=== PATIENT | male | born 1955 | race Caucasian/White ===

== ENCOUNTER 2020-07-08 14:32 | Outpatient (REF) | payer MEDICARE, SELFPAY ==
[2020-07-08 16:24] LABS: MANUAL DIFF FLAG NO
[2020-07-08 16:29] LABS: Basophils Absolute Auto 0.1 X10*3/uL (0.0-0.2); Basophils Percent Auto 0.6 % (0-2); Eosinophils Absolute Auto 0.3 X10*3/uL (0.0-0.4); Hematocrit 40.4 % (42-52); Hemoglobin 14.1 g/dl (14.0-18.0); Imm Gran Abs Auto 0.02 X10*3/uL (0.00-0.03); Imm Gran Pct Auto 0.3 % (0.0-0.4); Lymphocytes Absolute Auto 2.7 X10*3/uL (1.2-4.9); Lymphocytes Percent Auto 34.5 % (20-40); Mean Corpuscular HGB Conc 34.9 g/dl (31.0-36.0); Mean Corpuscular Hemoglobin 33.4 pg (27.0-33.0); Mean Corpuscular Volume 95.7 fL (80-98); Mean Platelet Volume 10.1 fL (9.4-12.4); Monocytes Absolute Auto 0.7 X10*3/uL (0.1-1.2); Monocytes Percent Auto 9.3 % (2-11); Neutrophils Percent Auto 51.3 % (45-73); Platelet Count 209 X10*3/uL (160-400); Red Blood Count 4.22 X10*6/uL (4.60-5.80); Red Cell Distribution Width 13.3 % (11.0-16.0); White Blood Count 7.7 X10*3/uL (4.8-10.8)
[2020-07-08 16:34] LABS: Estimated Average Glucose 120 mg/dL; Hemoglobin A1c % 5.8 %
[2020-07-08 16:54] LABS: Alanine Aminotransferase 38 U/L (0-40); Albumin Level 4.4 g/dL (3.5-5.0); Alkaline Phosphatase 88 U/L (39-117); Anion Gap 13 (12-20); Aspartate Amino Transferase 31 U/L (5-37); Bilirubin Total 1.1 mg/dL (0.0-1.0); Blood Urea Nitrogen 14 mg/dL (9-16); Calcium 9.6 mg/dL (8.4-10.2); Carbon Dioxide 25 mmol/L (22-29); Chloride 105 mmol/L (96-108); Estimated Glomerular Filt Rate > 60; Glucose Random 72 mg/dL (60-115); Potassium 4.1 mmol/L (3.3-5.1); Sodium 139 mmol/L (135-145); Total Protein 7.7 g/dL (6.5-8.0)
[2020-07-08 17:15] LABS: TSH reflex Free T4 1.08 uIU/mL (0.32-4.0)
[2020-07-08 17:17] LABS: Vitamin B12 681 pg/mL (200-900)
== END 2020-07-08 14:33 | disposition home or self-care (01) ==
LOC: HO.HMGCLDS 14:32
PROVIDERS: PCP Internal Medicine; Visit Provider Internal Medicine
DX: R26.89 Other abnormalities of gait and mobility (principal); I10 Essential (primary) hypertension; E78.9 Disorder of lipoprotein metabolism, unspecified; E13.9 Other specified diabetes mellitus without complications; Z79.4 Long term (current) 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
CPT/HCPCS: 36415; 80053; 82607; 83036; 84443; 85025

== ENCOUNTER → 2020-08-06 08:48 | Outpatient (BNVA) | payer MEDICARE, SELFPAY | PROVIDERS: PCP Internal Medicine; Referring Provider Internal Medicine; Visit Provider Internal Medicine Cardiovascular Disease | DX: I25.10 Atherosclerotic heart disease of native coronary artery without angina pectoris (principal); I73.9 Peripheral vascular disease, unspecified; E78.5 Hyperlipidemia, unspecified | CPT/HCPCS: 93005; 99212 ==

== ENCOUNTER 2020-08-19 07:08 | Outpatient (REF) | payer MEDICARE, SELFPAY ==
--- NOTE | ~2020-08-19 | MR_ITS ---
EXAMINATION: MR BRAIN WITHOUT CONTRAST CLINICAL INFORMATION: Multifactorial gait disorder. COMPARISON: None available. TECHNIQUE: Multiplanar, multisequence imaging of the brain was performed without intravenous contrast. FINDINGS: There is no acute infarction, hemorrhage, mass, or extra-axial fluid collection. There is disproportionate prominence of the lateral and third ventricles, effacement of the gyri at the frontal parietal vertex and narrowing of the callosal angle. A few scattered foci of T2/FLAIR hyperintensity are seen within the periventricular and deep cerebral white matter which are nonspecific. The major arterial flow voids are preserved at the skull base. The orbital contents appear normal. There is mild paranasal sinus mucosal thickening without fluid levels. 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 No acute infarct, mass, or extra-axial fluid collection.
== END 2020-08-19 07:09 | disposition home or self-care (01) ==
LOC: HO.MRI 07:08
PROVIDERS: PCP Internal Medicine; Visit Provider Psychiatry & Neurology Neurology
DX: R26.89 Other abnormalities of gait and mobility (principal)
CPT/HCPCS: 70551

== ENCOUNTER 2020-09-22 07:44 | Outpatient (REF) | payer MEDICARE, SELFPAY ==
[2020-09-22 12:01] LABS: Estimated Average Glucose 143 mg/dL; Hemoglobin A1c % 6.6 %
[2020-09-22 12:02] LABS: Anion Gap 11 (12-20); Blood Urea Nitrogen 15 mg/dL (9-16); Calcium 9.9 mg/dL (8.4-10.2); Carbon Dioxide 27 mmol/L (22-29); Chloride 106 mmol/L (96-108); Cholesterol 157 mg/dL; Estimated Glomerular Filt Rate 58; Glucose Fasting 131 mg/dL (60-99); HDL Cholesterol 50 mg/dL; LDL Cholesterol Calculated 56 mg/dl; Potassium 4.2 mmol/L (3.3-5.1); Sodium 140 mmol/L (135-145); Triglycerides 257 mg/dL
[2020-09-22 12:13] LABS: Creatinine Urine 97.93 mg/dL; Microalbum/Creatinine Ratio Ur 64.3 ug/mg cr
== END 2020-09-22 07:45 | disposition home or self-care (01) ==
LOC: HO.HMGCLDS 07:44
PROVIDERS: PCP Internal Medicine; Visit Provider Internal Medicine Cardiovascular Disease
DX: E13.9 Other specified diabetes mellitus without complications (principal); E78.9 Disorder of lipoprotein metabolism, unspecified; Z79.4 Long term (current) 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
CPT/HCPCS: 36415; 80048; 80061; 82043; 83036

== ENCOUNTER → 2020-11-18 09:22 | Outpatient (BNVA) | payer MEDICARE, SELFPAY | PROVIDERS: PCP Internal Medicine; Referring Provider Internal Medicine; Visit Provider Internal Medicine Cardiovascular Disease | DX: I25.10 Atherosclerotic heart disease of native coronary artery without angina pectoris (principal); I10 Essential (primary) hypertension | CPT/HCPCS: 99212 ==

== ENCOUNTER 2021-06-30 08:55 | Outpatient (REF) | payer MEDICARE, SELFPAY ==
[2021-06-30 12:01] LABS: Estimated Average Glucose 120 mg/dL; Hemoglobin A1c % 5.8 %
[2021-06-30 12:13] LABS: Alanine Aminotransferase 11 U/L (0-40); Albumin Level 4.7 g/dL (3.5-5.0); Alkaline Phosphatase 95 U/L (39-117); Anion Gap 14 (12-20); Aspartate Amino Transferase 24 U/L (5-37); Bilirubin Total 1.2 mg/dL (0.0-1.0); Blood Urea Nitrogen 13 mg/dL (9-16); Calcium 10.5 mg/dL (8.4-10.2); Carbon Dioxide 25 mmol/L (22-29); Chloride 103 mmol/L (96-108); Cholesterol 154 mg/dL; Estimated Glomerular Filt Rate 56; Glucose Fasting 99 mg/dL (60-99); HDL Cholesterol 51 mg/dL; LDL Cholesterol Calculated 76 mg/dl; Potassium 4.6 mmol/L (3.3-5.1); Sodium 137 mmol/L (135-145); Total Protein 8.3 g/dL (6.5-8.0); Triglycerides 137 mg/dL
[2021-06-30 12:17] LABS: Creatinine Urine 117.18 mg/dL; Microalbum/Creatinine Ratio Ur 22.1 ug/mg cr
== END 2021-06-30 08:56 | disposition home or self-care (01) ==
LOC: HO.HMGCLDS 08:55
PROVIDERS: Absent Provider Internal Medicine Cardiovascular Disease; PCP Internal Medicine; Visit Provider Internal Medicine
DX: I25.10 Atherosclerotic heart disease of native coronary artery without angina pectoris (principal); E13.9 Other specified diabetes mellitus without complications; E78.9 Disorder of lipoprotein metabolism, unspecified; L40.9 Psoriasis, unspecified; I10 Essential (primary) hypertension; G20 Parkinson's disease; Z79.4 Long term (current) 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
CPT/HCPCS: 36415; 80053; 80061; 82043; 83036

== ENCOUNTER → 2021-06-30 13:36 | Outpatient (REF) | payer MEDICARE, SELFPAY ==
--- NOTE | 2021-06-30 13:43 | CA_ITS ---
Transthoracic Echocardiogram Patient (Last, First, Middle): Jersey Quigley A Gender: Male Date of : 1955 Age: 65 Procedure Date: 06/30/2021 Procedure Type: Transthoracic Echocardiogram Location: OP Height: 182.88 cm Weight: 93.9 kg BSA: 2.16 m2 Heart Rate: bpm BP: 130 / 80 mmHg Corporate Coordinator: MARÍA Referring MD: Levy Bazan MD Cherry Dipper: Levy Bazan MD Symptoms: I25.10 - Atherosclerotic heart disease of [place] coronary... Study Quality: Technically Difficult/Contrast ECG Rhythm: Sinus Conclusions: - 1. Technically limited study despite use of contrast agent 2. Normal LV systolic function with impaired relaxation filling pattern 3. Normal cardiac valvular Dopplers 4. Normal RV systolic pressure Findings Procedure Information Contrast agent, definity, is being given per protocol without apparent complications. Left Ventricle Normal left ventricular size, thickness, and systolic function. The visually estimated ejection fraction is between 55-60%. Spectral Doppler is indicative of an impaired relaxation filling pattern. E/E prime ratio is <8, consistent with normal filling pressures. Wall Motion Rest Echo Findings The basal inferior segment is hypokinetic. All other scored wall segments showed normal motion. Right Ventricle Normal right ventricular cavity size and systolic function. Atria Both atria are normal in size. Interatrial shunt cannot be excluded. Aortic Valve The aortic valve was not well visualized. There is no aortic valve stenosis. There is no aortic valve regurgitation. Mitral Valve There is mild anterior and posterior mitral leaflet thickening. There is mild mitral valve regurgitation. There is no mitral valve stenosis. Tricuspid Valve The tricuspid valve was not well visualized. There is trace tricuspid valve regurgitation. The right ventricular systolic pressure is normal. The right ventricular systolic pressure is 13 mmHg. Normal right atrial pressure. There is no evidence of pulmonary hypertension. Great Vessels The aorta was not well visualized. Venous The inferior vena cava is normal in size and collapses greater than 50% with inspiration. Pericardium/Pleural The pericardium was not well visualized. Prior Study Comparison No significant change compared to prior study dated: 08/11/2017. Measurements 2D Linear Measurements IVSd: 1.10 0.6-0.9/0.6-1.0 cm LVIDd: 4.27 3.9-5.3/4.2-5.9 cm LVIDd Index: 1.98 2.4-3.2/2.2-3.1 cm/m2 LVIDs: 2.71 2.0-3.6 cm LVPWd: 1.12 0.7-1.1 cm LA Diam: 3.00 2.7-3.8/3.0-4.0 cm LAIDs Index: 1.39 1.5-2.3 cm/m2 LV Mass: 203.33 67-162/88-224 g LV Mass Index: 94.13 43-95/49-115 g/m2 LVOT Diam: 2.10 3.0+(-)1.3 cm 2D Systolic Function EF 4C: 57.10 >55% EF 2C: 53.50 >55% EF BiP: 56.10 >55% Mitral Valve MV Pk E: 0.74 MV PK A: 0.84 MV Decel Time: 176.00 E/A: 0.90 E'Lateral: 6.53 E'Medial: 5.55 E/E' Med: 13.40 E/E' Lat: 11.30 PHT: 52.00 MVA PHT: 4.23 Decel Curry: 4.20 Aortic Valve AoV Pk Adrian: 1.33 AoV Mn Adrian: 0.97 AoV VTI: 0.24 AoV Pk Grad: 7.00 Aov Mn Grad: 4.00 RAISA Cont.VTI: 1.90 LVOT LVOT Pk Adrian: 0.88 LVOT Mn Adrian: 0.54 LVOT VTI: 0.13 LVOT Pk Grad: 3.00 LVOT Mn Grad: 1.00 LVOT Diam: 2.10 LVOT Area: 3.46 Diastolic Function MV Pk E: 0.74 MV Pk A: 0.84 E/A: 0.90 E'Medial: 5.55 E/E' Med: 13.40 E' Laterial: 6.53 E/E' Lat: 11.30 Right Ventricle TAPSE (mm): 17.50 TVS' Adrian: 10.40 Tricuspid Valve TR Pk Adrian: 1.57 TR Pk Grad: 10.00 RA Press: 3.00 RVSP: 13.00 Great Vessels Aorta Sinus of Valsalva: 3.37 2.0-3.5 cm Ao Asc: 3.40 2.1-3.4 cm Ao Arch: 2.40 Updated in Other Vendor System with Status of Final Levy Bazan MD electronically signed on 07/02/2021 2:53:50 PM with status of Final
== END ==
LOC: HO.CARD 13:36
PROVIDERS: PCP Internal Medicine; Visit Provider Internal Medicine Cardiovascular Disease
DX: I25.10 Atherosclerotic heart disease of native coronary artery without angina pectoris (principal)
CPT/HCPCS: 93306; Q9957

== ENCOUNTER → 2021-07-06 08:59 | Outpatient (BNVA) | payer MEDICARE, SELFPAY | PROVIDERS: PCP Internal Medicine; Referring Provider Internal Medicine; Visit Provider Internal Medicine Cardiovascular Disease | DX: I25.10 Atherosclerotic heart disease of native coronary artery without angina pectoris (principal); I10 Essential (primary) hypertension | CPT/HCPCS: 93005; 99212 ==

== ENCOUNTER 2021-07-21 07:17 | Outpatient (REF) | payer MEDICARE, SELFPAY ==
--- NOTE | ~2021-07-21 | MR_ITS ---
MRI OF THE BRAIN WITHOUT IV CONTRAST INDICATION: Normal pressure hydrocephalus. COMPARISON: Brain MRI 08/19/2020. TECHNIQUE: Multiplanar multisequence MR imaging of the brain was obtained without IV contrast. FINDINGS: There is stable moderate to severe lateral and third ventriculomegaly associated with a narrowed callosal angle of 42 degrees, findings most suggestive of normal pressure hydrocephalus. Periventricular T2 signal changes may reflect transependymal CSF flow and/or chronic microangiopathy. The major flow voids at the skull base are preserved. There is no acute infarct on diffusion-weighted imaging. There is no intracranial hemorrhage on the gradient recalled echo acquisition. The midline structures are normal. The cerebellar tonsils are normally positioned. The cerebellum and brainstem are normal. The craniocervical junction is normal. Osseous marrow signal intensity is homogenous. The visualized soft tissues are unremarkable. MR/MR head/brain wo con IMPRESSION: Imaging findings remain most suggestive of normal pressure hydrocephalus. Periventricular T2 signal changes may reflect transependymal CSF flow and/or chronic microangiopathy.
== END 2021-07-21 07:18 | disposition home or self-care (01) ==
LOC: HO.MRI 07:17
PROVIDERS: Visit Provider Psychiatry & Neurology Neurology
DX: G91.2 (Idiopathic) normal pressure hydrocephalus (principal)
CPT/HCPCS: 70551

== ENCOUNTER 2021-07-21 08:09 | Day surgery (SDC) | payer MEDICARE, SELFPAY ==
[2021-07-21] VITALS (7 sets, daily range): BP systolic 135–156; BP diastolic 68–81; PULSE 62–71; RESP 16–18; TEMP 36.4–37; O2SAT 97–99; BMI 27.9
[2021-07-21 10:21] LABS: Glucose CSF 85 mg/dL; Total Protein CSF 66.6 mg/dL (15-45)
--- NOTE | 2021-07-21 10:37 | OP_ITS ---
SURGEON: Yaneth Tanner MD PREOPERATIVE DIAGNOSIS: POSTOPERATIVE DIAGNOSIS: PROCEDURE PERFORMED: Lumbar puncture. Risks and benefits of lumbar puncture were discussed with him in detail including possibility of low back pain, nerve injury, infection intractable headache that sometime required similar procedure for treatment, leg pain, numbness, weakness. His questions were answered before the procedure. He was placed in left lateral position. Lower lumbar area was cleaned with Betadine and draped. 1% lidocaine was injected in L5-S1 space. A 21-gauge spinal needle was introduced in CSF cavity. Clear CSF was obtained. Opening pressure was 19 cm water. About 15 cc of clear CSF was removed. Trocar was replaced and needle removed. Area was cleaned and a Band-Aid applied. Right after the procedure, he was asked to get up and walk around and his walking, according to him, was much better. He was not using any assistive device at that time. CSF was sent to the lab. ESTIMATED BLOOD LOSS: COMPLICATIONS: ANESTHESIA: ASSISTANTS: SPECIMENS: MD FEI Fajardo/YOLY / [id number]
[2021-07-21 11:01] LABS: Appearance CSF CLEAR; CSF Tube # 4; Color CSF COLORLESS; Lymphocytes CSF 100 %; Red Blood Cell CSF 0 MM*3; White Blood Cell CSF 1 MM*3
[2021-07-21 14:01] LABS: CSF Appearance Clear, Colorless; CSF Tube # 1
== END 2021-07-21 10:00 | disposition home or self-care (01) ==
PROVIDERS: PCP Internal Medicine; Visit Provider Psychiatry & Neurology Neurology
PROC: 009U3ZZ Drainage of Spinal Canal, Percutaneous Approach (ICD-10-PCS; CPT 62270; principal; 2021-07-21 08:00)
DX: G91.2 (Idiopathic) normal pressure hydrocephalus (principal); G20 Parkinson's disease; R26.89 Other abnormalities of gait and mobility; Z91.81 History of falling; I25.10 Atherosclerotic heart disease of native coronary artery without angina pectoris; I25.42 Coronary artery dissection; Z98.61 Coronary angioplasty status; E11.9 Type 2 diabetes mellitus without complications; Z79.4 Long term (current) 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; G62.9 Polyneuropathy, unspecified; G47.00 Insomnia, unspecified; Z87.891 Personal history of nicotine dependence; M19.90 Unspecified osteoarthritis, unspecified site; Z96.643 Presence of artificial hip joint, bilateral; L40.9 Psoriasis, unspecified; Z79.899 Other long term (current) drug therapy
CPT/HCPCS: 62270; 82945; 84157; 87015; 87070; 87205; 89051

== ENCOUNTER 2022-06-30 09:05 | Outpatient (REF) | payer MEDICARE, SELFPAY ==
--- NOTE | ~2022-06-30 | US_ITS ---
EXAMINATION: US ABDOMEN COMPLETE CLINICAL INFORMATION: Pain increasing abdominal circumference with shunt.. COMPARISON: None available. TECHNIQUE: Real-time imaging of the abdominal viscera. FINDINGS: PANCREAS: Partially visualized pancreas within normal limits. ABDOMINAL AORTA: Some atherosclerotic changes seen. No aneurysmal change INFERIOR VENA CAVA: Visualized portions are normal. The liver measures 17.9 cm characterized by increased echogenicity. Coarse and echogenicity. Liver is incompletely visualized due to decreased penetrability of the beam. No lesion on the imaging submitted. Gallbladder shows no convincing evidence of stone or edema. Common duct is 3 mm. The right kidney is 13 cm and left kidney is 12 cm. No hydronephrosis. There is no stone. Spleen is 11 cm. Scanning of the upper quadrants and lower quadrants does not demonstrate free fluid. US/US abdomen complete IMPRESSION: No free fluid is demonstrated here. No evidence of cholelithiasis or cholecystitis. Enlarged incompletely visualized echogenic liver most consistent with fatty change. Cirrhosis would be a consideration. Hepatitis be consideration.
[2022-06-30 11:23] LABS: MANUAL DIFF FLAG NO
[2022-06-30 11:37] LABS: Basophils Absolute Auto 0.1 X10*3/uL (0.0-0.2); Basophils Percent Auto 1.1 % (0-2); Eosinophils Absolute Auto 0.2 X10*3/uL (0.0-0.4); Eosinophils Percent Auto 2.5 % (0-4); Hematocrit 44.5 % (42.0-52.0); Hemoglobin 15.1 g/dl (14.0-18.0); Imm Gran Abs Auto 0.02 X10*3/uL (0.00-0.03); Imm Gran Pct Auto 0.3 % (0.0-0.4); Lymphocytes Absolute Auto 1.5 X10*3/uL (1.2-4.9); Lymphocytes Percent Auto 21.4 % (20-40); Mean Corpuscular HGB Conc 33.9 g/dl (31.0-36.0); Mean Corpuscular Hemoglobin 32.2 pg (27.0-33.0); Mean Corpuscular Volume 94.9 fL (80.0-98.0); Mean Platelet Volume 10.4 fL (9.4-12.4); Monocytes Absolute Auto 0.6 X10*3/uL (0.1-1.2); Monocytes Percent Auto 8.8 % (2-11); Neutrophils Absolute Auto 4.7 x10*3/uL (2.0-8.3); Neutrophils Percent Auto 65.9 % (45-73); Platelet Count 227 X10*3/uL (160-400); Red Blood Count 4.69 X10*6/uL (4.60-5.80); Red Cell Distribution Width 13.2 % (11.0-16.0); White Blood Count 7.1 X10*3/uL (4.8-10.8)
[2022-06-30 11:51] LABS: Alanine Aminotransferase 31 U/L (0-40); Albumin Level 4.6 g/dL (3.5-5.0); Alkaline Phosphatase 105 U/L (39-117); Anion Gap 15 (12-20); Aspartate Amino Transferase 22 U/L (5-37); Bilirubin Total 1.6 mg/dL (0.0-1.0); Blood Urea Nitrogen 13 mg/dL (9-16); Carbon Dioxide 25 mmol/L (22-29); Chloride 106 mmol/L (96-108); Cholesterol 137 mg/dL; Estimated Glomerular Filt Rate > 60; Glucose Fasting 120 mg/dL (60-99); HDL Cholesterol 37 mg/dL; LDL Cholesterol Calculated 78 mg/dl; Potassium 4.8 mmol/L (3.3-5.1); Sodium 141 mmol/L (135-145); Total Protein 7.8 g/dL (6.5-8.0); Triglycerides 111 mg/dL
[2022-06-30 12:21] LABS: Estimated Average Glucose 120 mg/dL; Hemoglobin A1C 152.5356 umol/L; Hemoglobin A1c % 5.8 %
== END 2022-06-30 09:06 | disposition home or self-care (01) ==
LOC: HO.HMGCLDS 09:05
PROVIDERS: PCP Internal Medicine; Visit Provider Internal Medicine
DX: R10.11 Right upper quadrant pain (principal); E13.9 Other specified diabetes mellitus without complications; I10 Essential (primary) hypertension; E78.9 Disorder of lipoprotein metabolism, unspecified; Z98.2 Presence of cerebrospinal fluid drainage device
CPT/HCPCS: 36415; 76700; 80053; 80061; 83036; 85025

== ENCOUNTER → 2022-07-28 09:05 | Outpatient (BNVA) | payer MEDICARE, SELFPAY | PROVIDERS: PCP Internal Medicine; Referring Provider Internal Medicine; Visit Provider Internal Medicine Cardiovascular Disease | DX: I25.10 Atherosclerotic heart disease of native coronary artery without angina pectoris (principal); I10 Essential (primary) hypertension; Z79.899 Other long term (current) drug therapy | CPT/HCPCS: 93005; 99212 ==

== ENCOUNTER 2022-10-11 08:44 | Outpatient (AMB) | payer MEDICARE, SELFPAY ==
--- NOTE | 2022-10-11 08:45 | A.OFFPC_ITS ---
Vital Signs 10/11/22 08:49 Height 6 ft Weight 204 lb 8 oz BMI 27.7 BP 120/62 Blood Pressure Location Rt brachial Position Sitting Pulse 96 Pulse Source Pulse Oximeter Pulse Oximetry (%) 99 Oxygen Delivery Method Room Air Intake Visit Reasons: PE Allergies No Known Allergies [No Known Allergies*] Allergy (Verified 08/02/22 08:42) Medication List - Last Reconciled 10/11/22 by Padma Tanner MD aspirin (Adult Low Dose Aspirin) 81 mg PO DAILY blood sugar diagnostic ([employer] Ultra Blue Test Strip) check sugar three times a day cholecalciferol (vitamin D3) 25 mcg PO DAILY clopidogrel 75 mg PO DAILY cyanocobalamin (vitamin B-12) (Vitamin B-12) 1,000 mcg PO DAILY ezetimibe 10 mg PO DAILY insulin glargine U-300 conc (Toujeo Max U-300 SoloStar) 100 units (0.3333 mL) s ubcut DAILY 90 days lisinopril 2.5 mg PO DAILY 90 days omega-3 acid ethyl esters 2 caps PO BID omeprazole 20 mg PO DAILY 90 days pen needle, diabetic (Pen Needle) use one daily rosuvastatin 40 mg PO DAILY 90 days Tobacco use date assessed: 08/02/22 HPI PE HPI Details Patient is 67-year-old male came in today for physical exam Patient is insulin-dependent diabetic with well controlled hemoglobin A1c Patient have a 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 He also have a history of left hip replacement. Joints are doing well. He is complaining of feeling tired, since he is on blood thinner he he will need hemoglobin monitoring. History of vitamin B12 deficiency and vitamin-D deficiency we will monitor the level Patient is on rosuvastatin 40 mg for lipid control And omeprazole for chronic GERD along with insulin for diabetes. He has intracranial shunt placed as well due to hydrocephalus, since the shunt is placed patient is doing well Before that patient was given a diagnosis of Parkinson's due to his symptoms but that has resolved. Lab order placed patient is fasting Follow-up Q 3 months, physical exam 1 year [facility] Medical History CAD (coronary artery disease) Diabetes 1.5, managed as type 1 HLD (hyperlipidemia) HTN (hypertension) Lipid disorder MCFP (current) 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 Old inferior wall myocardial infarction (~07/2004) Psoriasis Pulmonary embolism Vitamin D deficiency Surgical History Herniated disc History of cardiac cath (~12/2014) History of cardiac cath (~12/2014) History of cardiac cath (~10/2016) History of hip replacement History of knee surgery History of shoulder surgery History of surgery Hx of cardiac cath (~10/2009) Family History Father Diabetes mellitus Mother No problems noted. Brother No problems noted. Son No problems noted. Daughter No problems noted. Social History Household Members: Spouse Household Members Other:: retired, lives in [place] for the winter Housing: House Patient Tobacco Use Status: Former Tobacco user Years Smoked: 20 years e-Cigarette/Vaping Use: Never Used Current occupational status: retired Cognitive needs: No Hearing needs: No Vision needs: Yes Questionnaire PHQ-9 Over the last 2 weeks, how often have you been bothered by any of the following problems? 1. Little interest or pleasure in doing things: not at all 2. Feeling down, depressed, or hopeless: not at all 3. Trouble falling or staying asleep, or sleeping too much: nearly every day 4. Feeling tired or having little energy: more than half the days 5. Poor appetite or overeating: not at all 6. Feeling bad about yourself - or that you are a failure or have let yourself or your family down: not at all 7. Trouble concentrating on things, such as reading the newspaper or watching television: not at all 8. Moving or speaking so slowly that other people could have noticed. Or the opposite - being so fidgety or restless that you have been moving around a lot more than usual: nearly every day 9. Thoughts that you would be better off or of hurting yourself in some way: not at all Total score: 8 Depression Screening Interpretation: Negative 84165 - PHQ-9 Billing: Yes Source: Developed by Drs. Anthony Yang, Mirna Griggs, Damian Nava and colleagues, with an educational angelo from [employer]. Thrive Questionnaire Date Thrive assessed: 06/30/21 BRITTANY-7 AMB Questionnaire BRITTANY-7 Date BRITTANY - 7 assessed: 06/30/21 Source: Developed by Drs. Anthony Yang, Mirna Griggs, Damian Nava and colleagues, with an educational angelo from [employer]. Review of Systems Const Denies chills, Denies fever(s) and Denies headache(s) Eyes Denies blurry vision ENT Denies headache(s), Denies nasal discharge, Denies nasal obstruction, Denies odynophagia and Denies sinus pain Card Denies chest pain at rest and Denies chest pain with activity Resp Denies cough and Denies hemoptysis GI Denies diarrhea, Denies odynophagia, Denies vomiting and Denies hematemesis Reports as per HPI Musc Denies abnormal gait Skin/Breast Reports as per HPI Neuro Denies Neuro-related abnormal movements, Denies Abnormal speech present, Denies abnormal gait, Denies headache(s) and Denies Sensory deficit (Neuro) Psych Denies mood swings and Denies paranoia Endo Reports as per HPI Renan/Lymph Reports as per HPI Aller/Immun Reports as per HPI Physical exam (Primary Care) Vital Signs: Last Vital Signs Pulse 96 10/11/22 08:49 BP 120/62 10/11/22 08:49 Pulse Ox 99 10/11/22 08:49 Oxygen Delivery Method Room Air 10/11/22 08:49 BMI result Body Mass Index 27.7 Tobacco/Smoking Status: Tobacco use Status Tobacco use date assessed 08/02/22 10/11/22 08:45 Patient Tobacco Use Status Former Tobacco user 10/11/22 08:45 e-Cigarette/Vaping Use Never Used 10/11/22 08:45 Depression Screening Interpretation: Negative Thrive Assessment: Date of Thrive Assessment Date Thrive assessed 06/30/21 10/11/22 08:45 Const General: cooperative, comfortable and no acute distress Orientation/consciousness: patient oriented x3 HENMT Head: Yes normocephalic and Yes atraumatic Eyes General: appearance normal, both eyes and all related structures Pupils: Equal, round and reactive pupils present EOM: EOMs intact bilaterally Neck Neck: Yes supple and No lymphadenopathy Thyroid: Thyroid normal Lymphatic: no lymphadenopathy noted Chest Breast/axilla palpation: normal palpation of the breasts Resp Effort & Inspection: normal respiratory effort and able to speak in complete sentences Auscultation: clear to auscultation bilaterally Cardio Heart sounds: S1 normal heart sound present and S2 normal heart sound present GI Palpation (GI): Soft to palpation and nontender Auscultation: normal bowel sounds General: Yes no CVA tenderness Back/Spine/Pelvis Back: no CVA tenderness Skin General skin exam: elasticity normal and turgor normal Neuro Other: Patient had difficulty doing tandem walk General: patient oriented x3 and gait normal Cranial nerves: Yes Equal, round and reactive pupils present Speech: No Abnormal speech present Sensory Exam: No Sensory deficit (Neuro) Coordination: Romberg test negative Extrem General: Yes normal exam except as noted and No edema Assessment and Plan Assessment & Plan (1) Encounter for general adult medical examination with abnormal findings: Code(s): Z00.01 - Encounter for general adult medical examination with abnormal findings (2) buttermaker 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 churn (current) 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: Code(s): Z79.4 - MCFP (current) 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 (3) Diabetes 1.5, managed as type 1: Code(s): E13.9 - Other specified diabetes mellitus without complications (4) Lipid disorder: Code(s): E78.9 - Disorder of lipoprotein metabolism, unspecified (5) Vitamin D deficiency: Code(s): E55.9 - Vitamin D deficiency, unspecified (6) HTN (hypertension): Code(s): I10 - Essential (primary) hypertension (7) Balance disorder: Code(s): R26.89 - Other abnormalities of gait and mobility (8) Fatigue: Code(s): R53.83 - Other fatigue (9) Hx of mcfp use of blood thinners: Code(s): Z92.29 - Personal history of other drug therapy (10) History of pulmonary embolism: Code(s): Z86.711 - Personal history of pulmonary embolism (11) Hydrocephalus: Code(s): G91.9 - Hydrocephalus, unspecified (12) Intracranial shunt: Code(s): Z98.2 - Presence of cerebrospinal fluid drainage device (13) History of bilateral hip replacements: Code(s): Z96.643 - Presence of artificial hip joint, bilateral (14) Peripheral neuropathy: Code(s): G62.9 - Polyneuropathy, unspecified Plan Patient is 67-year-old male came in today for physical exam Patient is insulin-dependent diabetic with well controlled hemoglobin A1c Patient have a 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 He also have a history of left hip replacement. Joints are doing well. He is complaining of feeling tired, since he is on blood thinner he he will need hemoglobin monitoring. History of vitamin B12 deficiency and vitamin-D deficiency we will monitor the level Patient is on rosuvastatin 40 mg for lipid control And omeprazole for chronic GERD along with insulin for diabetes. He has intracranial shunt placed as well due to hydrocephalus, since the shunt is placed patient is doing well Before that patient was given a diagnosis of Parkinson's due to his symptoms but that has resolved. Lab order placed patient is fasting Follow-up Q 3 months, physical exam 1 year Orders: Orders Vitamin B12 Today E13.9 - Other specified diabetes mellitus without complications, E55.9 - Vitamin D deficiency, unspecified, E78.9 - Disorder of lipoprotein metabolism, unspecified, I10 - Essential (primary) hypertension, R26.89 - Other abnormalities of gait and mobility, R53.83 - Other fatigue, Z00.01 - Encounter for general adult medical examination with abnormal findings, Z79.4 - MCFP (current) 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, Z86.711 - Personal history of pulmonary embolism, Z92.29 - Personal history of other drug therapy Comprehensive [place]. Panel Fast Today E13.9 - Other specified diabetes mellitus without complications, E55.9 - Vitamin D deficiency, unspecified, E78.9 - Disorder of lipoprotein metabolism, unspecified, I10 - Essential (primary) hypertension, R26.89 - Other abnormalities of gait and mobility, R53.83 - Other fatigue, Z00.01 - Encounter for general adult medical examination with abnormal findings, Z79.4 - MCFP (current) 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, Z86.711 - Personal history of pulmonary embolism, Z92.29 - Personal history of other drug therapy Hemoglobin A1c Today E13.9 - Other specified diabetes mellitus without co mplications, E55.9 - Vitamin D deficiency, unspecified, E78.9 - Disorder of lipoprotein metabolism, unspecified, I10 - Essential (primary) hypertension, R26.89 - Other abnormalities of gait and mobility, R53.83 - Other fatigue, Z00.01 - Encounter for general adult medical examination with abnormal findings, Z79.4 - buttermaker continuous churn (current) 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, Z86.711 - Personal history of pulmonary embolism, Z92.29 - Personal history of other drug therapy Lipid Panel Today E13.9 - Other specified diabetes mellitus without complications, E55.9 - Vitamin D deficiency, unspecified, E78.9 - Disorder of lipoprotein metabolism, unspecified, I10 - Essential (primary) hypertension, R26.89 - Other abnormalities of gait and mobility, R53.83 - Other fatigue, Z00.01 - Encounter for general adult medical examination with abnormal findings, Z79.4 - buttermaker continuous churn (current) 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, Z86.711 - Personal history of pulmonary embolism, Z92.29 - Personal history of other drug therapy TSH reflex Free T4 Today E13.9 - Other specified diabetes mellitus without complications, E55.9 - Vitamin D deficiency, unspecified, E78.9 - Disorder of lipoprotein metabolism, unspecified, I10 - Essential (primary) hypertension, R26.89 - Other abnormalities of gait and mobility, R53.83 - Other fatigue, Z00.01 - Encounter for general adult medical examination with abnormal findings, Z79.4 - buttermaker continuous churn (current) 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, Z86.711 - Personal history of pulmonary embolism, Z92.29 - Personal history of other drug therapy Vitamin D 25-OH (D2 and D3) Today E13.9 - Other specified diabetes mellitus without complications, E55.9 - Vitamin D deficiency, unspecified, E78.9 - Disorder of lipoprotein metabolism, unspecified, I10 - Essential (primary) hypertension, R26.89 - Other abnormalities of gait and mobility, R53.83 - Other fatigue, Z00.01 - Encounter for general adult medical examination with abnormal findings, Z79.4 - MCFP (current) 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, Z86.711 - Personal history of pulmonary embolism, Z92.29 - Personal history of other drug therapy Microalbumin, Random (w Creat) Today E13.9 - Other specified diabetes mellitus without complications, E55.9 - Vitamin D deficiency, unspecified, E78.9 - Disorder of lipoprotein metabolism, unspecified, I10 - Essential (primary) hypertension, R26.89 - Other abnormalities of gait and mobility, R53.83 - Other fatigue, Z00.01 - Encounter for general adult medical examination with abnormal findings, Z79.4 - buttermaker continuous churn (current) 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, Z86.711 - Personal history of pulmonary embolism, Z92.29 - Personal history of other drug therapy Complete Blood Count Auto Diff Today E13.9 - Other specified diabetes mellitus without complications, E55.9 - Vitamin D deficiency, unspecified, E78.9 - Disorder of lipoprotein metabolism, unspecified, I10 - Essential (primary) hypertension, R26.89 - Other abnormalities of gait and mobility, R53.83 - Other fatigue, Z00.01 - Encounter for general adult medical examination with abnormal findings, Z79.4 - buttermaker continuous churn (current) 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, Z86.711 - Personal history of pulmonary embolism, Z92.29 - Personal history of other drug therapy Coding Level of Care Code Est Pt Prev Care >65y(07928) Diagnoses Encounter for general adult medical examination with abnormal findings Z00.01 MCFP (current) 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 Z79.4 Diabetes 1.5, managed as type 1 E13.9 Lipid disorder E78.9 Vitamin D deficiency E55.9 HTN (hypertension) I10 Balance disorder R26.89 Fatigue R53.83 Hx of mcfp use of blood thinners Z92.29 History of pulmonary embolism Z86.711 Hydrocephalus G91.9 Intracranial shunt Z98.2 History of bilateral hip replacements Z96.643 Peripheral neuropathy G62.9
[2022-10-11 08:49] VITALS: BP 120/62; PULSE 96; O2SAT 99; BMI 27.7
== END 2022-10-11 09:06 | disposition home or self-care (01) ==
PROVIDERS: PCP Internal Medicine; Visit Provider Internal Medicine
DX: Z00.01 Encounter for general adult medical examination with abnormal findings (principal); Z79.4 Long term (current) 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; E13.9 Other specified diabetes mellitus without complications; E55.9 Vitamin D deficiency, unspecified; I10 Essential (primary) hypertension; E78.9 Disorder of lipoprotein metabolism, unspecified; R26.89 Other abnormalities of gait and mobility; R53.83 Other fatigue; Z92.29 Personal history of other drug therapy; Z86.711 Personal history of pulmonary embolism; G91.9 Hydrocephalus, unspecified; Z98.2 Presence of cerebrospinal fluid drainage device
CPT/HCPCS: 99397

== ENCOUNTER 2022-10-11 09:10 | Outpatient (REF) | payer MEDICARE, SELFPAY ==
[2022-10-11 11:16] LABS: MANUAL DIFF FLAG NO
[2022-10-11 11:23] LABS: Basophils Absolute Auto 0.1 X10*3/uL (0.0-0.2); Basophils Percent Auto 1.1 % (0-2); Eosinophils Absolute Auto 0.3 X10*3/uL (0.0-0.4); Eosinophils Percent Auto 3.6 % (0-4); Hematocrit 44.7 % (42.0-52.0); Hemoglobin 15.2 g/dl (14.0-18.0); Imm Gran Abs Auto 0.03 X10*3/uL (0.00-0.03); Imm Gran Pct Auto 0.4 % (0.0-0.4); Lymphocytes Absolute Auto 1.9 X10*3/uL (1.2-4.9); Lymphocytes Percent Auto 23.2 % (20-40); Mean Corpuscular Hemoglobin 31.9 pg (27.0-33.0); Mean Corpuscular Volume 93.7 fL (80.0-98.0); Monocytes Absolute Auto 0.7 X10*3/uL (0.1-1.2); Neutrophils Absolute Auto 5.2 x10*3/uL (2.0-8.3); Neutrophils Percent Auto 63.7 % (45-73); Platelet Count 197 X10*3/uL (160-400); Red Blood Count 4.77 X10*6/uL (4.60-5.80); Red Cell Distribution Width 13.1 % (11.0-16.0); White Blood Count 8.1 X10*3/uL (4.8-10.8)
[2022-10-11 11:27] LABS: Estimated Average Glucose 117 mg/dL; Hemoglobin A1c % 5.7 % (<6.0)
[2022-10-11 12:15] LABS: Alanine Aminotransferase 25 U/L (0-40); Albumin Level 4.6 g/dL (3.5-5.0); Alkaline Phosphatase 93 U/L (39-117); Anion Gap 14 (12-20); Aspartate Amino Transferase 19 U/L (5-37); Bilirubin Total 1.6 mg/dL (0.0-1.0); Blood Urea Nitrogen 22 mg/dL (9-16); Calcium 10.5 mg/dL (8.4-10.2); Carbon Dioxide 24 mmol/L (22-29); Chloride 107 mmol/L (96-108); Cholesterol 134 mg/dL (<200); Estimated Glomerular Filt Rate 56; Glucose Fasting 156 mg/dL (60-99); HDL Cholesterol 36 mg/dL (>40); LDL Cholesterol Calculated 63 mg/dL (<100); Potassium 4.2 mmol/L (3.3-5.1); Sodium 141 mmol/L (135-145); TSH reflex Free T4 1.52 uIU/mL (0.32-4.0); Total Protein 8.4 g/dL (6.5-8.0); Triglycerides 175 mg/dL (<150)
[2022-10-11 12:21] LABS: Creatinine Urine 259.66 mg/dL; Microalbum/Creatinine Ratio Ur 12.3 ug/mg cr (<30)
[2022-10-11 12:21] LABS: Vitamin B12 424 pg/mL (200-900)
[2022-10-15 12:53] LABS: Vitamin D 25-OH, D2 <4 ng/mL; Vitamin D 25-OH, D3 36 ng/mL; Vitamin D 25-OH, Total 36 ng/mL (30-100)
== END 2022-10-11 09:11 | disposition home or self-care (01) ==
LOC: HO.HMGCLDS 09:10
PROVIDERS: PCP Internal Medicine; Visit Provider Internal Medicine
DX: Z00.01 Encounter for general adult medical examination with abnormal findings (principal); E13.9 Other specified diabetes mellitus without complications; E55.9 Vitamin D deficiency, unspecified; E78.9 Disorder of lipoprotein metabolism, unspecified; I10 Essential (primary) hypertension; R26.89 Other abnormalities of gait and mobility; R53.83 Other fatigue; Z79.4 Long term (current) 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; Z86.711 Personal history of pulmonary embolism; Z92.29 Personal history of other drug therapy
CPT/HCPCS: 36415; 80053; 80061; 82043; 82306; 82607; 83036; 84443; 85025

== ENCOUNTER 2022-12-16 11:47 | Outpatient (AMB) | payer MEDICARE, SELFPAY ==
--- NOTE | 2022-12-16 11:59 | MHC.PC.OV ---
Vital Signs 12/16/22 12:01 Height 6 ft Weight 206 lb 2 oz BMI 28.0 BP 118/60 Blood Pressure Location Rt brachial Position Sitting Pulse 83 Pulse Source Pulse Oximeter Pulse Oximetry (%) 99 Oxygen Delivery Method Room Air Intake Visit Reasons: 3 month follow up Allergies No Known Allergies [No Known Allergies*] Allergy (Verified 12/16/22 12:07) Medication List - Last Reconciled 12/16/22 by Padma Tanner MD aspirin (Adult Low Dose Aspirin) 81 mg PO DAILY blood sugar diagnostic ([employer] Ultra Blue Test Strip) check sugar three times a day cholecalciferol (vitamin D3) 25 mcg PO DAILY clopidogrel 75 mg PO DAILY cyanocobalamin (vitamin B-12) (Vitamin B-12) 1,000 mcg PO DAILY ezetimibe 10 mg PO DAILY insulin glargine U-300 conc (Toujeo Max U-300 SoloStar) 100 units (0.3333 mL) subcut DAILY 90 days lisinopril 2.5 mg PO DAILY 90 days omega-3 acid ethyl esters 2 caps PO BID omeprazole 20 mg PO DAILY 90 days pen needle, diabetic (Pen Needle) use one daily rosuvastatin 40 mg PO DAILY 90 days Tobacco use date assessed: 12/16/22 Fall risk assessment: No Falls in past year Last assessed Fall Risk: 12/16/22 Dental Screening Dental Screen Date: 12/16/22 Did you have a dental visit in the last 12 months?: Yes Did you have a dental problem in the last 6 months where you did not have access to dental care?: No Was dental information given to patient?: Patient has dentist HPI 3 month follow up HPI Details Patient is 67-year-old male came in today for regular follow-up Patient is insulin-dependent diabetic with well controlled hemoglobin A1c 5.7 I am reducing his insulin to 90 units rather than 100, long-acting at night Patient have a 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 He also have a history of left hip replacement. Joints are doing well. History of vitamin B12 deficiency and vitamin-D deficiency , continue supplements Patient is on rosuvastatin 40 mg for lipid control Taking omeprazole for chronic GERD He has intracranial shunt placed as well due to hydrocephalus, since the shunt is placed patient is doing well Before that patient was given a diagnosis of Parkinson's due to his symptoms but that has resolved. 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 Brother No problems noted. Son No problems noted. Daughter No problems noted. Social History Household Members: Spouse Household Members Other:: retired, lives in [place] for the winter Housing: House Patient Tobacco Use Status: Former Tobacco user Years Smoked: 20 years e-Cigarette/Vaping Use: Never Used Current occupational status: retired Cognitive needs: No Hearing needs: No Vision needs: Yes Questionnaire PHQ-9 Over the last 2 weeks, how often have you been bothered by any of the following problems? 1. Little interest or pleasure in doing things: not at all 2. Feeling down, depressed, or hopeless: not at all 3. Trouble falling or staying asleep, or sleeping too much: nearly every day 4. Feeling tired or having little energy: more than half the days 5. Poor appetite or overeating: not at all 6. Feeling bad about yourself - or that you are a failure or have let yourself or your family down: not at all 7. Trouble concentrating on things, such as reading the newspaper or watching television: not at all 8. Moving or speaking so slowly that other people could have noticed. Or the opposite - being so fidgety or restless that you have been moving around a lot more than usual: not at all 9. Thoughts that you would be better off or of hurting yourself in some way: not at all Total score: 5 Depression Screening Interpretation: Negative Depression Screening Done: Yes 02209 - PHQ-9 Billing: Yes Source: Developed by Drs. Anthony Yang, Mirna Griggs, Damian Nava and colleagues, with an educational angelo from [employer]. Thrive Questionnaire Date Thrive assessed: 06/30/21 AUDIT C Alcohol Use Questionnaire (AUDIT-C) 1. How often do you have a drink containing alcohol?: Monthly or less 2. How many drinks containing alcohol do you have on a typical day when you are drinking?: 1 or 2 3. How often do you have six or more drinks on one occasion?: Never Total Score: 1 Score Reviewed/Action Taken: No BRITTANY-7 AMB Questionnaire BRITTANY-7 Date BRITTANY - 7 assessed: 12/16/22 Feeling nervous, anxious, or on edge: 0 = Not at all Not being able to stop or control worryin = Not at all Worrying too much about different things: 0 = Not at all Trouble relaxin = Not at all Being so restless that it is hard to sit still: 0 = Not at all Becoming easily annoyed or irritable: 0 = Not at all Feeling afraid as if something awful might happen: 0 = Not at all Total BRITTANY-7 score (0-4 normal; 5-9 mild; 10-14 moderate; 15-21 severe): 0 Source: Developed by Drs. Anthony Yang, Mirna Griggs, Damian Nava and colleagues, with an educational angelo from [employer]. BRITTANY-7 Assessment Billing BRITTANY-7 Assessment Tool: BRITTANY-7 Assessment [id number] Review of Systems Const Denies chills and Denies fever(s) ENT Denies epistaxis and Denies nasal discharge Card Denies chest pain Resp Denies chest congestion, Denies cough and Denies hemoptysis GI Denies diarrhea and Denies nausea Skin/Breast Denies rash Neuro Reports no additional complaints Psych Reports no additional complaints Endo Reports no additional complaints Physical exam (Primary Care) Vital Signs: Last Vital Signs Pulse 83 12/16/22 12:01 BP 118/60 12/16/22 12:01 Pulse Ox 99 12/16/22 12:01 Oxygen Delivery Method Room Air 12/16/22 12:01 BMI result Body Mass Index 28.0 Tobacco/Smoking Status: Tobacco use Status Tobacco use date assessed 12/16/22 12/16/22 12:07 Patient Tobacco Use Status Former Tobacco user 12/16/22 12:03 e-Cigarette/Vaping Use Never Used 12/16/22 12:03 PHQ-9: PHQ-9 Score PHQ-9: Total score 5 12/16/22 12:18 Depression Screening Interpretation: Negative Thrive Assessment: Date of Thrive Assessment Date Thrive assessed 06/30/21 12/16/22 12:03 Const General: cooperative, comfortable and no acute distress Orientation/consciousness: patient oriented x3 HENMT Head: Yes normocephalic Eyes General: appearance normal, both eyes and all related structures Neck Neck: Yes supple Resp Effort & Inspection: normal respiratory effort, no cough and no stridor Cardio Rhythm: regular rhythm Heart sounds: S1 normal heart sound present and S2 normal heart sound present Skin General skin exam: turgor normal Neuro General: patient oriented x3, tone normal and moves all extremities Extrem Right lower extremity: no edema Left lower extremity: no edema Assessment and Plan Assessment & Plan (1) 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: Code(s): Z79.4 - 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 (2) Diabetes 1.5, managed as type 1: Code(s): E13.9 - Other specified diabetes mellitus without complications (3) Lipid disorder: Code(s): E78.9 - Disorder of lipoprotein metabolism, unspecified (4) Vitamin D deficiency: Code(s): E55.9 - Vitamin D deficiency, unspecified (5) HTN (hypertension): Code(s): I10 - Essential (primary) hypertension Qualifiers: Hypertension type: primary hypertension Qualified Code(s): I10 - Essential (primary) hypertension (6) Balance disorder: Code(s): R26.89 - Other abnormalities of gait and mobility (7) 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: Code(s): Z92.29 - Personal history of other drug therapy (8) History of pulmonary embolism: Code(s): Z86.711 - Personal history of pulmonary embolism (9) Hydrocephalus: Code(s): G91.9 - Hydrocephalus, unspecified Qualifiers: Hydrocephalus type: unspecified Qualified Code(s): G91.9 - Hydrocephalus, unspecified (10) Intracranial shunt: Code(s): Z98.2 - Presence of cerebrospinal fluid drainage device (11) History of bilateral hip replacements: Code(s): Z96.643 - Presence of artificial hip joint, bilateral (12) Peripheral neuropathy: Code(s): G62.9 - Polyneuropathy, unspecified Qualifiers: Peripheral neuropathy type: polyneuropathy associated with underlying disease Qualified Code(s): G63 - Polyneuropathy in diseases classified elsewhere Plan Patient is 67-year-old male came in today for regular follow-up Patient is insulin-dependent diabetic with well controlled hemoglobin A1c 5.7 I am reducing his insulin to 90 units rather than 100, long-acting at night Patient have a 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 He also have a history of left hip replacement. Joints are doing well. History of vitamin B12 deficiency and vitamin-D deficiency , continue supplements Patient is on rosuvastatin 40 mg for lipid control Taking omeprazole for chronic GERD He has intracranial shunt placed as well due to hydrocephalus, since the shunt is placed patient is doing well Before that patient was given a diagnosis of Parkinson's due to his symptoms but that has resolved. Patient is going to [place] for winter we will do a telemedicine visit in March Medications: Refilled pen needle, diabetic (Pen Needle) use one daily 100 ea 11RF E13.9 - Other specified diabetes mellitus without complications Coding Level of Care Code Est Pt Level 4 (91906) Diagnoses nursing home (current) 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 Z79.4 Diabetes 1.5, managed as type 1 E13.9 Lipid disorder E78.9 Vitamin D deficiency E55.9 Primary hypertension I10 Hypertension type: primary hypertension Balance disorder R26.89 Hx of halfway use of blood thinners Z92.29 History of pulmonary embolism Z86.711 Hydrocephalus, unspecified type G91.9 Hydrocephalus type: unspecified Intracranial shunt Z98.2 History of bilateral hip replacements Z96.643 Polyneuropathy associated with underlying disease G63 Peripheral neuropathy type: polyneuropathy associated with underlying disease Additional Codes BRITTANY-7 Assessment Billing - BRITTANY-7 Assessment Tool: BRITTANY-7 Assessment [id number] ([id number])
[2022-12-16 12:01] VITALS: BP 118/60; PULSE 83; O2SAT 99; BMI 28.0
== END 2022-12-16 12:43 | disposition home or self-care (01) ==
PROVIDERS: PCP Internal Medicine; Visit Provider Internal Medicine
DX: E13.9 Other specified diabetes mellitus without complications (principal); Z79.4 Long term (current) 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; G91.9 Hydrocephalus, unspecified; G63 Polyneuropathy in diseases classified elsewhere; E78.9 Disorder of lipoprotein metabolism, unspecified; E55.9 Vitamin D deficiency, unspecified; I10 Essential (primary) hypertension; R26.89 Other abnormalities of gait and mobility; Z92.29 Personal history of other drug therapy; Z86.711 Personal history of pulmonary embolism; Z98.2 Presence of cerebrospinal fluid drainage device; Z96.643 Presence of artificial hip joint, bilateral
CPT/HCPCS: 99214

== ENCOUNTER 2023-04-04 09:34 | Outpatient (AMB) | payer MEDICARE, SELFPAY ==
--- NOTE | 2023-04-04 10:40 | MHC.PC.OV ---
Vital Signs 04/04/23 10:41 Height 6 ft Intake Visit Reasons: 6 months ~[phone] Allergies No Known Allergies [No Known Allergies*] Allergy (Verified 04/04/23 10:40) Medication List - Last Reconciled 04/04/23 by Padma Tanner MD aspirin (Adult Low Dose Aspirin) 81 mg PO DAILY blood sugar diagnostic ([employer] Ultra Blue Test Strip) check sugar three times a day cholecalciferol (vitamin D3) 25 mcg PO DAILY clopidogrel 75 mg PO DAILY cyanocobalamin (vitamin B-12) (Vitamin B-12) 1,000 mcg PO DAILY ezetimibe 10 mg PO DAILY insulin glargine U-300 conc (Toujeo Max U-300 SoloStar) 90 units (0.3 mL) subcut DAILY 90 days lisinopril 2.5 mg PO DAILY 90 days omega-3 acid ethyl esters 2 caps PO BID omeprazole 20 mg PO DAILY 90 days pen needle, diabetic (Pen Needle) use one daily rosuvastatin 40 mg PO DAILY 90 days Tobacco use date assessed: 04/04/23 Fall risk assessment: No Falls in past year Last assessed Fall Risk: 04/04/23 Dental Screening Dental Screen Date: 04/04/23 Did you have a dental visit in the last 12 months?: Yes Did you have a dental problem in the last 6 months where you did not have access to dental care?: No Was dental information given to patient?: Patient has dentist HPI 6 months ~[phone] HPI Details Patient is 67-year-old male this is a telemedicine conference follow-up Patient is insulin-dependent diabetic with well controlled hemoglobin A1c Currently on Toujeo 90 units once a day Patient have a 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 He also have a history of left hip replacement. History of vitamin B12 deficiency and vitamin-D deficiency , continue supplements Patient is on rosuvastatin 40 mg for lipid control Taking omeprazole for chronic GERD He has intracranial shunt placed as well due to hydrocephalus, since the shunt is placed patient is doing well Before that patient was given a diagnosis of Parkinson's due to his symptoms but that has resolved. 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 Brother No problems noted. Son No problems noted. Daughter No problems noted. Social History Household Members: Spouse Household Members Other:: retired, lives in [place] for the winter Housing: House Patient Tobacco Use Status: Former Tobacco user Years Smoked: 20 years e-Cigarette/Vaping Use: Never Used Current occupational status: retired Cognitive needs: No Hearing needs: No Vision needs: Yes Questionnaire Thrive Questionnaire Date Thrive assessed: 06/30/21 AUDIT C Alcohol Use Questionnaire (AUDIT-C) 1. How often do you have a drink containing alcohol?: Monthly or less 2. How many drinks containing alcohol do you have on a typical day when you are drinking?: 1 or 2 3. How often do you have six or more drinks on one occasion?: Never Total Score: 1 Score Reviewed/Action Taken: Yes BRITTANY-7 AMB Questionnaire BRITTANY-7 Date BRITTANY - 7 assessed: 12/16/22 Source: Developed by Drs. Anthony Yang, Mirna Griggs, Damian Nava and colleagues, with an educational angelo from [employer]. Review of Systems Const Denies chills and Denies fever(s) ENT Denies epistaxis and Denies nasal discharge Card Denies chest pain Resp Denies chest congestion, Denies cough and Denies hemoptysis GI Denies diarrhea and Denies nausea Skin/Breast Denies rash Neuro Reports no additional complaints Psych Reports no additional complaints Endo Reports no additional complaints Physical exam (Primary Care) Tobacco/Smoking Status: Tobacco use Status Tobacco use date assessed 04/04/23 04/04/23 10:41 Patient Tobacco Use Status Former Tobacco user 04/04/23 10:41 e-Cigarette/Vaping Use Never Used 04/04/23 10:41 Thrive Assessment: Date of Thrive Assessment Date Thrive assessed 06/30/21 04/04/23 10:41 Telehealth Telehealth Location of provider rendering services: practice address Location of patient: address on file Patient Identification confirmed using: Name, : Yes Telehealth method: video (Was attempted) Patient verbally consented to treatment: Yes Patient verbally consented to billing insurance company: Yes Patient informed of any privacy concerns related to visit: Yes Minutes spent on Phone/Video with Pt.: 20 Assessment and Plan Assessment & Plan (1) manager 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: Code(s): Z79.4 - skilled nursing (current) 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 (2) Diabetes 1.5, managed as type 1: Code(s): E13.9 - Other specified diabetes mellitus without complications (3) Peripheral neuropathy: Code(s): G62.9 - Polyneuropathy, unspecified Qualifiers: Peripheral neuropathy type: polyneuropathy associated with underlying disease Qualified Code(s): G63 - Polyneuropathy in diseases classified elsewhere (4) Parkinsons disease: Code(s): G20 - Parkinson's disease Qualifiers: Dyskinesia presence: with dyskinesia Fluctuating manifestations: with fluctuating manifestations Qualified Code(s): G20.B2 - Parkinson's disease with dyskinesia, with fluctuations (5) Lipid disorder: Code(s): E78.9 - Disorder of lipoprotein metabolism, unspecified (6) HTN (hypertension): Code(s): I10 - Essential (primary) hypertension Qualifiers: Hypertension type: primary hypertension Qualified Code(s): I10 - Essential (primary) hypertension (7) Balance disorder: Code(s): R26.89 - Other abnormalities of gait and mobility (8) Hx of retirement use of blood thinners: Code(s): Z92.29 - Personal history of other drug therapy (9) Vitamin D deficiency: Code(s): E55.9 - Vitamin D deficiency, unspecified (10) History of pulmonary embolism: Code(s): Z86.711 - Personal history of pulmonary embolism (11) Hydrocephalus: Code(s): G91.9 - Hydrocephalus, unspecified Qualifiers: Hydrocephalus type: unspecified Qualified Code(s): G91.9 - Hydrocephalus, unspecified (12) Intracranial shunt: Code(s): Z98.2 - Presence of cerebrospinal fluid drainage device Plan Patient is 67-year-old male this is a telemedicine conference follow-up Patient is insulin-dependent diabetic with well controlled hemoglobin A1c Currently on Toujeo 90 units once a day Patient have a 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 He also have a history of left hip replacement. History of vitamin B12 deficiency and vitamin-D deficiency , continue supplements Patient is on rosuvastatin 40 mg for lipid control Taking omeprazole for chronic GERD He has intracranial shunt placed as well due to hydrocephalus, since the shunt is placed patient is doing well Before that patient was given a diagnosis of Parkinson's due to his symptoms but that has resolved. Labs to be done in June before next visit order placed Orders: Orders Hemoglobin A1c Today E13.9 - Other specified diabetes mellitus without complications, E55.9 - Vitamin D deficiency, unspecified, E78.9 - Disorder of lipoprotein metabolism, unspecified, G20 - Parkinson's disease, G62.9 - Polyneuropathy, unspecified, G91.9 - Hydrocephalus, unspecified, I10 - Essential (primary) hypertension, I25.10 - Atherosclerotic heart disease of [place] coronary artery without angina pectoris, R26.89 - Other abnormalities of gait and mobility, Z79.4 - manager 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, Z86.711 - Personal history of pulmonary embolism, Z92.29 - Personal history of other drug therapy, Z98.2 - Presence of cerebrospinal fluid drainage device Comprehensive [place]. Panel Fast Today E13.9 - Other specified diabetes mellitus without complications, E55.9 - Vitamin D deficiency, unspecified, E78.9 - Disorder of lipoprotein metabolism, unspecified, G20 - Parkinson's disease, G62.9 - Polyneuropathy, unspecified, G91.9 - Hydrocephalus, unspecified, I10 - Essential (primary) hypertension, I25.10 - Atherosclerotic heart disease of [place] coronary artery without angina pectoris, R26.89 - Other abnormalities of gait and mobility, Z79.4 - skilled nursing (current) 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, Z86.711 - Personal history of pulmonary embolism, Z92.29 - Personal history of other drug therapy, Z98.2 - Presence of cerebrospinal fluid drainage device Microalbumin, Random (w Creat) Today E13.9 - Other specified diabetes mellitus without complications, E55.9 - Vitamin D deficiency, unspecified, E78.9 - Disorder of lipoprotein metabolism, unspecified, G20 - Parkinson's disease, G62.9 - Polyneuropathy, unspecified, G91.9 - Hydrocephalus, unspecified, I10 - Essential (primary) hypertension, I25.10 - Atherosclerotic heart disease of [place] coronary artery without angina pectoris, R26.89 - Other abnormalities of gait and mobility, Z79.4 - skilled nursing (current) 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, Z86.711 - Personal history of pulmonary embolism, Z92.29 - Personal history of other drug therapy, Z98.2 - Presence of cerebrospinal fluid drainage device Complete Blood Count Auto Diff Today E13.9 - Other specified diabetes mellitus without complications, E55.9 - Vitamin D deficiency, unspecified, E78.9 - Disorder of lipoprotein metabolism, unspecified, G20 - Parkinson's disease, G62.9 - Polyneuropathy, unspecified, G91.9 - Hydrocephalus, unspecified, I10 - Essential (primary) hypertension, I25.10 - Atherosclerotic heart disease of [place] coronary artery without angina pectoris, R26.89 - Other abnormalities of gait and mobility, Z79.4 - manager 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, Z86.711 - Personal history of pulmonary embolism, Z92.29 - Personal history of other drug therapy, Z98.2 - Presence of cerebrospinal fluid drainage device Lipid Panel Today E13.9 - Other specified diabetes mellitus without complications, E55.9 - Vitamin D deficiency, unspecified, E78.9 - Disorder of lipoprotein metabolism, unspecified, G20 - Parkinson's disease, G62.9 - Polyneuropathy, unspecified, G91.9 - Hydrocephalus, unspecified, I10 - Essential (primary) hypertension, I25.10 - Atherosclerotic heart disease of [place] coronary artery without angina pectoris, R26.89 - Other abnormalities of gait and mobility, Z79.4 - skilled nursing (current) 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, Z86.711 - Personal history of pulmonary embolism, Z92.29 - Personal history of other drug therapy, Z98.2 - Presence of cerebrospinal fluid drainage device Medications: Changed From blood sugar diagnostic ([employer] Ultra Blue Test Strip) check sugar three times a day 100 ea 11RF E13.9 - Other specified diabetes mellitus without complications, Z79.4 - manager 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 To blood sugar diagnostic check sugar three times a day 100 ea 2RF E13.9 - Other specified diabetes mellitus without complications, Z79.4 - skilled nursing (current) 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 Refilled insulin glargine U-300 conc (Toujeo Max U-300 SoloStar) 90 units (0.3 mL) subcut DAILY 27 mL 0RF 90 days Coding Level of Care Code Tele Est Pt Level 4 (03780) Diagnoses manager 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 Z79.4 Diabetes 1.5, managed as type 1 E13.9 Polyneuropathy associated with underlying disease G63 Peripheral neuropathy type: polyneuropathy associated with underlying disease Parkinson's disease with dyskinesia and fluctuating manifestations G20.B2 Dyskinesia presence: with dyskinesia Fluctuating manifestations: with fluctuating manifestations Lipid disorder E78.9 Primary hypertension I10 Hypertension type: primary hypertension Balance disorder R26.89 Hx of retirement use of blood thinners Z92.29 Vitamin D deficiency E55.9 History of pulmonary embolism Z86.711 Hydrocephalus, unspecified type G91.9 Hydrocephalus type: unspecified Intracranial shunt Z98.2 Time Spent (min) 30 Comment 5 pre visit, 20 with patient, 5 charting and coordination of care
== END 2023-04-04 11:13 | disposition home or self-care (01) ==
PROVIDERS: PCP Internal Medicine; Visit Provider Internal Medicine
DX: E13.9 Other specified diabetes mellitus without complications (principal); Z79.4 Long term (current) 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; G63 Polyneuropathy in diseases classified elsewhere; G91.9 Hydrocephalus, unspecified; G20.B2 Parkinson's disease with dyskinesia, with fluctuations; E78.9 Disorder of lipoprotein metabolism, unspecified; I10 Essential (primary) hypertension; R26.89 Other abnormalities of gait and mobility; Z92.29 Personal history of other drug therapy; E55.9 Vitamin D deficiency, unspecified; Z86.711 Personal history of pulmonary embolism; Z98.2 Presence of cerebrospinal fluid drainage device
CPT/HCPCS: 99214

== ENCOUNTER 2023-07-11 08:05 | Outpatient (AMB) | payer MEDICARE, SELFPAY ==
[2023-07-11 08:31] VITALS: BP 120/80; PULSE 68; O2SAT 98; BMI 28.8
--- NOTE | 2023-07-11 08:31 | MHC.PC.OV ---
Vital Signs 07/11/23 08:31 Height 6 ft Weight 212 lb 4 oz BMI 28.8 BP 120/80 Blood Pressure Location Rt brachial Position Sitting Pulse 68 Pulse Source Pulse Oximeter Pulse Oximetry (%) 98 Oxygen Delivery Method Room Air Intake Visit Reasons: 9 month follow up Allergies No Known Allergies [No Known Allergies*] Allergy (Verified 07/11/23 08:31) Medication List - Last Reconciled 07/11/23 by Padma Tanner MD aspirin (Adult Low Dose Aspirin) 81 mg PO DAILY blood sugar diagnostic check sugar three times a day cholecalciferol (vitamin D3) 25 mcg PO DAILY clopidogrel 75 mg PO DAILY cyanocobalamin (vitamin B-12) (Vitamin B-12) 1,000 mcg PO DAILY ezetimibe 10 mg PO DAILY insulin glargine U-300 conc (Toujeo Max U-300 SoloStar) 90 units (0.3 mL) subcut DAILY 90 days lisinopril 2.5 mg PO DAILY 90 days omega-3 acid ethyl esters 2 caps PO BID omeprazole 20 mg PO DAILY 90 days pen needle, diabetic (Pen Needle) use one daily rosuvastatin 40 mg PO DAILY 90 days Tobacco use date assessed: 07/11/23 Fall risk assessment: No Falls in past year Last assessed Fall Risk: 07/11/23 Dental Screening Dental Screen Date: 07/11/23 Did you have a dental visit in the last 12 months?: Yes Did you have a dental problem in the last 6 months where you did not have access to dental care?: No Was dental information given to patient?: Patient has dentist HPI 9 month follow up HPI Details Patient is 67-year-old male with a history of insulin-dependent diabetes mellitus, Parkinson's disease, has intracranial shunt, history of pulmonary embolism and right leg DVT on long-term blood thinners. Vitamin B12 deficiency vitamin-D deficiency, lipid disorder, chronic GERD. History left hip replacement, history of psoriasis, patient has taken methotrexate for 2 years Which has caused some damage to his liver, he has stage II liver disease There is no swelling of ankles or increasing girth of abdomen Half of the year patient reside in [place], during winter months Blood pressure is well-controlled Patient came in for his regular follow-up appointment Last time he had labs was September of last year, order for blood test was placed in March, he has still not done it Reminded patient to do the labs as soon as possible. Patient is insulin-dependent diabetic with well controlled hemoglobin A1c Currently on Toujeo 90 units once a day History of vitamin B12 deficiency and vitamin-D deficiency , continue supplements Patient is on rosuvastatin 40 mg for lipid control Taking omeprazole for chronic GERD He has intracranial shunt placed as well due to hydrocephalus, since the shunt is placed patient is doing well Before that patient was given a diagnosis of Parkinson's due to his symptoms but that has resolved. 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 Brother No problems noted. Son No problems noted. Daughter No problems noted. Social History Household Members: Spouse Household Members Other:: retired, lives in [place] for the winter Housing: House Patient Tobacco Use Status: Former Tobacco user Years Smoked: 20 years e-Cigarette/Vaping Use: Never Used Current occupational status: retired Cognitive needs: No Hearing needs: No Vision needs: Yes Questionnaire PHQ-9 Over the last 2 weeks, how often have you been bothered by any of the following problems? 1. Little interest or pleasure in doing things: not at all 2. Feeling down, depressed, or hopeless: not at all 3. Trouble falling or staying asleep, or sleeping too much: several days 4. Feeling tired or having little energy: several days 5. Poor appetite or overeating: not at all 6. Feeling bad about yourself - or that you are a failure or have let yourself or your family down: not at all 7. Trouble concentrating on things, such as reading the newspaper or watching television: not at all 8. Moving or speaking so slowly that other people could have noticed. Or the opposite - being so fidgety or restless that you have been moving around a lot more than usual: not at all 9. Thoughts that you would be better off or of hurting yourself in some way: not at all Total score: 2 Depression Screening Interpretation: Negative Depression Screening Done: Yes 38443 - PHQ-9 Billing: Yes Source: Developed by Drs. Anthony Yang, Mirna Griggs, Damian Nava and colleagues, with an educational angelo from [employer]. Thrive Questionnaire Date Thrive assessed: 07/11/23 I am a: Patient What is your living situation today?: I have a steady place to live Within the past 12 months, did the food you bought not last and you didn't have the money to get more?: Never true Within the past 12 months, did you worry whether your food would run out before you got money to buy more?: Never true Do you have trouble paying for medicines?: No Do you have trouble getting transportation to medical appointments?: No Do you have trouble paying your heating and electricity bill?: No Do you have trouble taking care of your child, family member or friend?: No Do you have trouble with day-to-day activities such as bathing, preparing meals, shopping, managing finances, etc.?: No Are you currently unemployed and looking for a job?: No Are you interested in more education?: No Please select the resources that you would like help with: None Currently or been in a relationship where the following occur: no concerns reported THRIVE Score: 0 AUDIT C Alcohol Use Questionnaire (AUDIT-C) 1. How often do you have a drink containing alcohol?: Monthly or less 2. How many drinks containing alcohol do you have on a typical day when you are drinking?: 1 or 2 3. How often do you have six or more drinks on one occasion?: Never Total Score: 1 Score Reviewed/Action Taken: Yes BRITTANY-7 AMB Questionnaire BRITTANY-7 Date BRITTANY - 7 assessed: 07/11/23 Feeling nervous, anxious, or on edge: 0 = Not at all Not being able to stop or control worryin = Not at all Worrying too much about different things: 0 = Not at all Trouble relaxin = Several days Being so restless that it is hard to sit still: 0 = Not at all Becoming easily annoyed or irritable: 1 = Several days Feeling afraid as if something awful might happen: 0 = Not at all Total BRITTANY-7 score (0-4 normal; 5-9 mild; 10-14 moderate; 15-21 severe): 2 Source: Developed by Drs. Anthony Yang, Mirna Griggs, Damian Nava and colleagues, with an educational angelo from [employer]. BRITTANY-7 Assessment Billing BRITTANY-7 Assessment Tool: BRITTANY-7 Assessment 37338 Review of Systems Const Denies chills and Denies fever(s) ENT Denies epistaxis and Denies nasal discharge Card Denies chest pain Resp Denies chest congestion, Denies cough and Denies hemoptysis GI Denies diarrhea and Denies nausea Skin/Breast Denies rash Neuro Reports no additional complaints Psych Reports no additional complaints Endo Reports no additional complaints Physical exam (Primary Care) Vital Signs: Last Vital Signs Pulse 68 07/11/23 08:31 BP 120/80 07/11/23 08:31 Pulse Ox 98 07/11/23 08:31 Oxygen Delivery Method Room Air 07/11/23 08:31 BMI result Body Mass Index 28.8 Tobacco/Smoking Status: Tobacco use Status Tobacco use date assessed 07/11/23 07/11/23 08:34 Patient Tobacco Use Status Former Tobacco user 07/11/23 08:34 e-Cigarette/Vaping Use Never Used 07/11/23 08:34 PHQ-9: PHQ-9 Score PHQ-9: Total score 2 07/11/23 08:46 Depression Screening Interpretation: Negative Thrive Assessment: Date of Thrive Assessment Date Thrive assessed 07/11/23 07/11/23 08:46 Currently or been in a relationship where the following occur: no concerns reported Const General: cooperative, comfortable and no acute distress Orientation/consciousness: patient oriented x3 HENMT Head: Yes normocephalic Eyes General: appearance normal, both eyes and all related structures Neck Neck: Yes supple Resp Effort & Inspection: normal respiratory effort, no cough and no stridor Cardio Rhythm: regular rhythm Heart sounds: S1 normal heart sound present and S2 normal heart sound present Skin General skin exam: turgor normal Neuro General: patient oriented x3, tone normal and moves all extremities Extrem Other: Large varicosities lower extremity bilateral Right lower extremity: no edema Left lower extremity: no edema Assessment and Plan Assessment & Plan (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: Code(s): Z79.4 - intermediate (current) 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 (2) Diabetes 1.5, managed as type 1: Code(s): E13.9 - Other specified diabetes mellitus without complications (3) Peripheral neuropathy: Code(s): G62.9 - Polyneuropathy, unspecified Qualifiers: Peripheral neuropathy type: polyneuropathy associated with underlying disease Qualified Code(s): G63 - Polyneuropathy in diseases classified elsewhere (4) Parkinsons disease: Code(s): G20 - Parkinson's disease Qualifiers: Dyskinesia presence: with dyskinesia Fluctuating manifestations: with fluctuating manifestations Qualified Code(s): G20.B2 - Parkinson's disease with dyskinesia, with fluctuations (5) Lipid disorder: Code(s): E78.9 - Disorder of lipoprotein metabolism, unspecified (6) HTN (hypertension): Code(s): I10 - Essential (primary) hypertension Qualifiers: Hypertension type: primary hypertension Qualified Code(s): I10 - Essential (primary) hypertension (7) Balance disorder: Code(s): R26.89 - Other abnormalities of gait and mobility (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: Code(s): Z92.29 - Personal history of other drug therapy (9) Vitamin D deficiency: Code(s): E55.9 - Vitamin D deficiency, unspecified (10) History of pulmonary embolism: Code(s): Z86.711 - Personal history of pulmonary embolism (11) Hydrocephalus: Code(s): G91.9 - Hydrocephalus, unspecified Qualifiers: Hydrocephalus type: unspecified Qualified Code(s): G91.9 - Hydrocephalus, unspecified (12) Intracranial shunt: Code(s): Z98.2 - Presence of cerebrospinal fluid drainage device Plan Patient is 67-year-old male with a history of insulin-dependent diabetes mellitus, Parkinson's disease, has intracranial shunt, history of pulmonary embolism and right leg DVT on long-term blood thinners. Vitamin B12 deficiency vitamin-D deficiency, lipid disorder, chronic GERD. History left hip replacement, history of psoriasis, patient has taken methotrexate for 2 years Which has caused some damage to his liver, he has stage II liver disease There is no swelling of ankles or increasing girth of abdomen Half of the year patient reside in [place], during winter months Blood pressure is well-controlled Patient came in for his regular follow-up appointment Last time he had labs was September of last year, order for blood test was placed in March, he has still not done it Reminded patient to do the labs as soon as possible. Patient is insulin-dependent diabetic with well controlled hemoglobin A1c Currently on Toujeo 90 units once a day History of vitamin B12 deficiency and vitamin-D deficiency , continue supplements Patient is on rosuvastatin 40 mg for lipid control Taking omeprazole for chronic GERD He has intracranial shunt placed as well due to hydrocephalus, since the shunt is placed patient is doing well Before that patient was given a diagnosis of Parkinson's due to his symptoms but that has resolved. Coding Level of Care Code Est Pt Level 4 (97505) Complex EM visit Add On G2211 Diagnoses intermediate (current) 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 Z79.4 Diabetes 1.5, managed as type 1 E13.9 Polyneuropathy associated with underlying disease G63 Peripheral neuropathy type: polyneuropathy associated with underlying disease Parkinson's disease with dyskinesia and fluctuating manifestations G20.B2 Dyskinesia presence: with dyskinesia Fluctuating manifestations: with fluctuating manifestations Lipid disorder E78.9 Primary hypertension I10 Hypertension type: primary hypertension Balance disorder R26.89 Hx of skilled nursing use of blood thinners Z92.29 Vitamin D deficiency E55.9 History of pulmonary embolism Z86.711 Hydrocephalus, unspecified type G91.9 Hydrocephalus type: unspecified Intracranial shunt Z98.2 Additional Codes BRITTANY-7 Assessment Billing - BRITTANY-7 Assessment Tool: BRITTANY-7 Assessment [id number] ([id number])
== END 2023-07-11 10:46 | disposition home or self-care (01) ==
PROVIDERS: PCP Internal Medicine; Visit Provider Internal Medicine
DX: E13.9 Other specified diabetes mellitus without complications (principal); Z79.4 Long term (current) 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; G63 Polyneuropathy in diseases classified elsewhere; G91.9 Hydrocephalus, unspecified; G20.B2 Parkinson's disease with dyskinesia, with fluctuations; E78.9 Disorder of lipoprotein metabolism, unspecified; I10 Essential (primary) hypertension; R26.89 Other abnormalities of gait and mobility; Z92.29 Personal history of other drug therapy; E55.9 Vitamin D deficiency, unspecified; Z86.711 Personal history of pulmonary embolism; Z98.2 Presence of cerebrospinal fluid drainage device
CPT/HCPCS: 99214; G2211

== ENCOUNTER 2023-07-11 08:45 | Outpatient (REF) | payer MEDICARE, SELFPAY ==
[2023-07-11 10:18] LABS: MANUAL DIFF FLAG NO
[2023-07-11 10:29] LABS: Alanine Aminotransferase 30 U/L (0-40); Albumin Level 4.6 g/dL (3.5-5.0); Anion Gap 16 (12-20); Aspartate Amino Transferase 25 U/L (5-37); Bilirubin Total 1.7 mg/dL (0.0-1.0); Blood Urea Nitrogen 13 mg/dL (9-16); Calcium 9.9 mg/dL (8.4-10.2); Carbon Dioxide 21 mmol/L (22-29); Chloride 107 mmol/L (96-108); Cholesterol 115 mg/dL (<200); Estimated Glomerular Filt Rate > 60; Glucose Fasting 139 mg/dL (60-99); HDL Cholesterol 39 mg/dL (>40); LDL Cholesterol Calculated 57 mg/dL (<100); Sodium 140 mmol/L (135-145); Triglycerides 99 mg/dL (<150)
[2023-07-11 10:30] LABS: Alkaline Phosphatase 78 U/L (39-117)
[2023-07-11 10:32] LABS: Basophils Absolute Auto 0.1 X10*3/uL (0.0-0.2); Eosinophils Absolute Auto 0.2 X10*3/uL (0.0-0.4); Eosinophils Percent Auto 2.1 % (0-4); Hematocrit 42.5 % (42.0-52.0); Hemoglobin 14.8 g/dl (14.0-18.0); Imm Gran Abs Auto 0.02 X10*3/uL (0.00-0.03); Imm Gran Pct Auto 0.3 % (0.0-0.4); Lymphocytes Absolute Auto 1.8 X10*3/uL (1.2-4.9); Mean Corpuscular HGB Conc 34.8 g/dl (31.0-36.0); Mean Corpuscular Hemoglobin 33.3 pg (27.0-33.0); Mean Corpuscular Volume 95.7 fL (80.0-98.0); Mean Platelet Volume 9.9 fL (9.4-12.4); Monocytes Absolute Auto 0.6 X10*3/uL (0.1-1.2); Neutrophils Absolute Auto 4.4 x10*3/uL (2.0-8.3); Neutrophils Percent Auto 62.6 % (45-73); Platelet Count 191 X10*3/uL (160-400); Red Blood Count 4.44 X10*6/uL (4.60-5.80); Red Cell Distribution Width 14.1 % (11.0-16.0)
[2023-07-11 10:49] LABS: Estimated Average Glucose 134 mg/dL; Hemoglobin A1c % 6.3 % (<6.0)
[2023-07-11 11:10] LABS: Creatinine Urine 48.16 mg/dL; Microalbum/Creatinine Ratio Ur 18.6 ug/mg cr (<30)
== END 2023-07-11 08:46 | disposition home or self-care (01) ==
LOC: HO.HMGCLDS 08:45
PROVIDERS: PCP Internal Medicine; Visit Provider Internal Medicine
DX: G62.9 Polyneuropathy, unspecified (principal); Z98.2 Presence of cerebrospinal fluid drainage device; Z86.711 Personal history of pulmonary embolism; Z92.29 Personal history of other drug therapy; G91.9 Hydrocephalus, unspecified; R26.89 Other abnormalities of gait and mobility; I10 Essential (primary) hypertension; I25.10 Atherosclerotic heart disease of native coronary artery without angina pectoris; E55.9 Vitamin D deficiency, unspecified; E78.9 Disorder of lipoprotein metabolism, unspecified; Z79.4 Long term (current) 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; E13.9 Other specified diabetes mellitus without complications
CPT/HCPCS: 36415; 80053; 80061; 82043; 82570; 83036; 85025

== ENCOUNTER 2023-08-01 09:20 | Outpatient (AMB) | payer MEDICARE, SELFPAY ==
[2023-08-01 09:34] VITALS: BP 120/72; PULSE 72; BMI 28.7
--- NOTE | 2023-08-01 09:34 | MHC.OFFVIS ---
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 Required: No Allergies No Known Allergies [No Known Allergies*] Allergy (Verified 07/11/23 08:31) Medication List - Last Reconciled 08/01/23 by Levy Bazan MD aspirin (Adult Low Dose Aspirin) 81 mg PO DAILY blood sugar diagnostic check sugar three times a day cholecalciferol (vitamin D3) 25 mcg PO DAILY clopidogrel 75 mg PO DAILY cyanocobalamin (vitamin B-12) (Vitamin B-12) 1,000 mcg PO DAILY ezetimibe 10 mg PO DAILY insulin glargine U-300 conc (Toujeo Max U-300 SoloStar) 90 units (0.3 mL) subcut DAILY 90 days lisinopril 2.5 mg PO DAILY 90 days omega-3 acid ethyl esters 2 caps PO BID omeprazole 20 mg PO DAILY 90 days pen needle, diabetic (Pen Needle) use one daily rosuvastatin 40 mg PO DAILY 90 days HPI Comments Details: Jersey Comes for follow-up. He denies any chest pain although she has been recently having increasing exertional shortness of breath. He also complains of cramping in the left gluteal region after walking 30 oz. He thinks this is related to his prior hip surgery. He denies any exertional calf cramping but says gets a lot of cramping at nighttime when he is resting. Taking all his medication including dual antiplatelet therapy. Denies any orthopnea, PND, leg edema. Denies any prolonged palpitations, lightheadedness, syncope.He has been off ezetimibe therapy for 2 weeks but has not had any improvement in his bowel function. [facility] Medical History Pulmonary embolism HTN (hypertension) Old inferior wall myocardial infarction (~07/2004) CAD (coronary artery disease) Vitamin D deficiency Lipid disorder Psoriasis halfway (current) 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 Diabetes 1.5, managed as type 1 HLD (hyperlipidemia) Surgical History History of cardiac cath (~10/2016) History of cardiac cath (~12/2014) History of cardiac cath (~12/2014) Hx of cardiac cath (~10/2009) History of shoulder surgery Herniated disc History of hip replacement History of knee surgery History of surgery Family History Father Diabetes mellitus Mother No problems noted. Brother No problems noted. Son No problems noted. Daughter No problems noted. Social History Household Members: Spouse Household Members Other:: retired, lives in [place] for the winter Housing: House Patient Tobacco Use Status: Former Tobacco user Years Smoked: 20 years e-Cigarette/Vaping Use: Never Used Current occupational status: retired Cognitive needs: No Hearing needs: No Vision needs: Yes Review of Systems Const Denies chills, Denies fatigue, Denies fever(s), Denies frequent falls, Denies weakness, Denies weight gain and Denies weight loss ENT Denies dizziness Card Denies chest pain, Denies leg edema, Denies lightheadedness, Denies palpitations, Denies dyspnea, Denies dyspnea on exertion, Denies orthopnea and Denies other (loss of consciousness) Resp Denies cough, Denies dyspnea and Denies dyspnea on exertion GI Denies hematochezia and Denies change in stool character Musc Denies abnormal gait, Denies muscle weakness, Denies numbness, Denies radiating pain into limb and Denies tingling Neuro Denies abnormal gait, Denies dizziness, Denies frequent falls, Denies numbness, Denies tingling and Denies weakness Endo Denies fatigue and Denies palpitations Physical Exam Vital Signs: Last Vital Signs Pulse 72 08/01/23 09:34 BP 120/72 08/01/23 09:34 BMI result Body Mass Index 28.7 Const General: cooperative, comfortable, alert, awake and well groomed Nutritional Appearance: average body habitus Orientation/consciousness: patient oriented x3 Limitations: no limitations Neck Neck: Yes trachea midline, Yes supple and Yes no JVD Resp Effort & Inspection: normal respiratory effort Auscultation: clear to auscultation bilaterally Cardio Jugular venous distension: no JVD Palpation: normal PMI Rate: regular rate Rhythm: regular rhythm Heart sounds: S1 normal heart sound present and S2 normal heart sound present Peripheral pulses: femoral pulses present on the right diminished and on the left diminished GI Auscultation: normal bowel sounds Skin General skin exam: no rashes or lesions noted Neuro General: patient oriented x3 and no focal motor deficits Extrem General: Yes no clubbing, cyanosis or edema and Yes other (Bilateral significant varicosities) Psych Appearance: grossly normal Office Procedures EKG Details: EKG shows NSR with T-wave inversions inferior leads, unchanged from before [id number], Complete Assessment & Plan Assessment & Plan (1) CAD (coronary artery disease): Code(s): I25.10 - Atherosclerotic heart disease of [place] coronary artery without angina pectoris Category: Medical Plan: CAD with prior RCA stent with delayed stent thrombosis currently on dual antiplatelet therapy doing well with no significant issues with bleeding. Complain of increasing exertional shortness of breath which could be related to deconditioning although myocardial ischemia needs to be ruled out. Will suggest a vasodilating myocardial perfusion imaging due to his inability to exercise. Will also obtain echocardiogram to assess for LV systolic and diastolic function to evaluate for valvular abnormality. These tests will be scheduled in near future. Further treatment based on the findings. Continue aggressive vascular risk factor modification. LDL is well optimized on dual therapy and his GI symptoms do not appear to be related to ezetimibe therapy. Advised to restart the same. Annual check with lipid panel. Continue aggressive blood pressure control, see below. Continue aggressive diabetes management being pursue through office with goal hemoglobin A1c less than 7%. Given his symptoms suggestive of claudication would suggest a lower extremity duplex to assess for significant peripheral vascular disease. (2) HTN (hypertension): Code(s): I10 - Essential (primary) hypertension Category: Medical Qualifiers: Hypertension type: primary hypertension Qualified Code(s): I10 - Essential (primary) hypertension Plan: Hypertension which is currently well optimized advised to monitor blood pressure at home maintain a log. Goal blood pressure less than 130/84. Low-salt diet was discussed. Advised adequate hydration. Continue other significant vascular risk factor modification. Advised to increase activity level as tolerated. Follow up in the clinic in 1 year's time, sooner p.r.n.. Thank you for allowing me to partake in his care Medications: Refilled ezetimibe 10 mg PO DAILY 90 tabs 3RF Coding Level of Care Code Est Pt Level 4 (81581) Diagnoses CAD (coronary artery disease) I25.10 Primary hypertension I10 Hypertension type: primary hypertension CPT Codes EKG - CPT: 11361-[id number], Complete ([id number])
== END 2023-08-01 10:04 | disposition home or self-care (01) ==
PROVIDERS: PCP Internal Medicine; Visit Provider Internal Medicine Cardiovascular Disease
DX: I25.10 Atherosclerotic heart disease of native coronary artery without angina pectoris (principal); I10 Essential (primary) hypertension
CPT/HCPCS: 93010; 99214

== ENCOUNTER → 2023-08-01 09:20 | Outpatient (BNVA) | payer MEDICARE, SELFPAY | PROVIDERS: PCP Internal Medicine; Visit Provider Internal Medicine Cardiovascular Disease | DX: I25.10 Atherosclerotic heart disease of native coronary artery without angina pectoris (principal); I10 Essential (primary) hypertension | CPT/HCPCS: 93005; 99212 ==

== ENCOUNTER → 2023-08-23 12:49 | Outpatient (REF) | payer MEDICARE, SELFPAY ==
--- NOTE | ~2023-08-23 | US_ITS ---
EXAMINATION: Bilateral LOWER EXTREMITY DUPLEX CLINICAL INFORMATION: Peripheral vascular disease COMPARISON: None TECHNIQUE: Real-time ultrasound and Doppler techniques (integrating B-mode 2-D vascular images, Doppler spectral analysis and color flow Doppler imaging) were utilized to interrogate the lower extremities. FINDINGS: RIGHT LEG: Common femoral artery: 158.2 cm/s, biphasic Profunda femoris artery: 152.3 cm/s, biphasic Superficial femoral artery (proximal): 83.7 cm/s, biphasic Superficial femoral artery (mid): 141.4 cm/s, biphasic Superficial femoral artery (distal): 140.8 cm/s, triphasic Popliteal artery: 93.7 cm/s, triphasic Anterior tibial artery: 47.1 cm/s, triphasic Peroneal artery: 66 cm/s, triphasic Posterior tibial artery: 87.2 cm/s, triphasic Dorsalis pedis artery: 40 cm/s, triphasic LEFT LEG: Common femoral artery: 96.9 cm/s, biphasic Profunda femoris artery: 91.3 cm/s, triphasic Superficial femoral artery (proximal): 87.8 cm/s, triphasic Superficial femoral artery (mid): 91.3 cm/s, triphasic Superficial femoral artery (distal): 119.3 cm/s, triphasic Popliteal artery: 67 cm/s, biphasic Anterior tibial artery: 9.5 cm/s, biphasic Peroneal artery: 20 cm/s, monophasic Posterior tibial artery: 65.2 cm/s, biphasic Dorsalis pedis artery: 19.6 cm/s, monophasic US/US arterial duplex LE BI IMPRESSION: 1. Decreased velocities in the left anterior tibial artery suggesting a degree of tibial disease, consistent with history of diabetes. 2. No hemodynamically significant stenosis in the femoral-popliteal segments bilaterally.
--- NOTE | 2023-08-23 12:51 | CA_ITS ---
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 Study Quality: Fair/Contrast Conclusions: - The left ventricular systolic function is low normal. The visually estimated ejection fraction is between 50-55%. - The basal inferior and mid inferior segments are akinetic. - The basal inferoseptal segment is hypokinetic. - No obvious valvular pathology seen on this study. Findings Procedure Information Contrast agent, definity, is being given per protocol without apparent complications. Left Ventricle Normal left ventricular cavity size. The left ventricular systolic function is low normal. The visually estimated ejection fraction is between 50-55%. There is evidence of regional wall motion abnormalities. Evidence suggests grade I (mild) diastolic dysfunction. There is moderate septal asymmetric hypertrophy. Wall Motion Rest Echo Findings The basal inferoseptal segment is hypokinetic. The basal inferior and mid inferior segments are akinetic. Right Ventricle Normal right ventricular cavity size. There is mildly decreased right ventricular systolic function. Atria Both atria are normal in size. Aortic Valve There is a normal trileaflet aortic valve. There is mild calcification of the aortic valve. There is no aortic valve stenosis. There is no aortic valve regurgitation. Mitral Valve The mitral valve appears normal. There is trace mitral valve regurgitation. There is no mitral valve stenosis. Pulmonic Valve The pulmonic valve is likely normal. Tricuspid Valve There is trace tricuspid valve regurgitation. There is no evidence of pulmonary hypertension. Great Vessels The asc aorta is normal in size. Venous The inferior vena cava was not well visualized. Pericardium/Pleural There is no evidence of pericardial effusion. Prior Study Comparison No significant change compared to prior study dated: 06/30/2021. (images reviewed). Recommendations, Care & Conclusions No obvious valvular pathology seen on this study. Measurements 2D Linear Measurements IVSd: 1.31 0.6-0.9/0.6-1.0 cm LVIDd: 4.44 3.9-5.3/4.2-5.9 cm LVIDd Index: 2.04 2.4-3.2/2.2-3.1 cm/m2 LVIDs: 3.41 2.0-3.6 cm LVPWd: 1.05 0.7-1.1 cm LA Diam: 3.00 2.7-3.8/3.0-4.0 cm LAIDs Index: 1.38 1.5-2.3 cm/m2 LV Mass: 235.98 67-162/88-224 g LV Mass Index: 108.25 43-95/49-115 g/m2 LVOT Diam: 2.20 3.0+(-)1.3 cm 2D Systolic Function EF 4C: 54.00 >55% Mitral Valve MV Pk E: 0.52 MV PK A: 0.62 MV Decel Time: 249.00 E/A: 0.80 E'Lateral: 6.42 E'Medial: 3.37 E/E' Med: 15.40 E/E' Lat: 8.10 PHT: 73.00 MVA PHT: 3.01 Decel [place]: 2.08 Aortic Valve AoV Pk Adrian: 1.22 AoV Mn Adrian: 0.76 AoV VTI: 0.22 AoV Pk Grad: 6.00 Aov Mn Grad: 3.00 RAISA Cont.VTI: 2.76 LVOT LVOT Pk Adrian: 0.80 LVOT Mn Adrian: 0.49 LVOT VTI: 0.16 LVOT Pk Grad: 3.00 LVOT Mn Grad: 1.00 LVOT Diam: 2.20 LVOT Area: 3.80 Diastolic Function MV Pk E: 0.52 MV Pk A: 0.62 E/A: 0.80 E'Medial: 3.37 E/E' Med: 15.40 E' Laterial: 6.42 E/E' Lat: 8.10 Right Ventricle TAPSE (mm): 15.10 TVS' Adrian: 8.49 Great Vessels Aorta Sinus of Valsalva: 3.54 2.0-3.5 cm Ao Asc: 3.60 2.1-3.4 cm Updated in Other Vendor System with Status of Final Jeremiah Nettles MD electronically signed on 08/26/2023 11:32:33 AM with status of Final
== END ==
LOC: HO.CARD 12:49
PROVIDERS: PCP Internal Medicine; Visit Provider Internal Medicine Cardiovascular Disease
DX: I25.10 Atherosclerotic heart disease of native coronary artery without angina pectoris (principal); I73.9 Peripheral vascular disease, unspecified
CPT/HCPCS: 93306; 93925; Q9957

== ENCOUNTER → 2023-08-23 12:51 | Outpatient (BNV) | payer MEDICARE, SELFPAY | PROVIDERS: PCP Internal Medicine; Visit Provider Internal Medicine | DX: I35.8 Other nonrheumatic aortic valve disorders (principal); I42.2 Other hypertrophic cardiomyopathy | CPT/HCPCS: 93306 ==

== ENCOUNTER → 2023-09-13 09:14 | Outpatient (REF) | payer MEDICARE, SELFPAY ==
--- NOTE | ~2023-09-13 | NM_ITS ---
Lexiscan Myocardial perfusion study Indication: Coronary artery disease Technique: The patient was brought in for a Lexiscan perfusion study on 09/13/2023 and was injected 0.4 mg of Lexiscan intravenously. Within a minute of this injection 30 mCi of sestamibi was given intravenously. Images were obtained using the SPECT gamma camera interlaced with the gating device. Images were obtained in supine position. Resting perfusion study was performed on 09/15/2023. Patient was administered 25 mCi of sestamibi intravenously at rest. Images were then obtained in supine position. Images were processed with the software and compared side to side in short axis, horizontal long axis and vertical long axis views. Total DLP 120mGy-cm. Findings: Raw acquisition reviewed. Arms by the patient's side. The stress perfusion study showed diminished tracer uptake along the inferior wall. No major change with CT attenuation correction. The gated study shows diminished LV systolic function with calculated LVEF of 38%. LV cavity is normal in size. The gated study shows reduced contractility in the basal to mid inferior wall. Resting study shows diminished tracer uptake along the inferior wall. Some improvement with CT attenuation correction and could have components of diaphragmatic attenuation artifact. Gating at rest reveals inferior hypokinesis and ejection fraction at 43%. The findings are consistent with fixed inferior perfusion defect. No clear reversible defects. NM/NM pro perf SPECT rest & str Impression: 1. Myocardial perfusion imaging study shows prior infarct along the inferior wall, basal to mid portion. No clear evidence of ischemia. 2. Gated LVEF is 38% during stress and 43% during rest. Correlate with echocardiogram. 3. Transient ischemic dilatation not present. EKG component of the test reported separately.
--- NOTE | 2023-09-13 09:17 | CA_ITS ---
Acquisition Time: 2023-09-13 09:38:05 Total Exercise Time: 00:02:00 Test Indications: CAD Medications: SEE H Protocol: LEXISCAN Max HR: 092 BPM 60% of Pred: 151 BPM Max BP: 136/078 mmHG Max Work Load: 1.0 METS Pharmacological stress test with Lexiscan injection while sitting, with mild SOB, no chest discomfort, with isolated PACs and PVC, with normotensive response to injection, with nondiagnoisitic EKGs. Nuclear images pending. Test reviewed with Dr. Nettles. Referred By: Levy Bazan Overread By: Tsering Jonas
== END ==
LOC: HO.CARD 09:14
PROVIDERS: PCP Internal Medicine; Visit Provider Internal Medicine Cardiovascular Disease
DX: I25.10 Atherosclerotic heart disease of native coronary artery without angina pectoris (principal)
CPT/HCPCS: 78452; 93017; A9500; J0280; J2785

== ENCOUNTER → 2023-09-13 09:17 | Outpatient (BNV) | payer MEDICARE, SELFPAY | PROVIDERS: PCP Internal Medicine; Visit Provider Nurse Practitioner | DX: R06.02 Shortness of breath (principal); I49.1 Atrial premature depolarization; I49.3 Ventricular premature depolarization | CPT/HCPCS: 78452; 93016; 93018 ==

== ENCOUNTER 2023-10-18 11:22 | Outpatient (AMB) | payer MEDICARE, SELFPAY ==
--- NOTE | 2023-10-18 11:23 | MHC.PC.OV ---
Vital Signs 10/18/23 11:24 Height 6 ft Weight 212 lb 4 oz BMI 28.8 BP 138/82 Blood Pressure Location Lt brachial Position Sitting Pulse 83 Pulse Source Pulse Oximeter Pulse Oximetry (%) 99 Oxygen Delivery Method Room Air Intake Visit Reasons: PE - see comments Allergies No Known Allergies [No Known Allergies*] Allergy (Verified 10/18/23 11:24) Medication List - Last Reconciled 10/18/23 by Padma Tanner MD aspirin (Adult Low Dose Aspirin) 81 mg PO DAILY blood sugar diagnostic check sugar three times a day cholecalciferol (vitamin D3) 25 mcg PO DAILY clopidogrel 75 mg PO DAILY cyanocobalamin (vitamin B-12) (Vitamin B-12) 1,000 mcg PO DAILY ezetimibe 10 mg PO DAILY insulin glargine U-300 conc (Toujeo Max U-300 SoloStar) 90 units (0.3 mL) subcut DAILY 90 days lisinopril 2.5 mg PO DAILY 90 days nitroglycerin 0.4 mg sublingual Q5M PRN omega-3 acid ethyl esters 2 caps PO BID omeprazole 20 mg PO DAILY 90 days pen needle, diabetic (Pen Needle) use one daily rosuvastatin 40 mg PO DAILY 90 days Tobacco use date assessed: 10/18/23 Fall risk assessment: No Falls in past year Last assessed Fall Risk: 10/18/23 Dental Screening Dental Screen Date: 10/18/23 Did you have a dental visit in the last 12 months?: Yes Did you have a dental problem in the last 6 months where you did not have access to dental care?: No Was dental information given to patient?: Patient has dentist HPI PE - see comments HPI Details Patient is 68-year-old gentleman came in today for physical exam Colonoscopy was 2 years ago [facility] next 1 will be in 3 years Patient is complaining of difficulty sleeping at night, upon further questioning He tells me that sometimes he wakes up gasping for breath at night He is feeling tired during the day and has started taking naps He also snores. 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 He also have a history of left hip replacement. Joints are doing well. History of vitamin B12 deficiency and vitamin-D deficiency we will monitor the level Patient is on rosuvastatin 40 mg for lipid control And omeprazole for chronic GERD along with insulin for diabetes. He has intracranial shunt placed as well due to hydrocephalus, since the shunt is placed patient is doing well Before that patient was given a diagnosis of Parkinson's due to his symptoms but that has resolved. 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 Brother No problems noted. Son No problems noted. Daughter No problems noted. Social History Household Members: Spouse Household Members Other:: retired, lives in [place] for the winter Housing: House Patient Tobacco Use Status: Former Tobacco user Years Smoked: 20 years e-Cigarette/Vaping Use: Never Used service: No Current occupational status: retired Cognitive needs: No Hearing needs: No Vision needs: Yes Questionnaire PHQ-9 Over the last 2 weeks, how often have you been bothered by any of the following problems? 1. Little interest or pleasure in doing things: not at all 2. Feeling down, depressed, or hopeless: not at all 3. Trouble falling or staying asleep, or sleeping too much: nearly every day 4. Feeling tired or having little energy: more than half the days 5. Poor appetite or overeating: not at all 6. Feeling bad about yourself - or that you are a failure or have let yourself or your family down: not at all 7. Trouble concentrating on things, such as reading the newspaper or watching television: not at all 8. Moving or speaking so slowly that other people could have noticed. Or the opposite - being so fidgety or restless that you have been moving around a lot more than usual: not at all 9. Thoughts that you would be better off or of hurting yourself in some way: not at all Total score: 5 Depression Screening Interpretation: Negative Depression Screening Done: Yes 43237 - PHQ-9 Billing: Yes Source: Developed by Drs. Anthony Yang, Mirna Griggs, Damian Nava and colleagues, with an educational angelo from [employer]. Thrive Questionnaire Date Thrive assessed: 10/18/23 I am a: Patient What is your living situation today?: I have a steady place to live Within the past 12 months, did the food you bought not last and you didn't have the money to get more?: Never true Within the past 12 months, did you worry whether your food would run out before you got money to buy more?: Never true Do you have trouble paying for medicines?: No Do you have trouble getting transportation to medical appointments?: No Do you have trouble paying your heating and electricity bill?: No Do you have trouble taking care of your child, family member or friend?: No Do you have trouble with day-to-day activities such as bathing, preparing meals, shopping, managing finances, etc.?: No Are you currently unemployed and looking for a job?: No Are you interested in more education?: No Please select the resources that you would like help with: None Currently or been in a relationship where the following occur: No concerns reported THRIVE Score: 0 AUDIT C Alcohol Use Questionnaire (AUDIT-C) 1. How often do you have a drink containing alcohol?: Monthly or less 2. How many drinks containing alcohol do you have on a typical day when you are drinking?: 1 or 2 3. How often do you have six or more drinks on one occasion?: Never Total Score: 1 Score Reviewed/Action Taken: Yes BRITTANY-7 AMB Questionnaire BRITTANY-7 Date BRITTANY - 7 assessed: 10/18/23 Feeling nervous, anxious, or on edge: 0 = Not at all Not being able to stop or control worryin = Not at all Worrying too much about different things: 0 = Not at all Trouble relaxin = Not at all Being so restless that it is hard to sit still: 0 = Not at all Becoming easily annoyed or irritable: 0 = Not at all Feeling afraid as if something awful might happen: 0 = Not at all Total BRITTANY-7 score (0-4 normal; 5-9 mild; 10-14 moderate; 15-21 severe): 0 Source: Developed by Drs. Anthony Yang, Mirna Griggs, Damian Nava and colleagues, with an educational angelo from [employer]. BRITTANY-7 Assessment Billing BRITTANY-7 Assessment Tool: BRITTANY-7 Assessment [id number] Review of Systems Const Denies chills, Denies fever(s) and Denies headache(s) Eyes Denies blurry vision ENT Denies headache(s), Denies nasal discharge, Denies nasal obstruction, Denies odynophagia and Denies sinus pain Card Denies chest pain at rest and Denies chest pain with activity Resp Denies cough and Denies hemoptysis GI Denies diarrhea, Denies odynophagia, Denies vomiting and Denies hematemesis Reports as per HPI Musc Denies abnormal gait Skin/Breast Reports as per HPI Neuro Denies Neuro-related abnormal movements, Denies Abnormal speech present, Denies abnormal gait, Denies headache(s) and Denies Sensory deficit (Neuro) Psych Denies mood swings and Denies paranoia Endo Reports as per HPI Renan/Lymph Reports as per HPI Aller/Immun Reports as per HPI Physical exam (Primary Care) Vital Signs: Last Vital Signs Pulse 83 10/18/23 11:24 BP 138/82 10/18/23 11:24 Pulse Ox 99 10/18/23 11:24 Oxygen Delivery Method Room Air 10/18/23 11:24 BMI result Body Mass Index 28.8 Tobacco/Smoking Status: Tobacco use Status Tobacco use date assessed 10/18/23 10/18/23 11:24 Patient Tobacco Use Status Former Tobacco user 10/18/23 11:24 e-Cigarette/Vaping Use Never Used 10/18/23 11:24 PHQ-9: PHQ-9 Score PHQ-9: Total score 5 10/18/23 11:44 Depression Screening Interpretation: Negative Thrive Assessment: Date of Thrive Assessment Date Thrive assessed 10/18/23 10/18/23 11:24 Currently or been in a relationship where the following occur: No concerns reported Const General: cooperative, comfortable and no acute distress Orientation/consciousness: patient oriented x3 HENMT Head: Yes normocephalic and Yes atraumatic Eyes General: appearance normal, both eyes and all related structures Pupils: Equal, round and reactive pupils present EOM: EOMs intact bilaterally Neck Neck: Yes supple and No lymphadenopathy Thyroid: Thyroid normal Lymphatic: no lymphadenopathy noted Resp Effort & Inspection: normal respiratory effort and able to speak in complete sentences Auscultation: clear to auscultation bilaterally Cardio Heart sounds: S1 normal heart sound present and S2 normal heart sound present GI Palpation (GI): Soft to palpation and nontender Auscultation: normal bowel sounds General: Yes no CVA tenderness Back/Spine/Pelvis Back: no CVA tenderness Skin General skin exam: elasticity normal and turgor normal Neuro General: patient oriented x3 and gait normal Cranial nerves: Yes Equal, round and reactive pupils present Speech: No Abnormal speech present Sensory Exam: No Sensory deficit (Neuro) Coordination: tandem gait normal and Romberg test negative Extrem Other: Large varicosities both lower legs General: No edema Results AMB Hemoglobin A1c AMB Hemoglobin A1c 6.8 % Last Edit by Oswald Forrester CMA on 10/18/23 12:24 Results Reviewed Results Reviewed: Laboratory Last Values Hgb A1c (Clinic) 6.8 % (4.0-6.0) H 10/18/23 12:23 Assessment and Plan Assessment & Plan (1) Encounter for general adult medical examination with abnormal findings: Code(s): Z00.01 - Encounter for general adult medical examination with abnormal findings (2) Diabetes 1.5, managed as type 1: Code(s): E13.9 - Other specified diabetes mellitus without complications (3) Daytime somnolence: Code(s): R40.0 - Somnolence (4) HTN (hypertension): Code(s): I10 - Essential (primary) hypertension Qualifiers: Hypertension type: primary hypertension Qualified Code(s): I10 - Essential (primary) hypertension (5) Tired: Code(s): R53.83 - Other fatigue (6) Snoring: Code(s): R06.83 - Snoring (7) Gasping for breath: Code(s): R06.89 - Other abnormalities of breathing (8) 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 transplanted heart: [place] heart Qualified Code(s): I25.10 - Atherosclerotic heart disease of [place] coronary artery without angina pectoris Plan Patient is 68-year-old gentleman came in today for physical exam Colonoscopy was 2 years ago [facility] next 1 will be in 3 years Patient is complaining of difficulty sleeping at night, upon further questioning He tells me that sometimes he wakes up gasping for breath at night He is feeling tired during the day and has started taking naps He also snores. 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 He also have a history of left hip replacement. Joints are doing well. History of vitamin B12 deficiency and vitamin-D deficiency we will monitor the level Patient is on rosuvastatin 40 mg for lipid control And omeprazole for chronic GERD along with insulin for diabetes. He has intracranial shunt placed as well due to hydrocephalus, since the shunt is placed patient is doing well Before that patient was given a diagnosis of Parkinson's due to his symptoms but that has resolved. Lab order placed patient is fasting Follow-up Q 4 months, physical exam 1 year Orders: Orders Comprehensive Met. Panel Today E13.9 - Other specified diabetes mellitus without complications, E78.9 - Disorder of lipoprotein metabolism, unspecified, I10 - Essential (primary) hypertension, I25.10 - Atherosclerotic heart disease of [place] coronary artery without angina pectoris, R06.83 - Snoring, R06.89 - Other abnormalities of breathing, R40.0 - Somnolence, R53.83 - Other fatigue, Z00.01 - Encounter for general adult medical examination with abnormal findings, Z79.4 - [facility] (current) 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 LDL Cholesterol Direct Today E13.9 - Other specified diabetes mellitus without complications, E78.9 - Disorder of lipoprotein metabolism, unspecified, I10 - Essential (primary) hypertension, I25.10 - Atherosclerotic heart disease of [place] coronary artery without angina pectoris, R06.83 - Snoring, R06.89 - Other abnormalities of breathing, R40.0 - Somnolence, R53.83 - Other fatigue, Z00.01 - Encounter for general adult medical examination with abnormal findings, Z79.4 - [facility] (current) 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 Microalbumin, Random (w Creat) Today E13.9 - Other specified diabetes mellitus without complications, E78.9 - Disorder of lipoprotein metabolism, unspecified, I10 - Essential (primary) hypertension, I25.10 - Atherosclerotic heart disease of [place] coronary artery without angina pectoris, R06.83 - Snoring, R06.89 - Other abnormalities of breathing, R40.0 - Somnolence, R53.83 - Other fatigue, Z00.01 - Encounter for general adult medical examination with abnormal findings, Z79.4 - 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 AMB Hemoglobin A1c Today Z13.9 - Encounter for screening, unspecified RT home sleep study Today R06.83 - Snoring, R06.89 - Other abnormalities of breathing, R40.0 - Somnolence, R53.83 - Other fatigue Complete Blood Count Auto Diff Today E13.9 - Other specified diabetes mellitus without complications, E78.9 - Disorder of lipoprotein metabolism, unspecified, I10 - Essential (primary) hypertension, I25.10 - Atherosclerotic heart disease of [place] coronary artery without angina pectoris, R06.83 - Snoring, R06.89 - Other abnormalities of breathing, R40.0 - Somnolence, R53.83 - Other fatigue, Z00.01 - Encounter for general adult medical examination with abnormal findings, Z79.4 - [facility] (current) 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 Coding Level of Care Code Est Pt Level 4 (21119) Est Pt Prev Care >65y(99789) Diagnoses Encounter for general adult medical examination with abnormal findings Z00.01 Diabetes 1.5, managed as type 1 E13.9 Daytime somnolence R40.0 Primary hypertension I10 Hypertension type: primary hypertension Tired R53.83 Snoring R06.83 Gasping for breath R06.89 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 transplanted heart: [place] heart Additional Codes BRITTANY-7 Assessment Billing - BRITTANY-7 Assessment Tool: BRITTANY-7 Assessment [id number] ([id number])
[2023-10-18 11:24] VITALS: BP 138/82; PULSE 83; O2SAT 99; BMI 28.8
== END 2023-10-18 12:04 | disposition home or self-care (01) ==
PROVIDERS: PCP Internal Medicine; Visit Provider Internal Medicine
DX: Z00.01 Encounter for general adult medical examination with abnormal findings (principal); E13.9 Other specified diabetes mellitus without complications; Z79.4 Long term (current) 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; I10 Essential (primary) hypertension; R53.83 Other fatigue; R06.83 Snoring; R06.89 Other abnormalities of breathing; E78.9 Disorder of lipoprotein metabolism, unspecified; I25.10 Atherosclerotic heart disease of native coronary artery without angina pectoris
CPT/HCPCS: 83036; 99214; 99397

== ENCOUNTER 2023-11-02 08:39 | Outpatient (AMB) | payer MEDICARE, SELFPAY ==
[2023-11-02 08:54] VITALS: BMI 28.6
--- NOTE | 2023-11-02 08:54 | MHC.OFFVIS ---
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 Pt states his legs get tired, pt states its gradually getting worse. Pt states he also has bilateral hip replacements and the left hip is very painful. 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 Was actually seen and examined by Cardiology who is concerned about his ambulation status and subsequently obtained noninvasive testing. He does have a complex medical history. 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 Quit smoking in 2004. In addition he has been a diagnosed diabetic since 2014. He does have a prior right hip surgery done in 2013 down in [place] in addition, in addition to left hip surgery on 09/12/[address] Jordy griffith at [facility]. He also has a prior history L5 ruptured disc with previous intervention. He also has had a SHOT COAT TENDER shunt placement on 10/13/2021. Upon discussion with him he can walk about 50 yd before he experiences left gluteal claudication. In addition he is an avid golfer and usually requires the use of a golf cart and after 3 holes notes significant discomfort. He now presents to us for vascular evaluation. Of note he does have a prior history of DVT and PE as well. 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 Brother No problems noted. Son No problems noted. Daughter No problems noted. Social History Household Members: Spouse Household Members Other:: retired, lives in [place] for the winter Housing: House Patient Tobacco Use Status: Former Tobacco user Years Smoked: 20 years e-Cigarette/Vaping Use: Never Used service: No Current occupational status: retired Cognitive needs: No Hearing needs: No Vision needs: Yes Review of Systems Const Reports as per HPI ENT Reports no additional complaints Card Denies chest pain, Denies chest pain at rest and Denies chest pain with activity Resp Denies chest congestion and Denies cough GI Reports no additional complaints Musc Details: pain over varicosities, aching of lower extremities, swelling, cramping, heaviness and tiredness, itching Denies abnormal gait Skin/Breast Reports pruritus and Denies wounds Neuro Reports no additional complaints and Denies abnormal gait Psych Denies no additional complaints Physical Exam Vital Signs: BMI result Body Mass Index 28.6 Const General: cooperative, healthy appearing and comfortable Orientation/consciousness: oriented to person, oriented to place and oriented to time Neck Carotids: no bruits Chest Chest palpation & inspection: normal inspection of the chest and normal palpation of entire chest wall Resp Effort & Inspection: normal respiratory effort and able to speak in complete sentences Cardio Other: Bilateral palpable posterior tibial pulses Rate: regular rate Heart sounds: S1 normal heart sound present and S2 normal heart sound present Peripheral pulses: Peripheral pulses 2+ throughout GI Inspection: Yes normal to inspection Skin Other: +2 edema, large rope-like varicosities greater than 4 mm bilateral calf CEAP Classification C4 - skin color changes Ep - Etiology Primary As - superficial veins P - reflux General skin exam: dry skin Neuro General: oriented to person, oriented to place and oriented to time Extrem Right lower extremity: full ROM, normal capillary refill and edema Left lower extremity: full ROM, normal capillary refill and edema Psych Mental Status: mental status grossly normal Results Reviewed Results Reviewed: Noninvasive arterial testing dated 08/23/2022 demonstrates bilateral triphasic waveforms down to the feet. Question of some tibial disease. Written report and images were reviewed. Assessment & Plan Assessment & Plan (1) PAD (peripheral artery disease): Code(s): I73.9 - Peripheral vascular disease, unspecified Category: Medical Plan: He does demonstrate clinical stigmata of claudication. Although I am able to faintly appreciate a faint posterior tibial pulse does complain of more gluteal claudication. My concern is there may be more of a central stenosis. Would recommend a CT angiogram with runoff to better elucidate this. Unfortunately he his headed for [place] for the winter. We can readdress this upon his return. At the current time his lower extremities are stable with no evidence of threatening limb ischemia. Please note a longitudinal relationship has been created with the patient and we have been following and surveillance this chronic condition. (2) Varicose veins of right lower extremity with inflammation: Code(s): I83.11 - Varicose veins of right lower extremity with inflammation Category: Medical Plan: The patient does demonstrate significant large varicosities in addition to lower extremity swelling. Does have underlying reflux just by the mere fact of his prior history of a DVT in 2013. We did discuss routine conservative measures including compression elevation and exercise. Will follow up with us 1st for his arterial disease and should that prove to be negative may address his venous disease to follow. Thank you for allowing us to assist in his care. If there are any questions or concerns please do not hesitate to contact us Coding Level of Care Code New Pt Level 4 (09172) Complex EM visit Add On G2211 Diagnoses PAD (peripheral artery disease) I73.9 Varicose veins of right lower extremity with inflammation I83.11
== END 2023-11-02 09:29 | disposition home or self-care (01) ==
PROVIDERS: PCP Internal Medicine; Visit Provider Surgery Vascular Surgery
DX: I73.9 Peripheral vascular disease, unspecified (principal); I83.11 Varicose veins of right lower extremity with inflammation
CPT/HCPCS: 99204; G2211

== ENCOUNTER → 2023-11-02 08:39 | Outpatient (BNVA) | payer MEDICARE, SELFPAY | PROVIDERS: PCP Internal Medicine; Visit Provider Surgery Vascular Surgery | DX: I73.9 Peripheral vascular disease, unspecified (principal); I83.11 Varicose veins of right lower extremity with inflammation | CPT/HCPCS: 99202 ==

== ENCOUNTER 2023-11-16 08:22 | Outpatient (REF) | payer MEDICARE, SELFPAY ==
[2023-11-16 10:05] LABS: MANUAL DIFF FLAG NO
[2023-11-16 10:11] LABS: Basophils Absolute Auto 0.1 X10*3/uL (0.0-0.2); Basophils Percent Auto 1.2 % (0-2); Eosinophils Absolute Auto 0.2 X10*3/uL (0.0-0.4); Eosinophils Percent Auto 2.8 % (0-4); Hematocrit 42.8 % (42.0-52.0); Hemoglobin 14.6 g/dl (14.0-18.0); Imm Gran Abs Auto 0.03 X10*3/uL (0.00-0.03); Imm Gran Pct Auto 0.5 % (0.0-0.4); Lymphocytes Absolute Auto 1.5 X10*3/uL (1.2-4.9); Lymphocytes Percent Auto 25.5 % (20-40); Mean Corpuscular HGB Conc 34.1 g/dl (31.0-36.0); Mean Corpuscular Hemoglobin 31.8 pg (27.0-33.0); Mean Corpuscular Volume 93.2 fL (80.0-98.0); Mean Platelet Volume 9.9 fL (9.4-12.4); Monocytes Absolute Auto 0.5 X10*3/uL (0.1-1.2); Monocytes Percent Auto 8.4 % (2-11); Neutrophils Absolute Auto 3.6 x10*3/uL (2.0-8.3); Neutrophils Percent Auto 61.6 % (45-73); Platelet Count 225 X10*3/uL (160-400); Red Blood Count 4.59 X10*6/uL (4.60-5.80); Red Cell Distribution Width 12.8 % (11.0-16.0); White Blood Count 5.8 X10*3/uL (4.8-10.8)
[2023-11-16 10:25] LABS: Alanine Aminotransferase 27 U/L (0-40); Albumin Level 4.5 g/dL (3.5-5.0); Alkaline Phosphatase 86 U/L (39-117); Anion Gap 10 (12-20); Aspartate Amino Transferase 23 U/L (5-37); Bilirubin Total 1.2 mg/dL (0.0-1.0); Blood Urea Nitrogen 12 mg/dL (9-16); Carbon Dioxide 25 mmol/L (22-29); Chloride 107 mmol/L (96-108); Estimated Glomerular Filt Rate 58; Glucose Random 141 mg/dL (60-115); Potassium 4.2 mmol/L (3.3-5.1); Sodium 138 mmol/L (135-145)
[2023-11-16 10:34] LABS: Creatinine Urine 199.71 mg/dL; Microalbum/Creatinine Ratio Ur 18.5 ug/mg cr (<30)
[2023-11-17 12:34] LABS: LDL Cholesterol Direct 52 mg/dL (<100)
== END 2023-11-16 08:23 | disposition home or self-care (01) ==
LOC: HO.HMGCLDS 08:22
PROVIDERS: PCP Internal Medicine; Visit Provider Internal Medicine
DX: Z00.01 Encounter for general adult medical examination with abnormal findings (principal); I10 Essential (primary) hypertension; I25.10 Atherosclerotic heart disease of native coronary artery without angina pectoris; E78.9 Disorder of lipoprotein metabolism, unspecified; Z79.4 Long term (current) 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; R40.0 Somnolence; R53.83 Other fatigue; R06.83 Snoring; R06.89 Other abnormalities of breathing
CPT/HCPCS: 36415; 80053; 82043; 82570; 83721; 85025

== ENCOUNTER 2024-02-01 08:21 | Outpatient (AMB) | payer MEDICARE, SELFPAY ==
--- NOTE | 2024-02-01 08:28 | A.OFFPC_ITS ---
Intake Visit Reasons: 4 months f/up Allergies No Known Allergies [No Known Allergies*] Allergy (Verified 02/01/24 08:47) Medication List - Last Reconciled 02/02/24 by Padma Tanner MD aspirin (Adult Low Dose Aspirin) 81 mg PO DAILY blood sugar diagnostic check sugar three times a day cholecalciferol (vitamin D3) 25 mcg PO DAILY clopidogrel 75 mg PO DAILY cyanocobalamin (vitamin B-12) (Vitamin B-12) 1,000 mcg PO DAILY Dexcom G7 Sharepoint Admin (blood-glucose meter,continuous) check blood sugar three times daily NS Dexcom G7 Sensor (blood-glucose sensor) check blood sugar three times daily NS ezetimibe 10 mg PO DAILY insulin glargine U-300 conc (Toujeo Max U-300 SoloStar) 90 units (0.3 mL) subcut DAILY 90 days lisinopril 2.5 mg PO DAILY 90 days nitroglycerin 0.4 mg sublingual Q5M PRN omega-3 acid ethyl esters 2 caps PO BID omeprazole 20 mg PO DAILY 90 days pen needle, diabetic (Pen Needle) use one daily risankizumab-rzaa (Skyrizi) 150 mg subcut Q12W rosuvastatin 40 mg PO DAILY 90 days Tobacco use date assessed: 02/01/24 Fall risk assessment: No Falls in past year Last assessed Fall Risk: 02/01/24 Dental Screening Dental Screen Date: 02/01/24 Did you have a dental visit in the last 12 months?: Yes Did you have a dental problem in the last 6 months where you did not have access to dental care?: No Was dental information given to patient?: Patient has dentist HPI 4 months f/up HPI Details Chief Complaint The patient is concerned about the inability to obtain continuous glucose monitoring sensors due to insurance denial. Assessment and Plan 68-year-old male with a history of Type 2 Diabetes Mellitus, Essential Hypertension, and Hyperlipidemia, presenting with concerns about the denial of continuous glucose monitoring (CGM) sensors by the insurance company. The patient's glycemic control appears stable with HbA1c recorded as 6.8% in September. The patient uses long-acting insulin and reports consistent weight and dietary habits. The primary concern is related to monitoring blood glucose more effectively for optimal control. Current medication management includes antihypertensives, lipid control agents, and management of GERD symptoms. 1. Hyperlipidemia The patient is on rosuvastatin 40 mg and Zetia for lipid control. Current regimen appears effective, and the patient reports stable weight and diet. Follow-up lipid panels are recommended before the next visit. 2. Essential Hypertension The patient's blood pressure is managed with lisinopril 2.5 mg daily. The patient reports no changes in weight or dietary habits and is advised to continue current lifestyle modifications and medication. 3. Type 2 Diabetes Mellitus The patient's diabetes is currently managed with 90 units of long-acting insulin daily. HbA1c was last measured at 6.8%, indicating overall good control. The insurance company has denied coverage for the Dexcom CGM sensors, which the patient finds crucial for self-monitoring. Alternatives include frequent fingerstick glucose checks. The patient plans to switch to a new insurance provider, [employer], in February, at which point we will attempt coverage again. 4. Gastroesophageal Reflux Disease Gerd GERD symptoms are managed with omeprazole 20 mg daily. The patient is advised to maintain current dietary restrictions and medication regimen. Diagnostic results - HbA1c: 6.8% (measured in September) Problem List - Type 2 Diabetes Mellitus - Essential Hypertension - Gastroesophageal Reflux Disease (GERD) - Hyperlipidemia Health Maintenance - Recommend regular blood glucose monito ring via fingerstick until CGM sensor issue is resolved. - Medication adherence for diabetes, hyp ertension, and hyperlipidemia. - Continue current dietary habits to sup port weight and lipid management. [place] of Care The patient is currently managed by cardiology (Dr. Bazan) for clopidogrel therapy. Patient Instructions - Monitor blood sugar levels using finge rstick tests regularly, especially if feeling symptomatic. - Contact the office with new insurance details in February for further assistance with CGM sensors. - Continue current medications as prescr ibed, including insulin, lisinopril, omeprazole, rosuvastatin, Zetia, and clopidogrel. - Maintain dietary and lifestyle habits to ensure stable weight and blood pressure. - Schedule lab tests before your next ap pointment in 3-4 months. 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 Brother No problems noted. Son No problems noted. Daughter No problems noted. Social History Household Members: Spouse Household Members Other:: retired, lives in [place] for the winter Housing: House Patient Tobacco Use Status: Former Tobacco user Years Smoked: 20 years e-Cigarette/Vaping Use: Never Used service: No Current occupational status: retired Cognitive needs: No Hearing needs: No Vision needs: Yes Questionnaire Thrive Questionnaire Date Thrive assessed: 02/01/24 I am a: Patient What is your living situation today?: I have a steady place to live Within the past 12 months, did the food you bought not last and you didn't have the money to get more?: Never true Within the past 12 months, did you worry whether your food would run out before you got money to buy more?: Never true Do you have trouble paying for medicines?: No Do you have trouble getting transportation to medical appointments?: No Do you have trouble paying your heating and electricity bill?: No Do you have trouble taking care of your child, family member or friend?: No Do you have trouble with day-to-day activities such as bathing, preparing meals, shopping, managing finances, etc.?: No Are you currently unemployed and looking for a job?: No Are you interested in more education?: No Please select the resources that you would like help with: None Currently or been in a relationship where the following occur: No concerns reported THRIVE Score: 0 AUDIT C Alcohol Use Questionnaire (AUDIT-C) 1. How often do you have a drink containing alcohol?: Monthly or less 2. How many drinks containing alcohol do you have on a typical day when you are drinking?: 1 or 2 3. How often do you have six or more drinks on one occasion?: Never Total Score: 1 Score Reviewed/Action Taken: Yes BRITTANY-7 AMB Questionnaire BRITTANY-7 Date BRITTANY - 7 assessed: 10/18/23 Source: Developed by Drs. Anthony Yang, Mirna Griggs, Damian Nava and colleagues, with an educational angelo from [facility]. Review of Systems Const Denies chills and Denies fever(s) ENT Denies epistaxis and Denies nasal discharge Card Denies chest pain Resp Denies chest congestion, Denies cough and Denies hemoptysis GI Denies diarrhea and Denies nausea Skin/Breast Denies rash Neuro Reports no additional complaints Psych Reports no additional complaints Endo Reports no additional complaints Physical exam (Primary Care) Tobacco/Smoking Status: Tobacco use Status Tobacco use date assessed 02/01/24 02/01/24 08:47 Patient Tobacco Use Status Former Tobacco user 02/01/24 08:28 e-Cigarette/Vaping Use Never Used 02/01/24 08:28 Thrive Assessment: Date of Thrive Assessment Date Thrive assessed 02/01/24 02/01/24 08:47 Currently or been in a relationship where the following occur: No concerns reported Telehealth Telehealth Telehealth Platform: [facility] Location of provider rendering services: practice address Location of patient: address on file Patient Identification confirmed using: Name, : Yes Telehealth method: video (attempted) Patient verbally consented to treatment: Yes Patient verbally consented to billing insurance company: Yes Patient informed of any privacy concerns related to visit: Yes Minutes spent on Phone/Video with Pt.: 14 Coding Level of Care Code Complex EM visit Add On G2211 Diagnoses Diabetes 1.5, managed as type 1 E13.9 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 transplanted heart: [place] heart Primary hypertension I10 Hypertension type: primary hypertension Parkinson's disease with dyskinesia and fluctuating manifestations G20.B2 Dyskinesia presence: with dyskinesia Fluctuating manifestations: with fluctuating manifestations Polyneuropathy associated with underlying disease G63 Peripheral neuropathy type: polyneuropathy associated with underlying disease Assessment & Plan Assessment & Plan (1) Diabetes 1.5, managed as type 1: Code(s): E13.9 - Other specified diabetes mellitus without complications Category: Medical (2) alf (current) 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: Code(s): Z79.4 - alf (current) 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 Category: Medical (3) Lipid disorder: Code(s): E78.9 - Disorder of lipoprotein metabolism, unspecified Category: Medical (4) Vitamin D deficiency: Code(s): E55.9 - Vitamin D deficiency, unspecified Category: Medical (5) CAD (coronary artery disease): Code(s): I25.10 - Atherosclerotic heart disease of [place] coronary artery without angina pectoris Category: Medical Qualifiers: Associated angina: without angina Coronary Disease-Associated Artery/Lesion type: [place] artery [place] vs. transplanted heart: [place] heart Qualified Code(s): I25.10 - Atherosclerotic heart disease of [place] coronary ar ovidio without angina pectoris (6) HTN (hypertension): Code(s): I10 - Essential (primary) hypertension Category: Medical Qualifiers: Hypertension type: primary hypertension Qualified Code(s): I10 - Essent ial (primary) hypertension (7) Parkinsons disease: Code(s): G20 - Parkinson's disease Category: Medical Qualifiers: Dyskinesia presence: with dyskinesia Fluctuating manifestations: with fluctuating manifestations Qualified Code(s): G20.B2 - Parkinson's disease with dyskinesia, with fluctuations (8) Peripheral neuropathy: Code(s): G62.9 - Polyneuropathy, unspecified Category: Medical Qualifiers: Peripheral neuropathy type: polyneuropathy associated with underlying disease Qualified Code(s): G63 - Polyneuropathy in diseases classified elsewhere Plan Chief Complaint The patient is concerned about the inability to obtain continuous glucose monitoring sensors due to insurance denial. Assessment and Plan 68-year-old male with a history of Type 2 Diabetes Mellitus, Essential Hypertension, and Hyperlipidemia, presenting with concerns about the denial of continuous glucose monitoring (CGM) sensors by the insurance company. The patient's glycemic control appears stable with HbA1c recorded as 6.8% in September. The patient uses long-acting insulin and reports consistent weight and dietary habits. The primary concern is related to monitoring blood glucose more effectively for optimal control. Current medication management includes antihypertensives, lipid control agents, and management of GERD symptoms. 1. Hyperlipidemia The patient is on rosuvastatin 40 mg and Zetia for lipid control. Current regimen appears effective, and the patient reports stable weight and diet. Follow-up lipid panels are recommended before the next visit. 2. Essential Hypertension The patient's blood pressure is managed with lisinopril 2.5 mg daily. The patient reports no changes in weight or dietary habits and is advised to continue current lifestyle modifications and medication. 3. Type 2 Diabetes Mellitus The patient's diabetes is currently managed with 90 units of long-acting insulin daily. HbA1c was last measured at 6.8%, indicating overall good control. The insurance company has denied coverage for the Dexcom CGM sensors, which the patient finds crucial for self-monitoring. Alternatives include frequent fingerstick glucose checks. The patient plans to switch to a new insurance provider, [employer], in February, at which point we will attempt coverage again. 4. Gastroesophageal Reflux Disease Gerd GERD symptoms are managed with omeprazole 20 mg daily. The patient is advised to maintain current dietary restrictions and medication regimen. Diagnostic results - HbA1c: 6.8% (measured in September) Problem List - Type 2 Diabetes Mellitus - Essential Hypertension - Gastroesophageal Reflux Disease (GERD) - Hyperlipidemia Health Maintenance - Recommend regular blood glucose monitoring via fingerstick until CGM sensor issue is resolved. - Medication adherence for diabetes, hypertension, and hyperlipidemia. - Continue current dietary habits to support weight and lipid management. [place] of Care The patient is currently managed by cardiology (Dr. Bazan) for clopidogrel therapy. Patient Instructions - Monitor blood sugar levels using fingerstick tests regularly, especially if feeling symptomatic. - Contact the office with new insurance details in February for further assistance with CGM sensors. - Continue current medications as prescribed, including insulin, lisinopril, omeprazole, rosuvastatin, Zetia, and clopidogrel. - Maintain dietary and lifestyle habits to ensure stable weight and blood pressure. - Schedule lab tests before your next appointment in 3-4 months. Orders: Orders Hemoglobin A1c 02/01/24 E13.9 - Other specified diabetes mellitus without complications, E55.9 - Vitamin D deficiency, unspecified, E78.9 - Disorder of lipoprotein metabolism, unspecified, G20.B2 - Parkinson's disease with dyskinesia, with fluctuations, G63 - Polyneuropathy in diseases classified elsewhere, I10 - Essential (primary) hypertension, I25.10 - Atherosclerotic heart disease of [place] coronary artery without angina pectoris, Z79.4 - alf (current) 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 Comprehensive [place]. Panel Fast 02/01/24 E13.9 - Other specified diabetes mellitus without complications, E55.9 - Vitamin D deficiency, unspecified, E78.9 - Disorder of lipoprotein metabolism, unspecified, G20.B2 - Parkinson's disease with dyskinesia, with fluctuations, G63 - Polyneuropathy in diseases classified elsewhere, I10 - Essential (primary) hypertension, I25.10 - Atherosclerotic heart disease of [place] coronary artery without angina pectoris, Z79.4 - alf (current) 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 Microalbumin, Random (w Creat) 02/01/24 E13.9 - Other specified diabetes mellitus without complications, E55.9 - Vitamin D deficiency, unspecified, E78.9 - Disorder of lipoprotein metabolism, unspecified, G20.B2 - Parkinson's disease with dyskinesia, with fluctuations, G63 - Polyneuropathy in diseases classified elsewhere, I10 - Essential (primary) hypertension, I25.10 - Atherosclerotic heart disease of [place] coronary artery without angina pectoris, Z79.4 - alf (current) 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 Complete Blood Count Auto Diff 02/01/24 E13.9 - Other specified diabetes mellitus without complications, E55.9 - Vitamin D deficiency, unspecified, E78.9 - Disorder of lipoprotein metabolism, unspecified, G20.B2 - Parkinson's disease with dyskinesia, with fluctuations, G63 - Polyneuropathy in diseases classified elsewhere, I10 - Essential (primary) hypertension, I25.10 - Atherosclerotic heart disease of [place] coronary artery without angina pectoris, Z79.4 - alf (current) 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 Lipid Panel 02/01/24 E13.9 - Other specified diabetes mellitus without complications, E55.9 - Vitamin D deficiency, unspecified, E78.9 - Disorder of lipoprotein metabolism, unspecified, G20.B2 - Parkinson's disease with dyskinesia, with fluctuations, G63 - Polyneuropathy in diseases classified elsewhere, I10 - Essential (primary) hypertension, I25.10 - Atherosclerotic heart disease of [place] coronary artery without angina pectoris, Z79.4 - alf (current) 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 Vitamin D 25-OH (D2 and D3) 02/01/24 E13.9 - Other specified diabetes mellitus without complications, E55.9 - Vitamin D deficiency, unspecified, E78.9 - Disorder of lipoprotein metabolism, unspecified, G20.B2 - Parkinson's disease with dyskinesia, with fluctuations, G63 - Polyneuropathy in diseases classified elsewhere, I10 - Essential (primary) hypertension, I25.10 - Atherosclerotic heart disease of [place] coronary artery without angina pectoris, Z79.4 - alf (current) 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 Vitamin B12 02/01/24 E13.9 - Other specified diabetes mellitus without complications, E55.9 - Vitamin D deficiency, unspecified, E78.9 - Disorder of lipoprotein metabolism, unspecified, G20.B2 - Parkinson's disease with dyskinesia, with fluctuations, G63 - Polyneuropathy in diseases classified elsewhere, I10 - Essential (primary) hypertension, I25.10 - Atherosclerotic heart disease of [place] coronary artery without angina pectoris, Z79.4 - 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
== END 2024-02-01 09:04 | disposition home or self-care (01) ==
LOC: HO.HMCC 08:21
PROVIDERS: PCP Internal Medicine; Visit Provider Internal Medicine
DX: E13.9 Other specified diabetes mellitus without complications (principal); Z79.4 Long term (current) 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; G20.B2 Parkinson's disease with dyskinesia, with fluctuations; G63 Polyneuropathy in diseases classified elsewhere; E78.9 Disorder of lipoprotein metabolism, unspecified; E55.9 Vitamin D deficiency, unspecified; I25.10 Atherosclerotic heart disease of native coronary artery without angina pectoris; I10 Essential (primary) hypertension

== ENCOUNTER → 2024-02-01 08:21 | Outpatient (BNVA) | payer MEDICARE, SELFPAY | PROVIDERS: PCP Internal Medicine; Visit Provider Internal Medicine ==

== ENCOUNTER 2024-05-30 08:41 | Outpatient (AMB) | payer MEDICARE, SELFPAY ==
--- NOTE | 2024-05-30 08:39 | A.OFFPC_ITS ---
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) check blood sugar three times daily NS Dexcom G7 Sensor (blood-glucose sensor) check blood sugar three times daily NS ezetimibe 10 mg PO DAILY insulin glargine U-300 conc (Toujeo Max U-300 SoloStar) 90 units (0.3 mL) subcut DAILY 90 days lisinopril 2.5 mg PO DAILY 90 days nitroglycerin 0.4 mg sublingual Q5M PRN omega-3 acid ethyl esters 2 caps PO BID omeprazole 20 mg PO DAILY 90 days pen needle, diabetic (Pen Needle) use one daily risankizumab-rzaa (Skyrizi) 150 mg subcut Q12W rosuvastatin 40 mg PO DAILY 90 days Tobacco use date assessed: 05/30/24 Fall risk assessment: No Falls in past year Last assessed Fall Risk: 05/30/24 Dental Screening Dental Screen Date: 05/30/24 Did you have a dental visit in the last 12 months?: Yes Did you have a dental problem in the last 6 months where you did not have access to dental care?: No Was dental information given to patient?: Patient has dentist HPI Follow Up HPI Details History - The patient is a 68-year-old male pres enting for regular follow up and right knee pain. - The pain is associated with a recent i ncident when he bent over to place a dog dish, feeling a pop in the right knee. The pain has persisted for approximately six weeks. - The right knee has significant histori dennys context with two prior surgeries conducted at the ages of 18 and 19. Post recent injury, swelling was noted but has subsided to a tolerable level. - Management of diabetes includes seekin g refill of Dexcom CGM denied by insurance due to stable glycemic control. The patient is on insulin and reports concerns about unexpected hypoglycemic events. - Routine blood tests are required, last performed in October of the preceding year. The patient is scheduled for additional history of Type 2 Diabetes Mellitus, Essential Hypertension, and Hyperlipidemia, Current medication management includes antihypertensives, lipid control agents, and management of GERD symptoms. 1. Hyperlipidemia The patient is on rosuvastatin 40 mg and Zetia for lipid control. 2. Essential Hypertension The patient's blood pressure is managed with lisinopril 2.5 mg daily. 3. Type 2 Diabetes Mellitus The patient's diabetes is currently managed with 90 units of long-acting insulin daily. HbA1c was last measured at 6.8%, indicating overall good control. 4. Gastroesophageal Reflux Disease Gerd GERD symptoms are managed with omeprazole 20 mg daily. Diagnostic results - HbA1c: 6.8% (measured in September 2023) Problem List - Type 2 Diabetes Mellitus - Essential Hypertension - Gastroesophageal Reflux Disease (GERD) - Hyperlipidemia - Right Knee Pain - History of Right Knee Surgeries - Dexcom Continuous Glucose Monitoring R efill Inquiry - Need for Blood Test (Routine Monitorin g) - Sleep Study Scheduled - Peripheral Vascular Concerns (Vein Page luation Planned) Patient Instructions - Monitor blood sugar levels using finge rstick tests regularly, especially if feeling symptomatic. - Continue current medications as prescr ibed, including insulin, lisinopril, omeprazole, rosuvastatin, Zetia, and clopidogrel. - Maintain dietary and lifestyle habits to ensure stable weight and blood pressure. - Schedule lab tests before your next ap pointment in 3-4 months. - Contact your insurance company to inqu crystal about coverage for the Dexcom CGM, explaining the necessity due to insulin use and potential for undetected hypoglycemia. - Be prepared for a routine blood test u peg your return in June; ensure labs are fasting. - Attend the sleep study and follow up w ith your vascular specialist as scheduled. - Maintain awareness of knee symptoms re f to Ortho placed as per Patients request Review of Systems - General: No fever no chills - Neurological: No headaches no dizziness - Ear nose throat: No sore throat no hearing difficulty no ear pain - Cardiovascular: No syncope, no chest pain, no palpitations - Gastrointestinal: No nausea vomiting or diarrhea - Endocrine: No polyuria polydipsia no heat intolerance - Genitourinary: No dysuria , no blood in urine [facility] Medical History DVT (deep venous thrombosis) (~2013) Pulmonary embolism HTN (hypertension) Old inferior wall myocardial infarction (~07/2004) CAD (coronary artery disease) Vitamin D deficiency Lipid disorder 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 Brother No problems noted. Son No problems noted. Daughter No problems noted. Social History Household Members: Spouse Household Members Other:: retired, lives in [place] for the winter Housing: House Patient Tobacco Use Status: Former Tobacco user Years Smoked: 20 years e-Cigarette/Vaping Use: Never Used service: No Current occupational status: retired Cognitive needs: No Hearing needs: No Vision needs: Yes Questionnaire Thrive Questionnaire Date Thrive assessed: 02/01/24 AUDIT C Alcohol Use Questionnaire (AUDIT-C) 1. How often do you have a drink containing alcohol?: Monthly or less 2. How many drinks containing alcohol do you have on a typical day when you are drinking?: 1 or 2 3. How often do you have six or more drinks on one occasion?: Never Total Score: 1 Score Reviewed/Action Taken: Yes BRITTANY-7 AMB Questionnaire BRITTANY-7 Date BRITTANY - 7 assessed: 10/18/23 Source: Developed by Drs. Anthony Yang, Mirna Griggs, Damian Nava and colleagues, with an educational angelo from [employer]. Physical exam (Primary Care) Tobacco/Smoking Status: Tobacco use Status Tobacco use date assessed 05/30/24 05/30/24 08:40 Patient Tobacco Use Status Former Tobacco user 05/30/24 08:40 e-Cigarette/Vaping Use Never Used 05/30/24 08:40 Thrive Assessment: Date of Thrive Assessment Date Thrive assessed 02/01/24 05/30/24 08:40 Telehealth Telehealth Telehealth Platform: [facility] Location of provider rendering services: practice address Location of patient: address on file Patient Identification confirmed using: Name, : Yes Telehealth method: video Patient verbally consented to treatment: Yes Patient verbally consented to billing insurance company: Yes Patient informed of any privacy concerns related to visit: Yes Coding Level of Care Code Tele Est Pt Level 4 (19156) Complex EM visit Add On G2211 Diagnoses Swelling of knee joint, right M25.461 Diabetes 1.5, managed as type 1 E13.9 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 transplanted heart: [place] heart Associated angina: without angina Primary hypertension I10 Hypertension type: primary hypertension Parkinson's disease with dyskinesia and fluctuating manifestations G20.B2 Dyskinesia presence: with dyskinesia Fluctuating manifestations: with fluctuating manifestations Polyneuropathy associated with underlying disease G63 Peripheral neuropathy type: polyneuropathy associated with underlying disease Time Spent (min) 30 Assessment & Plan Assessment & Plan (1) Swelling of knee joint, right: Code(s): M25.461 - Effusion, right knee Category: Medical (2) Diabetes 1.5, managed as type 1: Code(s): E13.9 - Other specified diabetes mellitus without complications Category: Medical (3) residential (current) 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: Code(s): Z79.4 - 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 transplanted heart: [place] heart Associated angina: without angina Qualified Code(s): I25.10 - Atherosclerotic heart disease of [place] coronary artery without angina pectoris (7) HTN (hypertension): Code(s): I10 - Essential (primary) hypertension Category: Medical Qualifiers: Hypertension type: primary hypertension Qualified Code(s): I10 - Essential (primary) hypertension (8) Parkinsons disease: Code(s): G20 - Parkinson's disease Category: Medical Qualifiers: Dyskinesia presence: with dyskinesia Fluctuating manifestations: with fluctuating manifestations Qualified Code(s): G20.B2 - Parkinson's disease with dyskinesia, with fluctuations (9) Peripheral neuropathy: Code(s): G62.9 - Polyneuropathy, unspecified Category: Medical Qualifiers: Peripheral neuropathy type: polyneuropathy associated with underlying disease Qualified Code(s): G63 - Polyneuropathy in diseases classified elsewhere Plan History - The patient is a 68-year-old male presenting for regular follow up and right knee pain. - The pain is associated with a recent incident when he bent over to place a dog dish, feeling a pop in the right knee. The pain has persisted for approximately six weeks. - The right knee has significant historical context with two prior surgeries conducted at the ages of 18 and 19. Post recent injury, swelling was noted but has subsided to a tolerable level. - Management of diabetes includes seeking refill of Dexcom CGM denied by insurance due to stable glycemic control. The patient is on insulin and reports concerns about unexpected hypoglycemic events. - Routine blood tests are required, last performed in October of the preceding year. The patient is scheduled for additional history of Type 2 Diabetes Mellitus, Essential Hypertension, and Hyperlipidemia, Current medication management includes antihypertensives, lipid control agents, and management of GERD symptoms. 1. Hyperlipidemia The patient is on rosuvastatin 40 mg and Zetia for lipid control. 2. Essential Hypertension The patient's blood pressure is managed with lisinopril 2.5 mg daily. 3. Type 2 Diabetes Mellitus The patient's diabetes is currently managed with 90 units of long-acting insulin daily. HbA1c was last measured at 6.8%, indicating overall good control. 4. Gastroesophageal Reflux Disease Gerd GERD symptoms are managed with omeprazole 20 mg daily. Diagnostic results - HbA1c: 6.8% (measured in September 2023) Problem List - Type 2 Diabetes Mellitus - Essential Hypertension - Gastroesophageal Reflux Disease (GERD) - Hyperlipidemia - Right Knee Pain - History of Right Knee Surgeries - Dexcom Continuous Glucose Monitoring Refill Inquiry - Need for Blood Test (Routine Monitoring) - Sleep Study Scheduled - Peripheral Vascular Concerns (Vein Evaluation Planned) Patient Instructions - Monitor blood sugar levels using fingerstick tests regularly, especially if feeling symptomatic. - Continue current medications as prescribed, including insulin, lisinopril, omeprazole, rosuvastatin, Zetia, and clopidogrel. - Maintain dietary and lifestyle habits to ensure stable weight and blood pressure. - Schedule lab tests before your next appointment in 3-4 months. - Contact your insurance company to inquire about coverage for the Dexcom CGM, explaining the necessity due to insulin use and potential for undetected hypoglycemia. - Be prepared for a routine blood test upon your return in June; ensure labs are fasting. - Attend the sleep study and follow up with your vascular specialist as scheduled. 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
--- OUTSIDE RECORDS SUMMARY | 2024-05-30 09:00 | XMS_ITS | Data Portability ---
Author Organization [place] - Nithin gamez MD, Main Office Address [address] [facility] [address] [address] Assessment Encounter Date Assessment Date Assessment LastModified by Organization Details LastModified Time 05/06/2016 05/06/2016 Patient seen in office today for diabetes. Diabetes is poorly controlled Abnormal findings/complicat ions include A1C 11.1 AND NOW IN OFFICE AT 13.3 Patient advised on medication compliance and to maintain blood sugar logbook before and after meals to bring back for next visit. Advised on diet and regular exercise. 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 Other Instructions: NEEDS TO START BASAL INSULIN TRESIBA U 100 20 UNITS AT BEDTIME WILL TITRATE UP BY 2 UNITS EVERY 5 -7 DAYS TO TARGET FBS BETWEEEN 80-130, GO BACK ON JANUMET 50/1000MG PO BID Further diagnostic testing per orders below. Patient to follow up as directed. Plan discussed with patient giovana Not available 05/06/2016 14:15:15 Plan of Treatment Reminders Order Date Submit Date Provider Last Modified By Organization Details Last Modified Time Details Appointments None record ed. Lab None record ed. Referral None record ed. Procedures None record ed. Surgeries None record ed. Imaging None record ed. Medication Orders None record ed. Patient Targets Encounter Date Encounter Id Patient Goals Patient Target Last Modified By Organization Details Last Modified Time FIRST GOAL IS TO GET YO UR FASTING AM BLOOD SUGAR BETWEEN 80-130, WE WANT BY NEXT VISIT A1C TO BE LESS THAN 8.0, GET TRIGS AT LEAST < 300 [email or web address] Not available 05/06/2016 14:21:36 GET A1C < 7.0 , GET TRIGS < 150, ddomenichini Not available 07/20/2016 16:30:45 A1C < 6.5 , WITH MINIMAL LOW BLOOD SUGARS , TARGET FBS 70-120 , PPG < 150 , KEEP TRIGS < 200 , BLOOD PRESSURE 120/80 RANGE ddomenichini Not available 10/20/2016 14:44:07 A1C < 6.5 , LDL< 100 , TRIGS AT LEAST < 200 , ULTIMATELY LESS THAN !50 .KEEP CALCIUM < 10.0 ddomenichini Not available 02/07/2017 12:38:51 Patient Instructions Encounter Date Encounter Id Patient Instructions Last Modified By Organization Details Last Modified Time 05/06/2016 [id number] TITRATE INSULIN TRESIBA U 100 START AT 20 UNITS TONIGHT AND INCREASE BY 2 UNITS EVERY 7 DAYS UNTIL 5 OUT OF 7 FASTING BLOOD SUGAR READING ARE BETWEEN 80-120-130, TAKE JANUMET MG TWICE A DAY WITH BREAKFAST AND DINNER, TAKE VASCEPA 1000MG 2 SUPERINTENDENT COMMISSARY PO TWICE A DAY BREAKFAST AND DINNER [email or web address] Not available 05/06/2016 14:23:43 POOR AND DANGEROUSLY HIGH GLYCEMIA WITH TRIGLYCERIDES, WHICH PUTS AT RISK FOR PANCREATITS , STABLE AND NO SYMPTOMS AT THIS TIME WILL FOLLW UP IN 8 WEEKS ddomenichini Not available 05/06/2016 14:24:53 07/20/2016 [id number] hypercalcemia: c are instructions Not available 07/21/2016 11:33:37 DIRECTED ABOV E CONTINUE INSULINTITRATION , ADD NATEGLINIDE 60 MG PO TID WITH MEALS ddomenichini Not available 07/20/2016 16:31:30 IMPROVED GLYCEMI C CONTROL AND LIPIDS IMPROVED ATTHIS VISIT FOLLOW UP IN 4 MONTHS ddomenichini Not available 07/20/2016 16:32:31 10/20/2016 [id number] KEEP UP INSULIN SAME AND ORAL AGENTS , VITAMIN D3 200 IU PO QD , ADD B12 1000MG PO QD ddomenichini Not available 10/20/2016 14:44:46 CLINICALLY AND L AB STABLE , GLYCEMIA IS NOW EXCELLENTLY CONTROLLED , AND TRIGLYCERIDES ARE WELL CONTOLLED , FOLLOW UP IN JANUARY BEFORE GOING AWAY TO [facility]. IN FEB , SET VISIT JAN 2017 WITH LABS ddomenichini Not available 10/20/2016 14:46:54 02/07/2017 [id number] learning about t ype 2 diabetes Not available 02/07/2017 14:32:36 type 2 diabetes: care instructions Not available 02/07/2017 14:32:36 high blood pressure: care instructions Not available 02/07/2017 14:32:36 learning about h igh blood pressure Not available 02/07/2017 14:32:36 SET UP 24 HOUR URINE FOR CALCIM , AND DO REPEAT LABS , AND CALL ME , STAY ON ALL MEDS AND INSULIN THE SAME [email or web address] Not available 02/07/2017 12:39:41 CLINICALLY AND L AB STABLE , EXCELLENT GLYCEMIA , TRIGLYCERIDES , GOOD , JUST NEEDS WORK UP OF ELEVATED CALCIUM IF ALL NEGEATIVE , QUESTION IF SIDE EFFECT OF HUMIRA? , MOVING TO [place] IN [place] , WILL FOLLW UP IN JUNE ddomenichini Not available 02/07/2017 12:49:41 Reason for Referral None Reported. Results Created Date Observation Date Name Description Value Unit Range Abnormal Flag Note LastModifiedBy Organization Detail LastModifiedTime 07/13/19 17 07/12/2016 lipid panel , serum cholesterol, total 136 mg/dL 125-20 0 normal Not Available [facility] [place] [facility] [address] [place], [address], 07/12/2016 21:53:04 07/13/19 17 07/12/2016 lipid panel , serum HDL cholesterol 46 mg/dL > or = 40 normal Not Available [facility] [place] [facility] [address], [place], [address], 07/12/2016 21:53:04 07/13/19 17 07/12/2016 lipid panel , serum triglyceride s 171 mg/dL <150 high Not Available [facility] [place] [facility] [address] [place], [address], 07/12/2016 21:53:04 07/13/19 17 07/12/2016 lipid panel , serum LDL-choleste rol 56 mg/dL _(dennys c) <130 normal Corey able range <100 mg/dL for patie nts with CHD or diabe angel and <70 mg/dL for diabe tic patie nts with known heart disea se. Not Available [facility] [place] [facility] [address], [place], [address], 07/12/2016 21:53:04 07/13/19 17 07/12/2016 lipid panel , serum chol/HDLC ratio 3.0 (calc ) < or = 5.0 normal Not Available [facility] [place] [facility] [address] [place], [place], [address], 07/12/2016 21:53:04 07/13/19 17 07/12/2016 lipid panel , serum non HDL cholesterol 90 mg/dL _(dennys c) normal Targe t for non-H DL shea stero l is 30 mg/dL highe r than LDL shea stero l targe t. Not Available [facility] [place] [facility] [address] [place], [place], [address], 07/12/2016 21:53:04 07/13/19 17 07/12/2016 lipid panel , serum copy(ies) sent to: [facility] [address] [place] [address] CENTR AL CONN CARDI OLOGY 19 [facility] [address] [place] [address] Not Available [facility] [place] [facility] [address], [place], [address], 07/12/2016 21:53:04 07/13/19 17 07/12/2016 CMP, serum or plasm a glucose 129 mg/dL 65-99 high Fasti ng refer ence inter bria For someo ne witho ut known diabe angel, a gluco se value >125 mg/dL indic ates that they may have diabe angel and this shoul d be confi rmed with a follo w-up test. Not Available [facility] [address] [place], [place], [address], 07/12/2016 21:53:05 07/13/19 17 07/12/2016 CMP, serum or plasm a urea nitrogen (BUN) 19 mg/dL 7-25 normal Not Available [facility] [place] [facility] [address], [place], [address], 07/12/2016 21:53:05 07/13/19 17 07/12/2016 CMP, serum or plasm a creatinine 1.14 mg/dL 0.70-1 .25 normal For patie nts >49 years of age, the refer ence limit for Creat inine is appro ximat marti 13% highe r for peopl e ident ified as Afric an-Am jessica n. Not Available [facility] [place] [facility] [address], [address], 07/12/2016 21:53:05 07/13/19 17 07/12/2016 CMP, serum or plasm a eGFR non-afr. tongan 69 mL/mi n/1.7 3m2 > or = 60 normal Not Available [facility] [place] [facility] [address], [address], 07/12/2016 21:53:05 07/13/19 17 07/12/2016 CMP, serum or plasm a eGFR 80 mL/mi n/1.7 3m2 > or = 60 normal Not Available [facility] [place] [facility] [address], [place], [address], 07/12/2016 21:53:05 07/13/19 17 07/12/2016 CMP, serum or plasm a BUN/creatini ne ratio NOT APPLIC ABLE (calc ) 6-22 Not Available [facility] [place] [facility] [address], [address], 07/12/2016 21:53:05 07/13/19 17 07/12/2016 CMP, serum or plasm a sodium 140 mmol/ L 135-14 6 normal Not Available [facility] [place] [facility] [address], [address], 07/12/2016 21:53:05 07/13/19 17 07/12/2016 CMP, serum or plasm a potassium 4.5 mmol/ L 3.5-5. 3 normal Not Available [facility] [address], [place], [address], 07/12/2016 21:53:05 07/13/19 17 07/12/2016 CMP, serum or plasm a chloride 105 mmol/ L 98-110 normal Not Available [facility] [address], [place], [address], 07/12/2016 21:53:05 07/13/19 17 07/12/2016 CMP, serum or plasm a carbon dioxide 25 mmol/ L 20-31 normal Not Available [facility] [address], [place], [address], 07/12/2016 21:53:05 07/13/19 17 07/12/2016 CMP, serum or plasm a calcium 10.2 mg/dL 8.6-10 .3 normal Not Available [facility] [address], [place], [address], 07/12/2016 21:53:05 07/13/19 17 07/12/2016 CMP, serum or plasm a protein, total 7.7 g/dL 6.1-8. 1 normal Not Available [facility] [address], [place], [address], 07/12/2016 21:53:05 07/13/19 17 07/12/2016 CMP, serum or plasm a albumin 4.7 g/dL 3.6-5. 1 normal Not Available [facility] [address], [place], [address], 07/12/2016 21:53:05 07/13/19 17 07/12/2016 CMP, serum or plasm a globulin 3.0 g/dL_ (calc ) 1.9-3. 7 normal Not Available [facility] [address], [place], [address], 07/12/2016 21:53:05 07/13/19 17 07/12/2016 CMP, serum or plasm a albumin/glob ulin ratio 1.6 (calc ) 1.0-2. 5 normal Not Available [facility] [address], [place], [address], 07/12/2016 21:53:05 07/13/19 17 07/12/2016 CMP, serum or plasm a bilirubin, total 0.9 mg/dL 0.2-1. 2 normal Not Available [facility] [place] [facility] [address], [place], [address], 07/12/2016 21:53:05 07/13/19 17 07/12/2016 CMP, serum or plasm a alkaline phosphatase 62 U/L 40-115 normal Not Available [facility] [address], [place], [address], 07/12/2016 21:53:05 07/13/19 17 07/12/2016 CMP, serum or plasm a AST 22 U/L 10-35 normal Not Available [facility] [address], [place], [address], 07/12/2016 21:53:05 07/13/19 17 07/12/2016 CMP, serum or plasm a ALT 21 U/L 9-46 normal Not Available [facility] [address], [place], [address], 07/12/2016 21:53:05 07/13/19 17 07/12/2016 CMP, serum or plasm a copy(ies) sent to: [facility] 21 [facility] [address] [place] [address] CENTR AL CONN CARDI OLOGY 19 [facility] [address] [place] [address] Not Available [facility] [place] [facility] [address], [place], [address], 07/12/2016 21:53:05 07/13/19 17 07/12/2016 HbA1c (hemo globi n A1c), blood hemoglobin A1C 7.5 %_of_ total _HGB <5.7 high For someo ne witho ut known diabe angel, a hemog lobin A1c value of 6.5% or great er indic ates that they may have diabe angel and this shoul d be confi rmed with a follo w-up test. For someo ne with known diabe angel, a value <7% indic ates that their diabe angel is well contr olled and a value great er than or equal to 7% indic ates subop timal contr ol. A1c targe ts shoul d be indiv idual ized based on durat ion of diabe angel, age, comor bid condi tions , and other consi derat ions. Curre ntly, no conse nsus exist s kasiear benson use of hemog lobin A1c for diagn osis of diabe angel for child kate. Not Available [facility] [place] [facility] [address], [place], [address], 07/12/2016 21:27:59 07/13/19 17 07/12/2016 HbA1c (hemo globi n A1c), blood mean plasma glucose 190 mg/dL _(dennys c) Not Available [facility] [place] [facility] [address], [place], [address], 07/12/2016 21:27:59 07/13/19 17 07/12/2016 HbA1c (hemo globi n A1c), blood copy(ies) sent to: [facility] [address] [place] [address] CENTR AL CONN CARDI OLOGY 19 [facility] [address] [place] [address] Not Available [facility] [place] [facility] [address], [place], [address], 07/12/2016 21:27:59 10/14/1910/14/2016 lipid panel , serum cholesterol, total 145 mg/dL <200 normal Not Available [facility] [address] [place], [place], [address], 10/14/2016 02:33:54 10/14/1910/14/2016 lipid panel , serum HDL cholesterol 45 mg/dL >40 normal Not Available [facility] [place] [facility] [address] [place], [place], [address], 10/14/2016 02:33:54 10/14/1910/14/2016 lipid panel , serum triglyceride s 174 mg/dL <150 high Not Available [facility] [address] [place], [address], 10/14/2016 02:33:54 10/14/1910/14/2016 lipid panel , serum LDL-choleste rol 73 mg/dL _(dennys c) normal Refer ence range : <100 Corey able range <100 mg/dL for patie nts with CHD or diabe angel and <70 mg/dL for diabe tic patie nts with known heart disea se. The Selena n-Hop [facility] noeu latio n is a valid ated novel metho d that provi ann alfredo r accur acy than the Fried alexandra equat ion in the estim ation of LDL-C , parti cular ly when TG level s are 150-4 00 mg/dL and LDL-C level s are lower than 70 mg/dL . Refer ence: Selena angela SS et al. Felix rison of a Novel Metho d vs the Fried alexandra Equat ion for Estim ating Low-D ensit y Lipop rotei n Shea stero l Level s From the Stand mary Lipid Proftong le. KAYLA. 2013; 310(1 9): 2061- 2068. For addit ional infor pipo will e refer to http: //anastasiia angela.Que stDia gnost ics.c om/fa q/FAQ 164 (This link is being provi ded for infor toña nal/ educa malathi brush purpo ses only. ) Not Available [facility] [place] [facility] [address] [place], [place], [address], 10/14/2016 02:33:54 10/14/19 17 10/14/2016 lipid panel , serum chol/HDLC ratio 3.2 (calc ) <5.0 normal Not Available [facility] [place] [facility] [address] [place], [place], [address], 10/14/2016 02:33:54 10/14/19 17 10/14/2016 lipid panel , serum non HDL cholesterol 100 mg/dL _(dennys c) <130 normal For patie nts with diabe angel plus 1 major ASCVD risk facto r, treat ing to a non-H DL-C goal of <100 mg/dL (LDL- C of <70 mg/dL ) is consi dered a thera peuti c optio n. Not Available [facility] [place] [facility] [address] [place], [place], [place], [address], 10/14/2016 02:33:54 10/14/19 17 10/14/2016 lipid panel , serum copy(ies) sent to: [facility] [address] [place] [address] CARD[address] OLOGI STS 7 [facility] [place] [address] Not Available [facility] [place] [facility] [address] [place], [place], [address], 10/14/2016 02:33:54 10/14/19 17 10/14/2016 micro album in/cr eatin ine, mass ratio , urine creatinine, random urine 184 mg/dL 20-370 normal Not Available [facility] [place] [facility] [address] [place], [place], [address], 10/14/2016 14:41:21 10/14/19 17 10/14/2016 micro album in/cr eatin ine, mass ratio , urine microalbumin 4.4 mg/dL see note: normal Refer ence Range : Refer ence Range Not estab lishe d Not Available [facility] [place] [facility] [address], [place], [address], 10/14/2016 14:41:21 10/14/19 17 10/14/2016 micro album in/cr eatin ine, mass ratio , urine microalbumin /creatinine ratio, random urine 24 mcg/m g_cre at <30 normal The ADA defin es abnor malit ies in album in excre tion as follo ws: Categ ory Resul t (mcg/ mg creat inine ) Zayda l <30 Micro album inuri a 30-29 9 Clini dennys album inuri a > OR = 300 The ADA recom mends that at least two of three speci mens colle cted withi n a 3-6 month perio d be abnor mal befor e consi avery g a patie nt to be withi n a diagn ostic categ ory. Not Available [facility] [place] [facility] [address], [place], [address], 10/14/2016 14:41:21 10/14/19 17 10/14/2016 micro album in/cr eatin ine, mass ratio , urine copy(ies) sent to: [facility] [address] [place] [address] CARDI OLOGI STS 7 [facility] [address] Not Available [facility] [place] [facility] [address], [place], [address], 10/14/2016 14:41:21 10/14/19 17 10/14/2016 CMP, serum or plasm a glucose 67 mg/dL 65-99 normal Fasti ng refer ence inter bria Not Available [facility] [place] [facility] [address], [place], [address], 10/14/2016 02:33:55 10/14/1910/14/2016 CMP, serum or plasm a urea nitrogen (BUN) 18 mg/dL 7-25 normal Not Available [facility] [address] [place], [address], 10/14/2016 02:33:55 10/14/1910/14/2016 CMP, serum or plasm a creatinine 1.04 mg/dL 0.70-1 .25 normal For patie nts >49 years of age, the refer ence limit for Creat inine is appro ximat marti 13% highe r for peopl e ident ified as Afric an-Am jessica n. Not Available [facility] [address] [place], [place], [address], 10/14/2016 02:33:55 10/14/1910/14/2016 CMP, serum or plasm a eGFR non-afr. tongan 77 mL/mi n/1.7 3m2 > or = 60 normal Not Available [facility] [place] [facility] [address] [place], [place], [address], 10/14/2016 02:33:55 10/14/1910/14/2016 CMP, serum or plasm a eGFR 89 mL/mi n/1.7 3m2 > or = 60 normal Not Available [facility] [place] [facility] [address] [place], [place], [address], 10/14/2016 02:33:55 10/14/1910/14/2016 CMP, serum or plasm a BUN/creatini ne ratio NOT APPLIC ABLE (calc ) 6-22 Not Available [facility] [address] [place], [place], [address], 10/14/2016 02:33:55 10/14/1910/14/2016 CMP, serum or plasm a sodium 139 mmol/ L 135-14 6 normal Not Available [facility] [address], [place], [address], 10/14/2016 02:33:55 10/14/19 17 10/14/2016 CMP, serum or plasm a potassium 4.2 mmol/ L 3.5-5. 3 normal Not Available [facility] [address], [place], [address], 10/14/2016 02:33:55 10/14/1910/14/2016 CMP, serum or plasm a chloride 105 mmol/ L 98-110 normal Not Available [facility] [address], [place], [address], 10/14/2016 02:33:55 10/14/19 17 10/14/2016 CMP, serum or plasm a carbon dioxide 21 mmol/ L 20-31 normal Not Available [facility] [address], [place], [address], 10/14/2016 02:33:55 10/14/1910/14/2016 CMP, serum or plasm a calcium 10.2 mg/dL 8.6-10 .3 normal Not Available [facility] [address], [place], [address], 10/14/2016 02:33:55 10/14/1910/14/2016 CMP, serum or plasm a protein, total 8.1 g/dL 6.1-8. 1 normal Not Available [facility] [address], [place], [address], 10/14/2016 02:33:55 10/14/19 17 10/14/2016 CMP, serum or plasm a albumin 4.8 g/dL 3.6-5. 1 normal Not Available [facility] [address], [place], [address], 10/14/2016 02:33:55 10/14/1910/14/2016 CMP, serum or plasm a globulin 3.3 g/dL_ (calc ) 1.9-3. 7 normal Not Available [facility] [place] [facility] [address] [place], [place], [address], 10/14/2016 02:33:55 10/14/1910/14/2016 CMP, serum or plasm a albumin/glob ulin ratio 1.5 (calc ) 1.0-2. 5 normal Not Available [facility] [place] [facility] [address] [place], [place], [address], 10/14/2016 02:33:55 10/14/1910/14/2016 CMP, serum or plasm a bilirubin, total 1.0 mg/dL 0.2-1. 2 normal Not Available [facility] [place] [facility] [address] [place], [place], [address], 10/14/2016 02:33:55 10/14/1910/14/2016 CMP, serum or plasm a alkaline phosphatase 56 U/L 40-115 normal Not Available [facility] [address] [place], [place], [address], 10/14/2016 02:33:55 10/14/1910/14/2016 CMP, serum or plasm a AST 24 U/L 10-35 normal Not Available [facility] [address] [place], [place], [address], 10/14/2016 02:33:55 10/14/1910/14/2016 CMP, serum or plasm a ALT 22 U/L 9-46 normal Not Available [facility] [address] [place], [place], [address], 10/14/2016 02:33:55 10/14/19 17 10/14/2016 CMP, serum or plasm a copy(ies) sent to: [facility] [address] [place] [address]ARD[address] STS 7 [facility] [place] [address] Not Available [facility] [place] [facility] [address] [place], [place], [address], 10/14/2016 02:33:55 10/14/1910/13/2016 HbA1c (hemo globi n A1c), blood hemoglobin A1C 5.9 %_of_ total _HGB <5.7 high For someo ne witho ut known diabe angel, a hemog lobin A1c value betwe en 5.7% and 6.4% is consi stent with predi abete s and shoul d be confi rmed with a follo w-up test. For someo ne with known diabe angel, a value <7% indic ates that their diabe angel is well contr olled . A1c targe ts shoul d be indiv idual ized based on durat ion of diabe angel, age, comor bid condi tions , and other consi derat ions. This assay resul t is consi stent with an incre ased risk of diabe angel. Curre ntly, no conse nsus exist s indra knowles use of hemog lobin A1c for diagn osis of diabe angel for child kate. Not Available [facility] [place] [facility] [address] [place] [address], [place], [address], 10/13/2016 22:34:56 10/14/1910/13/2016 HbA1c (hemo globi n A1c), blood mean plasma glucose 133 mg/dL _(dennys c) Not Available [facility] [place] [facility] [address] [place], [place], [address], 10/13/2016 22:34:56 10/14/19 17 10/13/2016 HbA1c (hemo globi n A1c), blood copy(ies) sent to: [facility] [address] [place] [address] [facility]ARD[address] [facility]LOG[facility] STS 7 [facility] [place] [address] Not Available [facility] [place] [facility] [address], [place], [address], 10/13/2016 22:34:56 01/31/20 17 01/30/2017 lipid panel , serum cholesterol, total 133 mg/dL <200 normal Not Available [facility] [place] [facility] [address], [place], [address], 01/30/2017 22:58:17 01/31/20 17 01/30/2017 lipid panel , serum HDL cholesterol 36 mg/dL >40 low Not Available [facility] [place] [facility] [address], [place], [address], 01/30/2017 22:58:17 01/31/20 17 01/30/2017 lipid panel , serum triglyceride s 200 mg/dL <150 high Not Available [facility] [place] [facility] [address], [place], [address], 01/30/2017 22:58:17 01/31/20 17 01/30/2017 lipid panel , serum LDL-choleste rol 70 mg/dL _(dennys c) normal Refer ence range : <100 Corey able range <100 mg/dL for patie nts with CHD or diabe angel and <70 mg/dL for diabe tic patie nts with known heart disea se. LDL-C is now calcu lated using the Selena angela-Hop aakash angela, which is a valid ated novel olya canela than the Fried alexandra equat ion in the estim ation of LDL-C . Selena OLIVER et al. KAYLA. 2013; 310(1 9): 2061- 2068 (http ://ed ucati on.Qu estDi Envision [employer] com/f aq/FA Q164) Not Available [facility] [place] [facility] [address], [place], [address], 01/30/2017 22:58:17 01/31/20 17 01/30/2017 lipid panel , serum chol/HDLC ratio 3.7 (calc ) <5.0 normal Not Available [facility] [place] [facility] [address], [place], [address], 01/30/2017 22:58:17 01/31/20 17 01/30/2017 lipid panel , serum non HDL cholesterol 97 mg/dL _(dennys c) <130 normal For patie nts with diabe angel plus 1 major ASCVD risk facto r, treat ing to a non-H DL-C goal of <100 mg/dL (LDL- C of <70 mg/dL ) is consi geneva a clarissa rogers optio n. Not Available [facility] [place] [facility] [address], [place], [address], 01/30/2017 22:58:17 01/31/20 17 01/30/2017 lipid panel , serum copy(ies) sent to: [facility] [address] [place] [address] [facility] 19 [facility] 35 [place] [address] Not Available [facility] [place] [facility] [address], [place], [address], 01/30/2017 22:58:17 01/31/20 17 01/30/2017 CMP, serum or plasm a glucose 126 mg/dL 65-99 high Fasti ng refer ence inter bria For someo ne witho ut known diabe angel, a gluco se value >125 mg/dL indic ates that they may have diabe angel and this shoul d be confi rmed with a follo w-up test. Not Available [facility] [place] [facility] [address] [place], [address], 01/30/2017 22:58:17 01/31/20 17 01/30/2017 CMP, serum or plasm a urea nitrogen (BUN) 20 mg/dL 7-25 normal Not Available [facility] [place] [facility] [address] [place], [address], 01/30/2017 22:58:17 01/31/20 17 01/30/2017 CMP, serum or plasm a creatinine 1.50 mg/dL 0.70-1 .25 high For patie nts >49 years of age, the refer ence limit for Creat inine is appro ximat marti 13% highe r for peopl e ident ified as Afric an-Am jessica n. Not Available [facility] [place] [facility] [address] [place], [address], 01/30/2017 22:58:17 01/31/20 17 01/30/2017 CMP, serum or plasm a eGFR non-afr. tongan 49 mL/mi n/1.7 3m2 > or = 60 low Not Available [facility] [place] [facility] [address] [place], [address], 01/30/2017 22:58:17 01/31/20 17 01/30/2017 CMP, serum or plasm a eGFR 57 mL/mi n/1.7 3m2 > or = 60 low Not Available [facility] [place] [facility] [address] [place], [address], 01/30/2017 22:58:17 01/31/20 17 01/30/2017 CMP, serum or plasm a BUN/creatini ne ratio 13 (calc ) 6-22 normal Not Available [facility] [place] [facility] [address] [place], [address], 01/30/2017 22:58:17 01/31/20 17 01/30/2017 CMP, serum or plasm a sodium 138 mmol/ L 135-14 6 normal Not Available [facility] [place] [facility] [address], [place], [address], 01/30/2017 22:58:17 01/31/20 17 01/30/2017 CMP, serum or plasm a potassium 4.7 mmol/ L 3.5-5. 3 normal Not Available [facility] [place] [facility] [address], [place], [address], 01/30/2017 22:58:17 01/31/20 17 01/30/2017 CMP, serum or plasm a chloride 102 mmol/ L 98-110 normal Not Available [facility] [address], [place], [address], 01/30/2017 22:58:17 01/31/20 17 01/30/2017 CMP, serum or plasm a carbon dioxide 25 mmol/ L 20-31 normal Not Available [facility] [address], [address], 01/30/2017 22:58:17 01/31/20 17 01/30/2017 CMP, serum or plasm a calcium 10.4 mg/dL 8.6-10 .3 high Not Available [facility] [address], [address], 01/30/2017 22:58:17 01/31/20 17 01/30/2017 CMP, serum or plasm a protein, total 8.0 g/dL 6.1-8. 1 normal Not Available [facility] [address], [address], 01/30/2017 22:58:17 01/31/20 17 01/30/2017 CMP, serum or plasm a albumin 4.6 g/dL 3.6-5. 1 normal Not Available [facility] [address] [place], [address], 01/30/2017 22:58:17 01/31/20 17 01/30/2017 CMP, serum or plasm a globulin 3.4 g/dL_ (calc ) 1.9-3. 7 normal Not Available [facility] [place] [facility] [address] [place], [place], [address], 01/30/2017 22:58:17 01/31/20 17 01/30/2017 CMP, serum or plasm a albumin/glob ulin ratio 1.4 (calc ) 1.0-2. 5 normal Not Available [facility] [place] [facility] [address] [place], [place], [address], 01/30/2017 22:58:17 01/31/20 17 01/30/2017 CMP, serum or plasm a bilirubin, total 0.9 mg/dL 0.2-1. 2 normal Not Available [facility] [place] [facility] [address], [place], [address], 01/30/2017 22:58:17 01/31/20 17 01/30/2017 CMP, serum or plasm a alkaline phosphatase 61 U/L 40-115 normal Not Available [facility] [address] [place], [place], [address], 01/30/2017 22:58:17 01/31/20 17 01/30/2017 CMP, serum or plasm a AST 25 U/L 10-35 normal Not Available [facility] [address] [place], [place], [address], 01/30/2017 22:58:17 01/31/20 17 01/30/2017 CMP, serum or plasm a ALT 25 U/L 9-46 normal Not Available [facility] [address] [place], [place], [address], 01/30/2017 22:58:17 01/31/20 17 01/30/2017 CMP, serum or plasm a copy(ies) sent to: [facility] [address] [place] [address] [facility] 19 [facility] 35 [place] [address] Not Available [facility] [place] [facility] [address], [place], [address], 01/30/2017 22:58:17 01/31/20 17 01/30/2017 CBC white blood cell count 6.5 thous and/u L 3.8-10 .8 normal Not Available [facility] [place] [facility] [address], [place], [address], 01/30/2017 21:29:12 01/31/20 17 01/30/2017 CBC red blood cell count 4.17 nhan on/uL 4.20-5 .80 low Not Available [facility] [place] [facility] [address], [place], [address], 01/30/2017 21:29:12 01/31/20 17 01/30/2017 CBC hemoglobin 13.9 g/dL 13.2-1 7.1 normal Not Available [facility] [place] [facility] [address], [place], [address], 01/30/2017 21:29:12 01/31/20 17 01/30/2017 CBC hematocrit 40.7 % 38.5-5 0.0 normal Not Available [facility] [place] [facility] [address], [place], [address], 01/30/2017 21:29:12 01/31/20 17 01/30/2017 CBC MCV 97.5 fL 80.0-1 00.0 normal Not Available [facility] [place] [facility] [address], [place], [address], 01/30/2017 21:29:12 01/31/20 17 01/30/2017 CBC MCH 33.2 pg 27.0-3 3.0 high Not Available [facility] [place] [facility] [address], [place], [address], 01/30/2017 21:29:12 01/31/20 17 01/30/2017 CBC MCHC 34.1 g/dL 32.0-3 6.0 normal Not Available [facility] [place] [facility] [address], [place], [address], 01/30/2017 21:29:12 01/31/20 17 01/30/2017 CBC RDW 13.8 % 11.0-1 5.0 normal Not Available [facility] [place] [facility] [address], [place], [address], 01/30/2017 21:29:12 01/31/20 17 01/30/2017 CBC platelet count 189 thous and/u L 140-40 0 normal Not Available [facility] [place] [facility] [address], [place], [address], 01/30/2017 21:29:12 01/31/20 17 01/30/2017 CBC MPV 8.4 fL 7.5-12 .5 normal Not Available [facility] [place] [facility] [address], [place], [address], 01/30/2017 21:29:12 01/31/20 17 01/30/2017 CBC copy(ies) sent to: [facility] [address] [place] [address] [facility] 19 [facility] [address] [place] [address] Not Available [facility] [place] [facility] [address], [place], [address], 01/30/2017 21:29:12 01/31/20 17 01/30/2017 vitam in B12, serum vitamin B12 548 pg/mL 200-11 00 normal Not Available [facility] [place] [facility] [address], [place], [address], 01/30/2017 22:58:18 01/31/20 17 01/30/2017 vitam in B12, serum copy(ies) sent to: [facility] [address] [place] [address] CENTR AL [facility] 19 [facility] 35 [place] [address] Not Available [facility] [place] [facility] [address], [address], 01/30/2017 22:58:18 01/31/20 17 01/31/2017 vitam in D, 25-hy droxy , total , serum vitamin D,25-oh,tota l,ia 42 NG/mL 30-100 normal Vitam in D Statu s 25-OH Vitam in D: Defic iency : <20 ng/mL Insuf ficie ncy: 20 - 29 ng/mL Optim al: > or = 30 ng/mL For 25-OH Vitam in D testi ng on patie nts on D2-hull pplem entat ion and patie nts for whom quant itati on of D2 and D3 fract ions is requi red, the [facility] e[facility](TM ) 25-OH VIT D, (D2,D 3), LC/MS /MS is recom sofi d: order code 98968 (johnnie ents >2yrs ). For more infor toña angela on this test, go to: http: //anastasiia pierce gnost ics.c om/fa q/FAQ 163 (This link is being provi ded for infor toña nal/e ducat ional purpo ses only. ) Not Available [facility] [place] [facility] [address], [place], [address], 01/31/2017 02:52:12 01/31/20 17 01/31/2017 vitam in D, 25-hy droxy , total , serum copy(ies) sent to: [facility] [address] [place] [address] CENTR AL CONN [facility] 19 [facility] [address] [place] [address] Not Available [facility] [place] [facility] [address], [place], [place], [address], 01/31/2017 02:52:12 01/31/20 17 01/31/2017 HbA1c (hemo globi n A1c), blood hemoglobin A1C 5.6 %_of_ total _HGB <5.7 normal For the purpo se of emma valverde for the prese nce of diabe angel: <5.7% Consi stent with the absen ce of diabe angel 5.7-6 .4% Consi stent with incre ased risk for diabe angel (pred iabet es) > or =6.5% Consi stent with diabe angel This assay resul t is consi stent with a decre ased risk of diabe angel. Curre ntly, no conse nsus exist s indra knowles use of hemog lobin A1c for diagn osis of diabe angel in child kate. Accor ding to Ameri can Diabe angel Assoc iatio n (ADA) guide lines , hemog lobin A1c <7.0% repre sents optim al contr ol in non-p regna nt diabe tic patie nts. Diffe rent metri cs may apply to speci fic patie nt popul ation s. Stand ards of Medic al Care in Diabe angel(A DA). Not Available [facility] [place] [facility] [address], [place], [place], [address], 01/31/2017 05:18:01 01/31/20 17 01/31/2017 HbA1c (hemo globi n A1c), blood mean plasma glucose 122 mg/dL _(dennys c) Not Available [facility] [place] [facility] [address], [place], [place], [address], 01/31/2017 05:18:01 01/31/20 17 01/31/2017 HbA1c (hemo globi n A1c), blood copy(ies) sent to: [facility] [address] [place] [address] CENTR [facility] 19 [facility] 35 [place] [address] Not Available [facility] [place] [facility] [address] [facility] B, [place], [address], 01/31/2017 05:18:01 Result Notes None recorded. Problems Name Problem SNOMED Code Status Onset Date Resolution Date Notes Provider Name and Address Organization Details Recorded Time Type 2 diabetes mellitus 01276331 Active 2016 Nithin armenta MD [address] [place] [address] [address], [place], [address], [place] - Nithin Salguero MD 7 13:45:43 Mixed hyperlipidemia 687825014 Active 2016 Nithin armenta MD [address] [place] [address] [address], [place], [address], [place] - Nithin Salguero MD 7 13:46:07 Essential hypertension 14564679 Active 2016 Nithin armenta MD [address] [place] [address] [address], [place], [address], [place] - Nithin Salguero MD 7 13:46:26 Hypercalcemia 90092488 Active 2016 Nithin armenta MD [address] [place] [address] [address], [place], [address], [place] - Nithin Salguero MD 7 13:47:13 Vitamin D deficiency 97548898 Active 2016 Nithin armenta MD [address] [place] [address] [address], [place], [address], [place] - Nithin Salguero MD 7 13:47:27 Coronary arterioscleros is 60516658 Active 2016 Nithin armenta MD [address] [facility] [address], [place], [address], [place] Heath Salguero MD 7 13:49:08 Problem Notes None recorded. Procedures Surgical History Date Name Laterality Status Provider Name and Address Organization Details Recorded Time Coronary Artery Stent completed Nithin Salguero MD [address] [place] [address] [address], [place], [address], RAJESH Salguero MD 05/06/2016 13:52:31 Back Surgery completed Nithin Salguero MD [address] [place] [address] [address], [place], [address], RAJESH Salguero MD 05/06/2016 13:53:14 Shoulder joint surgery completed Nithin Salguero MD [address] [place] [address] [address] [facility], [place], [address], RAJESH Salguero MD 05/06/2016 13:53:28 Imaging Results None recorded. Procedure Notes None recorded. Medical Equipment None Reported. Allergies No known drug allergies Medications Name Sig Start Date Stop Date Status Note LastModified by Organization Details LastModified Time Plavix 75 mg tablet Take 1 tablet every day by oral route. 02/07 completed Not Available Not Available Not Available sulfamethox azole 800 mg-trimetho prim 160 mg tablet 02/07 completed Not Available Not Available Not Available omeprazole 40 mg capsule,del ayed release active Not Available Not Available Not Available carvedilol 3.125 mg tablet active Not Available Not Available Not Available nateglinide 60 mg tablet active Not Available Not Available Not Available OneTouch Ultra Test strips Take 1 strip twice a day by miscell. route as directed for 90 days. active Not Available Not Available No t Available omeprazole 20 mg capsule,del ayed release Take 1 capsule every day by oral route. active Not Available Not Available No t Available lisinopril 5 mg tablet active Not Available Not Available Not Available rosuvastati n 40 mg tablet active Not Available Not Available Not Available omega-3 acid ethyl esters 1 gram capsule TAKE 2 CAPSULES BY MOUTH TWICE A DAY 2017 active Not Available Not Available Not Avai lable BD Ultra-Fine Short Pen Needle 31 gauge x 5/16 active Not Available Not Available Not Available Humira Pen 40 mg/0.8 mL subcutaneou s kit active Not Available Not Available Not Available OneTouch UltraMini kit active Not Available Not Available Not Available Janumet 50 mg-1,000 mg tablet TAKE 1 TABLET BY MOUTH TWICE A DAY active Not Available Not Available No t Available Lantus Solostar U-100 Insulin 100 unit/mL (3 mL) subcutaneou s pen Inject 25 units every day by subcutane ous route at bedtime for 90 days. active Not Available Not Available No t Available oxycodone 10 mg tablet active Not Available Not Available Not Available Effient 10 mg tablet 02/07 completed Not Available Not Available Not Available BD Ultra-Fine Cat Pen Needle 32 gauge x active Not Available Not Available Not Available Vitamin D3 50 mcg (2,000 unit) capsule Take 2 capsules by oral route. active Not Available Not Available No t Available niacin (inositol niacinate) 500 mg tablet Take 500 tablets by oral route. 02/07 completed Not Available Not Available Not Available Xarelto 10 mg tablet active Not Available Not Available No t Available Brilinta 90 mg tablet active Not Available Not Available No t Available Vascepa 1 gram capsule TAKE 2 CAPSULES BY MOUTH TWICE A DAY 02/07 completed Not Available Not Available Not Available Invokana 300MG 07/20 completed Not Available Not Available Not Available Toujeo SoloStar U-300 Insulin 300 unit/mL (1.5 mL) subcutaneou s pen active Not Available Not Available Not Available OneTouch Ultra Blue Test Strip USE TO TEST BLOOD SUGAR TWICE A DAY DIRECTED active Not Available Not Available No t Available Vitals Date Recorded Body weight Body height Body mass index (BMI) Heart rate Systolic blood pressure Diastolic blood pressure Provider Name and Address Organization Details Last Updated DateTime 7 81958.2 9 g 185.42 cm 26.1 kg/m2 64 /min 130 mm[Hg] 85 mm[Hg] Dominic Salguero MD 7 11:40:34 Date Recorded Body weight Body mass index (BMI) Body height Respiratory rate Heart rate Systolic blood pressure Diastolic blood pressure Provider Name and Address Organization Details Last Updated DateTime 7 92063.4 7 g 26.4 kg/m2 185.42 cm 12 /min 99 /min 110 mm[Hg] 78 mm[Hg] Nithin armenta MD [address] [place] [address], [address] , RAJESH Salguero MD 14:17:06 Date Recorded Body weight Body mass index (BMI) Body height Respiratory rate Heart rate Systolic blood pressure Diastolic blood pressure Provider Name and Address Organization Details Last Updated DateTime 7 69907.4 4 g 27 kg/m2 185.42 cm 12 /min 83 /min 130 mm[Hg] 82 mm[Hg] Nithin armenta MD [address] [place] [address], [address] , RAJESH Salguero MD 12:13:12 Date Recorded Body weight Body height Body mass index (BMI) Respiratory rate Heart rate Systolic blood pressure Diastolic blood pressure Provider Name and Address Organization Details Last Updated DateTime 7 57234.4 g 185.42 cm 27.7 kg/m2 10 /min 72 /min 118 mm[Hg] 78 mm[Hg] Nithin armenta MD [address] [place] [address], [address] , RAJESH Salguero MD 13:48:26 Social History Question Answer Notes LastModified by Organizat ion Details LastModified Time Tobacco Smoking Status Former Smoker Nithin Salguero MD [address] [place] [address], [address], RAJESH Salguero MD 05/06/2016 13:50:35 Do You Have An Advance Directive? No Information not available 05/06/2016 What Is Your Level Of Alcohol Consumption? Occasional Information not available 05/06/2016 How Many Years Have You Consumed Alcohol? 0 Information not available 05/06/2016 What Is Your Level Of Caffeine Consumption? None Information not available 05/06/2016 How Much Tobacco Do You Chew? None Information not available 05/06/2016 Which Illicit Or Recreational Drugs Have You Used? NONE Information not available 05/06/2016 Education 4 Year College Informat ion not available 05/06/2016 What Is Your Occupation? [employer] / Information not available 05/06/2016 Single Or Multi-level Home/work? Single Level Home Information not available 05/06/2016 How Many Years Have You Used Illicit Or Recreational Drugs? 0 Information not available 05/06/2016 Live Alone Or With Others? With Others Information not available 05/06/2016 Obese No Information not available 05/06/2016 Overweight Yes Information not available 05/06/2016 Are You Sexually Active? Yes Information not available 05/06/2016 At What Age Did You Start Smoking Tobacco? 19 Information not available 05/06/2016 How Much Tobacco Do You Smoke? 1 PPD Information not available 05/06/2016 General Stress Level Low Information not available 05/06/2016 How Many Years Have You Smoked Tobacco? 20 Information not available 05/06/2016 Sex: Unknown Functional Status Question Answer Note LastModified by Organizat ion Details LastModified Time What is your exercise level? Occasional Information not available 05/06/2016 Mental Status None recorded. Family History Relationship Description Onset Age of this Age Resolved Age Notes LastModified by Organization Details LastModified Time Father Diabetes mellitus 79 [email or web address] Not available 13:50:10 Brother Diabetes mellitus [email or web address] Not available 13:50:10 Medical History Condition Response Muscle, Joint, or Bone Problems Y Skin Problems Other Hyperthyroidism Y Hyperlipidemia Y Hypertension Y Immunizations Vaccine Type Date Status Note Provider Nam e and Address Organization Details Recorded Time Influenza, split virus, quadrivalent, preservative 6 completed Nithin Salguero MD [address] [place] [address], [address], RAJESH Salguero MD 02/07/2017 12:24:11 DTaP 0 completed Nithin Salguero MD [address] [place] [address], [address], [place] - Nithin Salguero MD 02/07/2017 12:24:37 Past Encounters Encounter ID Performer Location Encounter Start Date Encounter Closed Date Diagnosis/Indication Diagnosis SNOMED-CT Code Diagnosis ICD10 Code Diagnosis Note [id number] Nithin Rodriguez i, MD Main Office [address] [place] [phone] 05/06/2016 13:14:23 05/06/2016 13:20:07 Diabetes mellitus 25890477 E11.9 POORLY CONTROLLED WITHA 1C NOW AT 13.3 WITH POLY SYMPTOMS OF TYPE 1, NEEDS AT LEAST BASAL INSULIN START TRESIBA U100 INSULIN AT 20 UNITS AT BEDTIME INCREASE INSULIN EVERY 5 DAYS BY 2 UNITS UNTIL YOU SEE FASTING AM BLOOD SUGAR BETWEEN 80-130, START JANUMET 50 /1000MG TWICE A DAY Mixed hyperlipidemia 267 535667 E78.2 TOATLA CHOLESTERO L AT 211, CANNOT CALCULATE LDL BECAUSE TRIGLYCERI ANN GREATER THAN 1000, AT 1191, NEEDS TO RESUME VASCEPA 1GRAM 2 CAPS PO TWICE A DAY. Essential hypertension 40629772 I10 BLOOD PRESSURE NOT AN ISSUE AT THIS VISIT [id number] Nithin Rodriguez i, MD Main Office [address] [place] [phone] 07/20/2016 11:30:32 07/20/2016 11:34:57 Coronary arteriosclerosis 99025211 I25.10 STABLE NO SYMTOMS OR CHEST PAIN, ON EFFIENT FOLLOWED BY CARDIOLOGY Vitamin D deficiency 347 00387 E55.9 LEVEL AT GOAL ON D3 CHECK NEXT VISIT Hypercalcemia 51681024 E 83.52 CALCIUM IS 10.2, WILL MONITOR WITH D LEVELS Essential hypertension 14088671 I10 BLOOD PRESSURE NOT AN ISSUE AT THIS VISIT, WILL MONITOR GFR > 60 Mixed hyperlipidemia 267 805662 E78.2 TOATLA CHOLESTERO L AT 211, CANNOT CALCULATE LDL BECAUSE TRIGLYCERI ANN GREATER THAN 1000, AT 1191, NEEDS TO RESUME VASCEPA 1GRAM 2 CAPS PO TWICE A DAY. Insulin tr eated type 2 diabetes mellitus 611151537 Z79.4 A1C IS MUCH IMPROVED AT 7.5, , LANTUS 24, JANUMET 50/1000MG PO PO BID , ADDED NATEGLINID E 60 MG PO TID [id number] Nithin Rodriguez i, MD Main Office [address] [place] [address] 10/20/2016 14:06:55 10/20/2016 14:49:38 Type 2 diabetes mellitus 40738740 E11.9 A1C IS NOW 5.9, LANTUS 36 UNITS AT HS , JANUMET 50 /1000 MG PO BID , NATEGLINID E 60 MG PO QAC Mixed hyperlipidemia 267 700031 E78.2 TOTAL CHOLESTERO L AT 211, CANNOT CALCULATE LDL BECAUSE TRIGLYCERI ANN GREATER THAN 1000, AT 1191, NEEDS TO RESUME VASCEPA 1GRAM 2 CAPS PO TWICE A DAY. TODAY 10/20/16 TOTAL CHOL 145 LDL 73 , TRIGS -174 THIS IS EXCELLENT ON CRESTOR 40MG WITH VASCEPA 1GRAM 2 IN AM AND 2 IN PM Essential hypertension 14297007 I10 BLOOD PRESSURE NOT AN ISSUE AT THIS VISIT, WILL MONITOR GFR > 60, BLOOD PRESSURE AT GOAL NOT ON JONATHON AT THIS TIME Vitamin D deficiency 347 18474 E55.9 LEVEL AT GOAL ON D3 CHECK NEXT VISIT/TRACY OF D25-OH IS EXTEMELY LOW AT 13 TOLD TAKE VITAMIN D3 2000 IU PO QD Coronary arteriosclerosis 92110458 I25.10 STABLE NO SYMTOMS OR CHEST PAIN, ON EFFIENT FOLLOWED BY CARDIOLOGY Numbness of foot 8005759 00 R20.0 RT FOOT MILD TINGLING SENSATION , COULD BE MILD NEUROPATHY TAKE B12 1000 MG PO QD [id number] Nithin Rodriguez i, MD Main Office [address] [phone] 02/07/2017 11:38:11 02/07/2017 12:58:25 Type 2 diabetes mellitus 71432464 E11.9 ALL NUMBERS AT GOAL WITH A1C IS 5.6 ON LANTUS AND NATEGLINID E , JANUMET 50 1000MG PO BID Mixed hyperlipidemia 267 867732 E78.2 TOTAL CHOLESTERO L AT 211, CANNOT CALCULATE LDL BECAUSE TRIGLYCERI ANN GREATER THAN 1000, AT 1191, NEEDS TO RESUME VASCEPA 1GRAM 2 CAPS PO TWICE A DAY. TODAY 10/20/16 TOTAL CHOL 145 LDL 73 , TRIGS -174 THIS IS EXCELLENT ON CRESTOR 40MG WITH VASCEPA 1GRAM 2 IN AM AND 2 IN PM Essential hypertension 85156076 I10 BLOOD PRESSURE NOT AN ISSUE AT THIS VISIT, WILL MONITOR GFR > 60, BLOOD PRESSURE AT GOAL NOT ON JONATHON AT THIS TIME Hypercalcemia 83936716 E 83.52 CALCIUM IS 10.2, WILL MONITOR WITH D LEVELS, TODAY IS 10.4 / MILD CLIMBING , WILL SET UP LABS AGAIN WITH 24 HOUR URINE FOR CALCIUM , NO HISTORY OF [facility] Vitamin D deficiency [id number] E55.9 LEVEL AT GOAL ON D3 CHECK NEXT VISIT/TRACY OF D25-OH IS EXTEMELY LOW AT 13 TOLD TAKE VITAMIN D3 2000 IU PO QD, LEVEL IS NOW 42 CORRECTED Coronary arteriosclerosis [id number] I25.10 STABLE AT THIS TIME , WE TALKED ABOUT IN FUTURE IF INSURANCE PERMITS GOIG ON VICTOZA OR JARDIANCE FO A1CV LOWERING Health Concerns Section Related Observation LastModified by Organization Detai ls LastModified Time None Recorded Concern Status LastModified by Organization Details LastModified Time None Recorded Advance Directives Directive N: Payers Encounter Date Sequence Insurance Name Policy Number Policy Galloway Covered Member ID Galloway Member ID Guarantor Name 05/06/2016 1 [facility] [id number] [place] Soraida [id number] 07/20/2016 1 [facility] [id number] [place] Cuco Quigley [id number] 10/20/2016 1 [facility] [id number] [place] Ruizmalia [id number] 02/07/2017 1 [facility] [id number] [place] Ruizmalia [id number] Notes Date Note Type Note Provider Name and Address Organization Details Recorded Time 7 text/htm l DiabetesReported bypatient.Notes:NOR CHECKING , NOT TAKING MEDSHypertension IM/FMReported bypatient.Onset/Timing:alfredo r Self Care:not under emotional stress; non-smoker; on special diet; limiting alcohol intake; exercises regularly Associated Symptoms:no shortness of breath; no fatigue; no palpitations; no decline in exercise capacity; exertional dyspnea; no snoring; no sleep apnea; no muscle weakness; no numbness; no tingling; no tachycardia; no excessive sweating; no thinning skin; no flank pain; no headaches; no loss of vision; no chest painNotes:NOT TAKING VASCEPA , ON CRESTOR 60 YEAR OLD MALE WHO WAS ON ORAL COMBINATION WITH JANUMET , INVOKANA , AND VASCEPA FOR SEVERE HYPERLIPIDEMIA , HAD EPISODE OF LIGHTHEADNESS , GOT APHASIC , ATE SOMETHING FOUR PEANUT BUTTER CUPS FELT BETTER , DID NOT DOCUMENT READING, PROBLEM IS STOPPED ALL MEDS THUS TRIGLCERIDES .1000, AN NOW HAS FROM LABS IN JANUARY FBS 0F 300 ,AND A1C OF 11.6 Nithin Salguero MD [address] [place] [address], [phone], RAJESH Salguero MD 05/06/2016 14:26:49 7 text/htm l DiabetesReported bypatient.Control:usually well controlled; improved since last visit; normal range of home blood sugars (in the low 100s) Compliance:compliant with medications; compliant with follow-up visits; compliant with diet; compliant with home glucose monitoring Self Care:monitoring glucose ; seeing eye doctor regularly; checking feet regularly Associated Symptoms:no weight gain; no weight loss; no dizziness; no sweats; no headaches; no confusion; no increased thirst; no increased appetite; no increased urination; no blurred vision; no numbness of feet; no calluses on feet; no fatigue; no blurred vision; no paresthesiasHypertension IM/FMReported bypatient.Onset/Timing:alfredo r Self Care:not under emotional stress; non-smoker; on special diet; limiting alcohol intake; exercises regularly Associated Symptoms:no shortness of breath; no fatigue; no palpitations; no decline in exercise capacity; exertional dyspnea; no snoring; no sleep apnea; no muscle weakness; no numbness; no tingling; no tachycardia; no excessive sweating; no thinning skin; no flank pain; no headaches; no loss of vision; no chest pain 60 YEAR OLD MALE WITH HIS OF PANCREATIC INSULT WITH INSUFFICIENCY PATIENT INSULIN REQUIRING LAST A1C WAS 11.1 , WITH TRIGLYCERIDES .> 1110, PATIENT STATED LAST VISIT ON BASAL /BOLUS, NOW HAD GOOD RESPONSE WITH A1C DECREASED TO 7.5 , TRIGS -171, Nithin Salguero MD [address], [address], RAJESH Salguero MD 07/20/2016 16:32:38 7 text/htm l DiabetesReported bypatient.Control:usually well controlled; improved since last visit; normal range of home blood sugars (in the low 100s) Compliance:compliant with medications; compliant with follow-up visits; compliant with diet; compliant with home glucose monitoring Self Care:monitoring glucose ; seeing eye doctor regularly; checking feet regularly Associated Symptoms:no weight gain; no weight loss; no dizziness; no sweats; no headaches; no confusion; no increased thirst; no increased appetite; no increased urination; no blurred vision; no numbness of feet; no calluses on feet; no fatigue; no blurred vision; no paresthesiasHypertension IM/FMReported bypatient.Onset/Timing:alfredo r Self Care:not under emotional stress; non-smoker; on special diet; limiting alcohol intake; exercises regularly Associated Symptoms:no shortness of breath; no fatigue; no palpitations; no decline in exercise capacity; exertional dyspnea; no snoring; no sleep apnea; no muscle weakness; no numbness; no tingling; no tachycardia; no excessive sweating; no thinning skin; no flank pain; no headaches; no loss of vision; no chest pain 61 YEAR OLD WITH NIDDM , ON INSULIN WAS DOING OKAY A1C IN 7. 0 RANGE WAS SXCHEDULED FOR VISIT , BUT HAVING CONCERNS OVER ELEVATED PPG HITTIONG 180 , RARE 200, , PATIENT ON LANTUS 36 UNITS WITH FBS HITTING BETWEEN 80 -120 , ON NATEGLINIDE 60 MG PO Q AC , JANUMET 50/1000MG PO BID , VASCEPA CAPS 1GRAM 2 IN AM AND 2 IN PM, A1C DROPPED FROM 7.5 TO 5.9 !!!!! , WITH NO REAL HYPOGLYCEMIA , TRIGLCERIDES WRE 1179 , DECREASED ON VASCEPA TO 174 AND 177 RESPECTIVELY LAST 2 VISIST!!!! LDL IS 73 , Nithin Salguero MD [address], [address], [place] - Nithin Salguero MD 10/20/2016 14:55:28 7 text/htm l Hypertension IM/FMReported bypatient.Onset/Timing:alfredo r Self Care:not under emotional stress; non-smoker; on special diet; limiting alcohol intake; exercises regularly Associated Symptoms:no shortness of breath; no fatigue; no palpitations; no decline in exercise capacity; exertional dyspnea; no snoring; no sleep apnea; no muscle weakness; no numbness; no tingling; no tachycardia; no excessive sweating; no thinning skin; no flank pain; no headaches; no loss of vision; no chest pain 61 YEAR OLD MALE WITH 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 Nithin Salguero MD [address], [address], [place] - Nithin Salguero MD 02/07/2017 12:50:10
--- OUTSIDE RECORDS SUMMARY | 2024-05-30 09:00 | XMS_ITS | Encounter Summary ---
Author Organization [facility] Address [address] [place] [address] Care Team Providers Care Database Engineer Name Role Phone Shelly Fonseca MD Primary Care Provider [phone] Nithin Salguero MD Unavailable [phone] Encounter Details Date Type Department Care Team (Late st Contact Info) Description 08/15/2018 Scanned Document [address] [place] [phone] Provider, Generic Social History Tobacco Use Types Packs/Day Years Used Date Smoking Tobacco: Former Comments:20 pk yrs Alcohol Use Standard Drinks/Week Comments Yes 3 (1 standard drink = 0.6 oz pur e alcohol) social Sex and Gender Information Value Date Recorded Sex Assigned at Not on file Gender Identity Not on file Sexual Orientation Not on file documented as of this encounter Plan of Treatment Not on file documented as of this encounter Procedures Procedure Name Priority Date/Time Associated Diagnosis Comments HX OPHTHALMOLOGY TESTING PROCEDURES 08/15/2018 documented in this encounter Results * HX OPHTHALMOLOGY TESTING PROCEDURES (08/15/2018) Narrative 08/15/2018 Ordered by an unspecified provider. Generic Provider HX AMB PROCEDURES documented in this encounter Visit Diagnoses Not on filedocumented in this encounter Care Teams Database Engineer Relationship Specialty Start Date End Date Shelly Fonseca MD PCP - General Internal Medicine 11/30/15 02/10/20 Nithin Salguero MD Endocrinology 10/29/18 documented as of this encounter
--- OUTSIDE RECORDS SUMMARY | 2024-05-30 09:00 | XMS_ITS | Encounter Summary ---
Author Organization [facility] Address [address] [place] [address] Care Team Providers Care Supervisor Ski Production Name Role Phone Matt Rodriguez MD Primary Care Provider Shelly Fonseca MD Primary Care Provider [phone] Nithin Salguero MD Unavailable [phone] Armani Villafuerte MD Primary Care Provider + Encounter Details Date Type Department Care Team (Late st Contact Info) Description 10/03/2014 Scanned Document [address] [phone] Provider, Generic Social History Tobacco Use Types Packs/Day Years Used Date Smoking Tobacco: Never Assessed Sex and Gender Information Value Date Recorded Sex Assigned at Not on file Gender Identity Not on file Sexual Orientation Not on file documented as of this encounter Plan of Treatment Not on file documented as of this encounter Visit Diagnoses Not on filedocumented in this encounter Care Teams Supervisor Ski Production Relationship Specialty Start Date End Date Matt Rodriguez MD [address] [place] [address] PCP - General Internal Medicine 10/24/14 11/29/15 Shelly Fonseca MD [address] [place] [address] PCP - General Internal Medicine 11/30/15 02/10/20 Armani Villafuerte MD [address] [facility] [address] PCP - General 10/23/14 Nithin Salguero MD [address] [facility] [place] [address] Endocrinology 10/29/18 documented as of this encounter
--- OUTSIDE RECORDS SUMMARY | 2024-05-30 09:00 | XMS_ITS | Clinical Summary ---
Author Organization [facility] Address [address] [place] [address] Care Team Providers Care Patient Portal Representative Name Role Phone Matt Rodriguez MD Primary Care Provider Thierno verdugo Allergies No known active allergies Medications Medication Sig Dispensed Refills Start Date End Date Status HUMIRA PEN 40 MG/0.8ML PNKT Inject 40 mg under the skin once a week. 0 10/24/2014 Active Fenofibrate 150 MG CAPS Take 150 mg by mouth daily. 6 10/09/2014 Active aspirin EC 81 MG tablet Take 81 mg by mouth daily. 0 Active Icosapent Ethyl (VASCEPA) 1 G CAPS Take 2 capsules by mouth 2 (two) times a day. 0 Active omeprazole (PRILOSEC) 40 MG capsule Take 40 mg by mouth daily. 0 Active sitaGLIPtin-metFORMIN (JANUMET) 50-1000 MG per tablet Take 1 tablet by mouth 2 (two) times a day. 0 09/05/2015 Active LANTUS SOLOSTAR 100 UNIT/ML injection every night at bedtime. 3 05/10/2016 Active cholecalciferol (VITAMIN D3) 1000 UNITS tablet Take 1,000 Units by mouth daily. 0 Active vitamin B-12 (CYANOCOBALAMIN) tablet 1000 mcg Take 1,000 mcg by mouth daily. 0 Active Nateglinide (STARLIX PO) Take 60 mg by mouth. 0 Active metoprolol succinate (TOPROL-XL) 24 hr tablet 25 mg Take 12.5 mg by mouth daily. 0 Active niacin (NIASPAN) ER capsule 500 mg Take 500 mg by mouth every night at bedtime. 0 Active BRILINTA 90 MG TABS tabletIndications:ASCV D (arteriosclerotic cardiovascular disease) TAKE 1 TABLET BY MOUTH TWICE DAILY 60 tablet 0 11/01/2017 Active rosuvastatin (CRESTOR) tablet 40 mg Take 1 tablet (40 mg total) by mouth daily. Please call office to sched appt 90 tablet 0 11/10/2017 Active Active Problems Problem Noted Date Diagnosed Date ASCVD (arteriosclerotic cardiovascular disease) 04/16/2015 Myocardial infarction 02/06/2015 Overview: 1. Acute inf wall [place] 08/18/04 2. Cardiac cath--08/18/04--mild LAD, mild Cx, mod diag, 100% RCA 3. 08/18/04 3 x 25 TAXUS stent in mid RCA 4. Cath--10/24/09--sever stenosis distal to prefious stent 5. 3.5 x 15 xscience in RCA 6/ nuclear stress--04/09/12--54% EF, fixed inf defect 7. 01/03/15--adm in [place] for unstable angina 8. 01/03/15--nuclear stress--inferior ischemic 50% EF 9. Cath--01/05/15--2.5 x 14 EDSON mid RCA, resolute, there was 95% stenosis in RCA just proximal to previously placed RCA stents, 40% LAD< nl Cx, EF55% 10. Nuclear 03/28/15--34% EF stress, 10. Re Admit--01/09/15--acute stent thrombosis, 3.35 x 15 quantum balloon, 3 x 22 resolute stents in RCA proximal to the stent of 01/05/15, started on effient 11. Echo 01/20/15--normal LVEF. 12. Nuclear--03/26/15--fixed inferoapical defect, no ischemia, EF50% 13. Echo--03/13/15--EF30-40%, inferior akinesis, grade I diastolic 14. Cath--10/28/16--re stenosis in non stented area, fibrous ingrowth in other areas, 3 x 22 resolute in RCA entire area dilated to 3.5 mm with non compliant balloon, Cx and LAD are non obstructive Social History Tobacco Use Types Packs/Day Years Used Date Smoking Tobacco: Former Alcohol Use Standard Drinks/Week Comments Yes 0 (1 standard drink = 0.6 oz pur e alcohol) occasional Sex and Gender Information Value Date Recorded Sex Assigned at Not on file Gender Identity Not on file Sexual Orientation Not on file Last Filed Vital Signs Vital Sign Reading Time Taken Comments Blood Pressure 132/80 12/15/2016 3:06 PM EDT Pulse 76 12/15/2016 3:06 PM EDT Temperature 36.8 ??C (98.2 ??F) 10/29/2016 11:54 AM E DT Respiratory Rate 18 10/29/2016 11:54 AM EDT Oxygen Saturation 98% 12/15/2016 3:06 PM EDT Inhaled Oxygen Concentration - - Weight 93 kg (205 lb) 12/15/2016 3:06 PM EDT Height 182.9 cm (6') 12/15/2016 3:06 PM EDT Body Mass Index 27.8 12/15/2016 3:06 PM EDT Plan of Treatment Health Maintenance Due Date Last Done Comments Hepatitis C Screening 1955 COVID-19 Vaccine (#1) 02[birth year]28/1955 Depression Screening 1966 Preventative Health Evaluation 1972 Colon Cancer Screening (Colonoscopy) 08/29/1999 Shingrix-Zoster Vaccine (1 o f 2) 2004 Fall Risk Assessment 08/29/2019 Pneumococcal Vaccine (1 of 1 - PCV) 08/29/2019 Influenza Vaccine (#1) 2023 DTap / Tdap / Td (3 - Td or Tdap) 04/09/2024 04/09/2014, 04/08/2013 RSV Adult > 60+ Yrs or (1 - 1-dose 75+ series) 2029 Hepatitis B Vaccines Aged Out No long er eligible based on patient's age to complete this topic RSV Ped < 20 months Aged Out No longe r eligible based on patient's age to complete this topic Medical Devices Implanted Type Area Bellman Device Identifier Shelf Expiration Date Model / Serial / Lot Stent Resolute [place] 22mm 3mm Rapdx Zotarolimus Eluting - [id number] - [id number] Implanted: 017 at [facility] (Quantity not on file) [employer] - VASCULAR [id number] X / / Advance Directives For more information, please contact: [phone] Latest Code Status on File Code Status Date Activated Date Inactivated Comments Full Code 10/28/2016 10:54 AM 10/29/2016 7:05 PM This c ode status was ascertained in the following way: discussion with patient . Code Status History Code Status Date Activated Date Inactivated Comments Full Code 10/27/2016 5:41 PM 10/28/2016 10:54 AM This c ode status was ascertained in the following way: discussion with patient . Care Teams Patient Portal Representative Relationship Specialty Start Date End Date Matt Rodriguez MD PCP - General Family Medicine 11/07/14
--- OUTSIDE RECORDS SUMMARY | 2024-05-30 09:00 | XMS_ITS | Encounter Summary ---
Author Organization [facility] Address [address] [place] [address] Care Team Providers Care Rice Farmer Name Role Phone Matt Rodriguez MD Primary Care Provider [phone] Shelly Fonseca MD Primary Care Provider [phone] Nithin Salguero MD Unavailable [phone] Encounter Details Date Type Department Care Team (Late st Contact Info) Description 02/06/2015 Scanned Document [address] [phone] Provider, Generic Social History Tobacco Use Types Packs/Day Years Used Date Smoking Tobacco: Former Comments:20 pk yrs Alcohol Use Standard Drinks/Week Comments Yes 0 [...] on filedocumented in this encounter Care Teams Rice Farmer Relationship Specialty Start Date End Date Matt Rodriguez MD [address] [place] [address] PCP - General Internal Medicine 10/24/14 11/29/15 Shelly Fonseca MD [address] [place] [address] PCP - General Internal Medicine 11/30/15 02/10/20 Nithin Salguero MD [address] [place] [address] Endocrinology 10/29/18 documented as of this encounter
--- OUTSIDE RECORDS SUMMARY | 2024-05-30 09:00 | XMS_ITS | Clinical Summary ---
Author Organization [facility] Address [address] [place] [address] Care Team Providers Care Cook At School Name Role Phone Matt Rodriguez MD Primary Care Provider [phone] Surgical History Surgery Date Site/Laterality Comments HIP ARTHROPLASTY Right PROCEDURE:HIP ARTHROPLASTY KNEE ARTHROPLASTY Right PROCEDURE:KNEE ARTHROPLASTY;COMMENT:x2 CARDIAC CATHETERIZATION 10/28/2016 N/A PROCEDURE:CARDIAC CATHETERIZATION;COMMENT:Procedure: LEFT HEART CATHETERIZATION ? PTCA; Surgeon: Vasquez Romero DO; Location: [facility]; Service: Cardiology; Laterality: N/A; Medical History Medical History Date Comments Acute transmural inferior wa ll HI ([facility] V24, [facility] V28) 08/20/04 DX:Acute transmural inferio r wall HI (HCC) H/O cardiac catheterization 08/20/04 DX:H /O cardiac catheterization;COMMENT:3x20 3x16 taxus Unstable angina ([facility]/HCC V24 , CMS/HCC V28) 10/27/09 DX:Unstable angina ([facility]) H/O cardiac catheterization 10/27/09 DX:H /O cardiac catheterization;COMMENT:3 x15 xcience distal RCA, 50% LAD, nl cx Psoriasis DX:Psoriasis 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, managed as typ e 2 (CMS/HCC V24, CMS/HCC V28) DX:Diabetes 1.5, managed as type 2 ([facility]) Hypertension DX:Hypertension Pulmonary embolus (CMS/[facility] V 24, CMS/[facility] V28) DX:Pulmonary embolus (HCC) Hx of cardiac cath 01/02/15 DX:Hx of card iac cath;COMMENT:high grade RCA, 2.5 x 14 resolute stent placed Coronary stent thrombosis 01/09/15 DX:Cor onary stent thrombosis;COMMENT:inf HI, started on effient Social History Tobacco Use Types Packs/Day Years Used Date Smoking Tobacco: Former Alcohol Use Standard Drinks/Week Comments Yes 0 (1 standard drink = 0.6 oz pur e alcohol) Sex and Gender Information Value Date Recorded Sex Assigned at Not on file Legal Sex Male 7:39 AM EST Gender Identity Not on file Sexual Orientation Not on file Obstetrics History Plan of Treatment Health Maintenance Due Date Last Done Comments DTaP,Tdap,and Td Vaccines (1 - Tdap) 1973 Pneumococcal Vaccine: 50+ Ye ars (1 of 1 - PCV) 2004 Zoster Vaccines (1 of 2) 2004 COVID-19 Vaccine ( - 2023-2 5 season) 2023 Influenza Vaccine (#1) 2023 RSV Immunization Adult Patie nts (1 - 1-dose 75+ series) 2029 HIB Vaccines Aged Out No longer eligi ble based on patient's age to complete this topic HPV Vaccines Aged Out No longer eligi ble based on patient's age to complete this topic Hepatitis A Vaccines Aged Out No long er eligible based on patient's age to complete this topic Hepatitis B Vaccines Aged Out No long er eligible based on patient's age to complete this topic IPV Vaccines Aged Out No longer eligi ble based on patient's age to complete this topic MMR Vaccines Aged Out No longer eligi ble based on patient's age to complete this topic Meningococcal ACWY Vaccine Aged Out N o longer eligible based on patient's age to complete this topic Meningococcal B Vaccine Aged Out No l onger eligible based on patient's age to complete this topic RSV Immunization Patients Un edith 20 months Aged Out No longer eligible b ased on patient's age to complete this topic Varicella Vaccines Aged Out No longer eligible based on patient's age to complete this topic Care Teams Cook At School Relationship Specialty Start Date End Date Matt Rodriguez MD [address] [place] [phone] PCP - General Family Medicine 11/07/14
--- OUTSIDE RECORDS SUMMARY | 2024-05-30 09:00 | XMS_ITS | Encounter Summary ---
Author Organization [address] [address] Care Team Providers Care Electric Scoop Operator Name Role Phone Matt Rodriguez MD Primary Care Provider [phone] Shelly Fonseca MD Primary Care Provider [phone] Nithin Salguero MD Unavailable [phone] Encounter Details Date Type Department Care Team (Late st Contact Info) Description 03/12/2015 Scanned Document [address] [phone] Provider, Generic Social History Tobacco [...] Procedure Name Priority Date/Time Associated Diagnosis Comments CARDIOLOGY ECHO 03/12/2015 documented in this encounter Results * CARDIOLOGY ECHO (03/12/2015) Anatomical Region Laterality Modality Other Narrative 03/15/2015 9:05 AM EST Ordered by an unspecified provider. Generic Provider HX AMB PROCEDURES documented in this encounter Visit Diagnoses Not on filedocumented in this encounter Care Teams Electric Scoop Operator Relationship Specialty Start Date End Date Matt Rodriguez MD [address] [place] [address] PCP - General Internal Medicine 10/24/14 11/29/15 Shelly Fonseca MD [address] [place] [address] PCP - General Internal Medicine 11/30/15 02/10/20 Nithin Salguero MD [address] [place] [address] Endocrinology 10/29/18 documented as of this encounter
--- OUTSIDE RECORDS SUMMARY | 2024-05-30 09:00 | XMS_ITS | Encounter Summary ---
Author Organization [facility] Address [address] [place] [address] Care Team Providers Care Baby Counselor Name Role Phone Shelly Fonseca MD Primary Care Provider [phone] Nithin Salguero MD Unavailable [phone] Encounter Details Date Type Department Care Team (Late st Contact Info) Description 04/29/2016 Scanned Document [address] [place] [phone] Provider, Generic Social History Tobacco Use [...] on filedocumented in this encounter Care Teams Baby Counselor Relationship Specialty Start Date End Date Shelly Fonseca MD PCP - General Internal Medicine 11/30/15 02/10/20 Nithin Salguero MD Endocrinology 10/29/18 documented as of this encounter
--- OUTSIDE RECORDS SUMMARY | 2024-05-30 09:00 | XMS_ITS | Clinical Summary ---
Author Organization [facility] Address [address] [place] [address] Care Team Providers Care Weblogic Administrator Name Role Phone Nithin Salguero MD Unavailable [phone] Allergies No known active allergies Medications Medication Sig Dispensed Refills Start Date End Date Status rosuvastatin (CRESTOR) 40 MG tablet Crestor 40 MG Oral Tablet ; Start Date: 08/15/2013; End Date: 08/15/2013 Active aspirin 81 MG tablet Aspirin 81 MG Oral Tablet ; Start Date: ; End Date: Active Icosapent Ethyl (VASCEPA) 1 G Cap 2 (two) times a day. Vascepa 1 GM Oral Capsule ; Start Date: 09/07/2012; End Date: 09/07/2012 Active adalimumab (HUMIRA PEN) 40 MG/0.8ML injection Humira Pen 40 MG/0.8ML KIT INJECT 40 MG SUBCUTANEOUSLY ONCE WEEKLY DIRECTED. ; Start Date: 09/13/2011; End Date: 09/13/2011 Active Fenofibrate 150 MG Cap Fenofibrate 150 MG Oral Capsule ; Start Date: 11/04/2013; End Date: 11/04/2013 Active OMEprazole (PriLOSEC) 40 MG capsule Take 40 mg by mouth daily. Active JANUMET 50-1000 MG per tablet Take 1 tablet by mouth 2 (two) times a day. 6 09/05/2015 Active cholecalciferol (VITAMIN D3) 1000 units tablet Take by mouth. Active LANTUS SOLOSTAR 100 UNIT/ML pen injection INJECT 25 UNIT(S) EVERY DAY BY SUBCUTANEOUS ROUTE AT BEDTIME FOR 90 DAYS. 3 11/10/2016 Active MogiMeUCH ULTRA BLUE TEST strip USE TO TEST BLOOD SUGAR TWICE A DAY DIRECTED 6 12/07/2016 Active BD PEN NEEDLE KRISTY U/F 32G X 4 MM Misc daily. as directed 6 10/12/2016 Active omega-3 acid ethyl esters (LOVAZA) 1 G capsule Take 2 g by mouth 2 (two) times a day. 4 11/09/2016 Active nateglinide (STARLIX) 60 MG tablet TAKE 1 TABLET BY MOUTH THREE TIMES A DAY BEFORE MEALS 6 10/25/2016 Active BRILINTA 90 MG tablet 01/06/2017 Active cyanocobalamin (VITAMIN B-12) 1000 MCG tablet Take by mouth. Activ e carvedilol (COREG) 3.125 MG tablet Take 3.125 mg by mouth 2 (two) times a day with meals. 11 10/29/2016 Active Active Problems Patient Care Coordination No te Formatting of this note migh t be different from the original. Ophthalomogist: Evaristo Fong Problem Noted Date Diagnosed Date Arteriosclerotic vascular disease 04/16/2015 Myocardial infarction 02/06/2015 Overview (12/01/2015): Overview: 1. Acute inf wall NC 08/18/04 2. Cardiac cath--08/18/04--mild LAD, mild Cx, mod diag, 100% RCA 3. 08/18/04 3 x 25 TAXUS stent in mid RCA 4. Cath--10/24/09--sever stenosis distal to prefious stent 5. 3.5 x 15 xscience in RCA 6/ nuclear stress--04/09/12--54% EF, fixed inf defect 7. 01/03/15--adm in [place] for unstable angina 8. 01/03/15--nuclear stress--inferior ischemic 50% EF 9. Cath--01/05/15--2.5 x 14 EDSON prox RCA, resolute 10. Nuclear 03/28/15--34% EF stress, 10. 01/09/14--acute stent thrombosis, 3.35 x 15 quantum, 3 x 22 resolute stents in RCA, started on effient 11. Echo 01/20/15--normal LVEF. 12. Nuclear--03/26/15--fixed inferoapical defect, no ischemia, EF50% 13. Echo--03/13/15--EF30-40%, inferior akinesis, grade I diastolic High triglycerides 11/07/2014 Hyperlipidemia 11/07/2014 Screening for human immunodeficiency virus 04/09 Peripheral vascular disease 04/09/2014 Varicose veins of lower extremities with ulcer 0 04/09/2014 Coronary atherosclerosis 02/18/2014 Overview (12/01/2015): Description : stents in 2004 and 2009 Arthropathy 02/18/2014 Type II diabetes mellitus 08/16/2013 Psoriasis vulgaris 08/16/2013 Esophageal reflux 04/03/2013 Diaphragmatic hernia 04/03/2013 Degenerative joint disease of pelvic region 03/23 Immunizations Name Administration Dates Next Due DTaP 5 04/08/2000 Influenza Inactivated/Split Preservative Free IM 11/20/2012 PPD Test 09/15/2010, 0,09/03/2008,06/27,04/15/2002 Pneumococcal Polysaccharide 23-Valent 02/21/2012 Tdap 04/09/2014,04/08/2013 Family History Medical History Relation Name Comments No Known Problems Father No Known Problems Mother Relation Name Status Comments Father Mother Alive Social History Tobacco Use Types Packs/Day Years [...] Sign Reading Time Taken Comments Blood Pressure 127/80 01/11/2017 9:25 AM EST Pulse 87 01/11/2017 9:25 AM EST Temperature 36.5 ??C (97.7 ??F) 01/11/2017 9:25 AM ES T Respiratory Rate 18 01/11/2017 9:25 AM EST Oxygen Saturation 98% 01/11/2017 9:25 AM EST Inhaled Oxygen Concentration - - Weight 93.9 kg (207 lb) 01/11/2017 9:25 AM EST Height 185.4 cm (6' 1 ) 01/11/2017 9:25 AM EST Body Mass Index 27.31 01/11/2017 9:25 AM EST Plan of Treatment Health Maintenance Due Date Last Done Comments Hepatitis C Virus Screening 1955 COVID-19 Vaccine (#1) 08/29/1959 Foot Exam 1964 Zoster (Shingles) Vaccine (1 of 2) 1973 Colonoscopy 2004 Pneumococcal Vaccines 50+ (2 of 2 - PCV) 02/20/2013 02/21/2012 Quantiferon Gold TB 04/17/2014 04/17/2013 RSV Vaccine 60 years and older and Patients (1 - Risk 60-74 years 1-dose series) 2014 Hemoglobin A1C 04/22/2015 10/22/2014, 09/20, 02/15/2013, Additional history exists Lipid Panel 10/23/2015 10/22/2014, 09/20, 08/06/2013, Additional history exists Microalbumin/Creatinine Ratio Urine 10/23/2015 10/22/2014, 10/07/2013, 02/15/2013 Creatinine with GFR 12/01/2016 12/02/2015, 10/22/2014, 10/07/2013, Additional history exists Ophthalmology Exam 08/16/2019 08/15/2018 Influenza Vaccine 09/21/2023 11/20/2012 DTaP/Tdap/Td Vaccines (4 - Td or Tdap) 04/09/2024 04/09/2014, 04/08/2013, 04/08/2000 Hepatitis B Vaccines Aged Out No long er eligible based on patient's age to complete this topic Procedures Procedure Name Priority Date/Time Associated Diagnosis Comments HX OPHTHALMOLOGY TESTING PROCEDURES 08/15/2018 COMPREHENSIVE METABOLIC PANEL Routine 12/02/2015 7:34 AM EDT Dizziness Fatigue Body aches MICROALBUMIN, CREATININE, URINE, RANDOM Routine 10/22/2014 7:38 AM EDT HEMOGLOBIN A1C WITH ESTIMATED AVERAGE GLUCOSE Routine 10/22/2014 7:38 AM EDT LIPID PANEL Routine 10/22/2014 7:38 AM EDT QUANTIFERON TB LUCIAN Routine 04/17/2013 7:43 AM EST from Last 3 Months or Most Recently Relevant to Health Maintenance Results * HX OPHTHALMOLOGY TESTING PROCEDURES (08/15/2018) Narrative 08/15/2018 Ordered by an unspecified provider. Generic Provider HX AMB PROCEDURES * (ABNORMAL) Comprehensive Metabolic Panel (12/02/2015 7:34 AM EDT) Glucose 191(H) 65 - 99 mg/dL [facility] Comment: ? Fasting reference interval Blood Urea Nitrogen (BUN) 24 7 - 25 mg/dL [facility] Creatinine 1.18 0.70 - 1.25 mg/dL [facility] Comment: For patients >49 years of age, the reference limit for Creatinine is approximately 13% higher for people identified as -Scottish. eGFR Non- 66 > OR = 60 mL/min/1 .73m2 [facility] eGFR 77 > OR = 60 mL/min/1 .73m2 [facility] BUN/Creatinine Ratio NOT APPLICABLE 6 - 22 (calc) [facility] Sodium 138 135 - 146 mmol/L [facility] Comment: Verified by repeat analysis. Potassium 4.2 3.5 - 5.3 mmol/L [facility] Chloride 101 98 - 110 mmol/L [facility] CO2 22 20 - 31 mmol/L [facility] Calcium 10.7(H) 8.6 - 10.3 mg/dL [facility] Protein, Total 8.4(H) 6.1 - 8.1 g/dL [facility] Albumin 5.1 3.6 - 5.1 g/dL [facility] Globulin 3.3 1.9 - 3.7 g/dL (calc) [facility] Albumin/Globulin Ratio 1.5 1.0 - 2.5 (calc) [facility] Bilirubin, Total 1.0 0.2 - 1.2 mg/dL [facility] Alkaline Phosphatase 74 40 - 115 U/L [facility] Aspartate Aminotrans (AST) 20 10 - 35 U/L [facility] Alanine Aminotrans (ALT) 27 9 - 46 U/L [facility] Blood specimen (specimen) Blood specimen / Unknown 12/02/2015 7:34 AM EDT 12/02/2015 7:34 AM EDT Narrative [facility] - 12/02/2015 11:23 PM EDT FASTING:YES Resulting Agency Comment Performing Organization Information: ?Site ID: [id number] ?Name: [employer] ?Address: [address] [place] [address], [place] [address] ?Director: Bteh Chaudhari MD Cher CAMACHO LAB BLOOD ORDERABLES Performing Organization Address City/[facility]/ZIP Co de Phone Number [facility] [address] [place] [address], [place] [address] * (ABNORMAL) Microalbumin, Creatinine, Urine, Random (10/22/2014 7:38 AM EDT) Microalbumin, Urine, Random 34(H) <30 mg/L [facility] Creatinine, Urine, Random 89 mg/dL [facility] Microalbumin/Cr eatinine Ratio 38.2(H) <30 mg Alb/g Creat [facility] Comment:Test Performed at: [facility]#:[id number] 10/22/2014 7:38 AM EDT 10/23/2014 12:16 AM EDT Narrative [facility] - 10/23/2014 6:07 AM EDT Report copy sent to: [facility] [id number] EDE BROWN MD [facility] [id number] MONI KENNY MD [facility] () [id number] CONCETTA BRYANT MD Nithin Salguero MD URINE ORDERABLES [facility] * (ABNORMAL) Hemoglobin A1c with Estimated Average Glucose (10/22/2014 7:38 AM EDT) Hemoglobin A1C 7.3(H) <5.7 % [facility] Comment: A1c% ? Interpretation 5.7 - 6.0 ?Increase risk of diabetes 6.1 - 6.4 ?Higher risk of diabetes > or = 6.5 ?? Consistent with diabetes ?? Diabetes Care, 33(Supp 1):S1-S61, 2010 Estimated Average Glucose 163 mg/dL [facility] Comment: Diabetes Care 2008: 31: 1473-8 Test Performed at: [facility]#:[id number] 10/22/2014 7:38 AM EDT 10/23/2014 12:16 AM EDT Narrative [facility] - 10/23/2014 6:07 AM EDT Report copy sent to: [facility] [id number] EDE BROWN MD [facility] [phone] MONI KENNY MD [facility] () [id number] CONCETTA BRYANT MD Nithin Salguero MD LAB BLOOD ORDERAB LES [facility] * (ABNORMAL) Lipid Panel (10/22/2014 7:38 AM EDT) Cholesterol, Total 209(H) <200 mg/dL [facility] Triglycerides 810(H) <150 mg/dL [facility] Cholesterol, HDL 33(L) >39 mg/dL [facility] Estimated LDL <130 mg/dL [facility] Comment: Calculated LDL not valid if triglyceride concentration is greater than or equal to 400 mg/dL. Cholesterol/HDL Ratio 6.3(H) 0.0 - 5.0 Ratio [facility] Comment: Relative Risk ? Ratio - Male ? Ratio - Female ? 0.5 ?3.4 ?3.3 ? 1.0 ?5.0 ?4.4 ? 2.0 ?9.6 ?7.1 ? 3.0 ? 23.4 ? 11.0 Test Performed at: [facility]#:[id number] 10/22/2014 7:38 AM EDT 10/23/2014 12:16 AM EDT Narrative [facility] - 10/23/2014 6:07 AM EDT Report copy sent to: [facility] [id number] EDE BROWN MD [facility] [phone] MONI KENNY MD [facility] () [id number] CONCETTA BRYANT MD Nithin Salguero MD LAB BLOOD ORDERAB LES [facility] * Quantiferon TB LUCIAN (04/17/2013 7:43 AM EST) Pathologist [facility] Quantiferon Interpretation NEGATIVE NEGATIVE [facility] CONVERSION Comment:M. TUBERCULOSIS INFE CTION NOT LIKELY. Quantiferon TB-NIL Response 0.01 IU/ML [facility] CONVERSION Quantiferon NIL 0.1 IU/ML [facility] CONVERSION Quantiferon Mitogen-NIL Response 5.8 IU/ML [facility] CONVERSION Comment: INTERPRETATION CRITERIA FOR THE QUANTIFERON GOLD IN-TUBE TEST: ?? A SAMPLE IS CONSIDERED POSITIVE IF THE NIL VALUE IS EQUAL TO OR <8.0 IU/ML, TB-NIL RESPONSE IS EQUAL TO OR >0.35 IU/ML AND IS EQUAL TO OR >25% OF NIL VALUE. ?? A SAMPLE IS CONSIDERED NEGATIVE IF THE NIL VALUE IS EQUAL TO OR <8.0 IU/ML, TB-NIL RESPONSE IS <0.35 AND MITOGEN RESPONSE IS EQUAL TO OR >0.5 IU/ML. SAMPLES THAT HAVE A TB-NIL RESPONSE OF EQUAL TO OR >0.35 IU/ML BUT ARE <25% OF NIL AND MITOGEN RESPONSE IS EQUAL TO OR >0.5 IU/ML ARE ALSO CONSIDERED NEGATIVE. ?? A SAMPLE IS CONSIDERED INDETERMINATE IF NIL VALUE IS >8.0 IU/ML OR MITOGEN RESPONSE IS <0.5 IU/ML. 04/17/2013 7:43 AM EST Conversion Provider LAB BLOOD ORDERAB LES [facility] CONVERSION from Last 3 Months or Most Recently Relevant to Health Maintenance Care Teams Weblogic Administrator Relationship Specialty Start Date End Date Nithin Salguero MD Endocrinology 10/29/18
== END 2024-05-30 09:13 | disposition home or self-care (01) ==
LOC: HO.HMCC 08:41
PROVIDERS: PCP Internal Medicine; Visit Provider Internal Medicine
DX: E13.9 Other specified diabetes mellitus without complications (principal); Z79.4 Long term (current) 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; G20.B2 Parkinson's disease with dyskinesia, with fluctuations; G63 Polyneuropathy in diseases classified elsewhere; M25.461 Effusion, right knee; E78.9 Disorder of lipoprotein metabolism, unspecified; E55.9 Vitamin D deficiency, unspecified; I25.10 Atherosclerotic heart disease of native coronary artery without angina pectoris; I10 Essential (primary) hypertension

== ENCOUNTER → 2024-05-30 08:41 | Outpatient (BNVA) | payer MEDICARE, SELFPAY | PROVIDERS: PCP Internal Medicine; Visit Provider Internal Medicine | DX: Z13.89 Encounter for screening for other disorder (principal) ==

== ENCOUNTER → 2024-06-27 13:03 | Outpatient (REF) | payer MEDICARE, SELFPAY ==
--- OUTSIDE RECORDS SUMMARY | 2024-06-27 14:11 | XMS_ITS | Encounter Summary ---
Author Organization [facility] Address [address] [place] [address] Care Team Providers Care Customer Service Assistant Name Role Phone Matt Rodriguez MD Primary Care Provider [phone] Shelly Fonseca MD Primary Care Provider [phone] Nithin Salguero MD Unavailable [phone] Encounter Details Date Type Department Care Team (Late st Contact Info) Description 02/06/2015 Scanned Document [address] [phone] Provider, Generic Social History Tobacco Use Types Packs/Day Years Used Date Smoking Tobacco: Former Comments:20 pk yrs Alcohol Use Standard Drinks/Week Comments Yes 0 (1 standard drink = 0.6 oz pur e alcohol) social Sex and Gender Information Value Date Recorded Sex Assigned at Not on file Legal Sex Male 11:50 AM EDT Gender Identity Not on file Sexual Orientation Not on file documented as of this encounter Plan of Treatment Not on file documented as of this encounter Visit Diagnoses Not on filedocumented in this encounter Care Teams Customer Service Assistant Relationship Specialty Start Date End Date Matt Rodriguez MD [address] [place] [address] PCP - General Internal Medicine 10/24/14 11/29/15 Shelly Fonseca MD [address] [place] [address] PCP - General Internal Medicine 11/30/15 02/10/20 Nithin Salguero MD [address] [place] [address] Endocrinology 10/29/18 documented as of this encounter
--- OUTSIDE RECORDS SUMMARY | 2024-06-27 14:11 | XMS_ITS | Encounter Summary ---
Author Organization [address] [address] Care Team Providers Care Inspector Structural Bonding Name Role Phone Matt Rodriguez MD Primary Care Provider Shelly Fonseca MD Primary Care Provider [phone] Nithin Salguero MD Unavailable [phone] Encounter Details Date Type Department Care Team (Late st Contact Info) Description 03/12/2015 Scanned Document [address] [phone] Provider, Generic Social History Tobacco [...] AM EST Ordered by an unspecified provider. us Generic Provider HX AMB PROCEDURES Edited Result - Final documented in this encounter Visit Diagnoses Not on filedocumented in this encounter Care Teams Inspector Structural Bonding Relationship Specialty Start Date End Date Matt Rodriguez MD [address] [place] [address] PCP - General Internal Medicine 10/24/14 11/29/15 Shelly Fonseca MD [address] [place] [address] PCP - General Internal Medicine 11/30/15 02/10/20 Nithin Salguero MD [address] [place] [address] Endocrinology 10/29/18 documented as of this encounter
--- OUTSIDE RECORDS SUMMARY | 2024-06-27 14:11 | XMS_ITS | Encounter Summary ---
Author Organization [facility] Address [address] [place] [address] Care Team Providers Care Senior Mobile Developer Name Role Phone Shelly Fonseca MD Primary Care Provider [phone] Nithin Salguero MD Unavailable [phone] Encounter Details Date Type Department Care Team (Late st Contact Info) Description 04/29/2016 Scanned Document [address] [place] [phone] Provider, Generic Social History Tobacco Use [...] on filedocumented in this encounter Care Teams Senior Mobile Developer Relationship Specialty Start Date End Date Shelly Fonseca MD PCP - General Internal Medicine 11/30/15 02/10/20 Nithin Salguero MD Endocrinology 10/29/18 documented as of this encounter
--- OUTSIDE RECORDS SUMMARY | 2024-06-27 14:12 | XMS_ITS | Data Portability ---
Author Organization [place] - Nithin gamez MD, Main Office Address [address] [facility] [address] [address] Assessment Encounter Date Assessment Date Assessment LastModified [...] frequent foot care and needs to see pathology secretary yearly. Other Instructions: NEEDS TO START BASAL [...] BREAKFAST AND DINNER, TAKE VASCEPA 1000MG 2 PARTS CLASSIFIER PO TWICE A DAY BREAKFAST AND DINNER [...] UP IN JANUARY BEFORE GOING AWAY TO [facility] IN FEB , SET VISIT JAN 2017 [...] SIDE EFFECT OF HUMIRA? , MOVING TO [place] IN [place] , WILL FOLLW UP IN JUNE [email or web address] Not available 02/07/2017 12:49:41 Reason for Referral None Reported. Results Created Date Observation Date Name Description Value Unit Range Abnormal Flag Note LastModifiedBy Organization Detail LastModifiedTime 07/13/19 17 07/12/2016 lipid panel , serum cholesterol, total 136 mg/dL 125-20 0 normal Not Available [facility] [place] [facility] [address] [place], [address], 07/12/2016 21:53:04 07/13/19 17 07/12/2016 lipid panel , serum HDL cholesterol 46 mg/dL > or = 40 normal Not Available [facility] [place] [facility] [address], [place], [address], 07/12/2016 21:53:04 07/13/19 17 07/12/2016 lipid panel , serum triglyceride s 171 mg/dL <150 high Not Available [facility] [place] [facility] [address] [place], [address], 07/12/2016 21:53:04 07/13/19 17 07/12/2016 lipid panel , serum LDL-choleste rol 56 mg/dL _(dennys c) <130 normal Corey able range <100 mg/dL for patie nts with CHD or diabe angel and <70 mg/dL for diabe tic patie nts with known heart disea se. Not Available [facility] [place] [facility] [address], [place], [address], 07/12/2016 21:53:04 07/13/19 17 07/12/2016 lipid panel , serum chol/HDLC ratio 3.0 (calc ) < or = 5.0 normal Not Available [facility] [place] [facility] [address] [place], [place], [address], 07/12/2016 21:53:04 07/13/19 17 07/12/2016 lipid panel , serum non HDL cholesterol 90 mg/dL _(dennys c) normal Targe t for non-H DL shea stero l is 30 mg/dL highe r than LDL shea stero l targe t. Not Available [facility] [place] [facility] [address] [place], [place], [address], 07/12/2016 21:53:04 07/13/19 17 07/12/2016 lipid panel , serum copy(ies) sent to: [facility] [address] [place] [address] CENTR [place] CONN CARDI OLOGY 19 [facility] 35 [place] [address] Not Available [facility] [place] [facility] [address], [place], [address], 07/12/2016 21:53:04 07/13/19 17 07/12/2016 CMP, serum or plasm a glucose 129 mg/dL 65-99 high Fasti ng refer ence inter bira For someo ne witho ut known diabe angel, a gluco se value >125 mg/dL indic ates that they may have diabe angel and this shoul d be confi rmed with a follo w-up test. Not Available [facility] [address] [place], [place], [address], 07/12/2016 21:53:05 07/13/19 17 07/12/2016 CMP, serum or plasm a urea nitrogen (BUN) 19 mg/dL 7-25 normal Not Available [facility] [place] [facility] [address], [place], [address], 07/12/2016 21:53:05 07/13/19 17 07/12/2016 CMP, serum or plasm a creatinine 1.14 mg/dL 0.70-1 .25 normal For patie nts >49 years of age, the refer ence limit for Creat inine is appro ximat marti 13% highe r for peopl e ident ified as Afric an-Am jessica n. Not Available [facility] [place] [facility] [address], [address], 07/12/2016 21:53:05 07/13/19 17 07/12/2016 CMP, serum or plasm a eGFR non-afr. bruneian 69 mL/mi n/1.7 3m2 > or = 60 normal Not Available [facility] [place] [facility] [address], [address], 07/12/2016 21:53:05 07/13/19 17 07/12/2016 CMP, serum or plasm a eGFR 80 mL/mi n/1.7 3m2 > or = 60 normal Not Available [facility] [place] [facility] [address], [place], [address], 07/12/2016 21:53:05 07/13/19 17 07/12/2016 CMP, serum or plasm a BUN/creatini ne ratio NOT APPLIC ABLE (calc ) 6-22 Not Available [facility] [place] [facility] [address], [address], 07/12/2016 21:53:05 07/13/19 17 07/12/2016 CMP, serum or plasm a sodium 140 mmol/ L 135-14 6 normal Not Available [facility] [place] [facility] [address], [address], 07/12/2016 21:53:05 07/13/19 17 07/12/2016 CMP, serum or plasm a potassium 4.5 mmol/ L 3.5-5. 3 normal Not Available [facility] [address], [place], [address], 07/12/2016 21:53:05 07/13/19 17 07/12/2016 CMP, serum or plasm a chloride 105 mmol/ L 98-110 normal Not Available [facility] [address], [place], [address], 07/12/2016 21:53:05 07/13/19 17 07/12/2016 CMP, serum or plasm a carbon dioxide 25 mmol/ L 20-31 normal Not Available [facility] [address], [place], [address], 07/12/2016 21:53:05 07/13/19 17 07/12/2016 CMP, serum or plasm a calcium 10.2 mg/dL 8.6-10 .3 normal Not Available [facility] [address], [place], [address], 07/12/2016 21:53:05 07/13/19 17 07/12/2016 CMP, serum or plasm a protein, total 7.7 g/dL 6.1-8. 1 normal Not Available [facility] [address], [place], [address], 07/12/2016 21:53:05 07/13/19 17 07/12/2016 CMP, serum or plasm a albumin 4.7 g/dL 3.6-5. 1 normal Not Available [facility] [address], [place], [address], 07/12/2016 21:53:05 07/13/19 17 07/12/2016 CMP, serum or plasm a globulin 3.0 g/dL_ (calc ) 1.9-3. 7 normal Not Available [facility] [address], [place], [address], 07/12/2016 21:53:05 07/13/19 17 07/12/2016 CMP, serum or plasm a albumin/glob ulin ratio 1.6 (calc ) 1.0-2. 5 normal Not Available [facility] [address], [place], [address], 07/12/2016 21:53:05 07/13/19 17 07/12/2016 CMP, serum or plasm a bilirubin, total 0.9 mg/dL 0.2-1. 2 normal Not Available [facility] [place] [facility] [address], [place], [address], 07/12/2016 21:53:05 07/13/19 17 07/12/2016 CMP, serum or plasm a alkaline phosphatase 62 U/L 40-115 normal Not Available [facility] [address], [place], [address], 07/12/2016 21:53:05 07/13/19 17 07/12/2016 CMP, serum or plasm a AST 22 U/L 10-35 normal Not Available [facility] [address], [place], [address], 07/12/2016 21:53:05 07/13/19 17 07/12/2016 CMP, serum or plasm a ALT 21 U/L 9-46 normal Not Available [facility] [address], [place], [address], 07/12/2016 21:53:05 07/13/19 17 07/12/2016 CMP, serum or plasm a copy(ies) sent to: [facility] 21 [facility] [address] [place] [address] CENTR [place] CONN CARDI OLOGY 19 [facility] [address] [place] [address] Not Available [facility] [place] [facility] [address], [place], [address], 07/12/2016 21:53:05 07/13/19 17 07/12/2016 HbA1c (hemo [...] diabe angel for child kate. Not Available [facility] [place] [facility] [address], [place], [address], 07/12/2016 21:27:59 07/13/19 17 07/12/2016 HbA1c (hemo globi n A1c), blood mean plasma glucose 190 mg/dL _(dennys c) Not Available [facility] [place] [facility] [address], [place], [address], 07/12/2016 21:27:59 07/13/19 17 07/12/2016 HbA1c (hemo globi n A1c), blood copy(ies) sent to: [facility] [address] [place] [address] CENTR [place] CONN CARDI OLOGY 19 [facility] [address] [place] [address] Not Available [facility] [place] [facility] [address], [place], [address], 07/12/2016 21:27:59 10/14/1910/14/2016 lipid panel , serum cholesterol, total 145 mg/dL <200 normal Not Available [facility] [address] [place], [place], [address], 10/14/2016 02:33:54 10/14/1910/14/2016 lipid panel , serum HDL cholesterol 45 mg/dL >40 normal Not Available [facility] [place] [facility] [address] [place], [place], [address], 10/14/2016 02:33:54 10/14/1910/14/2016 lipid panel , serum triglyceride s 174 mg/dL <150 high Not Available [facility] [address] [place], [address], 10/14/2016 02:33:54 10/14/1910/14/2016 lipid panel , serum LDL-choleste rol 73 mg/dL _(dennys c) normal Refer ence range : <100 Corey able range <100 mg/dL for patie nts with CHD or diabe angel and <70 mg/dL for diabe tic patie nts with known heart disea se. The [facility] noeu latio n is a valid ated [...] brush purpo ses only. ) Not Available [facility] [place] [facility] [address] [place], [place], [address], 10/14/2016 02:33:54 10/14/19 17 10/14/2016 lipid panel , serum chol/HDLC ratio 3.2 (calc ) <5.0 normal Not Available [facility] [place] [facility] [address] [place], [place], [address], 10/14/2016 02:33:54 10/14/19 17 10/14/2016 lipid panel , serum non HDL cholesterol 100 mg/dL _(dennys c) <130 normal For patie nts with diabe angel plus 1 major ASCVD risk facto r, treat ing to a non-H DL-C goal of <100 mg/dL (LDL- C of <70 mg/dL ) is consi dered a thera peuti c optio n. Not Available [facility] [place] [facility] [address] [place], [place], [place], [address], 10/14/2016 02:33:54 10/14/19 17 10/14/2016 lipid panel , serum copy(ies) sent to: [facility] [address] [place] [address] CARD[address] [facility] [place] [place] [address] Not Available [facility] [place] [facility] [address] [place], [place], [address], 10/14/2016 02:33:54 10/14/19 17 10/14/2016 micro album in/cr eatin ine, mass ratio , urine creatinine, random urine 184 mg/dL 20-370 normal Not Available [facility] [place] [facility] [address] [place], [place], [address], 10/14/2016 14:41:21 10/14/19 17 10/14/2016 micro album in/cr eatin ine, mass ratio , urine microalbumin 4.4 mg/dL see note: normal Refer ence Range : Refer ence Range Not estab lishe d Not Available [facility] [place] [facility] [address], [place], [address], 10/14/2016 14:41:21 10/14/19 17 10/14/2016 micro album [...] a diagn ostic categ ory. Not Available [facility] [place] [facility] [address], [place], [address], 10/14/2016 14:41:21 10/14/19 17 10/14/2016 micro album in/cr eatin ine, mass ratio , urine copy(ies) sent to: [facility] [address] [place] [address] CARD[address] STS [address] [place] [address] Not Available [facility] [place] [facility] [address], [place], [address], 10/14/2016 14:41:21 10/14/19 17 10/14/2016 CMP, serum or plasm a glucose 67 mg/dL 65-99 normal Fasti ng refer ence inter bria Not Available [facility] [place] [facility] [address], [place], [address], 10/14/2016 02:33:55 10/14/1910/14/2016 CMP, serum or plasm a urea nitrogen (BUN) 18 mg/dL 7-25 normal Not Available [facility] [address] [place], [address], 10/14/2016 02:33:55 10/14/1910/14/2016 CMP, serum or plasm a creatinine 1.04 mg/dL 0.70-1 .25 normal For patie nts >49 years of age, the refer ence limit for Creat inine is appro ximat marti 13% highe r for peopl e ident ified as Afric an-Am jessica n. Not Available [facility] [address] [place], [place], [address], 10/14/2016 02:33:55 10/14/1910/14/2016 CMP, serum or plasm a eGFR non-afr. bruneian 77 mL/mi n/1.7 3m2 > or = 60 normal Not Available [facility] [place] [facility] [address] [place], [place], [address], 10/14/2016 02:33:55 10/14/1910/14/2016 CMP, serum or plasm a eGFR 89 mL/mi n/1.7 3m2 > or = 60 normal Not Available [facility] [place] [facility] [address] [place], [place], [address], 10/14/2016 02:33:55 10/14/1910/14/2016 CMP, serum or plasm a BUN/creatini ne ratio NOT APPLIC ABLE (calc ) 6-22 Not Available [facility] [address] [place], [place], [address], 10/14/2016 02:33:55 10/14/1910/14/2016 CMP, serum or plasm a sodium 139 mmol/ L 135-14 6 normal Not Available [facility] [address], [place], [address], 10/14/2016 02:33:55 10/14/19 17 10/14/2016 CMP, serum or plasm a potassium 4.2 mmol/ L 3.5-5. 3 normal Not Available [facility] [address], [place], [address], 10/14/2016 02:33:55 10/14/1910/14/2016 CMP, serum or plasm a chloride 105 mmol/ L 98-110 normal Not Available [facility] [address], [place], [address], 10/14/2016 02:33:55 10/14/19 17 10/14/2016 CMP, serum or plasm a carbon dioxide 21 mmol/ L 20-31 normal Not Available [facility] [address], [place], [address], 10/14/2016 02:33:55 10/14/1910/14/2016 CMP, serum or plasm a calcium 10.2 mg/dL 8.6-10 .3 normal Not Available [facility] [address], [place], [address], 10/14/2016 02:33:55 10/14/1910/14/2016 CMP, serum or plasm a protein, total 8.1 g/dL 6.1-8. 1 normal Not Available [facility] [address], [place], [address], 10/14/2016 02:33:55 10/14/19 17 10/14/2016 CMP, serum or plasm a albumin 4.8 g/dL 3.6-5. 1 normal Not Available [facility] [address], [place], [address], 10/14/2016 02:33:55 10/14/1910/14/2016 CMP, serum or plasm a globulin 3.3 g/dL_ (calc ) 1.9-3. 7 normal Not Available [facility] [place] [facility] [address] [place], [place], [address], 10/14/2016 02:33:55 10/14/1910/14/2016 CMP, serum or plasm a albumin/glob ulin ratio 1.5 (calc ) 1.0-2. 5 normal Not Available [facility] [place] [facility] [address] [place], [place], [address], 10/14/2016 02:33:55 10/14/1910/14/2016 CMP, serum or plasm a bilirubin, total 1.0 mg/dL 0.2-1. 2 normal Not Available [facility] [place] [facility] [address] [place], [place], [address], 10/14/2016 02:33:55 10/14/1910/14/2016 CMP, serum or plasm a alkaline phosphatase 56 U/L 40-115 normal Not Available [facility] [address] [place], [place], [address], 10/14/2016 02:33:55 10/14/1910/14/2016 CMP, serum or plasm a AST 24 U/L 10-35 normal Not Available [facility] [address] [place], [place], [address], 10/14/2016 02:33:55 10/14/1910/14/2016 CMP, serum or plasm a ALT 22 U/L 9-46 normal Not Available [facility] [address] [place], [place], [address], 10/14/2016 02:33:55 10/14/19 17 10/14/2016 CMP, serum or plasm a copy(ies) sent to: [facility] [address] [place] [address] [facility] [place] [address] Not Available [facility] [place] [facility] [address] [place], [place], [address], 10/14/2016 02:33:55 10/14/1910/13/2016 HbA1c (hemo globi n [...] diabe angel for child kate. Not Available [facility] [place] [facility] [address] [place], [place], [address], 10/13/2016 22:34:56 10/14/1910/13/2016 HbA1c (hemo globi n A1c), blood mean plasma glucose 133 mg/dL _(dennys c) Not Available [facility] [place] [facility] [address] [place], [place], [address], 10/13/2016 22:34:56 10/14/19 17 10/13/2016 HbA1c (hemo globi n A1c), blood copy(ies) sent to: [facility] [address] [place] [address] [facility] [place] [address] Not Available [facility] [place] [facility] [address], [place], [address], 10/13/2016 22:34:56 01/31/20 17 01/30/2017 lipid panel , serum cholesterol, total 133 mg/dL <200 normal Not Available [facility] [place] [facility] [address], [place], [address], 01/30/2017 22:58:17 01/31/20 17 01/30/2017 lipid panel , serum HDL cholesterol 36 mg/dL >40 low Not Available [facility] [place] [facility] [address], [place], [address], 01/30/2017 22:58:17 01/31/20 17 01/30/2017 lipid panel , serum triglyceride s 200 mg/dL <150 high Not Available [facility] [place] [facility] [address], [place], [address], 01/30/2017 22:58:17 01/31/20 17 01/30/2017 lipid panel [...] 2061- 2068 (http ://ed ucati on.Qu estDi Aurochs Brewingos tics. com/f aq/FA Q164) Not Available [facility] [place] [facility] [address], [place], [address], 01/30/2017 22:58:17 01/31/20 17 01/30/2017 lipid panel , serum chol/HDLC ratio 3.7 (calc ) <5.0 normal Not Available [facility] [place] [facility] [address], [place], [address], 01/30/2017 22:58:17 01/31/20 17 01/30/2017 lipid panel , serum non HDL cholesterol 97 mg/dL _(dennys c) <130 normal For patie nts with diabe angel plus 1 major ASCVD risk facto r, treat ing to a non-H DL-C goal of <100 mg/dL (LDL- C of <70 mg/dL ) is consi geneva a clarissa rogers optio n. Not Available [facility] [place] [facility] [address], [place], [address], 01/30/2017 22:58:17 01/31/20 17 01/30/2017 lipid panel , serum copy(ies) sent to: [facility] [address] [place] [address] CENTR [place] CONN CARDI OLOGY 19 [facility] [address] [place] [address] Not Available [facility] [place] [facility] [address], [place], [address], 01/30/2017 22:58:17 01/31/20 17 01/30/2017 CMP, serum or plasm a glucose 126 mg/dL 65-99 high Fasti ng refer ence inter bria For someo ne witho ut known diabe angel, a gluco se value >125 mg/dL indic ates that they may have diabe angel and this shoul d be confi rmed with a follo w-up test. Not Available [facility] [place] [facility] [address] [place], [address], 01/30/2017 22:58:17 01/31/20 17 01/30/2017 CMP, serum or plasm a urea nitrogen (BUN) 20 mg/dL 7-25 normal Not Available [facility] [place] [facility] [address] [place], [address], 01/30/2017 22:58:17 01/31/20 17 01/30/2017 CMP, serum or plasm a creatinine 1.50 mg/dL 0.70-1 .25 high For patie nts >49 years of age, the refer ence limit for Creat inine is appro ximat marti 13% highe r for peopl e ident ified as Afric an-Am jessica n. Not Available [facility] [place] [facility] [address] [place], [address], 01/30/2017 22:58:17 01/31/20 17 01/30/2017 CMP, serum or plasm a eGFR non-afr. bruneian 49 mL/mi n/1.7 3m2 > or = 60 low Not Available [facility] [place] [facility] [address] [place], [address], 01/30/2017 22:58:17 01/31/20 17 01/30/2017 CMP, serum or plasm a eGFR 57 mL/mi n/1.7 3m2 > or = 60 low Not Available [facility] [place] [facility] [address] [place], [address], 01/30/2017 22:58:17 01/31/20 17 01/30/2017 CMP, serum or plasm a BUN/creatini ne ratio 13 (calc ) 6-22 normal Not Available [facility] [place] [facility] [address] [place], [address], 01/30/2017 22:58:17 01/31/20 17 01/30/2017 CMP, serum or plasm a sodium 138 mmol/ L 135-14 6 normal Not Available [facility] [place] [facility] [address], [place], [address], 01/30/2017 22:58:17 01/31/20 17 01/30/2017 CMP, serum or plasm a potassium 4.7 mmol/ L 3.5-5. 3 normal Not Available [facility] [place] [facility] [address], [place], [address], 01/30/2017 22:58:17 01/31/20 17 01/30/2017 CMP, serum or plasm a chloride 102 mmol/ L 98-110 normal Not Available [facility] [address], [place], [address], 01/30/2017 22:58:17 01/31/20 17 01/30/2017 CMP, serum or plasm a carbon dioxide 25 mmol/ L 20-31 normal Not Available [facility] [address], [address], 01/30/2017 22:58:17 01/31/20 17 01/30/2017 CMP, serum or plasm a calcium 10.4 mg/dL 8.6-10 .3 high Not Available [facility] [address], [address], 01/30/2017 22:58:17 01/31/20 17 01/30/2017 CMP, serum or plasm a protein, total 8.0 g/dL 6.1-8. 1 normal Not Available [facility] [address], [address], 01/30/2017 22:58:17 01/31/20 17 01/30/2017 CMP, serum or plasm a albumin 4.6 g/dL 3.6-5. 1 normal Not Available [facility] [address] [place], [address], 01/30/2017 22:58:17 01/31/20 17 01/30/2017 CMP, serum or plasm a globulin 3.4 g/dL_ (calc ) 1.9-3. 7 normal Not Available [facility] [place] [facility] [address] [place], [place], [address], 01/30/2017 22:58:17 01/31/20 17 01/30/2017 CMP, serum or plasm a albumin/glob ulin ratio 1.4 (calc ) 1.0-2. 5 normal Not Available [facility] [place] [facility] [address] [place], [place], [address], 01/30/2017 22:58:17 01/31/20 17 01/30/2017 CMP, serum or plasm a bilirubin, total 0.9 mg/dL 0.2-1. 2 normal Not Available [facility] [place] [facility] [address], [place], [address], 01/30/2017 22:58:17 01/31/20 17 01/30/2017 CMP, serum or plasm a alkaline phosphatase 61 U/L 40-115 normal Not Available [facility] [address] [place], [place], [address], 01/30/2017 22:58:17 01/31/20 17 01/30/2017 CMP, serum or plasm a AST 25 U/L 10-35 normal Not Available [facility] [address] [place], [place], [address], 01/30/2017 22:58:17 01/31/20 17 01/30/2017 CMP, serum or plasm a ALT 25 U/L 9-46 normal Not Available [facility] [address] [place], [place], [address], 01/30/2017 22:58:17 01/31/20 17 01/30/2017 CMP, serum or plasm a copy(ies) sent to: [facility] [address] [place] [address] CENTR [place] CONN CARDI OLOGY 19 [facility] [address] [place] [address] Not Available [facility] [place] [facility] [address] [place] [address], [place], [address], 01/30/2017 22:58:17 01/31/20 17 01/30/2017 CBC white blood cell count 6.5 thous and/u L 3.8-10 .8 normal Not Available [facility] [place] [facility] [address] [place] [address], [place], [address], 01/30/2017 21:29:12 01/31/20 17 01/30/2017 CBC red blood cell count 4.17 nhan on/uL 4.20-5 .80 low Not Available [facility] [place] [facility] [address], [place], [address], 01/30/2017 21:29:12 01/31/20 17 01/30/2017 CBC hemoglobin 13.9 g/dL 13.2-1 7.1 normal Not Available [facility] [place] [facility] [address], [place], [address], 01/30/2017 21:29:12 01/31/20 17 01/30/2017 CBC hematocrit 40.7 % 38.5-5 0.0 normal Not Available [facility] [place] [facility] [address], [place], [address], 01/30/2017 21:29:12 01/31/20 17 01/30/2017 CBC MCV 97.5 fL 80.0-1 00.0 normal Not Available [facility] [place] [facility] [address], [place], [address], 01/30/2017 21:29:12 01/31/20 17 01/30/2017 CBC MCH 33.2 pg 27.0-3 3.0 high Not Available [facility] [place] [facility] [address], [place], [address], 01/30/2017 21:29:12 01/31/20 17 01/30/2017 CBC MCHC 34.1 g/dL 32.0-3 6.0 normal Not Available [facility] [place] [facility] [address], [place], [address], 01/30/2017 21:29:12 01/31/20 17 01/30/2017 CBC RDW 13.8 % 11.0-1 5.0 normal Not Available [facility] [place] [facility] [address], [place], [address], 01/30/2017 21:29:12 01/31/20 17 01/30/2017 CBC platelet count 189 thous and/u L 140-40 0 normal Not Available [facility] [place] [facility] [address], [place], [address], 01/30/2017 21:29:12 01/31/20 17 01/30/2017 CBC MPV 8.4 fL 7.5-12 .5 normal Not Available [facility] [place] [facility] [address], [place], [address], 01/30/2017 21:29:12 01/31/20 17 01/30/2017 CBC copy(ies) sent to: [facility] [address] [place] [address] [facility] 19 [facility] [address] [place] [address] Not Available [facility] [place] [facility] [address], [place], [address], 01/30/2017 21:29:12 01/31/20 17 01/30/2017 vitam in B12, serum vitamin B12 548 pg/mL 200-11 00 normal Not Available [facility] [place] [facility] [address], [place], [address], 01/30/2017 22:58:18 01/31/20 17 01/30/2017 vitam in B12, serum copy(ies) sent to: [facility] [address] [place] [address] [facility] 19 [facility] 35 [place] [address] Not Available [facility] [place] [facility] [address], [address], 01/30/2017 22:58:18 01/31/20 17 01/31/2017 vitam in [...] /MS is recom sofi d: order code 20704 (johnnie ents >2yrs ). For more infor toña angela on this test, go to: http: //anastasiia pierce gn[facility].c om/fa q/FAQ 163 (This link is being provi ded for infor toña nal/e ducat ional purpo ses only. ) Not Available [facility] [place] [facility] [address], [place], [address], 01/31/2017 02:52:12 01/31/20 17 01/31/2017 vitam in D, 25-hy droxy , total , serum copy(ies) sent to: [facility] [address] [place] [address] [facility] 19 [facility] [address] [place] [address] Not Available [facility] [place] [facility] [address], [place], [place], [address], 01/31/2017 02:52:12 01/31/20 17 01/31/2017 HbA1c (hemo [...] Diabe angel(A DA). Not Available [facility] [place] [facility] [address], [place], [place], [address], 01/31/2017 05:18:01 01/31/20 17 01/31/2017 HbA1c (hemo globi n A1c), blood mean plasma glucose 122 mg/dL _(dennys c) Not Available [facility] [place] [facility] [address], [place], [place], [address], 01/31/2017 05:18:01 01/31/20 17 01/31/2017 HbA1c (hemo globi n A1c), blood copy(ies) sent to: [facility] [address] [place] [address] [facility] [address] [facility] [address] [place] [address] Not Available [facility] [place] [facility] [address] [facility] B, [place], [address], 01/31/2017 05:18:01 Result Notes None recorded. Problems Name Problem SNOMED Code Status Onset Date Resolution Date Notes Provider Name and Address Organization Details Recorded Time Type 2 diabetes mellitus 87657854 Active 2016 Nithin armenta MD [address] [place] [address] [address], [place], [address], [place] - Nithin Salguero MD 7 13:45:43 Mixed hyperlipidemia 976790958 Active 2016 Nithin armenta MD [address] [place] [address] [address], [place], [address], [place] - Nithin Salguero MD 7 13:46:07 Essential hypertension 81198723 Active 2016 Nithin armenta MD [address] [place] [address] [address], [place], [address], [place] - Nithin Salguero MD 7 13:46:26 Hypercalcemia 64143781 Active 2016 Nithin armenta MD [address] [place] [address] [address], [place], [address], [place] - Nithin Salugero MD 7 13:47:13 Vitamin D deficiency 11877509 Active 2016 Nithin armenta MD [address] [place] [address] [address], [place], [address], [place] - Nithin Salguero MD 7 13:47:27 Coronary arterioscleros is 40201004 Active 2016 Nithin armenta MD [address] [facility] [address], [place], [address], [place] Heath Salguero MD 7 13:49:08 Problem Notes None recorded. Procedures Surgical History Date Name Laterality Status Provider Name and Address Organization Details Recorded Time Coronary Artery Stent completed Nithin Salguero MD [address] [place] [address] [address], [place], [address], RAJESH Salguero MD 05/06/2016 13:52:31 Back Surgery completed Nithin Salguero MD [address] [place] [address] [address], [place], [address], RAJESH Salguero MD 05/06/2016 13:53:14 Shoulder joint surgery completed Nithin Salguero MD [address] [place] [address] Suite [facility], [place], [address], RAJESH Salguero MD 05/06/2016 13:53:28 Imaging Results [...] Address Organization Details Last Updated DateTime 7 57756.2 9 g 185.42 cm 26.1 kg/m2 64 /min 130 mm[Hg] 85 mm[Hg] Dominic Salguero MD 7 11:40:34 Date Recorded Body weight Body mass index (BMI) Body height Respiratory rate Heart rate Systolic blood pressure Diastolic blood pressure Provider Name and Address Organization Details Last Updated DateTime 7 50623.4 7 g 26.4 kg/m2 185.42 cm 12 /min 99 /min 110 mm[Hg] 78 mm[Hg] Nithin armenta MD [address] [place] [address], [address] , RAJESH Salguero MD 14:17:06 Date Recorded Body weight Body mass index (BMI) Body height Respiratory rate Heart rate Systolic blood pressure Diastolic blood pressure Provider Name and Address Organization Details Last Updated DateTime 7 20792.4 4 g 27 kg/m2 185.42 cm 12 /min 83 /min 130 mm[Hg] 82 mm[Hg] Nithin armenta MD [address] [place] [address], [address] , RAJESH Salguero MD 12:13:12 Date Recorded Body weight Body height Body mass index (BMI) Respiratory rate Heart rate Systolic blood pressure Diastolic blood pressure Provider Name and Address Organization Details Last Updated DateTime 7 78750.4 g 185.42 cm 27.7 kg/m2 10 /min 72 /min 118 mm[Hg] 78 mm[Hg] Nithin armenta MD [address] [place] [address], [address] , RAJESH Salguero MD 13:48:26 Social History Question Answer Notes LastModified by Organizat ion Details LastModified Time Tobacco Smoking Status Former Smoker Nithin Salguero MD [address] [place] [address], [address], RAJESH Salguero MD 05/06/2016 13:50:35 Do You [...] Response Muscle, Joint, or Bone Problems Y Other Hyperthyroidism Y Hyperlipidemia Y Skin Problems Hypertension Y Immunizations Vaccine Type Date Status Note Provider Nam e and Address Organization Details Recorded Time Influenza, split virus, quadrivalent, preservative 6 completed Nithin Salguero MD [address] [place] [address], [address], RAJESH Salguero MD 02/07/2017 12:24:11 DTaP 0 completed Nithin Salguero MD [address] [place] [address], [address], [place] - Nithin Salguero MD 02/07/2017 12:24:37 Past Encounters Encounter ID Performer Location Encounter Start Date Encounter Closed Date Diagnosis/Indication Diagnosis SNOMED-CT Code Diagnosis ICD10 Code Diagnosis Note [id number] Nithin Rodriguez i, MD Main Office [address] [place] [phone] 05/06/2016 13:14:23 05/06/2016 13:20:07 Diabetes mellitus 30968476 E11.9 POORLY CONTROLLED WITHA 1C NOW AT 13.3 WITH POLY SYMPTOMS OF TYPE 1, NEEDS AT LEAST BASAL INSULIN START TRESIBA U100 INSULIN AT 20 UNITS AT BEDTIME INCREASE INSULIN EVERY 5 DAYS BY 2 UNITS UNTIL YOU SEE FASTING AM BLOOD SUGAR BETWEEN 80-130, START JANUMET 50 /1000MG TWICE A DAY Mixed hyperlipidemia 267 278239 E78.2 TOATLA CHOLESTERO L AT 211, CANNOT CALCULATE LDL BECAUSE TRIGLYCERI ANN GREATER THAN 1000, AT 1191, NEEDS TO RESUME VASCEPA 1GRAM 2 CAPS PO TWICE A DAY. Essential hypertension 96671777 I10 BLOOD PRESSURE NOT AN ISSUE AT THIS VISIT [id number] Nithin Rodriguez i, MD Main Office [address] [place] [address] 07/20/2016 11:30:32 07/20/2016 11:34:57 Coronary arteriosclerosis 23347728 I25.10 STABLE NO SYMTOMS OR CHEST PAIN, ON EFFIENT FOLLOWED BY CARDIOLOGY Vitamin D deficiency 347 07911 E55.9 LEVEL AT GOAL ON D3 CHECK NEXT VISIT Hypercalcemia 70276060 E 83.52 CALCIUM IS 10.2, WILL MONITOR WITH D LEVELS Essential hypertension 03893460 I10 BLOOD PRESSURE NOT AN ISSUE AT THIS VISIT, WILL MONITOR GFR > 60 Mixed hyperlipidemia 267 333166 E78.2 TOATLA CHOLESTERO L AT 211, CANNOT CALCULATE LDL BECAUSE TRIGLYCERI ANN GREATER THAN 1000, AT 1191, NEEDS TO RESUME VASCEPA 1GRAM 2 CAPS PO TWICE A DAY. Insulin tr eated type 2 diabetes mellitus 169559523 Z79.4 A1C IS MUCH IMPROVED AT 7.5, , LANTUS 24, JANUMET 50/1000MG PO PO BID , ADDED NATEGLINID E 60 MG PO TID [id number] Nithin Rodriguez i, MD Main Office [address] [place] [address] 10/20/2016 14:06:55 10/20/2016 14:49:38 Type 2 diabetes mellitus 57009040 E11.9 A1C IS NOW 5.9, LANTUS 36 UNITS AT HS , JANUMET 50 /1000 MG PO BID , NATEGLINID E 60 MG PO QAC Mixed hyperlipidemia 267 084379 E78.2 TOTAL CHOLESTERO L AT 211, CANNOT CALCULATE LDL BECAUSE TRIGLYCERI ANN GREATER THAN 1000, AT 1191, NEEDS TO RESUME VASCEPA 1GRAM 2 CAPS PO TWICE A DAY. TODAY 10/20/16 TOTAL CHOL 145 LDL 73 , TRIGS -174 THIS IS EXCELLENT ON CRESTOR 40MG WITH VASCEPA 1GRAM 2 IN AM AND 2 IN PM Essential hypertension 10181355 I10 BLOOD PRESSURE NOT AN ISSUE AT THIS VISIT, WILL MONITOR GFR > 60, BLOOD PRESSURE AT GOAL NOT ON JONATHON AT THIS TIME Vitamin D deficiency 347 97968 E55.9 LEVEL AT GOAL ON D3 CHECK NEXT VISIT/TRACY OF D25-OH IS EXTEMELY LOW AT 13 TOLD TAKE VITAMIN D3 2000 IU PO QD Coronary arteriosclerosis 62042272 I25.10 STABLE NO SYMTOMS OR CHEST PAIN, ON EFFIENT FOLLOWED BY CARDIOLOGY Numbness of foot 7085116 00 R20.0 RT FOOT MILD TINGLING SENSATION , COULD BE MILD NEUROPATHY TAKE B12 1000 MG PO QD [id number] Nithin Rodriguez i, MD Main Office [address] [address] 02/07/2017 11:38:11 02/07/2017 12:58:25 Type 2 diabetes mellitus 94720438 E11.9 ALL NUMBERS AT GOAL WITH A1C IS 5.6 ON LANTUS AND NATEGLINID E , JANUMET 50 1000MG PO BID Mixed hyperlipidemia 267 149020 E78.2 TOTAL CHOLESTERO L AT 211, CANNOT CALCULATE LDL BECAUSE TRIGLYCERI ANN GREATER THAN 1000, AT 1191, NEEDS TO RESUME VASCEPA 1GRAM 2 CAPS PO TWICE A DAY. TODAY 10/20/16 TOTAL CHOL 145 LDL 73 , TRIGS -174 THIS IS EXCELLENT ON CRESTOR 40MG WITH VASCEPA 1GRAM 2 IN AM AND 2 IN PM Essential hypertension 17985507 I10 BLOOD PRESSURE NOT AN ISSUE AT THIS VISIT, WILL MONITOR GFR > 60, BLOOD PRESSURE AT GOAL NOT ON JONATHON AT THIS TIME Hypercalcemia 83245004 E 83.52 CALCIUM IS 10.2, WILL MONITOR WITH D LEVELS, TODAY IS 10.4 / MILD CLIMBING , WILL SET UP LABS AGAIN WITH 24 HOUR URINE FOR CALCIUM , NO HISTORY OF KIDNEY STONES Vitamin D deficiency 347 21495 E55.9 LEVEL AT GOAL ON D3 CHECK NEXT VISIT/TRACY OF D25-OH IS EXTEMELY LOW AT 13 TOLD TAKE VITAMIN D3 2000 IU PO QD, LEVEL IS NOW 42 CORRECTED Coronary arteriosclerosis 77245429 I25.10 STABLE AT THIS TIME , WE [...] Galloway Member ID Guarantor Name 05/06/2016 1 [facility] [id number] Jeresy Norwood Soraida [id number] 07/20/2016 1 [facility] [id number] Jersey Norwood Cuco Quigley [id number] 10/20/2016 1 [facility] [id number] Jersey Ruizmalia [id number] 02/07/2017 1 [facility] [id number] Jersey Ruizmalia [id number] Notes Date Note Type Note Provider Name [...] ,AND A1C OF 11.6 Nithin Salguero MD [address] [place] [address], [address], RAJESH Salguero MD 05/06/2016 14:26:49 7 text/htm [...] , TRIGS -171, Nithin Salguero MD [address], [address], RAJESH Salguero MD 07/20/2016 16:32:38 7 text/htm [...] IS 72 , Nithin Salguero MD [address], [address], [facility] - Nithin Salguero MD 10/20/2016 14:55:28 7 [...] IS 41 . Nithin Salguero MD [address], [address], [place] - Nithin Salguero MD 02/07/2017 12:50:10
--- OUTSIDE RECORDS SUMMARY | 2024-06-27 14:12 | XMS_ITS | Clinical Summary ---
Author Organization [facility] Address [address] [place] [address] Care Team Providers Care Dog License Officer Supervisor Name Role Phone Matt Rodriguez MD Primary [...] infarction 02/06/2015 Overview: 1. Acute inf wall [place] 08/18/04 2. Cardiac cath--08/18/04--mild LAD, mild Cx, mod diag, 100% RCA 3. 08/18/04 3 x 25 TAXUS stent in mid RCA 4. Cath--10/24/09--sever stenosis distal to prefious stent 5. 3.5 x 15 xscience in RCA 6/ nuclear stress--04/09/12--54% EF, fixed inf defect 7. 01/03/15--adm in [place] for unstable angina 8. 01/03/15--nuclear stress--inferior ischemic [...] this topic Medical Devices Implanted Type Area Registered Land Surveyor Device Identifier Shelf Expiration Date Model / Serial / Lot Stent Resolute [place] 22mm 3mm Rapdx Zotarolimus Eluting - [id number] - [id number] Implanted: 017 at [facility] (Quantity not on file) [employer] - VASCULAR [id number] / / Advance Directives For more information, please contact: [phone] Latest Code Status on File Code Status [...] way: discussion with patient . Care Teams Dog License Officer Supervisor Relationship Specialty Start Date End Date Matt Rodriguez MD PCP - General Family Medicine 11/07/14
--- OUTSIDE RECORDS SUMMARY | 2024-06-27 14:12 | XMS_ITS | Clinical Summary ---
Author Organization [facility] Address [address] [place] [address] Care Team Providers Care Immigration Manager Name Role Phone Matt Rodriguez MD Primary Care Provider [phone] Surgical History Surgery Date Site/Laterality Comments HIP ARTHROPLASTY Right PROCEDURE:HIP ARTHROPLASTY KNEE ARTHROPLASTY Right PROCEDURE:KNEE ARTHROPLASTY;COMMENT:x2 CARDIAC CATHETERIZATION 10/28/2016 N/A PROCEDURE:CARDIAC CATHETERIZATION;COMMENT:Procedure: LEFT HEART CATHETERIZATION ? PTCA; Surgeon: Vasquez Romero DO; Location: [facility]; Service: Cardiology; Laterality: N/A; Medical History Medical History Date Comments Acute transmural inferior wa ll [place] ([facility] V24, [facility] V28) 08/20/04 DX:Acute transmural inferio r wall [place] (HCC) H/O cardiac catheterization 08/20/04 DX:H /O cardiac catheterization;COMMENT:3x20 3x16 taxus Unstable angina ([facility]/HCC V24 , CMS/HCC V28) 10/27/09 DX:Unstable angina ([facility]) H/O cardiac catheterization 10/27/09 DX:H /O cardiac catheterization;COMMENT:3 x15 xcience distal RCA, 50% LAD, nl cx Psoriasis DX:Psoriasis 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, managed as typ e 2 (CMS/HCC V24, CMS/HCC V28) DX:Diabetes 1.5, managed as type 2 ([facility]) Hypertension DX:Hypertension Pulmonary embolus ([facility] V 24, [facility] V28) DX:Pulmonary embolus (HCC) Hx of cardiac cath 01/02/15 DX:Hx of card iac cath;COMMENT:high grade RCA, 2.5 x 14 resolute stent placed Coronary stent thrombosis 01/09/15 DX:Cor onary stent thrombosis;COMMENT:inf [place], started on effient Social History Tobacco Use [...] - 2023-2 5 season) 2023 Influenza Vaccine (Season Ended) 2024 RSV Immunization Adult Patie nts (1 - [...] age to complete this topic Care Teams Immigration Manager Relationship Specialty Start Date End Date Matt Rodriguez MD [address] [place] [phone] PCP - General Family Medicine 11/07/14
--- OUTSIDE RECORDS SUMMARY | 2024-06-27 14:12 | XMS_ITS | Clinical Summary ---
Author Organization [facility] Address [address] [place] [address] Care Team Providers Care Mender Hand Name Role Phone Nithin Salguero MD Unavailable [phone] Allergies No known active allergies Medications rosuvastatin (CRESTOR) 40 MG tablet Crestor 40 MG Oral Tablet ; Start Date: 08/15/2013; End Date: 4 Active aspirin 81 MG tablet Aspirin 81 MG Oral Tablet ; Start Date: ; End Date: Active Icosapent Ethyl (VASCEPA) 1 G Cap 2 (two) times a day. Vascepa 1 GM Oral Capsule ; Start Date: 09/07/2012; End Date: 3 Active adalimumab (HUMIRA PEN) 40 MG/0.8ML injection Humira Pen 40 MG/0.8ML KIT INJECT 40 MG SUBCUTANEOUSLY ONCE WEEKLY DIRECTED. ; Start Date: 09/13/2011; End Date: 2 Active Fenofibrate 150 MG Cap Fenofibrate 150 MG Oral Capsule ; Start Date: 11/04/2013; End Date: 4 Active OMEprazole (PriLOSEC) 40 MG capsule Take 40 mg by mouth daily. Active JANUMET 50-1000 MG per tablet Take 1 tablet by mouth 2 (two) times a day. 6 6 Active cholecalcifero l (VITAMIN D3) 1000 units tablet Take by mouth. Activ e LANTUS SOLOSTAR 100 UNIT/ML pen injection INJECT 25 UNIT(S) EVERY DAY BY SUBCUTANEOUS ROUTE AT BEDTIME FOR 90 DAYS. 3 7 Active ONETOUCH ULTRA BLUE TEST strip USE TO TEST BLOOD SUGAR TWICE A DAY DIRECTED 6 7 Active BD PEN NEEDLE KRISTY U/F 32G X 4 MM Misc daily. as directed 6 7 Active omega-3 acid ethyl esters (LOVAZA) 1 G capsule Take 2 g by mouth 2 (two) times a day. 4 7 Active nateglinide (STARLIX) 60 MG tablet TAKE 1 TABLET BY MOUTH THREE TIMES A DAY BEFORE MEALS 6 7 Active BRILINTA 90 MG tablet 7 Active cyanocobalamin (VITAMIN B-12) 1000 MCG tablet Take by mouth. Activ e carvedilol (COREG) 3.125 MG tablet Take 3.125 mg by mouth 2 (two) times a day with meals. 11 7 Active Active Problems Patient Care Coordination No te Formatting of this note migh t be different from the original. Ophthalomogist: Evaristo Fong Problem Noted Date Diagnosed Date Arteriosclerotic vascular disease 04/16/2015 Myocardial infarction 02/06/2015 Overview (12/01/2015): Overview: 1. Acute inf wall [place] 08/18/04 2. Cardiac cath--08/18/04--mild LAD, mild Cx, mod diag, 100% RCA 3. 08/18/04 3 x 25 TAXUS stent in mid RCA 4. Cath--10/24/09--sever stenosis distal to prefious stent 5. 3.5 x 15 xscience in RCA 6/ nuclear stress--04/09/12--54% EF, fixed inf defect 7. 01/03/15--adm in [place] for unstable angina 8. 01/03/15--nuclear stress--inferior ischemic [...] joint disease of pelvic region 03/23 Immunizations Immunization Administration Dates Next Due DTaP 5 04/08/2000 [...] Additional history exists Ophthalmology Exam 08/16/2019 08/15/2018 DTaP/Tdap/Td Vaccines (4 - Td or Tdap) 04/09/2024 04/09/2014, 04/08/2013, 04/08/2000 Influenza Vaccine 09/20/2024 11/20/2012 Hepatitis B Vaccines Aged Out No long [...] Narrative 08/15/2018 Ordered by an unspecified provider. us Generic Provider HX AMB PROCEDURES Final Result * (ABNORMAL) Comprehensive Metabolic Panel (12/02/2015 7:34 [...] approximately 13% higher for people identified as -Hungarian. eGFR Non- 66 > OR = 60 [...] Performing Organization Information: ?Site ID: [id number] ?Name: [employer] ?Address: [address] [place] [address], [place] [address] ?Director: Beth Chaudhari MD us Cher CAMACHO LAB BLOOD ORDERABLES Final R esult Performing Organization Address City/[facility]/ZIP Co de Phone Number [facility] [place] [address], [place] [address] * (ABNORMAL) Microalbumin, Creatinine, Urine, Random (10/22/2014 7:38 AM EDT) Pathologist [facility] Microalbumin, Urine, Random 34(H) <30 mg/L CLP Creatinine, Urine, Random 89 mg/dL CLP Microalbumin/Cr eatinine Ratio 38.2(H) <30 mg Alb/g Creat CLP Comment:Test Performed at: [facility] [place]#:[id number] 10/22/2014 7:38 AM EDT 10/23/2014 12:16 AM EDT Narrative CLP - 10/23/2014 6:07 AM EDT Report copy sent to: [facility] [id number] EDE BROWN MD [facility] [id number] MONI KENNY MD [facility] () [id number] CONCETTA BRYANT MD us Nithin Salguero MD URINE ORDERABLES Final Re sult CLP * (ABNORMAL) Hemoglobin A1c with Estimated [...] Care 2008: 31: 1473-8 Test Performed at: [facility]#:[id number] 10/22/2014 7:38 AM EDT 10/23/2014 12:16 AM EDT Narrative CLP - 10/23/2014 6:07 AM EDT Report copy sent to: [facility] [id number] EDE BROWN MD [facility] [id number] MONI KENNY MD [facility] () [id number] CONCETTA BRYANT MD Nithin Salguero MD LAB BLOOD ORDERABLES Alexa l Result CLP * (ABNORMAL) Lipid Panel (10/22/2014 7:38 [...] ? 23.4 ? 11.0 Test Performed at: [facility] [place]#:[id number] 10/22/2014 7:38 AM EDT 10/23/2014 12:16 AM EDT Narrative CLP - 10/23/2014 6:07 AM EDT Report copy sent to: [facility] [id number] EDE BROWN MD [facility] [id number] MONI KENNY MD [facility] () [id number] CONCETTA BRYANT MD Nithin Salguero MD LAB BLOOD ORDERABLES Alexa brush Result CLP * Quantiferon TB LUCIAN (04/17/2013 7:43 AM EST) [facility] Quantiferon Interpretation NEGATIVE NEGATIVE [facility] CONVERSION Comment:M. [...] IS <0.5 IU/ML. 04/17/2013 7:43 AM EST us Conversion Provider LAB BLOOD ORDERABLES Alexa l Result [facility]TS CONVERSION from Last 3 Months or Most Recently Relevant to Health [facility] Care Teams Mender Hand Relationship Specialty Start Date End Date Nithin Salguero MD Endocrinology 10/29/18
--- OUTSIDE RECORDS SUMMARY | 2024-06-27 14:12 | XMS_ITS | Encounter Summary ---
Author Organization [facility] Address [address] [place] [address] Care Team Providers Care Tube Inspector Name Role Phone Shelly Fonseca MD Primary Care Provider [phone] Nithin Salguero MD Unavailable [phone] Encounter Details Date Type Department Care Team (Late st Contact Info) Description 08/15/2018 Scanned Document [address] [place] [phone] Provider, Generic Social History Tobacco Use Types [...] Generic Provider HX AMB PROCEDURES Final Result documented in this encounter Visit Diagnoses Not on filedocumented in this encounter Care Teams Tube Inspector Relationship Specialty Start Date End Date Shelly Fonseca MD PCP - General Internal Medicine 11/30/15 02/10/20 Nithin Salguero MD Endocrinology 10/29/18 documented as of this encounter
--- OUTSIDE RECORDS SUMMARY | 2024-06-27 14:12 | XMS_ITS | Encounter Summary ---
Author Organization [facility] Address [address] [place] [address] Care Team Providers Care Dairy Worker Name Role Phone Matt Rodriguez MD Primary Care Provider [phone] Shelly Fonseca MD Primary Care Provider [phone] Nithin Salguero MD Unavailable [phone] Armani Villafuerte MD Primary Care Provider + Encounter Details Date Type Department Care Team (Late st Contact Info) Description 10/03/2014 Scanned Document [address] [phone] Provider, Generic Social History Tobacco Use Types [...] on filedocumented in this encounter Care Teams Dairy Worker Relationship Specialty Start Date End Date Matt Rodriguez MD [address] [place] [id number] PCP - General Internal Medicine 10/24/14 11/29/15 Shelly Fonseca MD [address] [facility] [place] [address] PCP - General Internal Medicine 11/30/15 02/10/20 Armani Villafuerte MD [address] [place] [address] PCP - General 10/23/14 Nithin Salguero MD [address] [facility] [place] [address] Endocrinology 10/29/18 documented as of this encounter
== END ==
LOC: HO.SL 13:03
PROVIDERS: PCP Internal Medicine; Visit Provider Internal Medicine
DX: G47.33 Obstructive sleep apnea (adult) (pediatric) (principal); R40.0 Somnolence; R53.83 Other fatigue; R06.83 Snoring; R06.89 Other abnormalities of breathing
CPT/HCPCS: 95806

== ENCOUNTER → 2024-06-27 13:12 | Outpatient (BNV) | payer MEDICARE, SELFPAY | PROVIDERS: PCP Internal Medicine; Visit Provider Internal Medicine | DX: G47.33 Obstructive sleep apnea (adult) (pediatric) (principal); G47.10 Hypersomnia, unspecified | CPT/HCPCS: 95806 ==

== ENCOUNTER 2024-07-04 09:39 | Outpatient (AMB) | payer MEDICARE, SELFPAY ==
--- NOTE | 2024-07-04 09:38 | MHC.OFFVIS ---
Intake Visit Reasons: follow up for PAD Intake Note: Patient presents for follow up PAD. Patient states he is starting to have pain in both legs. Accompanied by: Self / Same As Patient Allergies No Known Allergies [No Known Allergies*] Allergy (Verified 07/04/24 09:46) HPI HPI follow up for PAD: Details: The patient is a 68-year-old male presenting with peripheral arterial disease. He reports fatigue and difficulties walking, experiencing significant tiredness and claudication after walking short distances such as 200 yards. This is accompanied by bilateral foot pain and neuropathy, notably affecting the right foot. His medical history includes insulin-dependent diabetes mellitus and consequent diabetic neuropathy, impacting his feet. He initially presented with cardiac issues at 48, subsequently leading to coronary artery disease management with seven coronary stents due to multiple myocardial infarctions. Additionally, the patient experienced a DVT and PE history, with Xarelto administration ending due to bleeding. 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 Brother No problems noted. Son No problems noted. Daughter No problems noted. Social History Household Members: Spouse Household Members Other:: retired, lives in [place] for the winter Housing: House Patient Tobacco Use Status: Former Tobacco user Years Smoked: 20 years e-Cigarette/Vaping Use: Never Used service: No Current occupational status: retired Cognitive needs: No Hearing needs: No Vision needs: Yes Review of Systems Const All systems reviewed & are unremarkable except as noted in HPI and below Reports no additional complaints ENT Reports Normal hearing present Card Denies chest pain, Denies chest pain at rest, Denies chest pain with activity and Denies pedal edema Resp Denies cough GI Denies abdominal pain Musc Denies abnormal gait, Denies muscle cramps and Denies radiating pain into limb Skin/Breast Denies skin ulcer and Denies wounds Neuro Reports Normal hearing present and Denies abnormal gait Psych Reports no additional complaints Physical Exam Const General: cooperative, healthy appearing and comfortable Orientation/consciousness: oriented to person, oriented to place and oriented to time HEENT Head: Yes normal to inspection Neck Neck: Yes normal visual inspection Carotids: no bruits Chest Chest palpation & inspection: normal inspection of the chest Resp Effort & Inspection: normal respiratory effort and able to speak in complete sentences Auscultation: clear to auscultation bilaterally, no crackles, no rales, no rhonchi and no wheezes Cardio Other: Bilateral DP signals Rate: regular rate Rhythm: regular rhythm Heart sounds: S1 normal heart sound present and S2 normal heart sound present Bruits: no carotid bruits GI Inspection: Yes normal to inspection Skin Wounds: no wounds Hair: normal Neuro General: oriented to person, oriented to place and oriented to time Cranial nerves: Yes CN's II-XII intact bilaterally and Yes Normal hearing present Cognition (Neuro): normal cognition Motor exam (neuro): 5/5 motor strength present throughout Extrem Other: venous exam: No significant superficial varicosities or spider telangiectasias, minimal edema General: No clubbing, No cyanosis and No edema Psych Appearance: grossly normal Mental Status: mental status grossly normal Speech and movement: Normal speech and movement present Results Reviewed Results Reviewed: Noninvasive arterial testing dated 08/23/2023 demonstrates bilateral lower extremity arterial disease more so tibial vessel disease. Assessment & Plan Assessment & Plan (1) PAD (peripheral artery disease): Code(s): I73.9 - Peripheral vascular disease, unspecified Category: Medical Plan: A CT angiogram has been recommended to evaluate possible vascular blockages in the patient's lower extremities, given his significant peripheral arterial disease and associated symptoms. We discussed the importance of assessing for both higher and lower blockages, considering the patient's early onset coronary artery disease. A check on kidney function through blood work will precede the CT angiography to ensure safe contrast use. The patient will coordinate lab work with his primary care provider's requested A1c and cardiac monitoring blood tests. Consent was obtained for pursuing this diagnostic testing, recognizing the potential for subsequent treatment decisions based on results. Follow-up arrangements for discussing results and further management will be made following test completion. Orders: Orders CT angio abd aorta runoff 1 Week I73.9 - Peripheral vascular disease, unspecified Blood Urea Nitrogen Today I73.9 - Peripheral vascular disease, unspecified Creatinine Today I73.9 - Peripheral vascular disease, unspecified Coding Level of Care Code Est Pt Level 4 (35091) Diagnoses PAD (peripheral artery disease) I73.9
--- OUTSIDE RECORDS SUMMARY | 2024-07-04 10:31 | XMS_ITS | Encounter Summary ---
Author Organization [address] [address] Care Team Providers Care Art Handler Name Role Phone Matt Rodriguez MD Primary Care Provider [phone] Shelly Fonseca MD Primary Care Provider [phone] Nithin Salguero MD Unavailable [phone] Encounter Details Date Type Department Care Team (Late st Contact Info) Description 03/12/2015 Scanned Document [address] [phone] Provider, Generic Social History Tobacco [...] on filedocumented in this encounter Care Teams Art Handler Relationship Specialty Start Date End Date Matt Rodriguez MD [address] [place] [address] PCP - General Internal Medicine 10/24/14 11/29/15 Shelly Fonseca MD [address] [place] [address] PCP - General Internal Medicine 11/30/15 02/10/20 Nithin Salguero MD [address] [place] [address] Endocrinology 10/29/18 documented as of this encounter
--- OUTSIDE RECORDS SUMMARY | 2024-07-04 10:31 | XMS_ITS | Encounter Summary ---
Author Organization [facility] Address [address] [place] [id number] Care Team Providers Care Front End Developer Name Role Phone Matt Rodriguez MD Primary Care Provider [phone] Shelly Fonseca MD Primary Care Provider [phone] Nithin Salguero MD Unavailable [phone] Encounter Details Date Type Department Care Team (Late st Contact Info) Description 02/06/2015 Scanned Document [address] [phone] Provider, Generic Social History Tobacco [...] on filedocumented in this encounter Care Teams Front End Developer Relationship Specialty Start Date End Date Matt Rodriguez MD [address] [place] [id number] PCP - General Internal Medicine 10/24/14 11/29/15 Shelly Fonseca MD [address] [place] [address] PCP - General Internal Medicine 11/30/15 02/10/20 Nithin Salguero MD [address] [place] [address] Endocrinology 10/29/18 documented as of this encounter
--- OUTSIDE RECORDS SUMMARY | 2024-07-04 10:31 | XMS_ITS | Data Portability ---
Author Organization [place] - Nithin gamez MD, Main Office Address [address] [facility] [address] [address] Assessment Encounter Date Assessment Date Assessment LastModified [...] frequent foot care and needs to see assistance representative yearly. Other Instructions: NEEDS TO START BASAL [...] BREAKFAST AND DINNER, TAKE VASCEPA 1000MG 2 CHIEF CREDIT OFFICER PO TWICE A DAY BREAKFAST AND DINNER [...] JANUARY BEFORE GOING AWAY TO [facility]. IN FEB , SET VISIT JAN 2017 [...] SIDE EFFECT OF HUMIR[place]? , MOVING TO [place] IN [place] , WILL FOLLW UP IN JUNE [email or web address] Not available 02/07/2017 12:49:41 Reason for Referral None Reported. Results Created Date Observation Date Name Description Value Unit Range Abnormal Flag Note LastModifiedBy Organization Detail LastModifiedTime 07/13/19 17 07/12/2016 lipid panel , serum cholesterol, total 136 mg/dL 125-20 0 normal Not Available [facility] [place] [facility] [address] [place], [address], 07/12/2016 21:53:04 07/13/19 17 07/12/2016 lipid panel , serum HDL cholesterol 46 mg/dL > or = 40 normal Not Available [facility] [place] [facility] [address], [place], [address], 07/12/2016 21:53:04 07/13/19 17 07/12/2016 lipid panel , serum triglyceride s 171 mg/dL <150 high Not Available [facility] [place] [facility] [address] [place], [address], 07/12/2016 21:53:04 07/13/19 17 07/12/2016 lipid panel , serum LDL-choleste rol 56 mg/dL _(dennys c) <130 normal Corey able range <100 mg/dL for patie nts with CHD or diabe angel and <70 mg/dL for diabe tic patie nts with known heart disea se. Not Available [facility] [place] [facility] [address], [place], [address], 07/12/2016 21:53:04 07/13/19 17 07/12/2016 lipid panel , serum chol/HDLC ratio 3.0 (calc ) < or = 5.0 normal Not Available [facility] [place] [facility] [address] [place], [place], [address], 07/12/2016 21:53:04 07/13/19 17 07/12/2016 lipid panel , serum non HDL cholesterol 90 mg/dL _(dennys c) normal Targe t for non-H DL shea stero l is 30 mg/dL highe r than LDL shea stero l targe t. Not Available [facility] [place] [facility] [address] [place], [place], [address], 07/12/2016 21:53:04 07/13/19 17 07/12/2016 lipid panel , serum copy(ies) sent to: [facility] [address] [place] [address] CENTR AL CONN CARDI OLOGY 19 [facility] 35 [facility] [place] [address] Not Available [facility] [place] [facility] [address], [place], [address], 07/12/2016 21:53:04 07/13/19 17 07/12/2016 CMP, serum or plasm a glucose 129 mg/dL 65-99 high Fasti ng refer ence inter bria For someo ne witho ut known diabe angel, a gluco se value >125 mg/dL indic ates that they may have diabe angel and this shoul d be confi rmed with a follo w-up test. Not Available [facility] [address] [place], [place], [address], 07/12/2016 21:53:05 07/13/19 17 07/12/2016 CMP, serum or plasm a urea nitrogen (BUN) 19 mg/dL 7-25 normal Not Available [facility] [place] [facility] [address], [place], [address], 07/12/2016 21:53:05 07/13/19 17 07/12/2016 CMP, serum or plasm a creatinine 1.14 mg/dL 0.70-1 .25 normal For patie nts >49 years of age, the refer ence limit for Creat inine is appro ximat marti 13% highe r for peopl e ident ified as Afric an-Am jessica n. Not Available [facility] [place] [facility] [address], [address], 07/12/2016 21:53:05 07/13/19 17 07/12/2016 CMP, serum or plasm a eGFR non-afr. emirati 69 mL/mi n/1.7 3m2 > or = 60 normal Not Available [facility] [place] [facility] [address], [address], 07/12/2016 21:53:05 07/13/19 17 07/12/2016 CMP, serum or plasm a eGFR 80 mL/mi n/1.7 3m2 > or = 60 normal Not Available [facility] [place] [facility] [address], [place], [address], 07/12/2016 21:53:05 07/13/19 17 07/12/2016 CMP, serum or plasm a BUN/creatini ne ratio NOT APPLIC ABLE (calc ) 6-22 Not Available [facility] [place] [facility] [address], [address], 07/12/2016 21:53:05 07/13/19 17 07/12/2016 CMP, serum or plasm a sodium 140 mmol/ L 135-14 6 normal Not Available [facility] [place] [facility] [address], [address], 07/12/2016 21:53:05 07/13/19 17 07/12/2016 CMP, serum or plasm a potassium 4.5 mmol/ L 3.5-5. 3 normal Not Available [facility] [address], [place], [address], 07/12/2016 21:53:05 07/13/19 17 07/12/2016 CMP, serum or plasm a chloride 105 mmol/ L 98-110 normal Not Available [facility] [address], [place], [address], 07/12/2016 21:53:05 07/13/19 17 07/12/2016 CMP, serum or plasm a carbon dioxide 25 mmol/ L 20-31 normal Not Available [facility] [address], [place], [address], 07/12/2016 21:53:05 07/13/19 17 07/12/2016 CMP, serum or plasm a calcium 10.2 mg/dL 8.6-10 .3 normal Not Available [facility] [address], [place], [address], 07/12/2016 21:53:05 07/13/19 17 07/12/2016 CMP, serum or plasm a protein, total 7.7 g/dL 6.1-8. 1 normal Not Available [facility] [address], [place], [address], 07/12/2016 21:53:05 07/13/19 17 07/12/2016 CMP, serum or plasm a albumin 4.7 g/dL 3.6-5. 1 normal Not Available [facility] [address], [place], [address], 07/12/2016 21:53:05 07/13/19 17 07/12/2016 CMP, serum or plasm a globulin 3.0 g/dL_ (calc ) 1.9-3. 7 normal Not Available [facility] [address], [place], [address], 07/12/2016 21:53:05 07/13/19 17 07/12/2016 CMP, serum or plasm a albumin/glob ulin ratio 1.6 (calc ) 1.0-2. 5 normal Not Available [facility] [address], [place], [address], 07/12/2016 21:53:05 07/13/19 17 07/12/2016 CMP, serum or plasm a bilirubin, total 0.9 mg/dL 0.2-1. 2 normal Not Available [facility] [place] [facility] [address], [place], [address], 07/12/2016 21:53:05 07/13/19 17 07/12/2016 CMP, serum or plasm a alkaline phosphatase 62 U/L 40-115 normal Not Available [facility] [address], [place], [address], 07/12/2016 21:53:05 07/13/19 17 07/12/2016 CMP, serum or plasm a AST 22 U/L 10-35 normal Not Available [facility] [address], [place], [address], 07/12/2016 21:53:05 07/13/19 17 07/12/2016 CMP, serum or plasm a ALT 21 U/L 9-46 normal Not Available [facility] [address], [place], [address], 07/12/2016 21:53:05 07/13/19 17 07/12/2016 CMP, serum or plasm a copy(ies) sent to: [facility] 21 [facility] [address] [place] [address] CENTR [place] CONN CARDI OLOGY 19 [facility] 35 [facility] [place] [address] Not Available [facility] [place] [facility] [address], [place], [address], 07/12/2016 21:53:05 07/13/19 17 07/12/2016 HbA1c (hemo [...] diabe angel for child kate. Not Available [facility] [place] [facility] [address], [place], [address], 07/12/2016 21:27:59 07/13/19 17 07/12/2016 HbA1c (hemo globi n A1c), blood mean plasma glucose 190 mg/dL _(dennys c) Not Available [facility] [place] [facility] [address], [place], [address], 07/12/2016 21:27:59 07/13/19 17 07/12/2016 HbA1c (hemo globi n A1c), blood copy(ies) sent to: [facility] [address] [place] [address] CENTR AL CONN CARDI OLOGY 19 [facility] [address] [facility] [place] [address] Not Available [facility] [place] [facility] [address], [place], [address], 07/12/2016 21:27:59 10/14/1910/14/2016 lipid panel , serum cholesterol, total 145 mg/dL <200 normal Not Available [facility] [address] [place], [place], [address], 10/14/2016 02:33:54 10/14/1910/14/2016 lipid panel , serum HDL cholesterol 45 mg/dL >40 normal Not Available [facility] [place] [facility] [address] [place], [place], [address], 10/14/2016 02:33:54 10/14/1910/14/2016 lipid panel , serum triglyceride s 174 mg/dL <150 high Not Available [facility] [address] [place], [address], 10/14/2016 02:33:54 10/14/1910/14/2016 lipid panel , serum LDL-choleste rol 73 mg/dL _(dennys c) normal Refer ence range : <100 Corey able range <100 mg/dL for patie nts with CHD or diabe angel and <70 mg/dL for diabe tic patie nts with known heart disea se. The [facility] noeu latio n is a valid [...] brush purpo ses only. ) Not Available [facility] [place] [facility] [address] [place], [place], [address], 10/14/2016 02:33:54 10/14/19 17 10/14/2016 lipid panel , serum chol/HDLC ratio 3.2 (calc ) <5.0 normal Not Available [facility] [place] [facility] [address] [place], [place], [address], 10/14/2016 02:33:54 10/14/19 17 10/14/2016 lipid panel , serum non HDL cholesterol 100 mg/dL _(dennys c) <130 normal For patie nts with diabe angel plus 1 major ASCVD risk facto r, treat ing to a non-H DL-C goal of <100 mg/dL (LDL- C of <70 mg/dL ) is consi dered a thera peuti c optio n. Not Available [facility] [place] [facility] [address] [place], [place], [place], [address], 10/14/2016 02:33:54 10/14/19 17 10/14/2016 lipid panel , serum copy(ies) sent to: [facility] [address] [place] [address] CARDI OLOGI STS 7 [facility] [place] [address] Not Available [facility] [place] [facility] [address] [place], [place], [address], 10/14/2016 02:33:54 10/14/19 17 10/14/2016 micro album in/cr eatin ine, mass ratio , urine creatinine, random urine 184 mg/dL 20-370 normal Not Available [facility] [place] [facility] [address] [place], [place], [address], 10/14/2016 14:41:21 10/14/19 17 10/14/2016 micro album in/cr eatin ine, mass ratio , urine microalbumin 4.4 mg/dL see note: normal Refer ence Range : Refer ence Range Not estab lishe d Not Available [facility] [place] [facility] [address], [place], [address], 10/14/2016 14:41:21 10/14/19 17 10/14/2016 micro album [...] a diagn ostic categ ory. Not Available [facility] [place] [facility] [address], [place], [address], 10/14/2016 14:41:21 10/14/19 17 10/14/2016 micro album in/cr eatin ine, mass ratio , urine copy(ies) sent to: [facility] [address] [place] [address] CARDI OLOGI STS 7 [place] [address] Not Available [facility] [place] [facility] [address], [place], [address], 10/14/2016 14:41:21 10/14/19 17 10/14/2016 CMP, serum or plasm a glucose 67 mg/dL 65-99 normal Fasti ng refer ence inter bria Not Available [facility] [place] [facility] [address], [place], [address], 10/14/2016 02:33:55 10/14/1910/14/2016 CMP, serum or plasm a urea nitrogen (BUN) 18 mg/dL 7-25 normal Not Available [facility] [address] [place], [address], 10/14/2016 02:33:55 10/14/1910/14/2016 CMP, serum or plasm a creatinine 1.04 mg/dL 0.70-1 .25 normal For patie nts >49 years of age, the refer ence limit for Creat inine is appro ximat marti 13% highe r for peopl e ident ified as Afric an-Am jessica n. Not Available [facility] [address] [place], [place], [address], 10/14/2016 02:33:55 10/14/1910/14/2016 CMP, serum or plasm a eGFR non-afr. emirati 77 mL/mi n/1.7 3m2 > or = 60 normal Not Available [facility] [place] [facility] [address] [place], [place], [address], 10/14/2016 02:33:55 10/14/1910/14/2016 CMP, serum or plasm a eGFR 89 mL/mi n/1.7 3m2 > or = 60 normal Not Available [facility] [place] [facility] [address] [place], [place], [address], 10/14/2016 02:33:55 10/14/1910/14/2016 CMP, serum or plasm a BUN/creatini ne ratio NOT APPLIC ABLE (calc ) 6-22 Not Available [facility] [address] [place], [place], [address], 10/14/2016 02:33:55 10/14/1910/14/2016 CMP, serum or plasm a sodium 139 mmol/ L 135-14 6 normal Not Available [facility] [address], [place], [address], 10/14/2016 02:33:55 10/14/19 17 10/14/2016 CMP, serum or plasm a potassium 4.2 mmol/ L 3.5-5. 3 normal Not Available [facility] [address], [place], [address], 10/14/2016 02:33:55 10/14/1910/14/2016 CMP, serum or plasm a chloride 105 mmol/ L 98-110 normal Not Available [facility] [address], [place], [address], 10/14/2016 02:33:55 10/14/19 17 10/14/2016 CMP, serum or plasm a carbon dioxide 21 mmol/ L 20-31 normal Not Available [facility] [address], [place], [address], 10/14/2016 02:33:55 10/14/1910/14/2016 CMP, serum or plasm a calcium 10.2 mg/dL 8.6-10 .3 normal Not Available [facility] [address], [place], [address], 10/14/2016 02:33:55 10/14/1910/14/2016 CMP, serum or plasm a protein, total 8.1 g/dL 6.1-8. 1 normal Not Available [facility] [address], [place], [address], 10/14/2016 02:33:55 10/14/19 17 10/14/2016 CMP, serum or plasm a albumin 4.8 g/dL 3.6-5. 1 normal Not Available [facility] [address], [place], [address], 10/14/2016 02:33:55 10/14/1910/14/2016 CMP, serum or plasm a globulin 3.3 g/dL_ (calc ) 1.9-3. 7 normal Not Available [facility] [place] [facility] [address] [place], [place], [address], 10/14/2016 02:33:55 10/14/1910/14/2016 CMP, serum or plasm a albumin/glob ulin ratio 1.5 (calc ) 1.0-2. 5 normal Not Available [facility] [place] [facility] [address] [place], [place], [address], 10/14/2016 02:33:55 10/14/1910/14/2016 CMP, serum or plasm a bilirubin, total 1.0 mg/dL 0.2-1. 2 normal Not Available [facility] [place] [facility] [address] [place], [place], [address], 10/14/2016 02:33:55 10/14/1910/14/2016 CMP, serum or plasm a alkaline phosphatase 56 U/L 40-115 normal Not Available [facility] [address] [place], [place], [address], 10/14/2016 02:33:55 10/14/1910/14/2016 CMP, serum or plasm a AST 24 U/L 10-35 normal Not Available [facility] [address] [place], [place], [address], 10/14/2016 02:33:55 10/14/1910/14/2016 CMP, serum or plasm a ALT 22 U/L 9-46 normal Not Available [facility] [address] [place], [place], [address], 10/14/2016 02:33:55 10/14/19 17 10/14/2016 CMP, serum or plasm a copy(ies) sent to: [facility] [address] [place] [address]ARD[address]LOG[address] STS 7 [facility] [place] [address] Not Available [facility] [place] [facility] [address] [place], [place], [address], 10/14/2016 02:33:55 10/14/1910/13/2016 HbA1c (hemo globi n [...] diabe angel for child kate. Not Available [facility] [place] [facility] [address] [place], [place], [address], 10/13/2016 22:34:56 10/14/1910/13/2016 HbA1c (hemo globi n A1c), blood mean plasma glucose 133 mg/dL _(dennys c) Not Available [facility] [place] [facility] [address] [place], [place], [address], 10/13/2016 22:34:56 10/14/19 17 10/13/2016 HbA1c (hemo globi n A1c), blood copy(ies) sent to: [facility] [address] [place] [address] CARDI OLOGI STS 7 [facility] [place] [address] Not Available [facility] [place] [facility] [address], [place], [address], 10/13/2016 22:34:56 01/31/20 17 01/30/2017 lipid panel , serum cholesterol, total 133 mg/dL <200 normal Not Available [facility] [place] [facility] [address], [place], [address], 01/30/2017 22:58:17 01/31/20 17 01/30/2017 lipid panel , serum HDL cholesterol 36 mg/dL >40 low Not Available [facility] [place] [facility] [address], [place], [address], 01/30/2017 22:58:17 01/31/20 17 01/30/2017 lipid panel , serum triglyceride s 200 mg/dL <150 high Not Available [facility] [place] [facility] [address], [place], [address], 01/30/2017 22:58:17 01/31/20 17 01/30/2017 lipid panel [...] 2061- 2068 (http ://ed ucati on.Qu estDi MedServeos tics. com/f aq/FA Q164) Not Available [facility] [place] [facility] [address], [place], [address], 01/30/2017 22:58:17 01/31/20 17 01/30/2017 lipid panel , serum chol/HDLC ratio 3.7 (calc ) <5.0 normal Not Available [facility] [place] [facility] [address], [place], [address], 01/30/2017 22:58:17 01/31/20 17 01/30/2017 lipid panel , serum non HDL cholesterol 97 mg/dL _(dennys c) <130 normal For patie nts with diabe angel plus 1 major ASCVD risk facto r, treat ing to a non-H DL-C goal of <100 mg/dL (LDL- C of <70 mg/dL ) is consi geneva a clarissa rogers optio n. Not Available [facility] [place] [facility] [address], [place], [address], 01/30/2017 22:58:17 01/31/20 17 01/30/2017 lipid panel , serum copy(ies) sent to: [facility] [address] [place] [address] CENTR AL CONN CARDI OLOGY 19 [facility] 35 [facility] [place] [address] Not Available [facility] [place] [facility] [address], [place], [address], 01/30/2017 22:58:17 01/31/20 17 01/30/2017 CMP, serum or plasm a glucose 126 mg/dL 65-99 high Fasti ng refer ence inter bria For someo ne witho ut known diabe angel, a gluco se value >125 mg/dL indic ates that they may have diabe angel and this shoul d be confi rmed with a follo w-up test. Not Available [facility] [place] [facility] [address] [place], [address], 01/30/2017 22:58:17 01/31/20 17 01/30/2017 CMP, serum or plasm a urea nitrogen (BUN) 20 mg/dL 7-25 normal Not Available [facility] [place] [facility] [address] [place], [address], 01/30/2017 22:58:17 01/31/20 17 01/30/2017 CMP, serum or plasm a creatinine 1.50 mg/dL 0.70-1 .25 high For patie nts >49 years of age, the refer ence limit for Creat inine is appro ximat marti 13% highe r for peopl e ident ified as Afric an-Am jessica n. Not Available [facility] [place] [facility] [address] [place], [address], 01/30/2017 22:58:17 01/31/20 17 01/30/2017 CMP, serum or plasm a eGFR non-afr. emirati 49 mL/mi n/1.7 3m2 > or = 60 low Not Available [facility] [place] [facility] [address] [place], [address], 01/30/2017 22:58:17 01/31/20 17 01/30/2017 CMP, serum or plasm a eGFR 57 mL/mi n/1.7 3m2 > or = 60 low Not Available [facility] [place] [facility] [address] [place], [address], 01/30/2017 22:58:17 01/31/20 17 01/30/2017 CMP, serum or plasm a BUN/creatini ne ratio 13 (calc ) 6-22 normal Not Available [facility] [place] [facility] [address] [place], [address], 01/30/2017 22:58:17 01/31/20 17 01/30/2017 CMP, serum or plasm a sodium 138 mmol/ L 135-14 6 normal Not Available [facility] [place] [facility] [address], [place], [address], 01/30/2017 22:58:17 01/31/20 17 01/30/2017 CMP, serum or plasm a potassium 4.7 mmol/ L 3.5-5. 3 normal Not Available [facility] [place] [facility] [address], [place], [address], 01/30/2017 22:58:17 01/31/20 17 01/30/2017 CMP, serum or plasm a chloride 102 mmol/ L 98-110 normal Not Available [facility] [address], [place], [address], 01/30/2017 22:58:17 01/31/20 17 01/30/2017 CMP, serum or plasm a carbon dioxide 25 mmol/ L 20-31 normal Not Available [facility] [address], [address], 01/30/2017 22:58:17 01/31/20 17 01/30/2017 CMP, serum or plasm a calcium 10.4 mg/dL 8.6-10 .3 high Not Available [facility] [address], [address], 01/30/2017 22:58:17 01/31/20 17 01/30/2017 CMP, serum or plasm a protein, total 8.0 g/dL 6.1-8. 1 normal Not Available [facility] [address], [address], 01/30/2017 22:58:17 01/31/20 17 01/30/2017 CMP, serum or plasm a albumin 4.6 g/dL 3.6-5. 1 normal Not Available [facility] [address] [place], [address], 01/30/2017 22:58:17 01/31/20 17 01/30/2017 CMP, serum or plasm a globulin 3.4 g/dL_ (calc ) 1.9-3. 7 normal Not Available [facility] [place] [facility] [address] [place], [place], [address], 01/30/2017 22:58:17 01/31/20 17 01/30/2017 CMP, serum or plasm a albumin/glob ulin ratio 1.4 (calc ) 1.0-2. 5 normal Not Available [facility] [place] [facility] [address] [place], [place], [address], 01/30/2017 22:58:17 01/31/20 17 01/30/2017 CMP, serum or plasm a bilirubin, total 0.9 mg/dL 0.2-1. 2 normal Not Available [facility] [place] [facility] [address], [place], [address], 01/30/2017 22:58:17 01/31/20 17 01/30/2017 CMP, serum or plasm a alkaline phosphatase 61 U/L 40-115 normal Not Available [facility] [address] [place], [place], [address], 01/30/2017 22:58:17 01/31/20 17 01/30/2017 CMP, serum or plasm a AST 25 U/L 10-35 normal Not Available [facility] [address] [place], [place], [address], 01/30/2017 22:58:17 01/31/20 17 01/30/2017 CMP, serum or plasm a ALT 25 U/L 9-46 normal Not Available [facility] [address] [place], [place], [address], 01/30/2017 22:58:17 01/31/20 17 01/30/2017 CMP, serum or plasm a copy(ies) sent to: [facility] [address] [place] [address] CENTR [place] CONN CARDI OLOGY 19 [facility] [place] [address] Not Available [facility] [place] [facility] [address], [place], [address], 01/30/2017 22:58:17 01/31/20 17 01/30/2017 CBC white blood cell count 6.5 thous and/u L 3.8-10 .8 normal Not Available [facility] [place] [facility] [address], [place], [address], 01/30/2017 21:29:12 01/31/20 17 01/30/2017 CBC red blood cell count 4.17 nhan on/uL 4.20-5 .80 low Not Available [facility] [place] [facility] [address], [place], [address], 01/30/2017 21:29:12 01/31/20 17 01/30/2017 CBC hemoglobin 13.9 g/dL 13.2-1 7.1 normal Not Available [facility] [place] [facility] [address], [place], [address], 01/30/2017 21:29:12 01/31/20 17 01/30/2017 CBC hematocrit 40.7 % 38.5-5 0.0 normal Not Available [facility] [place] [facility] [address], [place], [address], 01/30/2017 21:29:12 01/31/20 17 01/30/2017 CBC MCV 97.5 fL 80.0-1 00.0 normal Not Available [facility] [place] [facility] [address], [place], [address], 01/30/2017 21:29:12 01/31/20 17 01/30/2017 CBC MCH 33.2 pg 27.0-3 3.0 high Not Available [facility] [place] [facility] [address], [place], [address], 01/30/2017 21:29:12 01/31/20 17 01/30/2017 CBC MCHC 34.1 g/dL 32.0-3 6.0 normal Not Available [facility] [place] [facility] [address], [place], [address], 01/30/2017 21:29:12 01/31/20 17 01/30/2017 CBC RDW 13.8 % 11.0-1 5.0 normal Not Available [facility] [place] [facility] [address], [place], [address], 01/30/2017 21:29:12 01/31/20 17 01/30/2017 CBC platelet count 189 thous and/u L 140-40 0 normal Not Available [facility] [place] [facility] [address], [place], [address], 01/30/2017 21:29:12 01/31/20 17 01/30/2017 CBC MPV 8.4 fL 7.5-12 .5 normal Not Available [facility] [place] [facility] [address], [place], [address], 01/30/2017 21:29:12 01/31/20 17 01/30/2017 CBC copy(ies) sent to: [facility] [address] [place] [address] [facility] [address] [facility] [place] [address] Not Available [facility] [place] [facility] [address], [place], [address], 01/30/2017 21:29:12 01/31/20 17 01/30/2017 vitam in B12, serum vitamin B12 548 pg/mL 200-11 00 normal Not Available [facility] [place] [facility] [address], [place], [address], 01/30/2017 22:58:18 01/31/20 17 01/30/2017 vitam in B12, serum copy(ies) sent to: [facility] [address] [place] [address] [facility] 35 [facility] [place] [address] Not Available [facility] [place] [facility] [address], [address], 01/30/2017 22:58:18 01/31/20 17 01/31/2017 vitam in [...] /MS is recom sofi d: order code [id number] (johnnie ents >2yrs ). For more infor toña angela on this test, go to: http: //anastasiia pierce [facility].c om/fa q/FAQ 163 (This link is being provi ded for infor toña nal/e ducat ional purpo ses only. ) Not Available [facility] [place] [facility] [address], [place], [address], 01/31/2017 02:52:12 01/31/20 17 01/31/2017 vitam in D, 25-hy droxy , total , serum copy(ies) sent to: [facility] [address] [place] [facility] [place] [address] [facility] [address] [facility] [place] [address] Not Available [facility] [place] [facility] [address], [place], [place], [address], 01/31/2017 02:52:12 01/31/20 17 01/31/2017 HbA1c (hemo [...] Diabe angel(A DA). Not Available [facility] [place] [facility] [address], [place], [place], [address], 01/31/2017 05:18:01 01/31/20 17 01/31/2017 HbA1c (hemo globi n A1c), blood mean plasma glucose 122 mg/dL _(dennys c) Not Available [facility] [place] [facility] [address], [place], [place], [address], 01/31/2017 05:18:01 01/31/20 17 01/31/2017 HbA1c (hemo globi n A1c), blood copy(ies) sent to: [facility] [address] [place] [address] [facility] [address] [facility] [place] [address] Not Available [facility] [place] [facility] [address] [facility] B, [place], [address], 01/31/2017 05:18:01 Result Notes None recorded. Problems Name Problem SNOMED Code Status Onset Date Resolution Date Notes Provider Name and Address Organization Details Recorded Time Type 2 diabetes mellitus 85008449 Active 2016 Nithin armenta MD [address] [place] [address] [address], [place], [address], [place] Nithin Salguero MD 7 13:45:43 Mixed hyperlipidemia 723287297 Active 2016 Nithin armenta MD [address] [place] [address] [address], [place], [address], [place] - Nithin Salguero MD 7 13:46:07 Essential hypertension 43261559 Active 2016 Nithin armenta MD [address] [place] [address] [address], [place], [address], [place] - Nithin Salguero MD 7 13:46:26 Hypercalcemia 89582006 Active 2016 Nithin armenta MD [address] [place] [address] [address], [place], [address], [place] - Nithin Salguero MD 7 13:47:13 Vitamin D deficiency 59672823 Active 2016 Nithin armenta MD [address] [place] [address] [address], [place], [address], [place] - Nithin Salguero MD 7 13:47:27 Coronary arterioscleros is 47368928 Active 2016 Nithin armenta MD [address] [facility] [address], [place], [address], [place] Heath Salguero MD 7 13:49:08 Problem Notes None recorded. Procedures Surgical History Date Name Laterality Status Provider Name and Address Organization Details Recorded Time Coronary Artery Stent completed Nithin Salguero MD [address] [place] [address] [address], [place], [address], RAJESH Salguero MD 05/06/2016 13:52:31 Back Surgery completed Nithin Salguero MD [address] [place] [address] [address], [place], [address], RAJESH Salguero MD 05/06/2016 13:53:14 Shoulder joint surgery completed Nithin Salguero MD [address] [place] [address] Suite [facility], [place], [address], RAJESH Salguero MD 05/06/2016 13:53:28 Imaging Results [...] Address Organization Details Last Updated DateTime 7 97199.2 9 g 185.42 cm 26.1 kg/m2 64 /min 130 mm[Hg] 85 mm[Hg] Dominic Salguero MD 7 11:40:34 Date Recorded Body weight Body mass index (BMI) Body height Respiratory rate Heart rate Systolic blood pressure Diastolic blood pressure Provider Name and Address Organization Details Last Updated DateTime 7 78996.4 7 g 26.4 kg/m2 185.42 cm 12 /min 99 /min 110 mm[Hg] 78 mm[Hg] Nithin armenta MD [address] [place] [address], [address], RAJESH Salguero MD 14:17:06 Date Recorded Body weight Body mass index (BMI) Body height Respiratory rate Heart rate Systolic blood pressure Diastolic blood pressure Provider Name and Address Organization Details Last Updated DateTime 7 47776.4 4 g 27 kg/m2 185.42 cm 12 /min 83 /min 130 mm[Hg] 82 mm[Hg] Nithin armenta MD [address] [place] [address], [address] , RAJESH Salguero MD 12:13:12 Date Recorded Body weight Body height Body mass index (BMI) Respiratory rate Heart rate Systolic blood pressure Diastolic blood pressure Provider Name and Address Organization Details Last Updated DateTime 7 43391.4 g 185.42 cm 27.7 kg/m2 10 /min 72 /min 118 mm[Hg] 78 mm[Hg] Nithin armenta MD [address] [place] [address], [address] , RAJESH Salguero MD 13:48:26 Social History Question Answer Notes LastModified by Organizat ion Details LastModified Time Tobacco Smoking Status Former Smoker Nithin Salguero MD [address] [place] [address], [address], RAJESH Salguero MD 05/06/2016 13:50:35 Do You Have An Advance Directive? No Information not available 05/06/2016 How Many Years Have You Consumed Alcohol? 0 Information not available 05/06/2016 What Is Your Level Of Caffeine Consumption? None Information not available 05/06/2016 How Much Tobacco Do You Chew? None Information not available 05/06/2016 Which Illicit Or Recreational Drugs Have You Used? NONE Information not available 05/06/2016 Education 4 Year College Information not available 05/06/2016 Single Or Multi-level [...] ion Details LastModified Time What is your level of alcohol consumption? 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 Occasional Information [...] quadrivalent, preservative 6 completed Nithin Salguero MD [address] [place] [address], [address], RAJESH Salguero MD 02/07/2017 12:24:11 DTaP 0 completed Nithin Salguero MD [address] [place] [address], [address], [place] Heath Salguero MD 02/07/2017 12:24:37 Past Encounters Encounter ID Performer Location Encounter Start Date Encounter Closed Date Diagnosis/Indication Diagnosis SNOMED-CT Code Diagnosis ICD10 Code Diagnosis Note [id number] Nithin Rodriguez i, MD Main Office [address] [place] [address] 05/06/2016 13:14:23 05/06/2016 13:20:07 Diabetes mellitus 83217572 E11.9 POORLY CONTROLLED WITHA 1C NOW AT 13.3 WITH POLY SYMPTOMS OF TYPE 1, NEEDS AT LEAST BASAL INSULIN START TRESIBA U100 INSULIN AT 20 UNITS AT BEDTIME INCREASE INSULIN EVERY 5 DAYS BY 2 UNITS UNTIL YOU SEE FASTING AM BLOOD SUGAR BETWEEN 80-130, START JANUMET 50 /1000MG TWICE A DAY Mixed hyperlipidemia 267 546999 E78.2 TOATLA CHOLESTERO L AT 211, CANNOT CALCULATE LDL BECAUSE TRIGLYCERI ANN GREATER THAN 1000, AT 1191, NEEDS TO RESUME VASCEPA 1GRAM 2 CAPS PO TWICE A DAY. Essential hypertension 74329354 I10 BLOOD PRESSURE NOT AN ISSUE AT THIS VISIT [id number] Nithin Rodriguez i, MD Main Office [address] [place] [address], [place] [address] 07/20/2016 11:30:32 07/20/2016 11:34:57 Coronary arteriosclerosis 53131830 I25.10 STABLE NO SYMTOMS OR CHEST PAIN, ON EFFIENT FOLLOWED BY CARDIOLOGY Vitamin D deficiency 347 29992 E55.9 LEVEL AT GOAL ON D3 CHECK NEXT VISIT Hypercalcemia 22474074 E 83.52 CALCIUM IS 10.2, WILL MONITOR WITH D LEVELS Essential hypertension 14115689 I10 BLOOD PRESSURE NOT AN ISSUE AT THIS VISIT, WILL MONITOR GFR > 60 Mixed hyperlipidemia 267 116771 E78.2 TOATLA CHOLESTERO L AT 211, CANNOT CALCULATE LDL BECAUSE TRIGLYCERI ANN GREATER THAN 1000, AT 1191, NEEDS TO RESUME VASCEPA 1GRAM 2 CAPS PO TWICE A DAY. Insulin tr eated type 2 diabetes mellitus 001637257 Z79.4 A1C IS MUCH IMPROVED AT 7.5, , LANTUS 24, JANUMET 50/1000MG PO PO BID , ADDED NATEGLINID E 60 MG PO TID [id number] Nithin Rodriguez i, MD Main Office [address] [place] [address] 10/20/2016 14:06:55 10/20/2016 14:49:38 Type 2 diabetes mellitus 20787851 E11.9 A1C IS NOW 5.9, LANTUS 36 UNITS AT HS , JANUMET 50 /1000 MG PO BID , NATEGLINID E 60 MG PO QAC Mixed hyperlipidemia 267 809730 E78.2 TOTAL CHOLESTERO L AT 211, CANNOT CALCULATE LDL BECAUSE TRIGLYCERI ANN GREATER THAN 1000, AT 1191, NEEDS TO RESUME VASCEPA 1GRAM 2 CAPS PO TWICE A DAY. TODAY 10/20/16 TOTAL CHOL 145 LDL 73 , TRIGS -174 THIS IS EXCELLENT ON CRESTOR 40MG WITH VASCEPA 1GRAM 2 IN AM AND 2 IN PM Essential hypertension 72329705 I10 BLOOD PRESSURE NOT AN ISSUE AT THIS VISIT, WILL MONITOR GFR > 60, BLOOD PRESSURE AT GOAL NOT ON JONATHON AT THIS TIME Vitamin D deficiency 347 87799 E55.9 LEVEL AT GOAL ON D3 CHECK NEXT VISIT/TRACY OF D25-OH IS EXTEMELY LOW AT 13 TOLD TAKE VITAMIN D3 2000 IU PO QD Coronary arteriosclerosis 45713942 I25.10 STABLE NO SYMTOMS OR CHEST PAIN, ON EFFIENT FOLLOWED BY CARDIOLOGY Numbness of foot 2856780 00 R20.0 RT FOOT MILD TINGLING SENSATION , COULD BE MILD NEUROPATHY TAKE B12 1000 MG PO QD [id number] Nithin Rodriguez i, MD Main Office [address] [address] 02/07/2017 11:38:11 02/07/2017 12:58:25 Type 2 diabetes mellitus 68755191 E11.9 ALL NUMBERS AT GOAL WITH A1C IS 5.6 ON LANTUS AND NATEGLINID E , JANUMET 50 1000MG PO BID Mixed hyperlipidemia 267 165286 E78.2 TOTAL CHOLESTERO L AT 211, CANNOT CALCULATE LDL BECAUSE TRIGLYCERI ANN GREATER THAN 1000, AT 1191, NEEDS TO RESUME VASCEPA 1GRAM 2 CAPS PO TWICE A DAY. TODAY 10/20/16 TOTAL CHOL 145 LDL 73 , TRIGS -174 THIS IS EXCELLENT ON CRESTOR 40MG WITH VASCEPA 1GRAM 2 IN AM AND 2 IN PM Essential hypertension 88855283 I10 BLOOD PRESSURE NOT AN ISSUE AT THIS VISIT, WILL MONITOR GFR > 60, BLOOD PRESSURE AT GOAL NOT ON JONATHON AT THIS TIME Hypercalcemia 52254886 E 83.52 CALCIUM IS 10.2, WILL MONITOR WITH D LEVELS, TODAY IS 10.4 / MILD CLIMBING , WILL SET UP LABS AGAIN WITH 24 HOUR URINE FOR CALCIUM , NO HISTORY OF KIDNEY STONES Vitamin D deficiency 347 48660 E55.9 LEVEL AT GOAL ON D3 CHECK NEXT VISIT/TRACY OF D25-OH IS EXTEMELY LOW AT 13 TOLD TAKE VITAMIN D3 2000 IU PO QD, LEVEL IS NOW 42 CORRECTED Coronary arteriosclerosis 91201840 I25.10 STABLE AT THIS TIME , WE [...] ID Guarantor Name 05/06/2016 1 [facility] [id number] Jersey Quigley [id number] 07/20/2016 1 [facility] [id number] Jersey Quigley [id number] 10/20/2016 1 [facility] [id number] Sergo Cuco Quigley [id number] 02/07/2017 1 [facility] [id number] SergoCuco Quigley [id number] Notes Date Note Type Note Provider Name [...] ,AND A1C OF 11.6 Nithin Salguero MD [address], [address], RAJESH Salguero MD 05/06/2016 14:26:49 7 text/htm [...] , TRIGS -171, Nithin Salguero MD [address], [address], RAJESH Salguero MD 07/20/2016 16:32:38 7 text/htm [...] IS 73 , Nithin Salguero MD [address], [address], [facility] - Nithin Salguero MD 10/20/2016 14:55:28 7 [...] IS 42 . Nithin Salguero MD [address], [address], [place] - Nithin Salguero MD 02/07/2017 12:50:10
--- OUTSIDE RECORDS SUMMARY | 2024-07-04 10:31 | XMS_ITS | Clinical Summary ---
Author Organization [facility] Address [address] [place] [address] Care Team Providers Care Sinker Winder Name Role Phone Matt Rodriguez MD Primary [...] infarction 02/06/2015 Overview: 1. Acute inf wall [place] 08/18/04 2. Cardiac cath--08/18/04--mild LAD, mild Cx, mod diag, 100% RCA 3. 08/18/04 3 x 25 TAXUS stent in mid RCA 4. Cath--10/24/09--sever stenosis distal to prefious stent 5. 3.5 x 15 xscience in RCA 6/ nuclear stress--04/09/12--54% EF, fixed inf defect 7. 01/03/15--adm in [place] for unstable angina 8. 01/03/15--nuclear stress--inferior ischemic [...] this topic Medical Devices Implanted Type Area Clinical Assoc Device Identifier Shelf Expiration Date Model / Serial / Lot Stent Resolute Coolidge 22mm 3mm Rapdx Zotarolimus Eluting - [id number] - [id number] Implanted: 017 at [facility] (Quantity not on file) [employer] - VASCULAR [id number] / / Advance Directives For more information, please contact: [phone] Latest Code Status on File Code Status [...] way: discussion with patient . Care Teams Sinker Winder Relationship Specialty Start Date End Date Matt Rodriguez MD PCP - General Family Medicine 11/07/14
--- OUTSIDE RECORDS SUMMARY | 2024-07-04 10:31 | XMS_ITS | Encounter Summary ---
Author Organization [facility] Address [address] [place] [address] Care Team Providers Care Enterprise Sales Person Name Role Phone Shelly Fonseca MD Primary Care Provider + [phone] Nithin Salguero MD Unavailable [phone] Encounter Details Date Type Department Care Team (Late st Contact Info) Description 04/29/2016 Scanned Document [address] [place] [phone] Provider, Generic Social History Tobacco Use [...] on filedocumented in this encounter Care Teams Enterprise Sales Person Relationship Specialty Start Date End Date Shelly Fonseca MD PCP - General Internal Medicine 11/30/15 02/10/20 Nithin Salguero MD Endocrinology 10/29/18 documented as of this encounter
--- OUTSIDE RECORDS SUMMARY | 2024-07-04 10:31 | XMS_ITS | Clinical Summary ---
Author Organization [facility] Address [address] [place] [address] Care Team Providers Care Sheriffs Name Role Phone Nithin Salguero MD Unavailable [phone] Allergies No known active allergies Medications rosuvastatin [...] Overview (12/01/2015): Overview: 1. Acute inf wall [place] 08/18/04 2. Cardiac cath--08/18/04--mild LAD, mild Cx, mod diag, 100% RCA 3. 08/18/04 3 x 25 TAXUS stent in mid RCA 4. Cath--10/24/09--sever stenosis distal to prefious stent 5. 3.5 x 15 xscience in RCA 6/ nuclear stress--04/09/12--54% EF, fixed inf defect 7. 01/03/15--adm in [place] for unstable angina 8. 01/03/15--nuclear stress--inferior ischemic [...] approximately 13% higher for people identified as -Nigerian. eGFR Non- 66 > OR = 60 [...] Performing Organization Information: ?Site ID: [id number] ?Name: [facility] [employer] ?Address: [address] [place] [address], [place] [address] ?Director: Beth Chaudhari MD us Cher CAMACHO LAB BLOOD ORDERABLES Final R esult Performing Organization Address City/[facility]/ZIP Co de Phone Number [facility] [employer] NL[address] [place] [address], [place] [address] * (ABNORMAL) Microalbumin, Creatinine, Urine, Random (10/22/2014 7:38 AM EDT) Pathologist [facility] Microalbumin, Urine, Random 34(H) <30 mg/L CLP Creatinine, Urine, Random 89 mg/dL CLP Microalbumin/Cr eatinine Ratio 38.2(H) <30 mg Alb/g Creat CLP Comment:Test Performed at: [facility]#:[id number] 10/22/2014 7:38 AM EDT 10/23/2014 12:16 AM EDT Narrative CLP - 10/23/2014 6:07 AM EDT Report copy sent to: [facility] [id number] EDE BROWN MD [facility] [id number] MONI KENNY MD [facility] () [id number] CONCETTA BRYANT MD us Nithin Salguero MD [...] Care 2008: 31: 1473-8 Test Performed at: [facility]#:[id number] 10/22/2014 7:38 AM EDT 10/23/2014 12:16 AM EDT Narrative CLP - 10/23/2014 6:07 AM EDT Report copy sent to: [facility] [id number] EDE BROWN MD [facility] [id number] MONI KENNY MD [facility] () [id number] CONCETTA BRYANT MD Nithin Salguero MD LAB [...] ? 23.4 ? 11.0 Test Performed at: [facility][id number] 10/22/2014 7:38 AM EDT 10/23/2014 12:16 AM EDT Narrative CLP - 10/23/2014 6:07 AM EDT Report copy sent to: [facility] [id number] EDE BROWN MD [facility] [id number] MONI KENNY MD [facility] () [id number] CONCETTA BRYANT MD Nithin Salguero MD LAB BLOOD ORDERABLES Alexa brush Result CLP * Quantiferon TB LUCIAN (04/17/2013 7:43 AM EST) [facility] Quantiferon Interpretation NEGATIVE NEGATIVE ALLSCRIPTS CONVERSION Comment:M. [...] Most Recently Relevant to Health Maintenance Insurance [facility] Care Teams Sheriffs Relationship Specialty Start Date End Date Nithin Salguero MD Endocrinology 10/29/18
--- OUTSIDE RECORDS SUMMARY | 2024-07-04 10:31 | XMS_ITS | Clinical Summary ---
Author Organization [facility] Address [address] [place] [address] Care Team Providers Care Behavioral Health Therapist Name Role Phone Matt Rodriguez MD Primary Care Provider [phone] Surgical History Surgery Date Site/Laterality Comments HIP ARTHROPLASTY Right PROCEDURE:HIP ARTHROPLASTY KNEE ARTHROPLASTY Right PROCEDURE:KNEE ARTHROPLASTY;COMMENT:x2 CARDIAC CATHETERIZATION 10/28/2016 N/A PROCEDURE:CARDIAC CATHETERIZATION;COMMENT:Procedure: LEFT HEART CATHETERIZATION ? 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; Service: Cardiology; Laterality: N/A; Medical History Medical History Date Comments Acute transmural inferior wa ll [place] ([facility] V24, [facility] V28) 08/20/04 DX:Acute transmural inferio r wall [place] (HCC) H/O cardiac catheterization 08/20/04 DX:H /O cardiac catheterization;COMMENT:3x20 3x16 taxus Unstable angina ([facility]/HCC V24 , CMS/HCC V28) 10/27/09 DX:Unstable angina ([facility]) H/O cardiac catheterization 10/27/09 DX:H /O cardiac catheterization;COMMENT:3 x15 xcience distal RCA, 50% LAD, nl cx Psoriasis DX:Psoriasis 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, managed as typ e 2 (CMS/HCC V24, CMS/HCC V28) DX:Diabetes 1.5, managed as type 2 ([facility]) Hypertension DX:Hypertension Pulmonary embolus (CMS/[facility] V 24, CMS/[facility] V28) DX:Pulmonary embolus (HCC) Hx of cardiac cath 01/02/15 DX:Hx of card iac cath;COMMENT:high grade RCA, 2.5 x 14 resolute stent placed Coronary stent thrombosis 01/09/15 DX:Cor onary stent thrombosis;COMMENT:inf NV, started on effient Social History Tobacco Use [...] age to complete this topic Care Teams Behavioral Health Therapist Relationship Specialty Start Date End Date Matt Rodriguez MD [address] [place] [phone] PCP - General Family Medicine 11/07/14
--- OUTSIDE RECORDS SUMMARY | 2024-07-04 10:31 | XMS_ITS | Encounter Summary ---
Author Organization [facility] Address [address] [place] [address] Care Team Providers Care It Application Architect Name Role Phone Shelly Fonseca MD Primary Care Provider [phone] Nithin Salguero MD Unavailable [phone] Encounter Details Date Type Department Care Team (Late st Contact Info) Description 08/15/2018 Scanned Document [address] [place] [phone] Provider, Generic Social History Tobacco Use Types [...] on filedocumented in this encounter Care Teams It Application Architect Relationship Specialty Start Date End Date Shelly Fonseca MD PCP - General Internal Medicine 11/30/15 02/10/20 Nithin Salguero MD Endocrinology 10/29/18 documented as of this encounter
--- OUTSIDE RECORDS SUMMARY | 2024-07-04 10:31 | XMS_ITS | Encounter Summary ---
Author Organization [facility] Address [address] [place] [address] Care Team Providers Care Elementary School Music Teacher Name Role Phone Matt Rodriguez MD Primary Care Provider [phone] Shelly Fonseca MD Primary Care Provider [phone] Nithin Salguero MD Unavailable [phone] Armani Villafuerte MD Primary Care Provider + Encounter Details Date Type Department Care Team (Late st Contact Info) Description 10/03/2014 Scanned Document [address] [phone] Provider, Generic Social History Tobacco Use Types [...] on filedocumented in this encounter Care Teams Elementary School Music Teacher Relationship Specialty Start Date End Date Matt Rodriguez MD [address] [place] [address] PCP - General Internal Medicine 10/24/14 11/29/15 Shelly Fonseca MD [address] [facility] [place] [address] PCP - General Internal Medicine 11/30/15 02/10/20 Armani Villafuerte MD [address] [place] [address] PCP - General 10/23/14 Nithin Salguero MD [address] [facility] [place] [address] Endocrinology 10/29/18 documented as of this encounter
== END 2024-07-04 10:09 | disposition home or self-care (01) ==
LOC: HO.HVS 09:40
PROVIDERS: PCP Internal Medicine; Visit Provider Surgery Vascular Surgery
DX: I73.9 Peripheral vascular disease, unspecified (principal)
CPT/HCPCS: 99214

== ENCOUNTER → 2024-07-04 09:39 | Outpatient (BNVA) | payer MEDICARE, SELFPAY | PROVIDERS: PCP Internal Medicine; Visit Provider Surgery Vascular Surgery | DX: I73.9 Peripheral vascular disease, unspecified (principal) | CPT/HCPCS: 99212 ==

== ENCOUNTER 2024-07-05 07:43 | Outpatient (REF) | payer OTHER, SELFPAY ==
--- OUTSIDE RECORDS SUMMARY | 2024-07-05 07:47 | XMS_ITS | Encounter Summary ---
Author Organization [facility] Address [address] [place] [address] Care Team Providers Care Shop Teacher Name Role Phone Shelly Fonseca MD Primary Care Provider [phone] Nithin Salguero MD Unavailable [phone] Encounter Details Date Type Department Care Team (Late st Contact Info) Description 08/15/2018 Scanned Document [address] [place] [phone] Provider, Generic Social History Tobacco Use Types [...] on filedocumented in this encounter Care Teams Shop Teacher Relationship Specialty Start Date End Date Shelly Fonseca MD PCP - General Internal Medicine 11/30/15 02/10/20 Nithin Salguero MD Endocrinology 10/29/18 documented as of this encounter
--- OUTSIDE RECORDS SUMMARY | 2024-07-05 07:47 | XMS_ITS | Clinical Summary ---
Author Organization [facility] Address [address] [place] [address] Care Team Providers Care Poultry Buyer Name Role Phone Matt Rodriguez MD Primary Care Provider [phone] Surgical History Surgery Date Site/Laterality Comments HIP ARTHROPLASTY Right PROCEDURE:HIP ARTHROPLASTY KNEE ARTHROPLASTY Right PROCEDURE:KNEE ARTHROPLASTY;COMMENT:x2 CARDIAC CATHETERIZATION 10/28/2016 N/A PROCEDURE:CARDIAC CATHETERIZATION;COMMENT:Procedure: LEFT HEART CATHETERIZATION ? 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; Service: Cardiology; Laterality: N/A; Medical History Medical History Date Comments Acute transmural inferior wa ll ID ([facility] V24, [facility] V28) 08/20/04 DX:Acute transmural inferio r wall ID (HCC) H/O cardiac catheterization 08/20/04 DX:H /O cardiac catheterization;COMMENT:3x20 3x16 taxus Unstable angina ([facility]/HCC V24 , CMS/HCC V28) 10/27/09 DX:Unstable angina ([facility]) H/O cardiac catheterization 10/27/09 DX:H /O cardiac catheterization;COMMENT:3 x15 xcience distal RCA, 50% LAD, nl cx Psoriasis DX:Psoriasis 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, managed as typ e 2 (CMS/HCC V24, CMS/HCC V28) DX:Diabetes 1.5, managed as type 2 ([facility]) Hypertension DX:Hypertension Pulmonary embolus (CMS/[facility] V 24, CMS/[facility] V28) DX:Pulmonary embolus (HCC) Hx of cardiac cath 01/02/15 DX:Hx of card iac cath;COMMENT:high grade RCA, 2.5 x 14 resolute stent placed Coronary stent thrombosis 01/09/15 DX:Cor onary stent thrombosis;COMMENT:inf ID, started on effient Social History Tobacco Use [...] age to complete this topic Care Teams Poultry Buyer Relationship Specialty Start Date End Date Matt Rodriguez MD [address] [place] [phone] PCP - General Family Medicine 11/07/14
--- OUTSIDE RECORDS SUMMARY | 2024-07-05 07:47 | XMS_ITS | Encounter Summary ---
Author Organization [facility] Address [address] [place] [address] Care Team Providers Care Testing And Regulating Chief Name Role Phone Matt Rodriguez MD Primary Care Provider Shelly Fonseca MD Primary Care Provider [phone] Nithin Salguero MD Unavailable [phone] Armani Villafuerte MD Primary Care Provider + Encounter Details Date Type Department Care Team (Late st Contact Info) Description 10/03/2014 Scanned Document [address] [phone] Provider, Generic Social History Tobacco Use Types [...] on filedocumented in this encounter Care Teams Testing And Regulating Chief Relationship Specialty Start Date End Date Matt Rodriguez MD [address] [place] [address] PCP - General Internal Medicine 10/24/14 11/29/15 Shelly Fonseca MD [address] [facility] [place] [address] PCP - General Internal Medicine 11/30/15 02/10/20 Armani Villafuerte MD [address] [place] [address] PCP - General 10/23/14 Nithin Salguero MD [address] [facility] [place] [address] Endocrinology 10/29/18 documented as of this encounter
--- OUTSIDE RECORDS SUMMARY | 2024-07-05 07:47 | XMS_ITS | Clinical Summary ---
Author Organization [facility] Address [address] [place] [address] Care Team Providers Care Global Regulatory Lead Name Role Phone Matt Rodriguez MD Primary [...] infarction 02/06/2015 Overview: 1. Acute inf wall [place] 08/18/04 2. Cardiac cath--08/18/04--mild LAD, mild Cx, mod diag, 100% RCA 3. 08/18/04 3 x 25 TAXUS stent in mid RCA 4. Cath--10/24/09--sever stenosis distal to prefious stent 5. 3.5 x 15 xscience in RCA 6/ nuclear stress--04/09/12--54% EF, fixed inf defect 7. 01/03/15--adm in [place] for unstable angina 8. 01/03/15--nuclear stress--inferior ischemic [...] this topic Medical Devices Implanted Type Area Slot Attendant Device Identifier Shelf Expiration Date Model / Serial / Lot Stent Resolute [place] 22mm 3mm Rapdx Zotarolimus Eluting - [id number] - [id number] Implanted: 017 at [facility] (Quantity not on file) [employer] - VASCULAR [id number] / / Advance Directives For more information, please contact: [phone] Latest Code Status on File Code Status [...] way: discussion with patient . Care Teams Global Regulatory Lead Relationship Specialty Start Date End Date Matt Rodriguez MD PCP - General Family Medicine 11/07/14
--- OUTSIDE RECORDS SUMMARY | 2024-07-05 07:47 | XMS_ITS | Encounter Summary ---
Author Organization [address] [address] Care Team Providers Care Tank House Supervisor Name Role Phone Matt Rodriguez MD Primary Care Provider [phone] Shelly Fonseca MD Primary Care Provider [phone] Nithin Salguero MD Unavailable [phone] Encounter Details Date Type Department Care Team (Late st Contact Info) Description 03/12/2015 Scanned Document [address] [phone] Provider, Generic Social History Tobacco [...] on filedocumented in this encounter Care Teams Tank House Supervisor Relationship Specialty Start Date End Date Matt Rodriguez MD [address] [place] [address] PCP - General Internal Medicine 10/24/14 11/29/15 Shelly Fonseca MD [address] [place] [address] PCP - General Internal Medicine 11/30/15 02/10/20 Nithin Salguero MD [address] [place] [address] Endocrinology 10/29/18 documented as of this encounter
--- OUTSIDE RECORDS SUMMARY | 2024-07-05 07:47 | XMS_ITS | Clinical Summary ---
Author Organization [facility] Address [address] [place] [address] Care Team Providers Care Test Lead Name Role Phone Nithin Salguero MD Unavailable [phone] Allergies No known active allergies Medications rosuvastatin [...] Overview (12/01/2015): Overview: 1. Acute inf wall [place] 08/18/04 2. Cardiac cath--08/18/04--mild LAD, mild Cx, mod diag, 100% RCA 3. 08/18/04 3 x 25 TAXUS stent in mid RCA 4. Cath--10/24/09--sever stenosis distal to prefious stent 5. 3.5 x 15 xscience in RCA 6/ nuclear stress--04/09/12--54% EF, fixed inf defect 7. 01/03/15--adm in [place] for unstable angina 8. 01/03/15--nuclear stress--inferior ischemic [...] approximately 13% higher for people identified as -[place]. eGFR Non- 66 > OR = 60 [...] Performing Organization Information: ?Site ID: [id number] ?Name: [employer] ?Address: [address] [place] [address], [place] [address] ?Director: Beth Chaudhari MD us Cher CAMACHO LAB BLOOD ORDERABLES Final R esult Performing Organization Address City/[facility]/ZIP Co de Phone Number [facility] [employer] [facility] NL[address] [place] [address], [place] [address] * (ABNORMAL) Microalbumin, Creatinine, Urine, Random (10/22/2014 7:38 AM EDT) Pathologist [facility] Microalbumin, Urine, Random 34(H) <30 mg/L CLP Creatinine, Urine, Random 89 mg/dL CLP Microalbumin/Cr eatinine Ratio 38.2(H) <30 mg Alb/g Creat CLP Comment:Test Performed at: [facility]#:[id number] 10/22/2014 7:38 AM EDT 10/23/2014 12:16 AM EDT Narrative CLP - 10/23/2014 6:07 AM EDT Report copy sent to: [facility] [id number] EDE BROWN MD [facility] [phone] MONI KENNY MD [facility] () [id number] CONCETTA BRYANT MD us Nithin Salguero MD [...] Care 2008: 31: 1473-8 Test Performed at: [facility]#:[id number] 10/22/2014 7:38 AM EDT 10/23/2014 12:16 AM EDT Narrative CLP - 10/23/2014 6:07 AM EDT Report copy sent to: [facility] [id number] EDE BROWN MD [facility] [id number] MONI KENNY MD [facility] () [id number] OCNCETTA BRYANT MD Nithin Salguero MD LAB BLOOD [...] ? 23.4 ? 11.0 Test Performed at: [facility][id number] 10/22/2014 7:38 AM EDT 10/23/2014 12:16 AM EDT Narrative CLP - 10/23/2014 6:07 AM EDT Report copy sent to: [facility] [id number] EDE BROWN MD [facility] [id number] MONI KENNY MD [facility] () [id number] CONCETTA BRYANT MD Nithin Salguero MD LAB BLOOD ORDERABLES Alexa brush Result CLP * Quantiferon TB LUCIAN (04/17/2013 7:43 AM EST) [facility] Quantiferon Interpretation NEGATIVE NEGATIVE ALLSCRIPTS CONVERSION Comment:M. [...] Most Recently Relevant to Health Maintenance [facility] Care Teams Test Lead Relationship Specialty Start Date End Date Nithin Salguero MD Endocrinology 10/29/18
--- OUTSIDE RECORDS SUMMARY | 2024-07-05 07:47 | XMS_ITS | Encounter Summary ---
Author Organization [facility] Address [address] [place] [address] Care Team Providers Care Correctional Manager Name Role Phone Shelly Fonseca MD Primary Care Provider Nithin Salguero MD Unavailable [phone] Encounter Details Date Type Department Care Team (Late st Contact Info) Description 04/29/2016 Scanned Document [address] [place] [phone] Provider, Generic Social History Tobacco Use [...] on filedocumented in this encounter Care Teams Correctional Manager Relationship Specialty Start Date End Date Shelly Fonseca MD PCP - General Internal Medicine 11/30/15 02/10/20 Nithin Salguero MD Endocrinology 10/29/18 documented as of this encounter
[2024-07-05 10:21] LABS: MANUAL DIFF FLAG NO
[2024-07-05 10:28] LABS: Basophils Absolute Auto 0.1 X10*3/uL (0.0-0.2); Basophils Percent Auto 1.2 % (0-2); Eosinophils Absolute Auto 0.2 X10*3/uL (0.0-0.4); Eosinophils Percent Auto 2.9 % (0-4); Hematocrit 42.3 % (42.0-52.0); Hemoglobin 14.4 g/dl (14.0-18.0); Imm Gran Abs Auto 0.02 X10*3/uL (0.00-0.03); Imm Gran Pct Auto 0.3 % (0.0-0.4); Lymphocytes Absolute Auto 1.6 X10*3/uL (1.2-4.9); Mean Corpuscular Hemoglobin 31.9 pg (27.0-33.0); Mean Corpuscular Volume 93.8 fL (80.0-98.0); Mean Platelet Volume 9.9 fL (9.4-12.4); Monocytes Absolute Auto 0.7 X10*3/uL (0.1-1.2); Monocytes Percent Auto 9.8 % (2-11); Neutrophils Absolute Auto 4.3 x10*3/uL (2.0-8.3); Neutrophils Percent Auto 62.8 % (45-73); Platelet Count 200 X10*3/uL (160-400); Red Blood Count 4.51 X10*6/uL (4.60-5.80); Red Cell Distribution Width 13.4 % (11.0-16.0); White Blood Count 6.9 X10*3/uL (4.8-10.8)
[2024-07-05 10:46] LABS: Estimated Average Glucose 140 mg/dL; Hemoglobin A1C 185.4974 umol/L; Hemoglobin A1c % 6.5 % (<6.0); Total Hemoglobin (HGBA1C) 3864.5708 umol/L
[2024-07-05 11:07] LABS: Alanine Aminotransferase 32 U/L (0-40); Albumin Level 4.4 g/dL (3.5-5.0); Alkaline Phosphatase 77 U/L (39-117); Anion Gap 11 (12-20); Aspartate Amino Transferase 35 U/L (5-37); Bilirubin Total 1.3 mg/dL (0.0-1.0); Blood Urea Nitrogen 16 mg/dL (9-16); Calcium 9.7 mg/dL (8.4-10.2); Carbon Dioxide 25 mmol/L (22-29); Chloride 109 mmol/L (96-108); Cholesterol 109 mg/dL (<200); Estimated Glomerular Filt Rate > 60; Glucose Fasting 120 mg/dL (60-99); HDL Cholesterol 36 mg/dL (>40); LDL Cholesterol Calculated 52 mg/dL (<100); Potassium 4.3 mmol/L (3.3-5.1); Sodium 141 mmol/L (135-145); Total Protein 7.6 g/dL (6.5-8.0); Triglycerides 108 mg/dL (<150)
[2024-07-05 11:08] LABS: Vitamin B12 360 pg/mL (200-900)
[2024-07-05 11:14] LABS: Creatinine Urine 188.93 mg/dL; Microalbum/Creatinine Ratio Ur 11.1 ug/mg cr (<30)
[2024-07-09 17:34] LABS: Vitamin D 25-OH, D2 <4 ng/mL; Vitamin D 25-OH, D3 43 ng/mL; Vitamin D 25-OH, Total 43 ng/mL (30-100)
== END 2024-07-05 07:44 | disposition home or self-care (01) ==
LOC: HO.HMGCLDS 07:43
PROVIDERS: PCP Internal Medicine; Referring Provider Surgery Vascular Surgery; Visit Provider Internal Medicine
DX: G20.B2 Parkinson's disease with dyskinesia, with fluctuations (principal); G63 Polyneuropathy in diseases classified elsewhere; I10 Essential (primary) hypertension; I25.10 Atherosclerotic heart disease of native coronary artery without angina pectoris; E55.9 Vitamin D deficiency, unspecified; E78.9 Disorder of lipoprotein metabolism, unspecified; Z79.4 Long term (current) 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; E13.9 Other specified diabetes mellitus without complications
CPT/HCPCS: 36415; 80053; 80061; 82043; 82306; 82570; 82607; 83036; 85025

== ENCOUNTER 2024-08-01 06:52 | Outpatient (REF) | payer OTHER, SELFPAY ==
--- NOTE | ~2024-08-01 | XR_ITS ---
EXAMINATION: XR KNEE 3 VIEWS RIGHT HISTORY: M17.11 - Unilateral primary osteoarthritis, right knee COMPARISON: There are no prior studies available for comparison. FINDINGS: Standing AP views of both knees and additional lateral and sunrise patellar views of the right knee are submitted. Osseous mineralization is normal. There is no fracture or dislocation. There is severe osteoarthritis of the lateral compartment with joint space narrowing and osteophyte formation. There is moderate degenerative change involving the medial and patellofemoral compartments. The soft tissues are unremarkable. There is no joint effusion. XR/XR knee RT 3V IMPRESSION: Osteoarthritis of the right knee as described. Electronically signed by: Anthony Bear MD 08/01/2024 08:24 AM EDT
== END 2024-08-01 06:53 | disposition home or self-care (01) ==
LOC: HO.HOSX 06:52
PROVIDERS: Visit Provider Physician Assistant
DX: M17.11 Unilateral primary osteoarthritis, right knee (principal)
CPT/HCPCS: 73562; 99202

== ENCOUNTER 2024-08-01 08:03 | Outpatient (AMB) | payer MEDICARE, SELFPAY ==
--- NOTE | 2024-08-01 08:24 | A.OFFVIS_ITS ---
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 Patient was seen by his PCP for persistent knee pain, patient was referred to orthopedics. Per PCP note his pain presented after he felt a pop while bending down to feed his dog. Today patient reports that his discomfort has always been present as he has a history of right knee surgery. He has ongoing swelling. He states when he knelt down he felt a pull and feels something is floating inside his knee. His most discomfort is with going down stairs. Hx of left hip surgery. Hx of right knee surgery with Dr. Prince ~. Allergies No Known Allergies [No Known Allergies*] Allergy (Verified 08/01/24 08:33) Medication List - Last Reconciled 08/01/24 by Hernán Becerra PA-C aspirin (Adult Low Dose Aspirin) 81 mg PO DAILY blood sugar diagnostic check sugar three times a day cholecalciferol (vitamin D3) 25 mcg PO DAILY clopidogrel 75 mg PO DAILY cyanocobalamin (vitamin B-12) (Vitamin B-12) 1,000 mcg PO DAILY Dexcom G7 Remote Sensing Analyst (blood-glucose,irradiated fuel handler,cont) check blood sugar three times daily NS Dexcom G7 Sensor (blood-glucose sensor) check blood sugar three times daily NS ezetimibe 10 mg PO DAILY insulin glargine U-300 conc (Toujeo Max U-300 SoloStar) 90 units (0.3 mL) subcut DAILY 90 days lisinopril 2.5 mg PO DAILY 90 days nitroglycerin 0.4 mg sublingual Q5M PRN omeprazole 20 mg PO DAILY 90 days pen needle, diabetic (Pen Needle) use one daily risankizumab-rzaa (Skyrizi) 150 mg subcut Q12W rosuvastatin 40 mg PO DAILY 90 days HPI 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 He c/o mostly discomfort with going down stairs. He states he has had a few surgeries in the past with Dr. Prince to reconstruct some ligaments or muscles because his knee would give out. He is quite active and likes to play golf. He does work on some home exercises however currently his activity level is limited due to the discomfort. 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 Brother No problems noted. Son No problems noted. Daughter No problems noted. Social History Household Members: Spouse Household Members Other:: retired, lives in [place] for the winter Housing: House Patient Tobacco Use Status: Former Tobacco user Years Smoked: 20 years e-Cigarette/Vaping Use: Never Used service: No Current occupational status: retired Cognitive needs: No Hearing needs: No Vision needs: Yes Review of Systems Const All systems reviewed & are unremarkable except as noted in HPI and below Physical Exam Vital Signs: BMI result Body Mass Index 28.6 Const General: cooperative and no acute distress Orientation/consciousness: patient oriented x3 Resp Effort & Inspection: normal respiratory effort and able to speak in complete sentences Cardio Peripheral pulses: Peripheral pulses 2+ throughout Neuro General: patient oriented x3 Extrem Other: Right knee is normal to inspection there is significant crepitus with range of motion. No ligamentous laxity. Neurovascularly intact. Results Reviewed Results Reviewed: X-rays of the right knee obtained in the office today and reviewed by me show moderate to severe osteoarthritis. Assessment & Plan Assessment & Plan (1) Primary osteoarthritis of right knee: Code(s): M17.11 - Unilateral primary osteoarthritis, right knee Category: Medical Plan: At this time given his limitations with activity and failed conservative management with home exercises an MRI of the right knee has been ordered to further evaluate the cartilaginous structures and determine the next step in his treatment. I did briefly discuss knee arthroscopy versus knee replacement. All questions were answered and I will reach out to him once I receive the results of the MRI. Orders: Orders MR knee RT wo con Today M17.11 - Unilateral primary osteoarthritis, right knee XR knee RT 3V Today M17.11 - Unilateral primary osteoarthritis, right knee Coding Level of Care Code New Pt Level 3 (33111) Complex EM visit Add On G2211 Diagnoses Primary osteoarthritis of right knee M17.11
[2024-08-01 08:37] VITALS: BMI 28.6
== END 2024-08-01 09:50 | disposition home or self-care (01) ==
LOC: HO.HOS 08:04
PROVIDERS: PCP Internal Medicine; Visit Provider Physician Assistant
DX: M17.11 Unilateral primary osteoarthritis, right knee (principal)
CPT/HCPCS: 99203; G2211

== ENCOUNTER → 2024-08-01 08:06 | Outpatient (BNV) | payer OTHER, SELFPAY | PROVIDERS: Visit Provider Radiology Diagnostic Radiology | DX: M17.11 Unilateral primary osteoarthritis, right knee (principal) | CPT/HCPCS: 73562 ==

== ENCOUNTER 2024-08-05 08:31 | Outpatient (AMB) | payer MEDICARE, SELFPAY ==
--- NOTE | 2024-08-05 08:52 | MHC.OFFVIS ---
Vital Signs 08/05/24 08:53 Height 6 ft Weight 211 lb 10.3 oz BMI 28.7 BP 114/60 Blood Pressure Location Lt brachial Position Sitting Pulse 73 Pulse Source Monitor Intake Visit Reasons: 1 yr f/up Intake Note: 1 yr f/up Technical Internship Required: No Accompanied by: Self / Same As Patient Allergies No Known Allergies [No Known Allergies*] Allergy (Verified 08/01/24 08:33) Medication List - Last Reconciled 08/05/24 by Levy Bazan MD aspirin (Adult Low Dose Aspirin) 81 mg PO DAILY blood sugar diagnostic check sugar three times a day cholecalciferol (vitamin D3) 25 mcg PO DAILY clopidogrel 75 mg PO DAILY cyanocobalamin (vitamin B-12) (Vitamin B-12) 1,000 mcg PO DAILY Dexcom G7 Pbx Inspector (blood-glucose,certified pharmacy technician,cont) check blood sugar three times daily NS Dexcom G7 Sensor (blood-glucose sensor) check blood sugar three times daily NS ezetimibe 10 mg PO DAILY insulin glargine U-300 conc (Toujeo Max U-300 SoloStar) 90 units (0.3 mL) subcut DAILY 90 days lisinopril 2.5 mg PO DAILY 90 days nitroglycerin 0.4 mg sublingual Q5M PRN omeprazole 20 mg PO DAILY 90 days pen needle, diabetic (Pen Needle) use one daily risankizumab-rzaa (Skyrizi) 150 mg subcut Q12W rosuvastatin 40 mg PO DAILY 90 days HPI Comments Details: Jersey comes for follow-up. Overall he has been doing well from cardiac perspective. He denies any exertional symptoms of chest pain or shortness of breath. He said he is most limited by arthritis in his right knee. OV continues to play golf and enjoys it. There was no other limitations to his life. Denies any heart failure symptoms. No prolonged palpitation irregular heartbeat. Takes all his medications. Currently on dual antiplatelet therapy. He also is bothered by bilateral varicose veins for which she sees vascular surgery. Recent lipid panel shows well optimized LDL at 52 mg/dL. 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 Brother No problems noted. Son No problems noted. Daughter No problems noted. Social History Household Members: Spouse Household Members Other:: retired, lives in [place] for the winter Housing: House Patient Tobacco Use Status: Former Tobacco user Years Smoked: 20 years e-Cigarette/Vaping Use: Never Used service: No Current occupational status: retired Cognitive needs: No Hearing needs: No Vision needs: Yes Review of Systems Const Denies chills, Denies fatigue, Denies fever(s), Denies frequent falls, Denies weakness, Denies weight gain and Denies weight loss ENT Denies dizziness Card Denies chest pain, Denies leg edema, Denies lightheadedness, Denies palpitations, Denies dyspnea and Denies dyspnea on exertion Resp Denies cough, Denies dyspnea and Denies dyspnea on exertion GI Denies hematochezia Musc Denies abnormal gait, Denies muscle weakness, Denies numbness, Denies radiating pain into limb and Denies tingling Neuro Denies abnormal gait, Denies dizziness, Denies frequent falls, Denies numbness, Denies tingling and Denies weakness Endo Denies fatigue and Denies palpitations Physical Exam Vital Signs: Last Vital Signs Pulse 73 08/05/24 08:53 BP 114/60 08/05/24 08:53 BMI result Body Mass Index 28.7 Const General: cooperative, comfortable, alert, awake and well groomed Nutritional Appearance: average body habitus Orientation/consciousness: patient oriented x3 Limitations: no limitations Neck Neck: Yes trachea midline, Yes supple and Yes no JVD Resp Effort & Inspection: normal respiratory effort Auscultation: clear to auscultation bilaterally Cardio Jugular venous distension: no JVD Palpation: normal PMI Rate: regular rate Rhythm: regular rhythm Heart sounds: S1 normal heart sound present and S2 normal heart sound present Peripheral pulses: femoral pulses present on the right diminished and on the left diminished GI Auscultation: normal bowel sounds Skin General skin exam: no rashes or lesions noted Neuro General: patient oriented x3 and no focal motor deficits Extrem General: Yes no clubbing, cyanosis or edema and Yes other (Bilateral significant varicosities) Psych Appearance: grossly normal Office Procedures EKG Details: EKG shows normal sinus rhythm with possible inferior infarct with T-wave inversions in inferior leads [id number], Complete Assessment & Plan Assessment & Plan (1) CAD (coronary artery disease): Code(s): I25.10 - Atherosclerotic heart disease of [place] coronary artery without angina pectoris Category: Medical Qualifiers: Associated angina: without angina Coronary Disease-Associated Artery/Lesion type: [place] artery [place] vs. transplanted heart: [place] heart Qualified Code(s): I25.10 - Atherosclerotic heart disease of [place] coronary artery without angina pectoris Plan: CAD with prior RCA stent with evidence of inferior infarct on the echocardiogram last year. He is currently no symptoms at current functional status. Overall LV ejection fraction is preserved. Continue aggressive medical therapy. Continue dual antiplatelet therapy due to late stent thrombosis. He is tolerating them well. Continue aggressive blood pressure control. His LDL is currently well optimized on dual therapy with statins and ezetimibe. Continue the same. Management of coronary artery disease was discussed in details. He is currently reviewing orthopedic options for his right knee issues. (2) HTN (hypertension): Code(s): I10 - Essential (primary) hypertension Category: Medical Qualifiers: Hypertension type: primary hypertension Qualified Code(s): I10 - Essential (primary) hypertension Plan: Hypertension which is currently well optimized on low-dose lisinopril therapy. Continue current management. Importance of good blood pressure control was discussed. Advised intermittent monitoring her blood pressure at home. Low-salt diet was discussed. Will follow up in the clinic in 1 year's time, sooner p.r.n.. Thank you for allowing me to partake in his care Coding Level of Care Code Est Pt Level 4 (84530) Complex EM visit Add On G2211 Diagnoses Coronary artery disease involving [place] coronary artery of [place] heart without angina pectoris I25.10 Associated angina: without angina Coronary Disease-Associated Artery/Lesion type: [place] artery [place] vs. transplanted heart: [place] heart Primary hypertension I10 Hypertension type: primary hypertension CPT Codes EKG - CPT: 04114-[id number], Complete ([id number])
[2024-08-05 08:53] VITALS: BP 114/60; PULSE 73; BMI 28.7
--- OUTSIDE RECORDS SUMMARY | 2024-08-05 08:58 | XMS_ITS | Encounter Summary ---
Author Organization [facility] Address [address] [place] [address] Care Team Providers Care Mystery Shopper Name Role Phone Matt Rodriguez MD Primary Care Provider [phone] Shelly Fonseca MD Primary Care Provider [phone] Nithin Salguero MD Unavailable [phone] Encounter Details Date Type Department Care Team (Late st Contact Info) Description 02/06/2015 Scanned Document [address] [phone] Provider, Generic Social History Tobacco [...] on filedocumented in this encounter Care Teams Mystery Shopper Relationship Specialty Start Date End Date Matt Rodriguez MD [address] [place] [address] PCP - General Internal Medicine 10/24/14 11/29/15 Shelly Fonseca MD [address] [place] [address] PCP - General Internal Medicine 11/30/15 02/10/20 Nithin Salguero MD [address] [place] [address] Endocrinology 10/29/18 documented as of this encounter
== END 2024-08-05 09:11 | disposition home or self-care (01) ==
LOC: HO.HCS 08:32
PROVIDERS: PCP Internal Medicine; Visit Provider Internal Medicine Cardiovascular Disease
DX: I25.10 Atherosclerotic heart disease of native coronary artery without angina pectoris (principal); I10 Essential (primary) hypertension
CPT/HCPCS: 93010; 99214; G2211

== ENCOUNTER → 2024-08-05 08:31 | Outpatient (BNVA) | payer MEDICARE, SELFPAY | PROVIDERS: PCP Internal Medicine; Visit Provider Internal Medicine Cardiovascular Disease | DX: I10 Essential (primary) hypertension (principal); I25.10 Atherosclerotic heart disease of native coronary artery without angina pectoris | CPT/HCPCS: 93005; 99212 ==

== ENCOUNTER 2024-08-09 14:14 | Outpatient (REF) | payer MEDICARE, SELFPAY ==
--- NOTE | ~2024-08-09 | CT_ITS ---
EXAMINATION: CT ANGIOGRAPHY LEGS WITH RUNOFF CLINICAL INFORMATION: I73.9 - Peripheral vascular disease, unspecified Peripheral arterial disease COMPARISON: None available. TECHNIQUE: Axial CT imaging was performed from the lung base through the feet after IV bolus of contrast. Coronal and sagittal reformatted images were generated from the original axial data set. ALARA: The examination used one or more of the following radiation dose reduction techniques: Automated exposure control, iterative reconstruction, and/or adjustment of mA and/or KV. DLP: 1023 mGY*cm FINDINGS: AORTA: Celiac, SMA, and MEHREEN are patent without hemodynamically significant stenosis. There are 2 renal arteries, bilaterally, without hemodynamically significant stenosis. RIGHT: Axial 1169/2476: Superficial femoral artery in the mid thigh measured 2.9 mm. More proximal artery measured 5.7 mm consistent with 50% short focal stenosis. Axial 1477/2476: Popliteal artery posterior to the joint line diameter 2.9 mm. Proximal artery 5.9 mm. The 51% short focal stenosis. Crural arteries are patent with blood flow visible at least the level ankle joint. LEFT: Coronal 57/96: The left common iliac artery demonstrates a irregular soft and hard plaque with maximum stenosis measuring 1.8 mm. 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 Axial image 1112/2476: Mid thigh superficial femoral artery diameter 2.0 mm. Proximal diameter 4.8 mm. 58% focal stenosis. Axial 1180/2476: Mid thigh superficial femoral artery diameter 2.3 millimeters. 53% stenosis. Crural arteries are patent with flow visible to at least the ankle LUNGS: Small pneumatocele is present in the posterior lateral right lung base. ABDOMEN: Shunt tubing courses across the anterior right lateral chest wall and enters the peritoneum anterior to the liver and terminates near the inferior tip of the right hepatic lobe. Right gallbladder are unremarkable. Spleen size is normal. Pancreas is unremarkable. Adrenal glands are unremarkable. Kidneys are unremarkable. Gastrointestinal tract is unremarkable. There is no adenopathy. There is no ascites. Bilateral total hip replacements are present without evidence of loosening Moderate degenerative disc disease is present in the lumbar spine. CT/CT angio abd aorta runoff IMPRESSION: Right: Hemodynamically significant stenosis is present in the superficial femoral artery in the mid thigh, popliteal artery at the joint line, Left: Hemodynamically significant stenosis is present in the common iliac artery, and with multifocal narrowing of the superficial femoral artery in the mid thigh. 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 Electronically signed by: Mukul Hunt MD 08/09/2024 05:50 PM EDT
--- OUTSIDE RECORDS SUMMARY | 2024-08-09 14:15 | XMS_ITS | Encounter Summary ---
Author Organization [facility] Address [address] [place] [address] Care Team Providers Care Carbon Sequestration Plant Engineer Name Role Phone Matt Rodriguez MD Primary Care Provider Shelly Fonseca MD Primary Care Provider [phone] Nithin Salguero MD Unavailable [phone] Encounter Details Date Type Department Care Team (Late st Contact Info) Description 02/06/2015 Scanned Document [address] [phone] Provider, Generic Social History Tobacco [...] on filedocumented in this encounter Care Teams Carbon Sequestration Plant Engineer Relationship Specialty Start Date End Date Matt Rodriguez MD [address] [place] [id number] PCP - General Internal Medicine 10/24/14 11/29/15 Shelly Fonseca MD [address] [place] [address] PCP - General Internal Medicine 11/30/15 02/10/20 Nithin Salguero MD [address] [place] [address] Endocrinology 10/29/18 documented as of this encounter
[2024-08-09] MEDS: iohexoL 350 MG/ML 100 ML INFUS..BTL IV (15:48)
[2024-08-12 11:26] LABS: Creatinine POC 1.4 mg/dL (0.5-1.4); GFR POC > 60
== END 2024-08-09 14:15 | disposition home or self-care (01) ==
LOC: HO.CT 14:14
PROVIDERS: PCP Internal Medicine; Visit Provider Surgery Vascular Surgery
DX: I73.9 Peripheral vascular disease, unspecified (principal)
CPT/HCPCS: 75635; 82565; Q9967

== ENCOUNTER → 2024-08-09 14:15 | Outpatient (BNV) | payer MEDICARE, SELFPAY | PROVIDERS: PCP Internal Medicine; Visit Provider Radiology Diagnostic Radiology | DX: I74.5 Embolism and thrombosis of iliac artery (principal); I70.8 Atherosclerosis of other arteries; I70.201 Unspecified atherosclerosis of native arteries of extremities, right leg | CPT/HCPCS: 75635 ==

== ENCOUNTER → 2024-08-19 09:47 | Outpatient (BNV) | payer MEDICARE, SELFPAY | PROVIDERS: PCP Internal Medicine; Visit Provider Radiology Diagnostic Radiology | DX: M17.11 Unilateral primary osteoarthritis, right knee (principal); M25.411 Effusion, right shoulder; M23.51 Chronic instability of knee, right knee | CPT/HCPCS: 73721 ==

== ENCOUNTER 2024-08-19 09:54 | Outpatient (REF) | payer MEDICARE, SELFPAY ==
--- NOTE | ~2024-08-19 | XR_ITS ---
EXAMINATION: Post MRI screening. CLINICAL INDICATION: Shunt valve setting check. COMPARISON: Pre-MRI performed earlier today at 10:23 AM. 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 On the pre-MRI the setting was P/L 1.0. On the post MRI the setting is P/L 1.5. This needs adjustment. Patient was sent to neurosurgery for resetting the valve. Electronically signed by: Memo Ghosh MD 08/19/2024 11:58 AM EDT
--- NOTE | ~2024-08-19 | XR_ITS ---
EXAMINATION: X-ray pre-MRI screening. CLINICAL INFORMATION: Prepost valve check. TECHNIQUE: AP and lateral views of the skull.. COMPARISON: None FINDINGS: There is a shunt catheter extending from the anterior mid portion of the cranium through a posterior right parietal pole overlapping the posterior right head neck. No metallic foreign body overlapping the orbits nor the temporal bones. XR/XR pre mri screening IMPRESSION: Posterior right midline shunt catheter likely intra-articular. No metallic foreign bodies in the orbits or temporal bones. Electronically signed by: David Landis MD 08/19/2024 10:50 AM EDT
--- NOTE | ~2024-08-19 | MR_ITS ---
EXAMINATION: MR KNEE WITHOUT CONTRAST, RIGHT CLINICAL INFORMATION: Osteoarthritis, CPPD disease, knee pain, meniscus tear COMPARISON: X-ray August 01, 2024 TECHNIQUE: MRI of the knee without contrast was performed using routine sequences on a high-field scanner. FINDINGS: Review x-ray demonstrates amorphous stippled calcific density in the medial and lateral joint line. FINDINGS: Menisci: Lateral Meniscus: There is a ghost meniscus sign consistent with a radial tear of the anterior horn lateral meniscus near the root. The remaining intact anterior horn is irregular, frayed, and torn. There is also oblique signal seen through the body to the tibial surface. The body is mildly extruded from the joint line. Oblique signal extends to the posterior horn as well, also to the tibial surface. The inner free margin is frayed and degenerated. Medial Meniscus: The volume of the medial meniscus is low suggesting prior partial meniscectomy. No flipped meniscus is identified. The medial meniscus is diffusely irregular, frayed, and torn. It is mildly extruded from the joint line. ACL/PCL: ACL is nonvisualized and likely chronically torn. Additionally, there is 15 mm anterior tibial translation. PCL is ACL is intact. It appears thickened near the femur. It appears thick centrally. Extensor mechanism: There is a physiologic volume of joint fluid. Extensor mechanism is unremarkable. MCL/LCL: MCL is intact. LCL complex is intact. Articular cartilage: Patellofemoral Compartment: There is a full-thickness articular cartilage defects involving upper third patella, median ridge, 7 mm wide. There is delamination of the adjacent cartilage in the lateral facet extending an additional 6 mm. There is associated reactive marrow signal change in median ridge. In the middle third patella, there is likely delamination 18 mm wide extending more into the lateral facet than the medial facet. The overlying cartilage is irregular with grade II chondromalacia. Delamination extends from the median ridge into the lower third patella, medial facet. There is grade 3/4 chondromalacia in the lower third patella, medial facet, more advanced at the medial margin. Multifocal grade 3 and grade IV chondromalacia is present in the upper half of trochlea involving the trochlear groove, just lateral trochlear groove, and the medial facet. Lateral Compartment: Irregular partial and full-thickness articular cartilage defects are present to weightbearing region of the medial femoral condyle with adjacent reactive marrow signal change, more pronounced in the posterior weightbearing region adjacent to the posterior horn lateral meniscus There is deep partial to full-thickness cartilage loss involving the posterior half of the weightbearing region of the tibial plateau. Medial Compartment: There is irregular deep partial and full-thickness articular cartilage defect in the central weightbearing region of the medial femoral condyle with adjacent reactive marrow signal change and mild flattening of the subchondral bone plate. There is deep partial and full-thickness cartilage defect in the posterior medial tibial plateau. Minimal reactive marrow signal changes present. Bones/Marrow: Moderate and large tricompartmental marginal osteophytes are present. There are also central osteophytes involving the lateral femoral condyle, the left side of the medial femoral condyle, far posterior lateral tibial plateau, and posterior medial tibial plateau. Aside from reactive marrow signal changes adjacent to full-thickness articular cartilage defects, and a central degenerative cyst in the tibial plateau, bone marrow signal is physiologic. Soft tissues: There is a 6 x 11 mm intra-articular body in the posterior central joint, just lateral to the PCL footprint on tibia. There are multiple extruded intra-articular bodies posterior to the tibial plateau, adjacent to popliteus. 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 Both the lateral and medial menisci appear degenerated, frayed, and torn. There is a radial tear of the anterior root of the lateral meniscus and extensive degeneration and tears of the medial meniscus. The medial meniscus is small suggesting prior partial mastectomy. No displaced meniscal tear was identified. Chronic ACL tear with anterior tibial translation. Multiple extruded intra-articular bodies located posterior to the proximal central and medial tibia. One intra-articular body is in the posterior joint, just lateral to the PCL footprint. Electronically signed by: Mukul Hunt MD 08/19/2024 01:04 PM EDT
--- OUTSIDE RECORDS SUMMARY | 2024-08-19 10:27 | XMS_ITS | Encounter Summary ---
Author Organization [facility] Address [address] [place] [address] Care Team Providers Care Locomotive Pipe Fitter Name Role Phone Matt Rodriguez MD Primary Care Provider [phone] Shelly Fonseca MD Primary Care Provider [phone] Nithin Salguero MD Unavailable [phone] Encounter Details Date Type Department Care Team (Late st Contact Info) Description 02/06/2015 Scanned Document [address] [phone] Provider, Generic Social History Tobacco [...] on filedocumented in this encounter Care Teams Locomotive Pipe Fitter Relationship Specialty Start Date End Date Matt Rodriguez MD [address] [place] [id number] PCP - General Internal Medicine 10/24/14 11/29/15 Shelly Fonseca MD [address] [place] [address] PCP - General Internal Medicine 11/30/15 02/10/20 Nithin Salguero MD [address] [place] [address] Endocrinology 10/29/18 documented as of this encounter
== END 2024-08-19 09:55 | disposition home or self-care (01) ==
LOC: HO.MRI 09:54
PROVIDERS: PCP Internal Medicine; Visit Provider Physician Assistant
DX: M17.11 Unilateral primary osteoarthritis, right knee (principal)
CPT/HCPCS: 73721

== ENCOUNTER 2024-08-22 09:09 | Outpatient (AMB) | payer MEDICARE, SELFPAY ==
[2024-08-22 09:12] VITALS: BMI 28.6
--- NOTE | 2024-08-22 09:12 | A.OFFVIS_ITS ---
Vital Signs 08/22/24 09:12 Height 6 ft Weight 211 lb BMI 28.6 Intake Visit Reasons: Follow up CTA w/ runoff 08/09/24 Intake Note: Pt presents to the office today for a follow up CTA w/runoff 08/09/24. Pt states he has a vein on his right inner thigh that recently appeared, not painful. Accompanied by: Self / Same As Patient Allergies No Known Allergies (No Known Allergies*) Allergy (Verified 08/22/24 09:33) HPI HPI Follow up CTA w/ runoff 08/09/24: Details: The patient is a 68-year-old male presenting with peripheral artery disease and venous insufficiency. He reports more thigh and gluteal pain of the left leg when ambulating.. The patient is unable to walk a full block without experiencing significant pain and tightness in the left leg. The patient has a history of diabetes mellitus, diagnosed approximately ten years ago, and a history of three myocardial infarctions, the first occurring at the age of 48. The patient quit smoking in 2004, which is a significant factor in the management of his vascular conditions. [facility] Medical History DVT (deep venous thrombosis) (~2013) Pulmonary embolism HTN (hypertension) Old inferior wall myocardial infarction (~07/2004) CAD (coronary artery disease) Vitamin D deficiency Lipid disorder Psoriasis [facility] (current) 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 Diabetes 1.5, managed as type 1 HLD (hyperlipidemia) Surgical History Hx of brain surgery History of cardiac cath (~10/2016) History of cardiac cath (~12/2014) History of cardiac cath (~12/2014) Hx of cardiac cath (~10/2009) History of shoulder surgery Herniated disc History of hip replacement History of knee surgery History of surgery Family History Father Diabetes mellitus Mother No problems noted. Brother No problems noted. Son No problems noted. Daughter No problems noted. Social History Household Members: Spouse Household Members Other:: retired, lives in [place] for the winter Housing: House Patient Tobacco Use Status: Former Tobacco user Years Smoked: 20 years e-Cigarette/Vaping Use: Never Used service: No Current occupational status: retired Cognitive needs: No Hearing needs: No Vision needs: Yes Review of Systems Const All systems reviewed & are unremarkable except as noted in HPI and below Reports no additional complaints ENT Reports Normal hearing present Card Denies chest pain, Denies chest pain at rest, Denies chest pain with activity and Denies pedal edema Resp Denies cough GI Denies abdominal pain Musc Denies abnormal gait, Denies muscle cramps and Denies radiating pain into limb Skin/Breast Denies skin ulcer and Denies wounds Neuro Reports Normal hearing present and Denies abnormal gait Psych Reports no additional complaints Physical Exam Vital Signs: BMI result Body Mass Index 28.6 Const General: cooperative, healthy appearing and comfortable Orientation/consciousness: oriented to person, oriented to place and oriented to time HEENT Head: Yes normal to inspection Neck Neck: Yes normal visual inspection Carotids: no bruits Chest Chest palpation & inspection: normal inspection of the chest Resp Effort & Inspection: normal respiratory effort and able to speak in complete sentences Auscultation: clear to auscultation bilaterally, no crackles, no rales, no rhonchi and no wheezes Cardio Other: Bilateral DP signals Rate: regular rate Rhythm: regular rhythm Heart sounds: S1 normal heart sound present and S2 normal heart sound present Bruits: no carotid bruits GI Inspection: Yes normal to inspection Skin Wounds: no wounds Hair: normal Neuro General: oriented to person, oriented to place and oriented to time Cranial nerves: Yes CN's II-XII intact bilaterally and Yes Normal hearing present Cognition (Neuro): normal cognition Motor exam (neuro): 5/5 motor strength present throughout Extrem Other: venous exam: No significant superficial varicosities or spider telangie ctasias, minimal edema General: No clubbing, No cyanosis and No edema Psych Appearance: grossly normal Mental Status: mental status grossly normal Speech and movement: Normal speech and movement present Results Reviewed Results Reviewed: CT angiogram dated 08/09/2024 demonstrates right-sided stenosis in the SFA left side common iliac and external iliac. Assessment & Plan Assessment & Plan (1) PAD (peripheral artery disease): Code(s): I73.9 - Peripheral vascular disease, unspecified Category: Medical Plan: Patient notes leg pain when walking distances. I have discussed the pathophysiology of peripheral vascular disease with the patient. I have also discussed risk factor modification. I have reviewed the patient's arterial testing which reveals left iliac disease on CT scan. the patient would benefit from a left leg endovascular peripheral angiogram with possible angioplasty, stent, and/or atherectomy. This has been discussed in detail with the patient along with risks, benefits, and complications. This includes but is not limited to bleeding, infection, heart attack, need for emergent surgical repair, limb ischemia, blood vessel damage, bleeding, puncture, kidney injury, bruising, allergic reaction, and skin reaction. The patient demonstrates a clear understanding. We will schedule for the next appropriate time. Thank you for allowing us to assist in this patient's care. Coding Level of Care Code Est Pt Level 4 (62386) Complex EM visit Add On G2211 Diagnoses PAD (peripheral artery disease) I73.9
--- OUTSIDE RECORDS SUMMARY | 2024-08-22 09:25 | XMS_ITS | Clinical Summary ---
Author Organization [facility] Address [address] [place] [address] Care Team Providers Care Sales Rep Name Role Phone Matt Rodriguez MD Primary Care Provider [phone] Surgical History Surgery Date Site/Laterality Comments HIP ARTHROPLASTY Right PROCEDURE:HIP ARTHROPLASTY KNEE ARTHROPLASTY Right PROCEDURE:KNEE ARTHROPLASTY;COMMENT:x2 CARDIAC CATHETERIZATION 10/28/2016 N/A PROCEDURE:CARDIAC CATHETERIZATION;COMMENT:Procedure: LEFT HEART CATHETERIZATION ? 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; Service: Cardiology; Laterality: N/A; Medical History Medical History Date Comments Acute transmural inferior wa ll [place] ([facility] V24, [facility] V28) 08/20/04 DX:Acute transmural inferio r wall [place] (HCC) H/O cardiac catheterization 08/20/04 DX:H /O cardiac catheterization;COMMENT:3x20 3x16 taxus Unstable angina ([facility]/HCC V24 , CMS/HCC V28) 10/27/09 DX:Unstable angina ([facility]) H/O cardiac catheterization 10/27/09 DX:H /O cardiac catheterization;COMMENT:3 x15 xcience distal RCA, 50% LAD, nl cx Psoriasis DX:Psoriasis 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, managed as typ e 2 (CMS/HCC V24, CMS/HCC V28) DX:Diabetes 1.5, managed as type 2 ([facility]) Hypertension DX:Hypertension Pulmonary embolus (CMS/[facility] V 24, CMS/[facility] V28) DX:Pulmonary embolus (HCC) Hx of cardiac cath 01/02/15 DX:Hx of card iac cath;COMMENT:high grade RCA, 2.5 x 14 resolute stent placed 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
--- OUTSIDE RECORDS SUMMARY | 2024-08-22 09:25 | XMS_ITS | Encounter Summary ---
Author Organization [facility] Address [address] [place] [address] Care Team Providers Care Forensic Identification Specialist Name Role Phone Matt Rodriguez MD Primary Care Provider Shelly Fonseca MD Primary Care Provider [phone] Nithin Salguero MD Unavailable [phone] Encounter Details Date Type Department Care Team (Late st Contact Info) Description 02/06/2015 Scanned Document [address] [phone] Provider, Generic Social History Tobacco [...] on filedocumented in this encounter Care Teams Forensic Identification Specialist Relationship Specialty Start Date End Date Matt Rodriguez MD [address] [place] [id number] PCP - General Internal Medicine 10/24/14 11/29/15 Shelly Fonseca MD [address] [place] [address] PCP - General Internal Medicine 11/30/15 02/10/20 Nithin Salguero MD [address] [place] [address] Endocrinology 10/29/18 documented as of this encounter
--- OUTSIDE RECORDS SUMMARY | 2024-08-22 09:25 | XMS_ITS | Clinical Summary ---
Author Organization [facility] Address [address] [place] [address] Care Team Providers Care Advertising Sales Consultant Name Role Phone Matt Rodriguez MD Primary [...] infarction 02/06/2015 Overview: 1. Acute inf wall [place] 08/18/04 2. Cardiac cath--08/18/04--mild LAD, mild Cx, mod diag, 100% RCA 3. 08/18/04 3 x 25 TAXUS stent in mid RCA 4. Cath--10/24/09--sever stenosis distal to prefious stent 5. 3.5 x 15 xscience in RCA 6/ nuclear stress--04/09/12--54% EF, fixed inf defect 7. 01/03/15--adm in [place] for unstable angina 8. 01/03/15--nuclear stress--inferior ischemic [...] 76 12/15/2016 3:06 PM EDT Temperature 36.8 C (98.2 F) 10/29/2016 11:54 AM EDT Respiratory Rate 18 10/29/2016 11:54 AM EDT [...] Vaccine (1 of 1 - PCV) 08/29/2019 DTap / Tdap / Td (3 - Td or Tdap) 04/09/2024 04/09/2014, 04/08/2013 Influenza Vaccine (Season Ended) 2024 RSV Adult > 60+ Yrs or (1 - 1-dose 75+ series) 2029 Hepatitis B Vaccines Aged Out No long er eligible based on patient's age to complete this topic RSV Ped < 20 months Aged Out No longe r eligible based on patient's age to complete this topic Medical Devices Implanted Type Area Camp Boss Device Identifier Shelf Expiration Date Model / Serial / Lot Stent Resolute [place] 22mm 3mm Rapdx Zotarolimus Eluting - [id number] - [id number] Implanted: 017 at [facility] [place] [facility] (Quantity not on file) [employer] - VASCULAR [id number] / / Advance Directives For more information, please contact: [phone] Latest Code Status on File Code Status [...] way: discussion with patient . Care Teams Advertising Sales Consultant Relationship Specialty Start Date End Date Matt Rodriguez MD PCP - General Family Medicine 11/07/14
== END 2024-08-22 09:49 | disposition home or self-care (01) ==
LOC: HO.HVS 09:09
PROVIDERS: PCP Internal Medicine; Visit Provider Surgery Vascular Surgery
DX: I73.9 Peripheral vascular disease, unspecified (principal)
CPT/HCPCS: 99214; G2211

== ENCOUNTER → 2024-08-22 09:09 | Outpatient (BNVA) | payer MEDICARE, SELFPAY | PROVIDERS: PCP Internal Medicine; Visit Provider Surgery Vascular Surgery | DX: M79.605 Pain in left leg (principal); I73.9 Peripheral vascular disease, unspecified; E11.9 Type 2 diabetes mellitus without complications; Z87.891 Personal history of nicotine dependence | CPT/HCPCS: 99212 ==

== ENCOUNTER → 2024-09-04 07:17 | Day surgery (SDC) | payer MEDICARE, SELFPAY ==
[2024-09-04 07:54] VITALS: BMI 28.4
[2024-09-04 08:03] LABS: MANUAL DIFF FLAG NO
[2024-09-04 08:05] LABS: Hematocrit 40.0 % (42.0-52.0); Hemoglobin 13.9 g/dl (14.0-18.0); Imm Gran Abs Auto 0.03 X10*3/uL (0.00-0.03); Imm Gran Pct Auto 0.4 % (0.0-0.4); Lymphocytes Absolute Auto 1.7 X10*3/uL (1.2-4.9); Mean Corpuscular HGB Conc 34.8 g/dl (31.0-36.0); Mean Corpuscular Hemoglobin 31.9 pg (27.0-33.0); Mean Corpuscular Volume 91.7 fL (80.0-98.0); NRBC Abs Auto 0.000 X10*3/uL (0.0-0.012); NRBC Pct Auto 0.0 /100WBC (0.0-0.2); Platelet Count 168 X10*3/uL (160-400); Red Blood Count 4.36 X10*6/uL (4.60-5.80); White Blood Count 7.3 X10*3/uL (4.8-10.8)
[2024-09-04 08:15] LABS: Blood Urea Nitrogen 13 mg/dL (9-16); Creatinine Clr Calc Pharmacy 70.2; Estimated Glomerular Filt Rate > 60
[2024-09-04 08:45] LABS: Glucose, Whole Blood 119 mg/dL (60-115)
[2024-09-04 08:57] VITALS: BP 163/84; PULSE 79; RESP 18; TEMP 36.8; O2SAT 100
--- NOTE | 2024-09-04 09:51 | PC.NURSE ---
Dr. Brown's office did not notify OR that patient had been cancelled yesterday. Patient and OR ready for patient. OR nurses contacted office due to no arrival/response from doctor. Patient aware to f/u with doctor to re-schedule. patient left with all belongings and signed belongings list of this fact. Patient ride in lobby. IV removed.
== END ==
LOC: HO.SSS 07:17
PROVIDERS: PCP Internal Medicine; Visit Provider Surgery Vascular Surgery
DX: I73.9 Peripheral vascular disease, unspecified (principal); Z53.8 Procedure and treatment not carried out for other reasons
CPT/HCPCS: 36415; 82565; 82947; 84520; 85025; J1644; J2250; J3010; Q9967

== ENCOUNTER 2024-09-10 11:20 | Outpatient (AMB) | payer MEDICARE, SELFPAY ==
--- NOTE | 2024-09-10 11:28 | MHC.PC.OV ---
Vital Signs 09/10/24 11:29 Height 6 ft Weight 208 lb BMI 28.2 BP 120/76 Blood Pressure Location Lt brachial Position Sitting Pulse 73 Pulse Source Pulse Oximeter Temp 97.9 F Temp Source Oral Pulse Oximetry (%) 97 Intake Visit Reasons: 3M F/U Allergies No Known Allergies (No Known Allergies*) Allergy (Verified 09/10/24 11:29) Medication List - Last Reconciled 09/10/24 by Padma Tanner MD aspirin (Adult Low Dose Aspirin) 81 mg PO DAILY blood sugar diagnostic check sugar three times a day cholecalciferol (vitamin D3) 25 mcg PO DAILY clopidogrel 75 mg PO DAILY cyanocobalamin (vitamin B-12) (Vitamin B-12) 1,000 mcg PO DAILY Dexcom G7 Bioinformatics Software Engineer (blood-glucose,slurry tank tender,cont) check blood sugar three times daily NS Dexcom G7 Sensor (blood-glucose sensor) check blood sugar three times daily NS ezetimibe 10 mg PO DAILY insulin glargine U-300 conc (Toujeo Max U-300 SoloStar) 90 units (0.3 mL) subcut DAILY 90 days lisinopril 2.5 mg PO DAILY 90 days nitroglycerin 0.4 mg sublingual Q5M PRN omeprazole 20 mg PO DAILY 90 days pen needle, diabetic (Pen Needle) use one daily risankizumab-rzaa (Skyrizi) 150 mg subcut Q12W rosuvastatin 40 mg PO DAILY 90 days Tobacco use date assessed: 05/30/24 Fall risk assessment: No Falls in past year Last assessed Fall Risk: 09/10/24 Dental Screening Dental Screen Date: 05/30/24 HPI 3M F/U HPI Details History - The patient is a 69-year-old male presenting presenting for his regular follow-up appointment and ongoing care - Patient will have surgical procedure soon due to a blockage in a vessel of the left leg. - The patient reports large varicose veins present across the legs, initially prompting a consultation with his physician.. - The patient's hemoglobin levels have shown a downward trend over recent years, with values of 15.1 and 15.2 in 2022, around 14 last year, and currently, 13.9. - The patient denies any symptoms of hemorrhoids or constipation, and a recent colonoscopy indicated the absence of any significant findings or hemorrhoids. - Past medical history includes a transfusion following Xarelto use, now discontinued, though the patient continues clopidogrel and aspirin. - The patient is actively monitoring blood sugar levels after a recent insulin dosage adjustment; past HbA1c of 6.5 suggests good glucose control. - The patient is concerned about potential iron deficiency given the current hemoglobin levels. Problem List - Type 2 Diabetes Mellitus - Essential Hypertension - Gastroesophageal Reflux Disease (GERD) - Hyperlipidemia - History of Right Knee Surgeries - Peripheral Vascular Concerns Social History: - Patient enjoys golfing, indicating moderate physical activity.. - Nutritional supplements mentioned include vitamin B12 and vitamin D. Medications - Aspirin - Clopidogrel - Fuzetia insulin - Lisinopril 2.5 mg - Omeprazole 20 mg for GERD - Rosuvastatin 40 mg for lipid control - Vitamin D Problem List - Peripheral artery disease with vascular blockage in the left leg - Type 2 Diabetes Mellitus - Anemia of uncertain etiology - Varicose veins - Hypertension - Dyslipidemia - Gastroesophageal Reflux Disease (GERD) Diagnostic results - Labs: Current hemoglobin level of 13.9, showing a decrease from prior values of 14 and above. Vitamin B12 level of 360, which falls within the normal range. - Tests and Diagnostics: Recent colonoscopy indicates no presence of hemorrhoids. Kidney function well within normal limits. Liver enzymes satisfactory, and total bilirubin at 1.3. [place] of Care - Current care from Dr. Brown and Cardiology Patient Instructions - Begin taking iron supplements to address hemoglobin levels. - Add a stool softener if iron supplements cause constipation. - plan on reducing insulin by 5 units. - Schedule repeat labs after one month to reassess hemoglobin and iron levels. - Continue regular activities and monitor for any symptoms of low blood sugar. Review of Systems General: No fever no chills neurological: No headaches no dizziness ear nose throat: No sore throat no hearing difficulty no ear pain cardiovascular: No syncope, no chest pain, no palpitations gastrointestinal: No nausea vomiting or diarrhea endocrine: No polyuria polydipsia no heat intolerance Physical Exam general: No acute distress HEENT: No acute findings neck: Supple respiratory system: Lung is clear, able to talk in full sentences, no audible wheeze, no stridor cardiovascular: Heart sounds fine, S1-S2 RRR gastrointestinal: No pain extremities: Large varicosities both lower extremity PLASTER TENDER: Alert awake oriented x3 motor sensory intact skin: Normal turgor [facility] Medical History DVT (deep venous thrombosis) (~2013) Pulmonary embolism HTN (hypertension) Old inferior wall myocardial infarction (~07/2004) CAD (coronary artery disease) Vitamin D deficiency Lipid disorder Psoriasis 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 Brother No problems noted. Son No problems noted. Daughter No problems noted. Social History Household Members: Spouse Household Members Other:: retired, lives in [place] for the winter Housing: House Are you a primary home care rn to a significant other at home: No Do you presently have visiting nurse or other home services: No Patient Tobacco Use Status: Former Tobacco user Years Smoked: 20 years e-Cigarette/Vaping Use: Never Used service: No Current occupational status: retired Cognitive needs: No Hearing needs: No Vision needs: Yes Questionnaire PHQ-9 Over the last 2 weeks, how often have you been bothered by any of the following problems? 1. Little interest or pleasure in doing things: not at all 2. Feeling down, depressed, or hopeless: not at all 3. Trouble falling or staying asleep, or sleeping too much: not at all 4. Feeling tired or having little energy: several days 5. Poor appetite or overeating: not at all 6. Feeling bad about yourself - or that you are a failure or have let yourself or your family down: not at all 7. Trouble concentrating on things, such as reading the newspaper or watching television: not at all 8. Moving or speaking so slowly that other people could have noticed. Or the opposite - being so fidgety or restless that you have been moving around a lot more than usual: not at all 9. Thoughts that you would be better off or of hurting yourself in some way: not at all Total score: 1 Depression Screening Interpretation: Negative Depression Screening Done: Yes 12815 - PHQ-9 Billing: Yes Source: Developed by Drs. Anthony Yang, Mirna Griggs, Damian Nava and colleagues, with an educational angelo from [employer]. Thrive Questionnaire Date Thrive assessed: 09/10/24 I am a: Patient What is your living situation today?: I have a steady place to live Within the past 12 months, did the food you bought not last and you didn't have the money to get more?: Never true Within the past 12 months, did you worry whether your food would run out before you got money to buy more?: Never true Do you have trouble paying for medicines?: No Do you have trouble getting transportation to medical appointments?: No Do you have trouble paying your heating and electricity bill?: No Do you have trouble taking care of your child, family member or friend?: No Do you have trouble with day-to-day activities such as bathing, preparing meals, shopping, managing finances, etc.?: No Are you currently unemployed and looking for a job?: No Are you interested in more education?: No Please select the resources that you would like help with: None Currently or been in a relationship where the following occur: No concerns reported THRIVE Score: 0 AUDIT C Alcohol Use Questionnaire (AUDIT-C) 1. How often do you have a drink containing alcohol?: 2-3 times a week 2. How many drinks containing alcohol do you have on a typical day when you are drinking?: 1 or 2 3. How often do you have six or more drinks on one occasion?: Less than monthly Total Score: 4 Score Reviewed/Action Taken: Yes BRITTANY-7 AMB Questionnaire BRITTANY-7 Date BRITTANY - 7 assessed: 09/10/24 Feeling nervous, anxious, or on edge: 0 = Not at all Not being able to stop or control worryin = Not at all Worrying too much about different things: 0 = Not at all Trouble relaxin = Not at all Being so restless that it is hard to sit still: 0 = Not at all Becoming easily annoyed or irritable: 0 = Not at all Feeling afraid as if something awful might happen: 0 = Not at all Total BRITTANY-7 score (0-4 normal; 5-9 mild; 10-14 moderate; 15-21 severe): 0 Source: Developed by Drs. Anthony Yang, Mirna Griggs, Damian Nava and colleagues, with an educational angelo from [employer]. BRITTANY-7 Assessment Billing BRITTANY-7 Assessment Tool: BRITTANY-7 Assessment 37524 Physical exam (Primary Care) Vital Signs: Last Vital Signs Temp 97.9 F 09/10/24 11:29 Pulse 73 09/10/24 11:29 BP 120/76 09/10/24 11:29 Pulse Ox 97 09/10/24 11:29 BMI result Body Mass Index 28.2 Tobacco/Smoking Status: Tobacco use Status Tobacco use date assessed 05/30/24 09/10/24 11:32 Patient Tobacco Use Status Former Tobacco user 09/10/24 11:32 e-Cigarette/Vaping Use Never Used 09/10/24 11:32 PHQ-9: PHQ-9 Score PHQ-9: Total score 1 09/10/24 11:45 Depression Screening Interpretation: Negative Thrive Assessment: Date of Thrive Assessment Date Thrive assessed 09/10/24 09/10/24 11:32 Currently or been in a relationship where the following occur: No concerns reported Coding Level of Care Code Est Pt Level 4 (84685) Complex EM visit Add On G2211 Diagnoses Diabetes 1.5, managed as type 1 E13.9 Microcytic anemia D50.9 PAD (peripheral artery disease) I73.9 Coronary artery disease involving [place] coronary artery of [place] heart without angina pectoris I25.10 Coronary Disease-Associated Artery/Lesion type: [place] artery [place] vs. 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 Z79.4 Lipid disorder E78.9 Vitamin D deficiency E55.9 Parkinson's disease with dyskinesia and fluctuating manifestations G20.B2 Dyskinesia presence: with dyskinesia Fluctuating manifestations: with fluctuating manifestations Polyneuropathy associated with underlying disease G63 Peripheral neuropathy type: polyneuropathy associated with underlying disease Additional Codes BRITTANY-7 Assessment Billing - BRITTANY-7 Assessment Tool: BRITTANY-7 Assessment 36318 ([id number]) PHQ-9 - 17748 - PHQ-9 Billing: Yes ([id number]) Assessment & Plan Assessment & Plan (1) Diabetes 1.5, managed as type 1: Code(s): E13.9 - Other specified diabetes mellitus without complications Category: Medical (2) Microcytic anemia: Code(s): D50.9 - Iron deficiency anemia, unspecified Category: Medical (3) PAD (peripheral artery disease): Code(s): I73.9 - Peripheral vascular disease, unspecified Category: Medical Plan: Patient notes leg pain when walking distances. I have discussed the pathophysiology of peripheral vascular disease with the patient. I have also discussed risk factor modification. I have reviewed the patient's arterial testing which reveals left iliac disease on CT scan. the patient would benefit from a left leg endovascular peripheral angiogram with possible angioplasty, stent, and/or atherectomy. This has been discussed in detail with the patient along with risks, benefits, and complications. This includes but is not limited to bleeding, infection, heart attack, need for emergent surgical repair, limb ischemia, blood vessel damage, bleeding, puncture, kidney injury, bruising, allergic reaction, and skin reaction. The patient demonstrates a clear understanding. We will schedule for the next appropriate time. Thank you for allowing us to assist in this patient's care. (4) CAD (coronary artery disease): Code(s): I25.10 - Atherosclerotic heart disease of [place] coronary artery without angina pectoris Category: Medical Qualifiers: Coronary Disease-Associated Artery/Lesion type: [place] artery [place] vs. transplanted heart: [place] heart Associated angina: without angina Qualified Code(s): I25.10 - Atherosclerotic heart disease of [place] coronary artery without angina pectoris Plan: CAD with prior RCA stent with evidence of inferior infarct on the echocardiogram last year. He is currently no symptoms at current functional status. Overall LV ejection fraction is preserved. Continue aggressive medical therapy. Continue dual antiplatelet therapy due to late stent thrombosis. He is tolerating them well. Continue aggressive blood pressure control. His LDL is currently well optimized on dual therapy with statins and ezetimibe. Continue the same. Management of coronary artery disease was discussed in details. He is currently reviewing orthopedic options for his right knee issues. (5) HTN (hypertension): Code(s): I10 - Essential (primary) hypertension Category: Medical Qualifiers: Hypertension type: primary hypertension Qualified Code(s): I10 - Essential (primary) hypertension Plan: Hypertension which is currently well optimized on low-dose lisinopril therapy. Continue current management. Importance of good blood pressure control was discussed. Advised intermittent monitoring her blood pressure at home. Low-salt diet was discussed. Will follow up in the clinic in 1 year's time, sooner p.r.n.. 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 Category: Medical (7) Lipid disorder: Code(s): E78.9 - Disorder of lipoprotein metabolism, unspecified Category: Medical (8) Vitamin D deficiency: Code(s): E55.9 - Vitamin D deficiency, unspecified Category: Medical (9) Parkinsons disease: Code(s): G20 - Parkinson's disease Category: Medical Qualifiers: Dyskinesia presence: with dyskinesia Fluctuating manifestations: with fluctuating manifestations Qualified Code(s): G20.B2 - Parkinson's disease with dyskinesia, with fluctuations (10) Peripheral neuropathy: Code(s): G62.9 - Polyneuropathy, unspecified Category: Medical Qualifiers: Peripheral neuropathy type: polyneuropathy associated with underlying disease Qualified Code(s): G63 - Polyneuropathy in diseases classified elsewhere Plan History - The patient is a 69-year-old male with a history of Parkinson's disease established with Neurology, presenting presenting for his regular follow-up appointment and ongoing care - Patient will have surgical procedure soon due to a blockage in a vessel of the left leg. - The patient reports large varicose veins present across the legs, initially prompting a consultation with his physician.. - The patient's hemoglobin levels have shown a downward trend over recent years, with values of 15.1 and 15.2 in 2022, around 14 last year, and currently, 13.9. - The patient denies any symptoms of hemorrhoids or constipation, and a recent colonoscopy indicated the absence of any significant findings or hemorrhoids. - Past medical history includes a transfusion following Xarelto use, now discontinued, though the patient continues clopidogrel and aspirin. - The patient is actively monitoring blood sugar levels after a recent insulin dosage adjustment; past HbA1c of 6.5 suggests good glucose control. - The patient is concerned about potential iron deficiency given the current hemoglobin levels. Problem List - Type 2 Diabetes Mellitus - Essential Hypertension - Gastroesophageal Reflux Disease (GERD) - Hyperlipidemia - History of Right Knee Surgeries - Peripheral Vascular Concerns Social History: - Patient enjoys golfing, indicating moderate physical activity.. - Nutritional supplements mentioned include vitamin B12 and vitamin D. Medications - Aspirin - Clopidogrel - Fuzetia insulin - Lisinopril 2.5 mg - Omeprazole 20 mg for GERD - Rosuvastatin 40 mg for lipid control - Vitamin D Problem List - Peripheral artery disease with vascular blockage in the left leg - Type 2 Diabetes Mellitus - Anemia of uncertain etiology - Varicose veins - Hypertension - Dyslipidemia - Gastroesophageal Reflux Disease (GERD) - Parkinson's disease Diagnostic results - Labs: Current hemoglobin level of 13.9, showing a decrease from prior values of 14 and above. Vitamin B12 level of 360, which falls within the normal range. - Tests and Diagnostics: Recent colonoscopy indicates no presence of hemorrhoids. Kidney function well within normal limits. Liver enzymes satisfactory, and total bilirubin at 1.3. [place] of Care - Current care from Dr. Brown and Cardiology and Neurology Patient Instructions - Begin taking iron supplements to address hemoglobin levels. - Add a stool softener if iron supplements cause constipation. - plan on reducing insulin by 5 units. - Schedule repeat labs after one month to reassess hemoglobin and iron levels. - Continue regular activities and monitor for any symptoms of low blood sugar. Orders: Orders Complete Blood Count Auto Diff Today D50.9 - Iron deficiency anemia, unspecified Ferritin Today D50.9 - Iron deficiency anemia, unspecified Medications: New ferrous sulfate 324 mg PO .qd 90 tabs 0RF 90 days
[2024-09-10 11:29] VITALS: BP 120/76; PULSE 73; TEMP 36.6; O2SAT 97; BMI 28.2
--- OUTSIDE RECORDS SUMMARY | 2024-09-10 12:37 | XMS_ITS | Encounter Summary ---
Author Organization [facility] Address [address] [place] [id number] Care Team Providers Care Zinc Plate Cutter Name Role Phone Matt Rodriguez MD Primary Care Provider Shelly Fonseca MD Primary Care Provider [phone] Nithin Salguero MD Unavailable [phone] Encounter Details Date Type Department Care Team (Late st Contact Info) Description 02/06/2015 Scanned Document [address] [id number] Provider, Generic Social History Tobacco [...] on filedocumented in this encounter Care Teams Zinc Plate Cutter Relationship Specialty Start Date End Date Matt Rodriguez MD [address] [place] [id number] PCP - General Internal Medicine 10/24/14 11/29/15 Shelly Fonseca MD [address] [place] [address] PCP - General Internal Medicine 11/30/15 02/10/20 Nithin Salguero MD [address] [place] [address] Endocrinology 10/29/18 documented as of this encounter
--- OUTSIDE RECORDS SUMMARY | 2024-09-10 12:37 | XMS_ITS | Clinical Summary ---
Author Organization [facility] Address [address] [place] [address] Care Team Providers Care French Teacher Name Role Phone Matt Rodriguez MD Primary Care Provider [phone] Surgical History Surgery Date Site/Laterality Comments HIP ARTHROPLASTY Right PROCEDURE:HIP ARTHROPLASTY KNEE ARTHROPLASTY Right PROCEDURE:KNEE ARTHROPLASTY;COMMENT:x2 CARDIAC CATHETERIZATION 10/28/2016 N/A PROCEDURE:CARDIAC CATHETERIZATION;COMMENT:Procedure: LEFT HEART CATHETERIZATION ? 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; Service: Cardiology; Laterality: N/A; Medical History Medical History Date Comments Acute transmural inferior wa ll [place] ([facility] V24, [facility] V28) 08/20/04 DX:Acute transmural inferio r wall [place] (HCC) H/O cardiac catheterization 08/20/04 DX:H /O cardiac catheterization;COMMENT:3x20 3x16 taxus Unstable angina ([facility]/HCC V24 , CMS/HCC V28) 10/27/09 DX:Unstable angina ([facility]) H/O cardiac catheterization 10/27/09 DX:H /O cardiac catheterization;COMMENT:3 x15 xcience distal RCA, 50% LAD, nl cx Psoriasis DX:Psoriasis 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, managed as typ e 2 (CMS/HCC V24, CMS/HCC V28) DX:Diabetes 1.5, managed as type 2 ([facility]) Hypertension DX:Hypertension Pulmonary embolus (CMS/[facility] V 24, CMS/[facility] V28) DX:Pulmonary embolus (HCC) Hx of cardiac cath 01/02/15 DX:Hx of card iac cath;COMMENT:high grade RCA, 2.5 x 14 resolute stent placed Coronary stent thrombosis 01/09/15 DX:Cor onary stent thrombosis;COMMENT:inf [place], started on effient Social History Tobacco Use [...] Vaccine (1 - 2023-2 5 season) 2023 Depression Screening 02/21/2024 Influenza Vaccine (#1) 2024 RSV Immunization Adult [...] age to complete this topic Care Teams French Teacher Relationship Specialty Start Date End Date Matt Rodriguez MD [address] [place] [id number] PCP - General Family Medicine 11/07/14
--- OUTSIDE RECORDS SUMMARY | 2024-09-10 12:38 | XMS_ITS | Data Portability ---
Author Organization [place] - Nithin gamez MD, Main Office Address [address] [facility] [address] [address] Assessment Encounter Date Assessment Date Assessment LastModified [...] frequent foot care and needs to see health manager yearly. Other Instructions: NEEDS TO START [...] BREAKFAST AND DINNER, TAKE VASCEPA 1000MG 2 ACCESS CONTROL OFFICER PO TWICE A DAY BREAKFAST AND [...] UP IN JANUARY BEFORE GOING AWAY TO [facility]. IN FEB , SET [...] SIDE EFFECT OF HUMIRA? , MOVING TO [place] IN , WILL FOLLW UP IN JUNE [email or web address] Not available 02/07/2017 12:49:41 Reason for Referral None Reported. Results Created Date Observation Date Name Description Value Unit Range Abnormal Flag Note LastModifiedBy Organization Detail LastModifiedTime 07/13/19 17 07/12/2016 lipid panel , serum cholesterol, total 136 mg/dL 125-20 0 normal Not Available [facility] [address], [address], 07/12/2016 21:53:04 07/13/19 17 07/12/2016 lipid panel , serum HDL cholesterol 46 mg/dL > or = 40 normal Not Available [facility] [address], [address], 07/12/2016 21:53:04 07/13/19 17 07/12/2016 lipid panel , serum triglyceride s 171 mg/dL <150 high Not Available [facility] [address], [address], 07/12/2016 21:53:04 07/13/19 17 07/12/2016 lipid panel , serum LDL-choleste rol 56 mg/dL _(dennys c) <130 normal Corey able range <100 mg/dL for patie nts with CHD or diabe angel and <70 mg/dL for diabe tic patie nts with known heart disea se. Not Available [facility] [address], [place], [address], 07/12/2016 21:53:04 07/13/19 17 07/12/2016 lipid panel , serum chol/HDLC ratio 3.0 (calc ) < or = 5.0 normal Not Available [facility] [place] [facility] [address], [place], [address], 07/12/2016 21:53:04 07/13/19 17 07/12/2016 lipid panel , serum non HDL cholesterol 90 mg/dL _(dennys c) normal Targe t for non-H DL shea stero l is 30 mg/dL highe r than LDL shea stero l targe t. Not Available [facility] [place] [facility] [address] [place], [place], [address], 07/12/2016 21:53:04 07/13/19 17 07/12/2016 lipid panel , serum copy(ies) sent to: [facility] [address] [place] [address] CENTR AL CONN CARDI OLOGY 19 [facility] [address] [place] [address] Not Available [facility] [place] [facility] [address] [place], [place], [address], 07/12/2016 21:53:04 07/13/19 17 07/12/2016 CMP, serum or plasm a glucose 129 mg/dL 65-99 high Fasti ng refer ence inter bria For someo ne witho ut known diabe angel, a gluco se value >125 mg/dL indic ates that they may have diabe angel and this shoul d be confi rmed with a follo w-up test. Not Available [facility] [place] [facility] [address] [place], [place], [address], 07/12/2016 21:53:05 07/13/19 17 07/12/2016 CMP, serum or plasm a urea nitrogen (BUN) 19 mg/dL 7-25 normal Not Available [facility] [place] [facility] [address], [address], 07/12/2016 21:53:05 07/13/19 17 07/12/2016 CMP, serum or plasm a creatinine 1.14 mg/dL 0.70-1 .25 normal For patie nts >49 years of age, the refer ence limit for Creat inine is appro ximat marti 13% highe r for peopl e ident ified as Afric an-Am jessica n. Not Available [facility] [place] [facility] [address], [place], [address], 07/12/2016 21:53:05 07/13/19 17 07/12/2016 CMP, serum or plasm a eGFR non-afr. british 69 mL/mi n/1.7 3m2 > or = 60 normal Not Available [facility] [place] [facility] [address], [place], [address], 07/12/2016 21:53:05 07/13/19 17 07/12/2016 CMP, serum or plasm a eGFR 80 mL/mi n/1.7 3m2 > or = 60 normal Not Available [facility] [place] [facility] [address], [place], [address], 07/12/2016 21:53:05 07/13/19 17 07/12/2016 CMP, serum or plasm a BUN/creatini ne ratio NOT APPLIC ABLE (calc ) 6-22 Not Available [facility] [address], [address], 07/12/2016 21:53:05 07/13/19 17 07/12/2016 CMP, serum or plasm a sodium 140 mmol/ L 135-14 6 normal Not Available [facility] [address], [address], 07/12/2016 21:53:05 07/13/19 17 07/12/2016 CMP, serum or plasm a potassium 4.5 mmol/ L 3.5-5. 3 normal Not Available [facility] [address], [place], [address], 07/12/2016 21:53:05 07/13/19 17 07/12/2016 CMP, serum or plasm a chloride 105 mmol/ L 98-110 normal Not Available [facility] [address], [place], [address], 07/12/2016 21:53:05 07/13/19 17 07/12/2016 CMP, serum or plasm a carbon dioxide 25 mmol/ L 20-31 normal Not Available [facility] [address], [place], [address], 07/12/2016 21:53:05 07/13/19 17 07/12/2016 CMP, serum or plasm a calcium 10.2 mg/dL 8.6-10 .3 normal Not Available [facility] [address], [place], [address], 07/12/2016 21:53:05 07/13/19 17 07/12/2016 CMP, serum or plasm a protein, total 7.7 g/dL 6.1-8. 1 normal Not Available [facility] [address], [place], [address], 07/12/2016 21:53:05 07/13/19 17 07/12/2016 CMP, serum or plasm a albumin 4.7 g/dL 3.6-5. 1 normal Not Available [facility] [address], [address], 07/12/2016 21:53:05 07/13/19 17 07/12/2016 CMP, serum or plasm a globulin 3.0 g/dL_ (calc ) 1.9-3. 7 normal Not Available [facility] [address] [place], [place], [address], 07/12/2016 21:53:05 07/13/19 17 07/12/2016 CMP, serum or plasm a albumin/glob ulin ratio 1.6 (calc ) 1.0-2. 5 normal Not Available [facility] [place] [facility] [address], [place], [address], 07/12/2016 21:53:05 07/13/19 17 07/12/2016 CMP, serum or plasm a bilirubin, total 0.9 mg/dL 0.2-1. 2 normal Not Available [facility] [address], [place], [address], 07/12/2016 21:53:05 07/13/19 17 07/12/2016 CMP, serum or plasm a alkaline phosphatase 62 U/L 40-115 normal Not Available [facility] [address], [place], [address], 07/12/2016 21:53:05 07/13/19 17 07/12/2016 CMP, serum or plasm a AST 22 U/L 10-35 normal Not Available [facility] [address], [place], [address], 07/12/2016 21:53:05 07/13/19 17 07/12/2016 CMP, serum or plasm a ALT 21 U/L 9-46 normal Not Available [facility] [address], [place], [address], 07/12/2016 21:53:05 07/13/19 17 07/12/2016 CMP, serum or plasm a copy(ies) sent to: [facility] [address] [address] CENTR [place] CONN CARDI OLOGY 19 [facility] [address] [place] [address] Not Available [facility] [place] [facility] [address], [address], 07/12/2016 21:53:05 07/13/19 17 07/12/2016 HbA1c (hemo [...] diabe angel for child kate. Not Available [facility] [place] [facility] [address], [address], 07/12/2016 21:27:59 07/13/19 17 07/12/2016 HbA1c (hemo globi n A1c), blood mean plasma glucose 190 mg/dL _(dennys c) Not Available [facility] [place] [facility] [address], [address], 07/12/2016 21:27:59 07/13/19 17 07/12/2016 HbA1c (hemo globi n A1c), blood copy(ies) sent to: [facility] [address] [place] [address] CENTR AL CONN CARDI OLOGY 19 [facility] [address] [place] [address] Not Available [facility] [place] [facility] [address] [place], [place], [address], 07/12/2016 21:27:59 10/14/19 17 10/14/2016 lipid panel , serum cholesterol, total 145 mg/dL <200 normal Not Available [facility] [place] [facility] [address] [place], [place], [address], 10/14/2016 02:33:54 10/14/1910/14/2016 lipid panel , serum HDL cholesterol 45 mg/dL >40 normal Not Available [facility] [place] [facility] [address] [place], [place], [address], 10/14/2016 02:33:54 10/14/1910/14/2016 lipid panel , serum triglyceride s 174 mg/dL <150 high Not Available [facility] [place] [facility] [address] [place], [place], [address], 10/14/2016 02:33:54 10/14/1910/14/2016 lipid panel , serum LDL-choleste rol 73 mg/dL _(dennys c) normal Refer ence range : <100 Corey able range <100 mg/dL for patie nts with CHD or diabe angel and <70 mg/dL for diabe tic patie nts with known heart disea se. The [facility] popeye mondragon n is a valid ated [...] ional infor pipo will refer to http: //[facility] vane Rodriguez stDia gnost ics.c om/fa q/FAQ 164 (This link is being provi ded for infor toña garza/ devin romeoo ses only. ) Not Available [facility] [place] [facility] [address], [place], [address], 10/14/2016 02:33:54 10/14/19 17 10/14/2016 lipid panel , serum chol/HDLC ratio 3.2 (calc ) <5.0 normal Not Available [facility] [address], [place], [address], 10/14/2016 02:33:54 10/14/19 17 10/14/2016 lipid panel , serum non HDL cholesterol 100 mg/dL _(dennys c) <130 normal For patie nts with diabe angel plus 1 major ASCVD risk facto r, treat ing to a non-H DL-C goal of <100 mg/dL (LDL- C of <70 mg/dL ) is consi geneva prabhakar n. Not Available [facility] [address], [place], [address], 10/14/2016 02:33:54 10/14/19 17 10/14/2016 lipid panel , serum copy(ies) sent to: [facility] [address] [place] [address] CARD[address]LOGI STS 7 [facility] [place] [address] Not Available [facility] [address], [place], [address], 10/14/2016 02:33:54 10/14/19 17 10/14/2016 micro album in/cr eatin ine, mass ratio , urine creatinine, random urine 184 mg/dL 20-370 normal Not Available [facility] [address] [place], [address], 10/14/2016 14:41:21 10/14/19 17 10/14/2016 micro album in/cr eatin ine, mass ratio , urine microalbumin 4.4 mg/dL see note: normal Refer ence Range : Refer ence Range Not estab lishe d Not Available [facility] [place] [facility] [address] [place], [place], [address], 10/14/2016 14:41:21 10/14/19 17 10/14/2016 micro album [...] a diagn ostic categ ory. Not Available [facility] [address] [place], [place], [address], 10/14/2016 14:41:21 10/14/19 17 10/14/2016 micro album in/cr eatin ine, mass ratio , urine copy(ies) sent to: [facility] [address] [place] [address] CARDI OLOGI STS 7 [facility] [place] [address] Not Available [facility] [address] [place], [place], [address], 10/14/2016 14:41:21 10/14/19 17 10/14/2016 CMP, serum or plasm a glucose 67 mg/dL 65-99 normal Fasti ng refer ence inter bria Not Available [facility] [place] [facility] [address] [place], [address], 10/14/2016 02:33:55 10/14/1910/14/2016 CMP, serum or plasm a urea nitrogen (BUN) 18 mg/dL 7-25 normal Not Available [facility] [place] [facility] [address] [place], [address], 10/14/2016 02:33:55 10/14/1910/14/2016 CMP, serum or plasm a creatinine 1.04 mg/dL 0.70-1 .25 normal For patie nts >49 years of age, the refer ence limit for Creat inine is appro ximat marti 13% highe r for peopl e ident ified as Afric an-Am jessica n. Not Available [facility] [place] [facility] [address] [place], [place], [address], 10/14/2016 02:33:55 10/14/1910/14/2016 CMP, serum or plasm a eGFR non-afr. british 77 mL/mi n/1.7 3m2 > or = 60 normal Not Available [facility] [address] [place], [place], [address], 10/14/2016 02:33:55 10/14/1910/14/2016 CMP, serum or plasm a eGFR 89 mL/mi n/1.7 3m2 > or = 60 normal Not Available [facility] [place] [facility] [address] [place], [place], [address], 10/14/2016 02:33:55 10/14/1910/14/2016 CMP, serum or plasm a BUN/creatini ne ratio NOT APPLIC ABLE (calc ) 6-22 Not Available [facility] [address] [place], [address], 10/14/2016 02:33:55 10/14/1910/14/2016 CMP, serum or plasm a sodium 139 mmol/ L 135-14 6 normal Not Available [facility] [place] [facility] [address] [place], [place], [address], 10/14/2016 02:33:55 10/14/1910/14/2016 CMP, serum or plasm a potassium 4.2 mmol/ L 3.5-5. 3 normal Not Available [facility] [place] [facility] [address] [place], [place], [address], 10/14/2016 02:33:55 10/14/1910/14/2016 CMP, serum or plasm a chloride 105 mmol/ L 98-110 normal Not Available [facility] [place] [facility] [address] [place], [place], [address], 10/14/2016 02:33:55 10/14/1910/14/2016 CMP, serum or plasm a carbon dioxide 21 mmol/ L 20-31 normal Not Available [facility] [place] [facility] [address] [place], [place], [address], 10/14/2016 02:33:55 10/14/1910/14/2016 CMP, serum or plasm a calcium 10.2 mg/dL 8.6-10 .3 normal Not Available [facility] [address] [place], [place], [address], 10/14/2016 02:33:55 10/14/1910/14/2016 CMP, serum or plasm a protein, total 8.1 g/dL 6.1-8. 1 normal Not Available [facility] [address], [place], [address], 10/14/2016 02:33:55 10/14/1910/14/2016 CMP, serum or plasm a albumin 4.8 g/dL 3.6-5. 1 normal Not Available [facility] [address], [place], [address], 10/14/2016 02:33:55 10/14/1910/14/2016 CMP, serum or plasm a globulin 3.3 g/dL_ (calc ) 1.9-3. 7 normal Not Available [facility] [address], [place], [address], 10/14/2016 02:33:55 10/14/1910/14/2016 CMP, serum or plasm a albumin/glob ulin ratio 1.5 (calc ) 1.0-2. 5 normal Not Available [facility] [address], [place], [address], 10/14/2016 02:33:55 10/14/1910/14/2016 CMP, serum or plasm a bilirubin, total 1.0 mg/dL 0.2-1. 2 normal Not Available [facility] [address], [place], [address], 10/14/2016 02:33:55 10/14/1910/14/2016 CMP, serum or plasm a alkaline phosphatase 56 U/L 40-115 normal Not Available [facility] [address], [place], [address], 10/14/2016 02:33:55 10/14/1910/14/2016 CMP, serum or plasm a AST 24 U/L 10-35 normal Not Available [facility] [address], [address], 10/14/2016 02:33:55 10/14/1910/14/2016 CMP, serum or plasm a ALT 22 U/L 9-46 normal Not Available [facility] [address] [place], [place], [address], 10/14/2016 02:33:55 10/14/1910/14/2016 CMP, serum or plasm a copy(ies) sent to: [facility] [address] [place] [address] CARDI OLOGI STS 7 [facility] [place] [address] Not Available [facility] [place] [facility] [address] [place], [place], [address], 10/14/2016 02:33:55 10/14/1910/13/2016 HbA1c (hemo globi n [...] for child kate. Not Available [facility] [place] [facility] [address] [place], [place], [address], 10/13/2016 22:34:56 10/14/1910/13/2016 HbA1c (hemo globi n A1c), blood mean plasma glucose 133 mg/dL _(dennys c) Not Available [facility] [place] [facility] [address] [place], [place], [address], 10/13/2016 22:34:56 10/14/19 17 10/13/2016 HbA1c (hemo globi n A1c), blood copy(ies) sent to: [facility] [address] [place] [address] CARDI OLOGI STS [address] [facility] [place] [address] Not Available [facility] [place] [facility] [address], [place], [address], 10/13/2016 22:34:56 01/31/20 17 01/30/2017 lipid panel , serum cholesterol, total 133 mg/dL <200 normal Not Available [facility] [place] [facility] [address], [place], [address], 01/30/2017 22:58:17 01/31/20 17 01/30/2017 lipid panel , serum HDL cholesterol 36 mg/dL >40 low Not Available [facility] [place] [facility] [address], [place], [address], 01/30/2017 22:58:17 01/31/20 17 01/30/2017 lipid panel , serum triglyceride s 200 mg/dL <150 high Not Available [facility] [address], [place], [address], 01/30/2017 22:58:17 01/31/20 17 01/30/2017 lipid panel [...] 9): 2061- 2068 (http ://ed ucati on.Hyacinth snowdenOxyrane UK. com/f aq/FA Q164) Not Available [facility] [place] [facility] [address], [place], [address], 01/30/2017 22:58:17 01/31/20 17 01/30/2017 lipid panel , serum chol/HDLC ratio 3.7 (calc ) <5.0 normal Not Available [facility] [place] [facility] [address] [place], [place], [address], 01/30/2017 22:58:17 01/31/20 17 01/30/2017 lipid panel , serum non HDL cholesterol 97 mg/dL _(dennys c) <130 normal For patie nts with diabe angel plus 1 major ASCVD risk facto r, treat ing to a non-H DL-C goal of <100 mg/dL (LDL- C of <70 mg/dL ) is consi geneva a clarissa setho n. Not Available [facility] [place] [facility] [address], [place], [address], 01/30/2017 22:58:17 01/31/20 17 01/30/2017 lipid panel , serum copy(ies) sent to: [facility] [address] [place] [address] CENTR AL CONN CARDI OLOGY 19 [facility] [address] [place] [address] Not Available [facility] [place] [facility] [address], [place], [address], 01/30/2017 22:58:17 01/31/20 17 01/30/2017 CMP, serum or plasm a glucose 126 mg/dL 65-99 high Fasti ng refer ence inter bria For someo ne witho ut known diabe angel, a gluco se value >125 mg/dL indic ates that they may have diabe angel and this shoul d be confi rmed with a follo w-up test. Not Available [facility] [place] [facility] [address] [place], [address], 01/30/2017 22:58:17 01/31/20 17 01/30/2017 CMP, serum or plasm a urea nitrogen (BUN) 20 mg/dL 7-25 normal Not Available [facility] [place] [facility] [address] [place], [place], [address], 01/30/2017 22:58:17 01/31/20 17 01/30/2017 CMP, serum or plasm a creatinine 1.50 mg/dL 0.70-1 .25 high For patie nts >49 years of age, the refer ence limit for Creat inine is appro ximat marti 13% highe r for peopl e ident ified as Afric an-Am jessica n. Not Available [facility] [place] [facility] [address] [place], [place], [address], 01/30/2017 22:58:17 01/31/20 17 01/30/2017 CMP, serum or plasm a eGFR non-afr. british 49 mL/mi n/1.7 3m2 > or = 60 low Not Available [facility] [place] [facility] [address] [place], [place], [address], 01/30/2017 22:58:17 01/31/20 17 01/30/2017 CMP, serum or plasm a eGFR 57 mL/mi n/1.7 3m2 > or = 60 low Not Available [facility] [place] [facility] [address] [place], [place], [address], 01/30/2017 22:58:17 01/31/20 17 01/30/2017 CMP, serum or plasm a BUN/creatini ne ratio 13 (calc ) 6-22 normal Not Available [facility] [place] [facility] [address] [place], [place], [address], 01/30/2017 22:58:17 01/31/20 17 01/30/2017 CMP, serum or plasm a sodium 138 mmol/ L 135-14 6 normal Not Available [facility] [place] [facility] [address], [place], [address], 01/30/2017 22:58:17 01/31/20 17 01/30/2017 CMP, serum or plasm a potassium 4.7 mmol/ L 3.5-5. 3 normal Not Available [facility] [place] [facility] [address], [place], [address], 01/30/2017 22:58:17 01/31/20 17 01/30/2017 CMP, serum or plasm a chloride 102 mmol/ L 98-110 normal Not Available [facility] [place] [facility] [address], [place], [address], 01/30/2017 22:58:17 01/31/20 17 01/30/2017 CMP, serum or plasm a carbon dioxide 25 mmol/ L 20-31 normal Not Available [facility] [place] [facility] [address], [place], [address], 01/30/2017 22:58:17 01/31/20 17 01/30/2017 CMP, serum or plasm a calcium 10.4 mg/dL 8.6-10 .3 high Not Available [facility] [place] [facility] [address], [address], 01/30/2017 22:58:17 01/31/20 17 01/30/2017 CMP, serum or plasm a protein, total 8.0 g/dL 6.1-8. 1 normal Not Available [facility] [place] [facility] [address], [address], 01/30/2017 22:58:17 01/31/20 17 01/30/2017 CMP, serum or plasm a albumin 4.6 g/dL 3.6-5. 1 normal Not Available [facility] [address], [place], [address], 01/30/2017 22:58:17 01/31/20 17 01/30/2017 CMP, serum or plasm a globulin 3.4 g/dL_ (calc ) 1.9-3. 7 normal Not Available [facility] [address], [place], [address], 01/30/2017 22:58:17 01/31/20 17 01/30/2017 CMP, serum or plasm a albumin/glob ulin ratio 1.4 (calc ) 1.0-2. 5 normal Not Available [facility] [address], [place], [address], 01/30/2017 22:58:17 01/31/20 17 01/30/2017 CMP, serum or plasm a bilirubin, total 0.9 mg/dL 0.2-1. 2 normal Not Available [facility] [address], [address], 01/30/2017 22:58:17 01/31/20 17 01/30/2017 CMP, serum or plasm a alkaline phosphatase 61 U/L 40-115 normal Not Available [facility] [address], [place], [address], 01/30/2017 22:58:17 01/31/20 17 01/30/2017 CMP, serum or plasm a AST 25 U/L 10-35 normal Not Available [facility] [address], [address], 01/30/2017 22:58:17 01/31/20 17 01/30/2017 CMP, serum or plasm a ALT 25 U/L 9-46 normal Not Available [facility] [address] [place], [place], [address], 01/30/2017 22:58:17 01/31/20 17 01/30/2017 CMP, serum or plasm a copy(ies) sent to: [facility] [address] [place] [facility] [address] CENTR [address] CONN CARDI OLOGY 19 [facility] [address] [place] [address] Not Available [facility] [place] [facility] [address] [place] [address], [place], [address], 01/30/2017 22:58:17 01/31/20 17 01/30/2017 CBC white blood cell count 6.5 thous and/u L 3.8-10 .8 normal Not Available [facility] [address], [place], [address], 01/30/2017 21:29:12 01/31/20 17 01/30/2017 CBC red blood cell count 4.17 nhan on/uL 4.20-5 .80 low Not Available [facility] [place] [facility] [address], [place], [address], 01/30/2017 21:29:12 01/31/20 17 01/30/2017 CBC hemoglobin 13.9 g/dL 13.2-1 7.1 normal Not Available [facility] [place] [facility] [address], [place], [address], 01/30/2017 21:29:12 01/31/20 17 01/30/2017 CBC hematocrit 40.7 % 38.5-5 0.0 normal Not Available [facility] [address], [place], [address], 01/30/2017 21:29:12 01/31/20 17 01/30/2017 CBC MCV 97.5 fL 80.0-1 00.0 normal Not Available [facility] [address], [place], [address], 01/30/2017 21:29:12 01/31/20 17 01/30/2017 CBC MCH 33.2 pg 27.0-3 3.0 high Not Available [facility] [place] [facility] [address], [place], [address], 01/30/2017 21:29:12 01/31/20 17 01/30/2017 CBC MCHC 34.1 g/dL 32.0-3 6.0 normal Not Available [facility] [place] [facility] [address], [place], [address], 01/30/2017 21:29:12 01/31/20 17 01/30/2017 CBC RDW 13.8 % 11.0-1 5.0 normal Not Available [facility] [place] [facility] [address], [place], [address], 01/30/2017 21:29:12 01/31/20 17 01/30/2017 CBC platelet count 189 thous and/u L 140-40 0 normal Not Available [facility] [place] [facility] [address], [place], [address], 01/30/2017 21:29:12 01/31/20 17 01/30/2017 CBC MPV 8.4 fL 7.5-12 .5 normal Not Available [facility] [place] [facility] [address], [place], [address], 01/30/2017 21:29:12 01/31/20 17 01/30/2017 CBC copy(ies) sent to: [facility] [address] [place] [address] CENTR AL CONN CARD[facility]LOG[facility] 19 [facility] [address] [facility] [place] [address] Not Available [facility] [place] [facility] [address], [address], 01/30/2017 21:29:12 01/31/20 17 01/30/2017 vitam in B12, serum vitamin B12 548 pg/mL 200-11 00 normal Not Available [facility] [address], [address], 01/30/2017 22:58:18 01/31/20 17 01/30/2017 vitam in B12, serum copy(ies) sent to: [facility] [address] [facility] [place] [address] CENTR AL CONN CARDI OLOGY 19 [facility] 35 [place] [address] Not Available [facility] [address], [address], 01/30/2017 22:58:18 01/31/20 17 01/31/2017 vitam in [...] /MS is recom sofi d: order code [id number] (johnnie ents >2yrs ). For more infor toña angela on this test, go to: http: [email or web address] (This link is being provi ded for infor toña nal/e ducat ional purpo ses only. ) Not Available [facility] [address], [address], 01/31/2017 02:52:12 01/31/20 17 01/31/2017 vitam in D, 25-hy droxy , total , serum copy(ies) sent to: [facility] [address] [place] [place] [address] CENTR AL CONN CARDI OLOGY 19 [facility] [address] [place] [address] Not Available [facility] [place] [facility] [address] [place], [place], [address], 01/31/2017 02:52:12 01/31/20 17 01/31/2017 HbA1c (hemo [...] Care in Diabe angel(A DA). Not Available [facility] [place] [facility] [address], [place], [address], 01/31/2017 05:18:01 01/31/20 17 01/31/2017 HbA1c (hemo globi n A1c), blood mean plasma glucose 122 mg/dL _(dennys c) Not Available [facility] [place] [facility] [address], [place], [address], 01/31/2017 05:18:01 01/31/20 17 01/31/2017 HbA1c (hemo globi n A1c), blood copy(ies) sent to: [facility] [address] [place] [address] CENTR AL CONN CARDI OLOGY 19 [facility] [address] [facility] [place] [address] Not Available [facility] [place] [facility] [address], [place], [address], 01/31/2017 05:18:01 Result Notes None recorded. Problems Name Problem SNOMED Code Status Onset Date Resolution Date Notes Provider Name and Address Organization Details Recorded Time Type 2 diabetes mellitus 91815222 Active 2016 Nithin armenta MD [address] [place] [address] [place], [address], [place] Nithin Salguero MD 7 13:45:43 Mixed hyperlipidemia 136646793 Active 2016 Nithin armenta MD [address] [place] [address] [place], [address], [place] - Nithin Salguero MD 7 13:46:07 Essential hypertension 64492040 Active 2016 Nithin armenta MD [address] [place] [address] [place], [address], [place] - Nithin Salguero MD 7 13:46:26 Hypercalcemia 81124769 Active 2016 Nithin armenta MD [address] [place] [address] [place], [address], [place] - Nithin Salguero MD 7 13:47:13 Vitamin D deficiency 13351651 Active 2016 Nithin armenta MD [address] [place] [address] [place], [address], [place] RAJESH Salguero MD 13:47:27 Coronary arterioscleros is 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 Procedures Surgical History Date Name Laterality Status Provider Name and Address Organization Details Recorded Time Coronary Artery Stent completed Nithin Salguero MD [address] [place] [address], [address] [place] [address], RAJESH Salguero MD 05/06/2016 13:52:31 Back Surgery completed Nithin Salguero MD [address] [place] [address], [address] [place] [address], RAJESH Salguero MD 05/06/2016 13:53:14 Shoulder joint surgery completed Nithin Salguero MD [address] [place] [address], [address] [place] [address], RAJESH Salguero MD 05/06/2016 13:53:28 Imaging Results [...] Address Organization Details Last Updated DateTime 7 [address].4 g 185.42 cm 27.7 kg/m2 10 /min 72 /min 118/78 mm[Hg] Nithin armenta MD [address] [place], [address] , [place] - Nithin Salguero MD 7 13:48:26 Date Recorded Body weight Body height Body mass index (BMI) Heart rate Systolic And Diastolic Provider Name and Address Organization Details Last Updated DateTime 07/20/2016 89253.29 g 185.42 cm 26.1 kg/m2 64 /min 130/85 mm[Hg] Dominic Bell RAJESH Salguero MD 07/20/2016 11:40:34 Date Recorded Body weight Body mass index (BMI) Body height Respiratory rate Heart rate Systolic And Diastolic Provider Name and Address Organization Details Last Updated DateTime 7 26010.4 7 g 26.4 kg/m2 185.42 cm 12 /min 99 /min 110/78 mm[Hg] Nithin armenta MD [address] [place] [address], [address] , RAJESH Salguero MD 7 14:17:06 Date Recorded Body weight Body mass index (BMI) Body height Respiratory rate Heart rate Systolic And Diastolic Provider Name and Address Organization Details Last Updated DateTime 7 29625.4 4 g 27 kg/m2 185.42 cm 12 /min 83 /min 130/82 mm[Hg] Nithin armenta MD [address] [place] [address], [address] , RAJESH Salguero MD 7 12:13:12 Social History Question Answer Notes LastModified by Organizat ion Details LastModified Time Tobacco Smoking Status Former Smoker Nithin Salguero MD [address] [place] [address], [address], [place] RAJESH Salguero MD 05/06/2016 13:50:35 Do [...] quadrivalent, preservative 6 completed Nithin Salguero MD [address] [place] [address], [address], [place] - Nithin Salguero MD 02/07/2017 12:24:11 DTaP 0 completed Nithin Salguero MD [address] [place] [address], [address], [place] - Nithin Salguero MD 02/07/2017 12:24:37 Past Encounters Encounter ID Performer Location Encounter Start Date Encounter Closed Date Diagnosis/Indication Diagnosis SNOMED-CT Code Diagnosis ICD10 Code Diagnosis Note [id number] Nithin Rodriguez i, MD Main Office [address] [address] 05/06/2016 13:14:23 05/06/2016 13:20:07 Diabetes mellitus 96926624 E11.9 POORLY CONTROLLED WITHA 1C NOW AT 13.3 WITH POLY SYMPTOMS OF TYPE 1, NEEDS AT LEAST BASAL INSULIN START TRESIBA U100 INSULIN AT 20 UNITS AT BEDTIME INCREASE INSULIN EVERY 5 DAYS BY 2 UNITS UNTIL YOU SEE FASTING AM BLOOD SUGAR BETWEEN 80-130, START JANUMET 50 /1000MG TWICE A DAY Mixed hyperlipidemia 267 764236 E78.2 TOATLA CHOLESTERO L AT 211, CANNOT CALCULATE LDL BECAUSE TRIGLYCERI ANN GREATER THAN 1000, AT 1191, NEEDS TO RESUME VASCEPA 1GRAM 2 CAPS PO TWICE A DAY. Essential hypertension 26370373 I10 BLOOD PRESSURE NOT AN ISSUE AT THIS VISIT [id number] Nithin Rodriguez i, MD Main Office [address] [place] [address] 07/20/2016 11:30:32 07/20/2016 11:34:57 Coronary arteriosclerosis 17313560 I25.10 STABLE NO SYMTOMS OR CHEST PAIN, ON EFFIENT FOLLOWED BY CARDIOLOGY Vitamin D deficiency 347 07843 E55.9 LEVEL AT GOAL ON D3 CHECK NEXT VISIT Hypercalcemia 62748650 E 83.52 CALCIUM IS 10.2, WILL MONITOR WITH D LEVELS Essential hypertension 88749854 I10 BLOOD PRESSURE NOT AN ISSUE AT THIS VISIT, WILL MONITOR GFR > 60 Mixed hyperlipidemia 267 106283 E78.2 TOATLA CHOLESTERO L AT 211, CANNOT CALCULATE LDL BECAUSE TRIGLYCERI ANN GREATER THAN 1000, AT 1191, NEEDS TO RESUME VASCEPA 1GRAM 2 CAPS PO TWICE A DAY. Insulin tr eated type 2 diabetes mellitus 763858636 Z79.4 A1C IS MUCH IMPROVED AT 7.5, , LANTUS 24, JANUMET 50/1000MG PO PO BID , ADDED NATEGLINID E 60 MG PO TID [id number] Nithin Rodriguez i, MD Main Office [address] [place] [address] 10/20/2016 14:06:55 10/20/2016 14:49:38 Type 2 diabetes mellitus 20303681 E11.9 A1C IS NOW 5.9, LANTUS 36 UNITS AT HS , JANUMET 50 /1000 MG PO BID , NATEGLINID E 60 MG PO QAC Mixed hyperlipidemia 267 508674 E78.2 TOTAL CHOLESTERO L AT 211, CANNOT CALCULATE LDL BECAUSE TRIGLYCERI ANN GREATER THAN 1000, AT 1191, NEEDS TO RESUME VASCEPA 1GRAM 2 CAPS PO TWICE A DAY. TODAY 10/20/16 TOTAL CHOL 145 LDL 73 , TRIGS -174 THIS IS EXCELLENT ON CRESTOR 40MG WITH VASCEPA 1GRAM 2 IN AM AND 2 IN PM Essential hypertension 38733331 I10 BLOOD PRESSURE NOT AN ISSUE AT THIS VISIT, WILL MONITOR GFR > 60, BLOOD PRESSURE AT GOAL NOT ON JONATHON AT THIS TIME Vitamin D deficiency 347 64227 E55.9 LEVEL AT GOAL ON D3 CHECK NEXT VISIT/TRACY OF D25-OH IS EXTEMELY LOW AT 13 TOLD TAKE VITAMIN D3 2000 IU PO QD Coronary arteriosclerosis 66020742 I25.10 STABLE NO SYMTOMS OR CHEST PAIN, ON EFFIENT FOLLOWED BY CARDIOLOGY Numbness of foot 6991426 00 R20.0 RT FOOT MILD TINGLING SENSATION , COULD BE MILD NEUROPATHY TAKE B12 1000 MG PO QD [id number] Nithin Rodriguez i, MD Main Office [address] [place] [address] 02/07/2017 11:38:11 02/07/2017 12:58:25 Type 2 diabetes mellitus 47275537 E11.9 ALL NUMBERS AT GOAL WITH A1C IS 5.6 ON LANTUS AND NATEGLINID E , JANUMET 50 1000MG PO BID Mixed hyperlipidemia 267 737678 E78.2 TOTAL CHOLESTERO L AT 211, CANNOT CALCULATE LDL BECAUSE TRIGLYCERI ANN GREATER THAN 1000, AT 1191, NEEDS TO RESUME VASCEPA 1GRAM 2 CAPS PO TWICE A DAY. TODAY 10/20/16 TOTAL CHOL 145 LDL 73 , TRIGS -174 THIS IS EXCELLENT ON CRESTOR 40MG WITH VASCEPA 1GRAM 2 IN AM AND 2 IN PM Essential hypertension 79623403 I10 BLOOD PRESSURE NOT AN ISSUE AT THIS VISIT, WILL MONITOR GFR > 60, BLOOD PRESSURE AT GOAL NOT ON JONATHON AT THIS TIME Hypercalcemia 26728808 E 83.52 CALCIUM IS 10.2, WILL MONITOR WITH D LEVELS, TODAY IS 10.4 / MILD CLIMBING , WILL SET UP LABS AGAIN WITH 24 HOUR URINE FOR CALCIUM , NO HISTORY OF KIDNEY STONES Vitamin D deficiency 347 80427 E55.9 LEVEL AT GOAL ON D3 CHECK NEXT VISIT/TRACY OF D25-OH IS EXTEMELY LOW AT 13 TOLD TAKE VITAMIN D3 2000 IU PO QD, LEVEL IS NOW 42 CORRECTED Coronary arteriosclerosis 31225251 I25.10 STABLE AT THIS TIME , WE [...] Member ID Guarantor Name 02/04/2017 1 MIGUEL [id number] Jersey Quigley [id number] Notes Date Note Type Note Provider Name [...] A1C OF 11.6 Nithin Salguero MD [address], [address], [place] - Nithin Salguero MD 05/06/2016 14:26:49 [...] , TRIGS -171, Nithin Salguero MD [address], [address], [facility] - Nithin Salguero MD [...] IS 73 , Nithin Salguero MD [address], [address], [place] - Nithin Salguero MD 10/20/2016 14:55:28 [...] QDLVEL IS 42 . Nithin Salguero MD [address] [address], [place], [address], [place] - Nithin Salguero MD 02/07/2017 12:50:10
--- OUTSIDE RECORDS SUMMARY | 2024-09-10 12:38 | XMS_ITS | Clinical Summary ---
Author Organization [facility] Address [address] [place] [address] Care Team Providers Care Director Loan Name Role Phone Matt Rodriguez MD Primary [...] infarction 02/06/2015 Overview: 1. Acute inf wall NE 08/18/04 2. Cardiac cath--08/18/04--mild LAD, mild Cx, mod diag, 100% RCA 3. 08/18/04 3 x 25 TAXUS stent in mid RCA 4. Cath--10/24/09--sever stenosis distal to prefious stent 5. 3.5 x 15 xscience in RCA 6/ nuclear stress--04/09/12--54% EF, fixed inf defect 7. 01/03/15--adm in [place] for unstable angina 8. 01/03/15--nuclear stress--inferior ischemic [...] this topic Medical Devices Implanted Type Area Obiee Consultant Device Identifier Shelf Expiration Date Model / Serial / Lot Stent Resolute Yazan 22mm 3mm Rapdx Zotarolimus Eluting - [id number] - [id number] Implanted: 017 at [facility] Med (Quantity not on file) [employer] - VASCULAR [id number] X / / Advance Directives For more information, please contact: [phone] Latest Code Status on File Code Status [...] way: discussion with patient . Care Teams Director Loan Relationship Specialty Start Date End Date Matt Rodriguez MD PCP - General Family Medicine 11/07/14
== END 2024-09-10 11:45 | disposition home or self-care (01) ==
LOC: HO.HMCC 11:20
PROVIDERS: PCP Internal Medicine; Visit Provider Internal Medicine
DX: E13.9 Other specified diabetes mellitus without complications (principal); Z79.4 Long term (current) 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; G20.B2 Parkinson's disease with dyskinesia, with fluctuations; D50.9 Iron deficiency anemia, unspecified; I73.9 Peripheral vascular disease, unspecified; I25.10 Atherosclerotic heart disease of native coronary artery without angina pectoris; I10 Essential (primary) hypertension; E78.9 Disorder of lipoprotein metabolism, unspecified; E55.9 Vitamin D deficiency, unspecified; G63 Polyneuropathy in diseases classified elsewhere

== ENCOUNTER → 2024-09-10 11:20 | Outpatient (BNVA) | payer MEDICARE, SELFPAY | PROVIDERS: PCP Internal Medicine; Visit Provider Internal Medicine | DX: I25.10 Atherosclerotic heart disease of native coronary artery without angina pectoris (principal); E13.51 Other specified diabetes mellitus with diabetic peripheral angiopathy without gangrene; D50.9 Iron deficiency anemia, unspecified; I10 Essential (primary) hypertension; E78.9 Disorder of lipoprotein metabolism, unspecified; E55.9 Vitamin D deficiency, unspecified; G20.B2 Parkinson's disease with dyskinesia, with fluctuations; G63 Polyneuropathy in diseases classified elsewhere; Z79.4 Long term (current) 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 | CPT/HCPCS: 96127; 99212 ==

== ENCOUNTER 2024-09-11 07:04 | Day surgery (SDC) | payer MEDICARE, SELFPAY ==
--- OUTSIDE RECORDS SUMMARY | 2024-09-05 14:05 | XMS_ITS | Clinical Summary ---
Author Organization [facility] Address [address] [place] [address] Care Team Providers Care Planimeter Operator Name Role Phone Matt Rodriguez MD Primary Care Provider [phone] Surgical History Surgery Date Site/Laterality Comments HIP ARTHROPLASTY Right PROCEDURE:HIP ARTHROPLASTY KNEE ARTHROPLASTY Right PROCEDURE:KNEE ARTHROPLASTY;COMMENT:x2 CARDIAC CATHETERIZATION 10/28/2016 N/A PROCEDURE:CARDIAC CATHETERIZATION;COMMENT:Procedure: LEFT HEART CATHETERIZATION ? 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; Service: Cardiology; Laterality: N/A; Medical History Medical History Date Comments Acute transmural inferior wa ll [place] ([facility] V24, [facility] V28) 08/20/04 DX:Acute transmural inferio r wall [place] (HCC) H/O cardiac catheterization 08/20/04 DX:H /O cardiac catheterization;COMMENT:3x20 3x16 taxus Unstable angina ([facility]/HCC V24 , CMS/HCC V28) 10/27/09 DX:Unstable angina ([facility]) H/O cardiac catheterization 10/27/09 DX:H /O cardiac catheterization;COMMENT:3 x15 xcience distal RCA, 50% LAD, nl cx Psoriasis DX:Psoriasis 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, managed as typ e 2 (CMS/HCC V24, CMS/HCC V28) DX:Diabetes 1.5, managed as type 2 ([facility]) Hypertension DX:Hypertension Pulmonary embolus (CMS/[facility] V 24, CMS/[facility] V28) DX:Pulmonary embolus (HCC) Hx of cardiac cath 01/02/15 DX:Hx of card iac cath;COMMENT:high grade RCA, 2.5 x 14 resolute stent placed 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
--- OUTSIDE RECORDS SUMMARY | 2024-09-05 14:05 | XMS_ITS | Clinical Summary ---
Author Organization [facility] Address [address] [place] [address] Care Team Providers Care Human Resources Administrator Name Role Phone Matt Rodriguez MD Primary [...] infarction 02/06/2015 Overview: 1. Acute inf wall DC 08/18/04 2. Cardiac cath--08/18/04--mild LAD, mild Cx, [...] or Tdap) 04/09/2024 04/09/2014, 04/08/2013 Influenza Vaccine (#1) 2024 RSV Adult > 60+ Yrs or (1 - 1-dose 75+ series) 2029 Hepatitis B Vaccines Aged Out No long er eligible based on patient's age to complete this topic RSV Ped < 20 months Aged Out No longe r eligible based on patient's age to complete this topic Medical Devices Implanted Type [employer]/Fireman Device Identifier Shelf Expiration Date Model / Serial / Lot Stent Resolute Yazan 22mm 3mm Rapdx Zotarolimus Eluting - [id number] - [id number] Implanted: 017 at [facility] [place] [facility] [place] (Quantity not on file) [employer] - VASCULAR [id number] / / Advance Directives For more information, please contact: [phone] Latest Code Status on File Code Status [...] way: discussion with patient . Care Teams Human Resources Administrator Relationship Specialty Start Date End Date Matt Rodriguez MD PCP - General Family Medicine 11/07/14
--- OUTSIDE RECORDS SUMMARY | 2024-09-05 14:05 | XMS_ITS | Data Portability ---
Author Organization [place] - Nithin gamez MD, Main Office Address [address] [facility] [address] [address] Assessment Encounter Date Assessment Date Assessment LastModified [...] frequent foot care and needs to see taper/finisher yearly. Other Instructions: NEEDS TO START BASAL INSULIN TRESIBA U 100 20 UNITS AT BEDTIME WILL TITRATE UP BY 2 UNITS EVERY 5 -7 DAYS TO [facility] FBS BETWEEEN 80-130, GO BACK ON JANUMET 50/1000MG PO BID Further diagnostic testing per orders below. Patient to follow up as directed. Plan discussed with patient [email or web address] Not available 05/06/2016 14:15:15 Plan of Treatment [...] Organization Details Last Modified Time 05/06/2016 1458 FIRST GOAL IS TO GET YO UR FASTING AM BLOOD SUGAR BETWEEN 80-130, WE WANT BY NEXT VISIT A1C TO BE LESS THAN 8.0, GET TRIGS AT LEAST < 300 [email or web address] Not available 05/06/2016 14:21:36 07/20/2016 2758 GET A1C < 7.0 , GET TRIGS < 150, [email or web address] Not available 07/20/2016 16:30:45 10/20/2016 4859 A1C < 6.5 , WITH MINIMAL LOW BLOOD SUGARS , TARGET FBS 70-120 , PPG < 150 , KEEP TRIGS < 200 , BLOOD PRESSURE 120/80 RANGE [email or web address] Not available 10/20/2016 14:44:07 02/07/2017 8109 A1C < 6.5 , LDL< 100 , [...] BREAKFAST AND DINNER, TAKE VASCEPA 1000MG 2 PHOTOGRAPHY ASSISTANT PO TWICE A DAY BREAKFAST AND DINNER [email or web address] Not available 05/06/2016 14:23:43 POOR AND DANGEROUSLY HIGH GLYCEMIA WITH TRIGLYCERIDES, WHICH PUTS AT RISK FOR PANCREATITS , STABLE AND NO SYMPTOMS AT THIS TIME WILL FOLLW UP IN 8 WEEKS [email or web address] Not available 05/06/2016 14:24:53 07/20/2016 2758 hypercalcemia: c are instructions [email or web address] Not available 07/21/2016 11:33:37 DIRECTED JAI E CONTINUE INSULINTITRATION , ADD NATEGLINIDE 60 [...] UP IN JANUARY BEFORE GOING AWAY TO [facility]. IN FEB , SET VISIT JAN 2017 WITH LABS [email or web address] Not available 10/20/2016 14:46:54 02/07/2017 8109 learning about t ype 2 diabetes Not available 02/07/2017 14:32:36 type 2 diabetes: care instructions [email or web address] Not available 02/07/2017 14:32:36 high blood pressure: [...] SIDE EFFECT OF HUMIRA? , MOVING TO [place] IN , WILL FOLLW UP IN JUNE [email or web address] Not available 02/07/2017 12:49:41 Reason for Referral None Reported. Results Created Date Observation Date Name Description Value Unit Range Abnormal Flag Note LastModifiedBy Organization Detail LastModifiedTime 07/13/19 17 07/12/2016 lipid panel , serum cholesterol, total 136 mg/dL 125-20 0 normal Not Available [facility] [address], [address], 07/12/2016 21:53:04 07/13/19 17 07/12/2016 lipid panel , serum HDL cholesterol 46 mg/dL > or = 40 normal Not Available [facility] [address], [address], 07/12/2016 21:53:04 07/13/19 17 07/12/2016 lipid panel , serum triglyceride s 171 mg/dL <150 high Not Available [facility] [address], [address], 07/12/2016 21:53:04 07/13/19 17 07/12/2016 lipid panel , serum LDL-choleste rol 56 mg/dL _(dennys c) <130 normal Corey able range <100 mg/dL for patie nts with CHD or diabe angel and <70 mg/dL for diabe tic patie nts with known heart disea se. Not Available [facility] [address], [place], [address], 07/12/2016 21:53:04 07/13/19 17 07/12/2016 lipid panel , serum chol/HDLC ratio 3.0 (calc ) < or = 5.0 normal Not Available [facility] [place] [facility] [address], [place], [address], 07/12/2016 21:53:04 07/13/19 17 07/12/2016 lipid panel , serum non HDL cholesterol 90 mg/dL _(dennys c) normal Targe t for non-H DL shea stero l is 30 mg/dL highe r than LDL shea stero l targe t. Not Available [facility] [place] [facility] [address] [place], [place], [address], 07/12/2016 21:53:04 07/13/19 17 07/12/2016 lipid panel , serum copy(ies) sent to: [facility] [address] [place] [address] CENTR [place] CONN CARDI OLOGY 19 [facility] [address] [place] [address] Not Available [facility] [place] [facility] [address] [place], [place], [address], 07/12/2016 21:53:04 07/13/19 17 07/12/2016 CMP, serum or plasm a glucose 129 mg/dL 65-99 high Fasti ng refer ence inter bria For someo ne witho ut known diabe angel, a gluco se value >125 mg/dL indic ates that they may have diabe angel and this shoul d be confi rmed with a follo w-up test. Not Available [facility] [place] [facility] [address] [place], [place], [address], 07/12/2016 21:53:05 07/13/19 17 07/12/2016 CMP, serum or plasm a urea nitrogen (BUN) 19 mg/dL 7-25 normal Not Available [facility] [place] [facility] [address], [address], 07/12/2016 21:53:05 07/13/19 17 07/12/2016 CMP, serum or plasm a creatinine 1.14 mg/dL 0.70-1 .25 normal For patie nts >49 years of age, the refer ence limit for Creat inine is appro ximat marti 13% highe r for peopl e ident ified as Afric an-Am jessica n. Not Available [facility] [place] [facility] [address], [place], [address], 07/12/2016 21:53:05 07/13/19 17 07/12/2016 CMP, serum or plasm a eGFR non-afr. malagasy 69 mL/mi n/1.7 3m2 > or = 60 normal Not Available [facility] [place] [facility] [address], [place], [address], 07/12/2016 21:53:05 07/13/19 17 07/12/2016 CMP, serum or plasm a eGFR 80 mL/mi n/1.7 3m2 > or = 60 normal Not Available [facility] [place] [facility] [address], [place], [address], 07/12/2016 21:53:05 07/13/19 17 07/12/2016 CMP, serum or plasm a BUN/creatini ne ratio NOT APPLIC ABLE (calc ) 6-22 Not Available [facility] [address], [address], 07/12/2016 21:53:05 07/13/19 17 07/12/2016 CMP, serum or plasm a sodium 140 mmol/ L 135-14 6 normal Not Available [facility] [address], [address], 07/12/2016 21:53:05 07/13/19 17 07/12/2016 CMP, serum or plasm a potassium 4.5 mmol/ L 3.5-5. 3 normal Not Available [facility] [address], [place], [address], 07/12/2016 21:53:05 07/13/19 17 07/12/2016 CMP, serum or plasm a chloride 105 mmol/ L 98-110 normal Not Available [facility] [address], [place], [address], 07/12/2016 21:53:05 07/13/19 17 07/12/2016 CMP, serum or plasm a carbon dioxide 25 mmol/ L 20-31 normal Not Available [facility] [address], [place], [address], 07/12/2016 21:53:05 07/13/19 17 07/12/2016 CMP, serum or plasm a calcium 10.2 mg/dL 8.6-10 .3 normal Not Available [facility] [address], [place], [address], 07/12/2016 21:53:05 07/13/19 17 07/12/2016 CMP, serum or plasm a protein, total 7.7 g/dL 6.1-8. 1 normal Not Available [facility] [address], [place], [address], 07/12/2016 21:53:05 07/13/19 17 07/12/2016 CMP, serum or plasm a albumin 4.7 g/dL 3.6-5. 1 normal Not Available [facility] [address], [address], 07/12/2016 21:53:05 07/13/19 17 07/12/2016 CMP, serum or plasm a globulin 3.0 g/dL_ (calc ) 1.9-3. 7 normal Not Available [facility] [address] [place], [place], [address], 07/12/2016 21:53:05 07/13/19 17 07/12/2016 CMP, serum or plasm a albumin/glob ulin ratio 1.6 (calc ) 1.0-2. 5 normal Not Available [facility] [place] [facility] [address], [place], [address], 07/12/2016 21:53:05 07/13/19 17 07/12/2016 CMP, serum or plasm a bilirubin, total 0.9 mg/dL 0.2-1. 2 normal Not Available [facility] [address], [place], [address], 07/12/2016 21:53:05 07/13/19 17 07/12/2016 CMP, serum or plasm a alkaline phosphatase 62 U/L 40-115 normal Not Available [facility] [address], [place], [address], 07/12/2016 21:53:05 07/13/19 17 07/12/2016 CMP, serum or plasm a AST 22 U/L 10-35 normal Not Available [facility] [address], [place], [address], 07/12/2016 21:53:05 07/13/19 17 07/12/2016 CMP, serum or plasm a ALT 21 U/L 9-46 normal Not Available [facility] [address], [place], [address], 07/12/2016 21:53:05 07/13/19 17 07/12/2016 CMP, serum or plasm a copy(ies) sent to: [facility] [address] [address] CENTR AL CONN CARDI OLOGY 19 [facility] AND [address] [place] [address] Not Available [facility] [place] [facility] [address], [address], 07/12/2016 21:53:05 07/13/19 17 07/12/2016 HbA1c (hemo [...] diabe angel for child kate. Not Available [facility] [place] [facility] [address], [address], 07/12/2016 21:27:59 07/13/19 17 07/12/2016 HbA1c (hemo globi n A1c), blood mean plasma glucose 190 mg/dL _(dennys c) Not Available [facility] [place] [facility] [address], [address], 07/12/2016 21:27:59 07/13/19 17 07/12/2016 HbA1c (hemo globi n A1c), blood copy(ies) sent to: [facility] [address] [place] [address] CENTR AL CONN CARDI OLOGY 19 [facility] AND [address] [place] [address] Not Available [facility] [place] [facility] [address] [place], [place], [address], 07/12/2016 21:27:59 10/14/19 17 10/14/2016 lipid panel , serum cholesterol, total 145 mg/dL <200 normal Not Available [facility] [place] [facility] [address] [place], [place], [address], 10/14/2016 02:33:54 10/14/1910/14/2016 lipid panel , serum HDL cholesterol 45 mg/dL >40 normal Not Available [facility] [place] [facility] [address] [place], [place], [address], 10/14/2016 02:33:54 10/14/1910/14/2016 lipid panel , serum triglyceride s 174 mg/dL <150 high Not Available [facility] [place] [facility] [address] [place], [place], [address], 10/14/2016 02:33:54 10/14/1910/14/2016 lipid panel , serum LDL-choleste rol 73 mg/dL _(dennys c) normal Refer ence range : <100 Corey able range <100 mg/dL for patie nts with CHD or diabe angel and <70 mg/dL for diabe tic patie nts with known heart disea se. The Selena n-[facility] popeye mondragon n is a valid ated novel metho d that provi ann alfredo r accur acy than the Fried alexandra equat ion in the estim ation of LDL-C , parti cular ly when TG level s are 150-4 00 mg/dL and LDL-C level s are lower than 70 mg/dL . Refer ence: Selena OLIVER et al. Felix rison of a Novel Metho d vs the Fried alexandra Equat ion for Estim ating Low-D ensit y Lipop rotei n Shea stero l Level s From the Stand mary Lipid Kristin le. KAYLA. 2013; 310(1 9): 206- 206. For addit ional infor pipo will refer to http: //[facility] vane Rodriguez stDia gnost ics.c om/fa q/FAQ 164 (This link is being provi ded for infor toña garza/ devin romeoo ses only. ) Not Available [facility] [place] [facility] [address], [place], [address], 10/14/2016 02:33:54 10/14/19 17 10/14/2016 lipid panel , serum chol/HDLC ratio 3.2 (calc ) <5.0 normal Not Available [facility] [address], [place], [address], 10/14/2016 02:33:54 10/14/19 17 10/14/2016 lipid panel , serum non HDL cholesterol 100 mg/dL _(dennys c) <130 normal For patie nts with diabe angel plus 1 major ASCVD risk facto r, treat ing to a non-H DL-C goal of <100 mg/dL (LDL- C of <70 mg/dL ) is consi geneva prabhakar n. Not Available [facility] [address], [place], [address], 10/14/2016 02:33:54 10/14/19 17 10/14/2016 lipid panel , serum copy(ies) sent to: [facility] [address] [place] [address]ARD[address]LOGI STS 7 [facility] [place] [address] Not Available [facility] [address], [place], [address], 10/14/2016 02:33:54 10/14/19 17 10/14/2016 micro album in/cr eatin ine, mass ratio , urine creatinine, random urine 184 mg/dL 20-370 normal Not Available [facility] [address] [place], [address], 10/14/2016 14:41:21 10/14/19 17 10/14/2016 micro album in/cr eatin ine, mass ratio , urine microalbumin 4.4 mg/dL see note: normal Refer ence Range : Refer ence Range Not estab lishe d Not Available [facility] [place] [facility] [address] [place], [place], [address], 10/14/2016 14:41:21 10/14/19 17 10/14/2016 micro album [...] a diagn ostic categ ory. Not Available [facility] [address] [place], [place], [address], 10/14/2016 14:41:21 10/14/19 17 10/14/2016 micro album in/cr eatin ine, mass ratio , urine copy(ies) sent to: [facility] [address] [place] [address]ARD[address]LOGI STS 7 [facility] [place] [address] Not Available [facility] [address] [place], [place], [address], 10/14/2016 14:41:21 10/14/19 17 10/14/2016 CMP, serum or plasm a glucose 67 mg/dL 65-99 normal Fasti ng refer ence inter bria Not Available [facility] [place] [facility] [address] [place], [address], 10/14/2016 02:33:55 10/14/1910/14/2016 CMP, serum or plasm a urea nitrogen (BUN) 18 mg/dL 7-25 normal Not Available [facility] [place] [facility] [address] [place], [address], 10/14/2016 02:33:55 10/14/1910/14/2016 CMP, serum or plasm a creatinine 1.04 mg/dL 0.70-1 .25 normal For patie nts >49 years of age, the refer ence limit for Creat inine is appro ximat marti 13% highe r for peopl e ident ified as Afric an-Am jessica n. Not Available [facility] [place] [facility] [address] [place], [place], [address], 10/14/2016 02:33:55 10/14/1910/14/2016 CMP, serum or plasm a eGFR non-afr. malagasy 77 mL/mi n/1.7 3m2 > or = 60 normal Not Available [facility] [address] [place], [place], [address], 10/14/2016 02:33:55 10/14/1910/14/2016 CMP, serum or plasm a eGFR 89 mL/mi n/1.7 3m2 > or = 60 normal Not Available [facility] [place] [facility] [address] [place], [place], [address], 10/14/2016 02:33:55 10/14/1910/14/2016 CMP, serum or plasm a BUN/creatini ne ratio NOT APPLIC ABLE (calc ) 6-22 Not Available [facility] [address] [place], [address], 10/14/2016 02:33:55 10/14/1910/14/2016 CMP, serum or plasm a sodium 139 mmol/ L 135-14 6 normal Not Available [facility] [place] [facility] [address] [place], [place], [address], 10/14/2016 02:33:55 10/14/1910/14/2016 CMP, serum or plasm a potassium 4.2 mmol/ L 3.5-5. 3 normal Not Available [facility] [place] [facility] [address] [place], [place], [address], 10/14/2016 02:33:55 10/14/1910/14/2016 CMP, serum or plasm a chloride 105 mmol/ L 98-110 normal Not Available [facility] [place] [facility] [address] [place], [place], [address], 10/14/2016 02:33:55 10/14/1910/14/2016 CMP, serum or plasm a carbon dioxide 21 mmol/ L 20-31 normal Not Available [facility] [place] [facility] [address] [place], [place], [address], 10/14/2016 02:33:55 10/14/1910/14/2016 CMP, serum or plasm a calcium 10.2 mg/dL 8.6-10 .3 normal Not Available [facility] [address] [place], [place], [address], 10/14/2016 02:33:55 10/14/1910/14/2016 CMP, serum or plasm a protein, total 8.1 g/dL 6.1-8. 1 normal Not Available [facility] [address], [place], [address], 10/14/2016 02:33:55 10/14/1910/14/2016 CMP, serum or plasm a albumin 4.8 g/dL 3.6-5. 1 normal Not Available [facility] [address], [place], [address], 10/14/2016 02:33:55 10/14/1910/14/2016 CMP, serum or plasm a globulin 3.3 g/dL_ (calc ) 1.9-3. 7 normal Not Available [facility] [address], [place], [address], 10/14/2016 02:33:55 10/14/1910/14/2016 CMP, serum or plasm a albumin/glob ulin ratio 1.5 (calc ) 1.0-2. 5 normal Not Available [facility] [address], [place], [address], 10/14/2016 02:33:55 10/14/1910/14/2016 CMP, serum or plasm a bilirubin, total 1.0 mg/dL 0.2-1. 2 normal Not Available [facility] [address], [place], [address], 10/14/2016 02:33:55 10/14/1910/14/2016 CMP, serum or plasm a alkaline phosphatase 56 U/L 40-115 normal Not Available [facility] [address], [place], [address], 10/14/2016 02:33:55 10/14/1910/14/2016 CMP, serum or plasm a AST 24 U/L 10-35 normal Not Available [facility] [address], [address], 10/14/2016 02:33:55 10/14/1910/14/2016 CMP, serum or plasm a ALT 22 U/L 9-46 normal Not Available [facility] [address] [place], [place], [address], 10/14/2016 02:33:55 10/14/1910/14/2016 CMP, serum or plasm a copy(ies) sent to: [facility] [address] [place] [address] CARD[address]LOGI STS 7 [facility] [place] [address] Not Available [facility] [place] [facility] [address] [place], [place], [address], 10/14/2016 02:33:55 10/14/1910/13/2016 HbA1c (hemo globi n [...] diabe angel for child kate. Not Available [facility] [place] [facility] [address] [place], [place], [address], 10/13/2016 22:34:56 10/14/1910/13/2016 HbA1c (hemo globi n A1c), blood mean plasma glucose 133 mg/dL _(dennys c) Not Available [facility] [place] [facility] [address] [place], [place], [address], 10/13/2016 22:34:56 10/14/19 17 10/13/2016 HbA1c (hemo globi n A1c), blood copy(ies) sent to: [facility] [address] [place] [address]ARD[address]LOGI STS 7 [facility] [place] [address] Not Available [facility] [place] [facility] [address], [place], [address], 10/13/2016 22:34:56 01/31/20 17 01/30/2017 lipid panel , serum cholesterol, total 133 mg/dL <200 normal Not Available [facility] [place] [facility] [address], [place], [address], 01/30/2017 22:58:17 01/31/20 17 01/30/2017 lipid panel , serum HDL cholesterol 36 mg/dL >40 low Not Available [facility] [place] [facility] [address], [place], [address], 01/30/2017 22:58:17 01/31/20 17 01/30/2017 lipid panel , serum triglyceride s 200 mg/dL <150 high Not Available [facility] [address], [place], [address], 01/30/2017 22:58:17 01/31/20 17 01/30/2017 lipid panel , serum LDL-choleste rol 70 mg/dL _(dennys c) normal Refer ence range : <100 Corey able range <100 mg/dL for patie nts with CHD or diabe angel and <70 mg/dL for diabe tic patie nts with known heart disea se. LDL-C is now calcu lated using the Selena n-[facility] calcu giancarlo n, which is a valid ated novel metho d santo fuentes r accur acy than the Fried alexandra equat ion in the estim ation of LDL-C . Selena angela SS et al. KAYLA. 2013; 310(1 9): 2061- 2068 (http ://ed ucati on.Hyacinth snowdenGoNetYourself. com/f aq/FA Q164) Not Available [facility] [place] [facility] [address], [place], [address], 01/30/2017 22:58:17 01/31/20 17 01/30/2017 lipid panel , serum chol/HDLC ratio 3.7 (calc ) <5.0 normal Not Available [facility] [place] [facility] [address] [place], [place], [address], 01/30/2017 22:58:17 01/31/20 17 01/30/2017 lipid panel , serum non HDL cholesterol 97 mg/dL _(dennys c) <130 normal For patie nts with diabe angel plus 1 major ASCVD risk facto r, treat ing to a non-H DL-C goal of <100 mg/dL (LDL- C of <70 mg/dL ) is consi geneva a clarissa setho n. Not Available [facility] [place] [facility] [address], [place], [address], 01/30/2017 22:58:17 01/31/20 17 01/30/2017 lipid panel , serum copy(ies) sent to: [facility] [address] [place] [address] CENTR [place] CONN CARDI OLOGY 19 [facility] [address] [place] [address] Not Available [facility] [place] [facility] [address], [place], [address], 01/30/2017 22:58:17 01/31/20 17 01/30/2017 CMP, serum or plasm a glucose 126 mg/dL 65-99 high Fasti ng refer ence inter bria For someo ne witho ut known diabe angel, a gluco se value >125 mg/dL indic ates that they may have diabe angel and this shoul d be confi rmed with a follo w-up test. Not Available [facility] [place] [facility] [address] [place], [address], 01/30/2017 22:58:17 01/31/20 17 01/30/2017 CMP, serum or plasm a urea nitrogen (BUN) 20 mg/dL 7-25 normal Not Available [facility] [place] [facility] [address] [place], [place], [address], 01/30/2017 22:58:17 01/31/20 17 01/30/2017 CMP, serum or plasm a creatinine 1.50 mg/dL 0.70-1 .25 high For patie nts >49 years of age, the refer ence limit for Creat inine is appro ximat marti 13% highe r for peopl e ident ified as Afric an-Am jessica n. Not Available [facility] [place] [facility] [address] [place], [place], [address], 01/30/2017 22:58:17 01/31/20 17 01/30/2017 CMP, serum or plasm a eGFR non-afr. malagasy 49 mL/mi n/1.7 3m2 > or = 60 low Not Available [facility] [place] [facility] [address] [place], [place], [address], 01/30/2017 22:58:17 01/31/20 17 01/30/2017 CMP, serum or plasm a eGFR 57 mL/mi n/1.7 3m2 > or = 60 low Not Available [facility] [place] [facility] [address] [place], [place], [address], 01/30/2017 22:58:17 01/31/20 17 01/30/2017 CMP, serum or plasm a BUN/creatini ne ratio 13 (calc ) 6-22 normal Not Available [facility] [place] [facility] [address] [place], [place], [address], 01/30/2017 22:58:17 01/31/20 17 01/30/2017 CMP, serum or plasm a sodium 138 mmol/ L 135-14 6 normal Not Available [facility] [place] [facility] [address], [place], [address], 01/30/2017 22:58:17 01/31/20 17 01/30/2017 CMP, serum or plasm a potassium 4.7 mmol/ L 3.5-5. 3 normal Not Available [facility] [place] [facility] [address], [place], [address], 01/30/2017 22:58:17 01/31/20 17 01/30/2017 CMP, serum or plasm a chloride 102 mmol/ L 98-110 normal Not Available [facility] [place] [facility] [address], [place], [address], 01/30/2017 22:58:17 01/31/20 17 01/30/2017 CMP, serum or plasm a carbon dioxide 25 mmol/ L 20-31 normal Not Available [facility] [place] [facility] [address], [place], [address], 01/30/2017 22:58:17 01/31/20 17 01/30/2017 CMP, serum or plasm a calcium 10.4 mg/dL 8.6-10 .3 high Not Available [facility] [place] [facility] [address], [address], 01/30/2017 22:58:17 01/31/20 17 01/30/2017 CMP, serum or plasm a protein, total 8.0 g/dL 6.1-8. 1 normal Not Available [facility] [place] [facility] [address], [address], 01/30/2017 22:58:17 01/31/20 17 01/30/2017 CMP, serum or plasm a albumin 4.6 g/dL 3.6-5. 1 normal Not Available [facility] [address], [place], [address], 01/30/2017 22:58:17 01/31/20 17 01/30/2017 CMP, serum or plasm a globulin 3.4 g/dL_ (calc ) 1.9-3. 7 normal Not Available [facility] [address], [place], [address], 01/30/2017 22:58:17 01/31/20 17 01/30/2017 CMP, serum or plasm a albumin/glob ulin ratio 1.4 (calc ) 1.0-2. 5 normal Not Available [facility] [address], [place], [address], 01/30/2017 22:58:17 01/31/20 17 01/30/2017 CMP, serum or plasm a bilirubin, total 0.9 mg/dL 0.2-1. 2 normal Not Available [facility] [address], [address], 01/30/2017 22:58:17 01/31/20 17 01/30/2017 CMP, serum or plasm a alkaline phosphatase 61 U/L 40-115 normal Not Available [facility] [address], [place], [address], 01/30/2017 22:58:17 01/31/20 17 01/30/2017 CMP, serum or plasm a AST 25 U/L 10-35 normal Not Available [facility] [address], [address], 01/30/2017 22:58:17 01/31/20 17 01/30/2017 CMP, serum or plasm a ALT 25 U/L 9-46 normal Not Available [facility] [address], [place], [address], 01/30/2017 22:58:17 01/31/20 17 01/30/2017 CMP, serum or plasm a copy(ies) sent to: [facility] [address] [facility] [address] CEN[facility] CONN [facility]ARD[facility]LOG[facility] [address] [facility] [address] [place] [address] Not Available [facility] [place] [facility] [address], [place], [address], 01/30/2017 22:58:17 01/31/20 17 01/30/2017 CBC white blood cell count 6.5 thous and/u L 3.8-10 .8 normal Not Available [facility] [address], [place], [address], 01/30/2017 21:29:12 01/31/20 17 01/30/2017 CBC red blood cell count 4.17 nhan on/uL 4.20-5 .80 low Not Available [facility] [place] [facility] [address], [place], [address], 01/30/2017 21:29:12 01/31/20 17 01/30/2017 CBC hemoglobin 13.9 g/dL 13.2-1 7.1 normal Not Available [facility] [place] [facility] [address], [place], [address], 01/30/2017 21:29:12 01/31/20 17 01/30/2017 CBC hematocrit 40.7 % 38.5-5 0.0 normal Not Available [facility] [address], [place], [address], 01/30/2017 21:29:12 01/31/20 17 01/30/2017 CBC MCV 97.5 fL 80.0-1 00.0 normal Not Available [facility] [address], [place], [address], 01/30/2017 21:29:12 01/31/20 17 01/30/2017 CBC MCH 33.2 pg 27.0-3 3.0 high Not Available [facility] [place] [facility] [address], [place], [address], 01/30/2017 21:29:12 01/31/20 17 01/30/2017 CBC MCHC 34.1 g/dL 32.0-3 6.0 normal Not Available [facility] [place] [facility] [address], [place], [address], 01/30/2017 21:29:12 01/31/20 17 01/30/2017 CBC RDW 13.8 % 11.0-1 5.0 normal Not Available [facility] [place] [facility] [address], [place], [address], 01/30/2017 21:29:12 01/31/20 17 01/30/2017 CBC platelet count 189 thous and/u L 140-40 0 normal Not Available [facility] [place] [facility] [address], [place], [address], 01/30/2017 21:29:12 01/31/20 17 01/30/2017 CBC MPV 8.4 fL 7.5-12 .5 normal Not Available [facility] [place] [facility] [address], [place], [address], 01/30/2017 21:29:12 01/31/20 17 01/30/2017 CBC copy(ies) sent to: [facility] [address] [place] [address] [facility] [address] [facility] [address] [place] [address] Not Available [facility] [place] [facility] [address], [address], 01/30/2017 21:29:12 01/31/20 17 01/30/2017 vitam in B12, serum vitamin B12 548 pg/mL 200-11 00 normal Not Available [facility] [address], [address], 01/30/2017 22:58:18 01/31/20 17 01/30/2017 vitam in B12, serum copy(ies) sent to: [facility] [address] [facility] [place] [address] [facility]EN[facility] CONN CARDI OLOG[facility] 19 [facility] [address] [place] [address] Not Available [facility] [address], [address], 01/30/2017 22:58:18 01/31/20 17 01/31/2017 vitam in [...] /MS is recom sofi d: order code [id number] (johnnie ents >2yrs ). For more infor toña angela on this test, go to: http: //[email or web address] (This link is being provi ded for infor toña nal/e ducat ional purpo ses only. ) Not Available [facility] [address], [address], 01/31/2017 02:52:12 01/31/20 17 01/31/2017 vitam in D, 25-hy droxy , total , serum copy(ies) sent to: [facility] [address] [place] [address] CENTR AL CONN CARDI OLOGY [address] [facility] [address] [place] [address] Not Available [facility] [place] [facility] [address] [place], [place], [address], 01/31/2017 02:52:12 01/31/20 17 01/31/2017 HbA1c (hemo globi n A1c), blood hemoglobin A1C 5.6 %_of_ total _HGB <5.7 normal For the purpo se of luis manuelgadiel valverde for the prese nce of diabe [...] Care in Diabe angel(A DA). Not Available [facility] [place] [facility] [address], [place], [address], 01/31/2017 05:18:01 01/31/20 17 01/31/2017 HbA1c (hemo globi n A1c), blood mean plasma glucose 122 mg/dL _(dennys c) Not Available [facility] [place] [facility] [address], [place], [address], 01/31/2017 05:18:01 01/31/20 17 01/31/2017 HbA1c (hemo globi n A1c), blood copy(ies) sent to: [facility] [address] [place] [address] [facility]ENTR AL CONN CARDI OLOGY 19 [facility] [address] [place] [address] Not Available [facility] [place] [facility] [address], [place], [address], 01/31/2017 05:18:01 Result Notes None recorded. Problems Name Problem SNOMED Code Status Onset Date Resolution Date Notes Provider Name and Address Organization Details Recorded Time Type 2 diabetes mellitus 71299104 Active 2016 Nithin armenta MD [address] [place] [address] [place], [address], [place] Nithin Salguero MD 7 13:45:43 Mixed hyperlipidemia 597042488 Active 2016 Nithin armetna MD [address] [place] [address] [place], [address], [place] - Nithin Salguero MD 7 13:46:07 Essential hypertension 52917049 Active 2016 Nithin armenta MD [address] [place] [address] [place], [address], [place] - Nithin Salguero MD 7 13:46:26 Hypercalcemia 67556253 Active 2016 Nithin armenta MD [address] [place] [address] [place], [address], [place] - Nithin Salguero MD 7 13:47:13 Vitamin D deficiency 24411710 Active 2016 Nithin armenta MD [address] [place] [address] [place], [address], [place] RAJESH Salguero MD 13:47:27 Coronary arterioscleros is 23075066 Active 2016 Nithin armenta MD [address] [place] [address], [place], [address], RAJESH Salguero MD 7 13:49:08 Problem Notes None recorded. Procedures Surgical History Date Name Laterality Status Provider Name and Address Organization Details Recorded Time Coronary Artery Stent completed Nithin Salguero MD [address] [place] [address], [address] [place] [address], RAJESH Salguero MD 05/06/2016 13:52:31 Back Surgery completed Nithin Salguero MD [address] [place] [address], [address] [place] [address], RAJESH Salguero MD 05/06/2016 13:53:14 Shoulder joint surgery completed Nithin Salguero MD [address] [place] [address], [address] [place] [address], RAJESH Salguero MD 05/06/2016 13:53:28 Imaging Results [...] index (BMI) Respiratory rate Heart rate Systolic And Diastolic Provider Name and Address Organization Details Last Updated DateTime 7 45383.4 g 185.42 cm 27.7 kg/m2 10 /min 72 /min 118/78 mm[Hg] Nithin armenta MD [address] [place], [address] , [place] - Nithin Salguero MD 7 13:48:26 Date Recorded Body weight Body height Body mass index (BMI) Heart rate Systolic And Diastolic Provider Name and Address Organization Details Last Updated DateTime 07/20/2016 88500.29 g 185.42 cm 26.1 kg/m2 64 /min 130/85 mm[Hg] Dominic Bell RAJESH Salguero MD 07/20/2016 11:40:34 Date Recorded Body weight Body mass index (BMI) Body height Respiratory rate Heart rate Systolic And Diastolic Provider Name and Address Organization Details Last Updated DateTime 7 52594.4 7 g 26.4 kg/m2 185.42 cm 12 /min 99 /min 110/78 mm[Hg] Nithin armenta MD [address] [place] [address], [address] , RAJESH Salguero MD 7 14:17:06 Date Recorded Body weight Body mass index (BMI) Body height Respiratory rate Heart rate Systolic And Diastolic Provider Name and Address Organization Details Last Updated DateTime 7 29593.4 4 g 27 kg/m2 185.42 cm 12 /min 83 /min 130/82 mm[Hg] Nithin armenta MD [address] [place] [address], [address] , RAJESH Salguero MD 7 12:13:12 Social History Question Answer Notes LastModified by Organizat ion Details LastModified Time Tobacco Smoking Status Former Smoker Nithin Salguero MD [address] [place] [address], [address], [place] RAJESH Salguero MD 05/06/2016 13:50:35 Do You [...] quadrivalent, preservative 6 completed Nithin Salguero MD [address] [place] [address], [address], [place] - Nithin Salguero MD 02/07/2017 12:24:11 DTaP 0 completed Nithin Salguero MD [address] [place] [address], [address], [place] - Nithin Salguero MD 02/07/2017 12:24:37 Past Encounters Encounter ID Performer Location Encounter Start Date Encounter Closed Date Diagnosis/Indication Diagnosis SNOMED-CT Code Diagnosis ICD10 Code Diagnosis Note [id number] Nithin Rodriguez i, MD Main Office [address] [address] 05/06/2016 13:14:23 05/06/2016 13:20:07 Diabetes mellitus 20860840 E11.9 POORLY CONTROLLED WITHA 1C NOW AT 13.3 WITH POLY SYMPTOMS OF TYPE 1, NEEDS AT LEAST BASAL INSULIN START TRESIBA U100 INSULIN AT 20 UNITS AT BEDTIME INCREASE INSULIN EVERY 5 DAYS BY 2 UNITS UNTIL YOU SEE FASTING AM BLOOD SUGAR BETWEEN 80-130, START JANUMET 50 /1000MG TWICE A DAY Mixed hyperlipidemia 267 261818 E78.2 TOATLA CHOLESTERO L AT 211, CANNOT CALCULATE LDL BECAUSE TRIGLYCERI ANN GREATER THAN 1000, AT 1191, NEEDS TO RESUME VASCEPA 1GRAM 2 CAPS PO TWICE A DAY. Essential hypertension 13364384 I10 BLOOD PRESSURE NOT AN ISSUE AT THIS VISIT [id number] Nithin Rodriguez i, MD Main Office [address] [place] [address] 07/20/2016 11:30:32 07/20/2016 11:34:57 Coronary arteriosclerosis 01758173 I25.10 STABLE NO SYMTOMS OR CHEST PAIN, ON EFFIENT FOLLOWED BY CARDIOLOGY Vitamin D deficiency 347 71952 E55.9 LEVEL AT GOAL ON D3 CHECK NEXT VISIT Hypercalcemia 76389346 E 83.52 CALCIUM IS 10.2, WILL MONITOR WITH D LEVELS Essential hypertension 16124449 I10 BLOOD PRESSURE NOT AN ISSUE AT THIS VISIT, WILL MONITOR GFR > 60 Mixed hyperlipidemia 267 181003 E78.2 TOATLA CHOLESTERO L AT 211, CANNOT CALCULATE LDL BECAUSE TRIGLYCERI ANN GREATER THAN 1000, AT 1191, NEEDS TO RESUME VASCEPA 1GRAM 2 CAPS PO TWICE A DAY. Insulin tr eated type 2 diabetes mellitus 147881653 Z79.4 A1C IS MUCH IMPROVED AT 7.5, , LANTUS 24, JANUMET 50/1000MG PO PO BID , ADDED NATEGLINID E 60 MG PO TID [id number] Nithin Rodriguez i, MD Main Office [address] [place] [address] 10/20/2016 14:06:55 10/20/2016 14:49:38 Type 2 diabetes mellitus 62247209 E11.9 A1C IS NOW 5.9, LANTUS 36 UNITS AT HS , JANUMET 50 /1000 MG PO BID , NATEGLINID E 60 MG PO QAC Mixed hyperlipidemia 267 805470 E78.2 TOTAL CHOLESTERO L AT 211, CANNOT CALCULATE LDL BECAUSE TRIGLYCERI ANN GREATER THAN 1000, AT 1191, NEEDS TO RESUME VASCEPA 1GRAM 2 CAPS PO TWICE A DAY. TODAY 10/20/16 TOTAL CHOL 145 LDL 73 , TRIGS -174 THIS IS EXCELLENT ON CRESTOR 40MG WITH VASCEPA 1GRAM 2 IN AM AND 2 IN PM Essential hypertension 11925311 I10 BLOOD PRESSURE NOT AN ISSUE AT THIS VISIT, WILL MONITOR GFR > 60, BLOOD PRESSURE AT GOAL NOT ON JONATHON AT THIS TIME Vitamin D deficiency 347 62853 E55.9 LEVEL AT GOAL ON D3 CHECK NEXT VISIT/TRACY OF D25-OH IS EXTEMELY LOW AT 13 TOLD TAKE VITAMIN D3 2000 IU PO QD Coronary arteriosclerosis 41216682 I25.10 STABLE NO SYMTOMS OR CHEST PAIN, ON EFFIENT FOLLOWED BY CARDIOLOGY Numbness of foot 6286307 00 R20.0 RT FOOT MILD TINGLING SENSATION , COULD BE MILD NEUROPATHY TAKE B12 1000 MG PO QD [id number] Nithin Rodriguez i, MD Main Office [address] [place] [address] 02/07/2017 11:38:11 02/07/2017 12:58:25 Type 2 diabetes mellitus 50052170 E11.9 ALL NUMBERS AT GOAL WITH A1C IS 5.6 ON LANTUS AND NATEGLINID E , JANUMET 50 1000MG PO BID Mixed hyperlipidemia 267 470723 E78.2 TOTAL CHOLESTERO L AT 211, CANNOT CALCULATE LDL BECAUSE TRIGLYCERI ANN GREATER THAN 1000, AT 1191, NEEDS TO RESUME VASCEPA 1GRAM 2 CAPS PO TWICE A DAY. TODAY 10/20/16 TOTAL CHOL 145 LDL 73 , TRIGS -174 THIS IS EXCELLENT ON CRESTOR 40MG WITH VASCEPA 1GRAM 2 IN AM AND 2 IN PM Essential hypertension 77995440 I10 BLOOD PRESSURE NOT AN ISSUE AT THIS VISIT, WILL MONITOR GFR > 60, BLOOD PRESSURE AT GOAL NOT ON JONATHON AT THIS TIME Hypercalcemia 13025113 E 83.52 CALCIUM IS 10.2, WILL MONITOR WITH D LEVELS, TODAY IS 10.4 / MILD CLIMBING , WILL SET UP LABS AGAIN WITH 24 HOUR URINE FOR CALCIUM , NO HISTORY OF KIDNEY STONES Vitamin D deficiency 347 37738 E55.9 LEVEL AT GOAL ON D3 CHECK NEXT VISIT/TRACY OF D25-OH IS EXTEMELY LOW AT 13 TOLD TAKE VITAMIN D3 2000 IU PO QD, LEVEL IS NOW 42 CORRECTED Coronary arteriosclerosis 95053808 I25.10 STABLE AT THIS TIME , WE TALKED ABOUT IN FUTURE IF INSURANCE PERMITS GOIG ON VICTOZA OR JARDIANCE FO A1CV LOWERING Health Concerns Section Related Observation LastModified by Organization Detai ls LastModified Time None Recorded Concern Status LastModified by Organization Details LastModified Time None Recorded Advance Directives Directive N: Payers Insurance Date Sequence Insurance Name Policy Number Policy Galloway Covered Member ID Galloway Member ID Guarantor Name 02/04/2017 1 MIGUEL [id number] Jersey Quigley [id number] Notes Date Note Type Note Provider Name [...] A1C OF 11.6 Nithin Salguero MD [address], [address], [place] - Nithin Salguero MD 05/06/2016 14:26:49 7 text/htm l [...] , TRIGS -171, Nithin Salguero MD [address], [address], [facility] - Nithin Salguero MD 07/20/2016 16:32:38 7 text/htm l [...] IS 73 , Nithin Salguero MD [address], [address], [place] - Nithin Salguero MD 10/20/2016 14:55:28 7 [...] QDLVEL IS 42 . Nithin Salguero MD [address] [address], [place], [address], [place] - Nithin Salguero MD 02/07/2017 12:50:10
--- OUTSIDE RECORDS SUMMARY | 2024-09-05 14:05 | XMS_ITS | Encounter Summary ---
Author Organization [facility] Address [address] [place] [address] Care Team Providers Care Rectangular Tank Cooper Name Role Phone Matt Rodriguez MD Primary Care Provider [phone] Shelly Fonseca MD Primary Care Provider [phone] Nithni Salguero MD Unavailable [phone] Encounter Details Date Type Department Care Team (Late st Contact Info) Description 02/06/2015 Scanned Document [address] [address] Provider, Generic Social History Tobacco [...] on filedocumented in this encounter Care Teams Rectangular Tank Cooper Relationship Specialty Start Date End Date Matt Rodriguez MD [address] [place] [address] PCP - General Internal Medicine 10/24/14 11/29/15 Shelly Fonseca MD [address] [place] [address] PCP - General Internal Medicine 11/30/15 02/10/20 Nithin Slaguero MD [address] [place] [address] Endocrinology 10/29/18 documented as of this encounter
[2024-09-11] VITALS (21 sets, daily range): BP systolic 128–175; BP diastolic 62–83; PULSE 59–73; RESP 14–20; TEMP 36.1–36.9; O2SAT 97–100; BMI 28.2
[2024-09-11 07:33] LABS: Glucose, Whole Blood 145 mg/dL (60-115)
[2024-09-11] MEDS: Heparin Sodium,Porcine 10,000 UNIT/10 ML VIAL 7000 UNIT IVPUSH (09:43)
--- NOTE | 2024-09-11 11:13 | W.PM.OPN ---
Operative Note Operative Note Date of Service: 09/11/24 Narrative: Angiogram report from [facility] Preoperative diagnosis: Atherosclerosis of left lower extremity with activity limiting claudication Postoperative diagnosis: Same Procedure: 1. Ultrasound-guided left common femoral access 2. Aortogram with bilateral lower extremity runoff 3. Left common iliac angioplasty and stent Surgeon:Bharat Brown M.D., FACS, RPVI Strip Feeder:None Anesthesia: Local with moderate conscious sedation. Total intraservice moderate sedation time was 42 minutes. I monitored the patient's level of consciousness and physiologic status continuously throughout the procedure. Specimens:none Drains:none Estimated blood loss: Less than 10 ml Radiation Dose: 337.8 mGy Implant: Medtronic visi Pro 8 x 37; Medtronic Impact DCB 8 x 40 Indications: 69-year-old gentleman who presents with claudication left more so than night right now presents for endovascular intervention. The patient has signed the informed consent after reviewing risks, complications, benefits, and alternatives previously discussed with the patient. The patient was given the opportunity to ask any additional questions or voice any concerns. All questions were answered to the patient's satisfaction. Procedure in detail: Patient was brought to the angiography suite prior to which a time-out was called for patient identification and site verification. Bilateral groins were prepped and draped in the standard surgical fashion. Under ultrasound guidance left common femoral was punctured with micro puncture needle and wire. Subsequently a precision 5 Japanese sheath was then placed. Bentson wire was advanced to the level of the aorta. 5 Japanese Flush catheter was brought up and parked at the level of the renal arteries. Aortogram was then undertaken. Catheter was brought down to the level of the iliac bifurcation. Iliacs and runoff was performed through the flush catheter that was parked at the bifurcation and a power injection was performed to visualize bilateral runoff vessels. At this point we recognized that there was a high-grade stenosis at the common iliac on the left side. We then administered 7000 units of heparin. After 5 minutes of circulation time we exchanged out for a 7 Japanese short sheath. Once this was accomplished we initially plasty this stenotic segment with a 7 x 40 regular balloon. We then followed this up with a Medtronic visi Pro 8 x 37 stent. This is a balloon expandable open cell stent. Once this was in position and deployed appropriately we then followed this up with an 8 x 40 drug coated balloon. This was brought into position in under 3 minutes and insufflated for a total of 3 minutes in duration. Once this was all accomplished at completion angiogram demonstrated excellent result. We then used a CELT 7 Japanese closure device. 5 minutes direct pressure was held. Adequate hemostasis was achieved. Patient tolerated the procedure well. Returned to recovery with stable vitals Interpretation of films: 1. Ultrasound demonstrates appropriate femoral access site. Vessel was patent with minimal stenosis. Needle entry was visualized. Image of ultrasound was saved. 2. Aortogram demonstrates appropriate caliber aorta. Minimal disease. Appropriate take-off of the renals. 3. Iliac images demonstrate mild stenosis at the origin of the right left common iliac into the external iliac high-grade stenosis. 4. Left Leg Common femoral artery: No significant disease Profundus Femoris: No significant disease Superficial femoral artery: No significant disease Popliteal artery (p1,p2,p3): No significant disease Anterior tibial artery: No significant disease Peroneal artery: No significant disease Posterior tibial artery: No significant disease Dorsalis pedis/plantar arch: Not visualized. Contrast only reflux down to approximately the mid calf 5. Right Leg Common femoral artery: No significant disease Profundus Femoris: No significant disease Superficial femoral artery: No significant disease Popliteal artery (p1,p2,p3): No significant disease Anterior tibial artery: No significant disease Peroneal artery: No significant disease Posterior tibial artery: No significant disease Dorsalis pedis/plantar arch: Not visualized. Contrast only reflux down to approximately the mid calf Conclusion: 1. Successful left iliac artery angioplasty and stent 2. Anticoagulation status: 6 months of aspirin and Plavix This note is constructed using voice recognition software. While every effort has been made to ensure accuracy, creping machine operator helper errors may have been included. Thank you for allowing me to participate in the care of your patient. Yours sincerely, Bharat Brown MD, FACS, R.P.V.I.
[2024-09-11 13:39] LABS: ACT 211 Celite s (79-173)
== END 2024-09-11 12:42 | disposition home or self-care (01) ==
PROVIDERS: PCP Internal Medicine; Visit Provider Surgery Vascular Surgery
DX: E13.51 Other specified diabetes mellitus with diabetic peripheral angiopathy without gangrene (principal); I70.212 Atherosclerosis of native arteries of extremities with intermittent claudication, left leg; I87.2 Venous insufficiency (chronic) (peripheral); R26.2 Difficulty in walking, not elsewhere classified; I10 Essential (primary) hypertension; E78.5 Hyperlipidemia, unspecified; I25.10 Atherosclerotic heart disease of native coronary artery without angina pectoris; I25.2 Old myocardial infarction; E55.9 Vitamin D deficiency, unspecified; L40.9 Psoriasis, unspecified; Z86.718 Personal history of other venous thrombosis and embolism; Z86.711 Personal history of pulmonary embolism; Z79.4 Long term (current) 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; Z87.891 Personal history of nicotine dependence; Z98.890 Other specified postprocedural states
CPT/HCPCS: 37221; 76937; 82947; 85347; 99152; 99153; C1725; C1760; C1769; C1876; C1887; C1894; C2623; J1644; J2250; J2270; J2312; J3010; Q9967

== ENCOUNTER → 2024-09-11 07:04 | Outpatient (BNV) | payer MEDICARE, SELFPAY | PROVIDERS: PCP Internal Medicine; Visit Provider Surgery Vascular Surgery | DX: I70.212 Atherosclerosis of native arteries of extremities with intermittent claudication, left leg (principal) | CPT/HCPCS: 37221; 75625; 75710; 76937; 99152 ==

== ENCOUNTER 2024-09-12 12:46 | Outpatient (AMB) | payer MEDICARE, SELFPAY ==
--- NOTE | 2024-09-12 12:54 | A.OFFVIS_ITS ---
Intake Visit Reasons: OV-MRI Knee RT review Intake Note: Jersey is a 68 year old male who presents for an MRI review of right knee. Patient reports his knee pain has increased since his last visit. 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 Both the lateral and medial menisci appear degenerated, frayed, and torn. There is a radial tear of the anterior root of the lateral meniscus and extensive degeneration and tears of the medial meniscus. The medial meniscus is small suggesting prior partial mastectomy. No displaced meniscal tear was identified. Chronic ACL tear with anterior tibial translation. Multiple extruded intra-articular bodies located posterior to the proximal central and medial tibia. One intra-articular body is in the posterior joint, just lateral to the PCL footprint. Allergies No Known Allergies (No Known Allergies*) Allergy (Verified 09/12/24 13:03) HPI HPI OV-MRI Knee RT review: Details: 69-year-old gentleman returns to the office today for a follow-up right knee pain status post MRI. The patient states since his last visit he does have occasionally more pain however it is not significantly limiting his ability to perform daily activities. He is able to play 10 rounds of golf and get through it without having to stop. He states his main complaint is when he is going up or down the stairs he feels like his knee is unstable. [facility] Medical History DVT (deep venous thrombosis) (~2013) Pulmonary embolism HTN (hypertension) Old inferior wall myocardial infarction (~07/2004) CAD (coronary artery disease) Vitamin D deficiency Lipid disorder Psoriasis residential (current) 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 Diabetes 1.5, managed as type 1 HLD (hyperlipidemia) Surgical History Hx of brain surgery History of cardiac cath (~10/2016) History of cardiac cath (~12/2014) History of cardiac cath (~12/2014) Hx of cardiac cath (~10/2009) History of shoulder surgery Herniated disc History of hip replacement History of knee surgery History of surgery Family History Father Diabetes mellitus Mother No problems noted. Brother No problems noted. Son No problems noted. Daughter No problems noted. Social History Household Members: Spouse Household Members Other:: retired, lives in [place] for the winter Housing: House Are you a primary youth care specialist to a significant other at home: No Do you presently have visiting nurse or other home services: No Patient Tobacco Use Status: Former Tobacco user Years Smoked: 20 years e-Cigarette/Vaping Use: Never Used service: No Current occupational status: retired Cognitive needs: No Hearing needs: No Vision needs: Yes Review of Systems Const All systems reviewed & are unremarkable except as noted in HPI and below Physical Exam Extrem Other: Right knee is normal to inspection. He has full range of motion with significant crepitus. No gross laxity with anterior drawer when compared to contralateral side. Calf supple nontender neurovascularly intact. 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 Both the lateral and medial menisci appear degenerated, frayed, and torn. There is a radial tear of the anterior root of the lateral meniscus and extensive degeneration and tears of the medial meniscus. The medial meniscus is small suggesting prior partial mastectomy. No displaced meniscal tear was identified. Chronic ACL tear with anterior tibial translation. Multiple extruded intra-articular bodies located posterior to the proximal central and medial tibia. One intra-articular body is in the posterior joint, just lateral to the PCL footprint. Assessment & Plan Assessment & Plan (1) Primary osteoarthritis of right knee: Code(s): M17.11 - Unilateral primary osteoarthritis, right knee Category: Medical Plan: I discussed with the patient his findings on MRI and options available. He is not at a point where he would benefit from knee replacement given his ability to perform most activities without limitations. I do not think a knee arthroscopy would be helpful given his primary complaint is instability. I also explained with his arthritis the knee arthroscopy may flare this up which would cause him more discomfort. I did offer him a cortisone injection which she would like to hold off on at this time. He was fit for a stabilized knee brace to help with support while he is performing activities. If there is any questions or concerns going forward he will contact our office otherwise he can follow up as needed. If he does call and would like to discuss knee replacements he should be booked with Dr. Spence. Coding Level of Care Code Est Pt Level 3 (49876) Complex EM visit Add On G2211 Diagnoses Primary osteoarthritis of right knee M17.11
--- OUTSIDE RECORDS SUMMARY | 2024-09-12 13:01 | XMS_ITS | Clinical Summary ---
Author Organization [facility] Address [address] [place] [address] Care Team Providers Care Commercial Center Manager Name Role Phone Matt Rodriguez MD Primary Care Provider [phone] Surgical History Surgery Date Site/Laterality Comments HIP ARTHROPLASTY Right PROCEDURE:HIP ARTHROPLASTY KNEE ARTHROPLASTY Right PROCEDURE:KNEE ARTHROPLASTY;COMMENT:x2 CARDIAC CATHETERIZATION 10/28/2016 N/A PROCEDURE:CARDIAC CATHETERIZATION;COMMENT:Procedure: LEFT HEART CATHETERIZATION ? PTCA; Surgeon: Vasquez Romero DO; Location: [facility] CARDIAC HEADER SET UP OPERATOR; Service: Cardiology; Laterality: N/A; Medical History Medical History Date Comments Acute transmural inferior wa ll [place] ([facility] V24, [facility] V28) 08/20/04 DX:Acute transmural inferio r wall [place] (HCC) H/O cardiac catheterization 08/20/04 DX:H /O cardiac catheterization;COMMENT:3x20 3x16 taxus Unstable angina ([facility] V24 , [facility] V28) 10/27/09 DX:Unstable angina ([facility]) [...] stent thrombosis 01/09/15 DX:Cor onary stent thrombosis;COMMENT:inf [place], started on effient Social History Tobacco Use [...] age to complete this topic Care Teams Commercial Center Manager Relationship Specialty Start Date End Date Matt Rodriguez MD [address] [place] [phone] PCP - General Family Medicine 11/07/14
--- OUTSIDE RECORDS SUMMARY | 2024-09-12 13:01 | XMS_ITS | Clinical Summary ---
Author Organization [facility] Address [address] [place] [address] Care Team Providers Care Returned Materials Inspector Name Role Phone Matt Rodriguez MD Primary Care Provider hTierno verdugo Allergies No known active allergies Medications [...] infarction 02/06/2015 Overview: 1. Acute inf wall [place] 08/18/04 2. Cardiac cath--08/18/04--mild LAD, mild Cx, mod diag, 100% RCA 3. 08/18/04 3 x 25 TAXUS stent in mid RCA 4. Cath--10/24/09--sever stenosis distal to prefious stent 5. 3.5 x 15 xscience in RCA 6/ nuclear stress--04/09/12--54% EF, fixed inf defect 7. 01/03/15--adm in [place] for unstable angina 8. 01/03/15--nuclear stress--inferior ischemic [...] this topic Medical Devices Implanted Type Area Accounting Bookkeeper Device Identifier Shelf Expiration Date Model / Serial / Lot Stent Resolute Yazan 22mm 3mm Rapdx Zotarolimus Eluting - [id number] - [id number] Implanted: 017 at [facility] (Quantity not on file) [employer] - VASCULAR [id number] X / / Advance Directives For more information, please contact: [phone] Latest Code Status on File Code Status [...] way: discussion with patient . Care Teams Returned Materials Inspector Relationship Specialty Start Date End Date Matt Rodriguez MD PCP - General Family Medicine 11/07/14
--- OUTSIDE RECORDS SUMMARY | 2024-09-12 13:01 | XMS_ITS | Data Portability ---
Author Organization [place] - Nithin gamez MD, Main Office Address [address] [facility] [address] [address] Assessment Encounter Date Assessment Date Assessment LastModified [...] frequent foot care and needs to see color artist yearly. 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 IN FEB , SET VISIT JAN [...] OF [place]? , MOVING TO [place] IN , WILL FOLLW UP IN JUNE [email or web address] Not available 02/07/2017 12:49:41 Reason for Referral None Reported. Results Created Date Observation Date Name Description Value Unit Range Abnormal Flag Note LastModifiedBy Organization Detail LastModifiedTime 07/13/19 17 07/12/2016 lipid panel , serum cholesterol, total 136 mg/dL 125-20 0 normal Not Available [facility] [address], [address], 07/12/2016 21:53:04 07/13/19 17 07/12/2016 lipid panel , serum HDL cholesterol 46 mg/dL > or = 40 normal Not Available [facility] [address], [address], 07/12/2016 21:53:04 07/13/19 17 07/12/2016 lipid panel , serum triglyceride s 171 mg/dL <150 high Not Available [facility] [address], [address], 07/12/2016 21:53:04 07/13/19 17 07/12/2016 lipid panel , serum LDL-choleste rol 56 mg/dL _(dennys c) <130 normal Corey able range <100 mg/dL for patie nts with CHD or diabe angel and <70 mg/dL for diabe tic patie nts with known heart disea se. Not Available [facility] [address], [place], [address], 07/12/2016 21:53:04 07/13/19 17 07/12/2016 lipid panel , serum chol/HDLC ratio 3.0 (calc ) < or = 5.0 normal Not Available [facility] [place] [facility] [address], [place], [address], 07/12/2016 21:53:04 07/13/19 17 07/12/2016 lipid panel , serum non HDL cholesterol 90 mg/dL _(dennys c) normal Targe t for non-H DL shea stero l is 30 mg/dL highe r than LDL shea stero l targe t. Not Available [facility] [place] [facility] [address] [place], [place], [address], 07/12/2016 21:53:04 07/13/19 17 07/12/2016 lipid panel , serum copy(ies) sent to: [facility] [address] [place] [address] CENTR AL CONN CARDI OLOGY 19 [facility] AND [facility] 35 [facility] [place] [address] Not Available [facility] [place] [facility] [address] [place], [place], [address], 07/12/2016 21:53:04 07/13/19 17 07/12/2016 CMP, serum or plasm a glucose 129 mg/dL 65-99 high Fasti ng refer ence inter bria For someo ne witho ut known diabe angel, a gluco se value >125 mg/dL indic ates that they may have diabe angel and this shoul d be confi rmed with a follo w-up test. Not Available [facility] [place] [facility] [address] [place], [place], [address], 07/12/2016 21:53:05 07/13/19 17 07/12/2016 CMP, serum or plasm a urea nitrogen (BUN) 19 mg/dL 7-25 normal Not Available [facility] [place] [facility] [address], [address], 07/12/2016 21:53:05 07/13/19 17 07/12/2016 CMP, serum or plasm a creatinine 1.14 mg/dL 0.70-1 .25 normal For patie nts >49 years of age, the refer ence limit for Creat inine is appro ximat marti 13% highe r for peopl e ident ified as Afric an-Am jessica n. Not Available [facility] [place] [facility] [address], [place], [address], 07/12/2016 21:53:05 07/13/19 17 07/12/2016 CMP, serum or plasm a eGFR non-afr. prydeinig 69 mL/mi n/1.7 3m2 > or = 60 normal Not Available [facility] [place] [facility] [address], [place], [address], 07/12/2016 21:53:05 07/13/19 17 07/12/2016 CMP, serum or plasm a eGFR 80 mL/mi n/1.7 3m2 > or = 60 normal Not Available [facility] [place] [facility] [address], [place], [address], 07/12/2016 21:53:05 07/13/19 17 07/12/2016 CMP, serum or plasm a BUN/creatini ne ratio NOT APPLIC ABLE (calc ) 6-22 Not Available [facility] [address], [address], 07/12/2016 21:53:05 07/13/19 17 07/12/2016 CMP, serum or plasm a sodium 140 mmol/ L 135-14 6 normal Not Available [facility] [address], [address], 07/12/2016 21:53:05 07/13/19 17 07/12/2016 CMP, serum or plasm a potassium 4.5 mmol/ L 3.5-5. 3 normal Not Available [facility] [address], [place], [address], 07/12/2016 21:53:05 07/13/19 17 07/12/2016 CMP, serum or plasm a chloride 105 mmol/ L 98-110 normal Not Available [facility] [address], [place], [address], 07/12/2016 21:53:05 07/13/19 17 07/12/2016 CMP, serum or plasm a carbon dioxide 25 mmol/ L 20-31 normal Not Available [facility] [address], [place], [address], 07/12/2016 21:53:05 07/13/19 17 07/12/2016 CMP, serum or plasm a calcium 10.2 mg/dL 8.6-10 .3 normal Not Available [facility] [address], [place], [address], 07/12/2016 21:53:05 07/13/19 17 07/12/2016 CMP, serum or plasm a protein, total 7.7 g/dL 6.1-8. 1 normal Not Available [facility] [address], [place], [address], 07/12/2016 21:53:05 07/13/19 17 07/12/2016 CMP, serum or plasm a albumin 4.7 g/dL 3.6-5. 1 normal Not Available [facility] [address], [address], 07/12/2016 21:53:05 07/13/19 17 07/12/2016 CMP, serum or plasm a globulin 3.0 g/dL_ (calc ) 1.9-3. 7 normal Not Available [facility] [address] [place], [place], [address], 07/12/2016 21:53:05 07/13/19 17 07/12/2016 CMP, serum or plasm a albumin/glob ulin ratio 1.6 (calc ) 1.0-2. 5 normal Not Available [facility] [place] [facility] [address], [place], [address], 07/12/2016 21:53:05 07/13/19 17 07/12/2016 CMP, serum or plasm a bilirubin, total 0.9 mg/dL 0.2-1. 2 normal Not Available [facility] [address], [place], [address], 07/12/2016 21:53:05 07/13/19 17 07/12/2016 CMP, serum or plasm a alkaline phosphatase 62 U/L 40-115 normal Not Available [facility] [address], [place], [address], 07/12/2016 21:53:05 07/13/19 17 07/12/2016 CMP, serum or plasm a AST 22 U/L 10-35 normal Not Available [facility] [address], [place], [address], 07/12/2016 21:53:05 07/13/19 17 07/12/2016 CMP, serum or plasm a ALT 21 U/L 9-46 normal Not Available [facility] [address], [place], [address], 07/12/2016 21:53:05 07/13/19 17 07/12/2016 CMP, serum or plasm a copy(ies) sent to: [facility] [address] [address] CENTR [place] CONN CARDI OLOGY 19 [facility] AND [address] [place] [address] Not Available [facility] [place] [facility] [address], [address], 07/12/2016 21:53:05 07/13/19 17 07/12/2016 HbA1c (hemo [...] diabe angel for child kate. Not Available [facility] [place] [facility] [address], [address], 07/12/2016 21:27:59 07/13/19 17 07/12/2016 HbA1c (hemo globi n A1c), blood mean plasma glucose 190 mg/dL _(dennys c) Not Available [facility] [place] [facility] [address], [address], 07/12/2016 21:27:59 07/13/19 17 07/12/2016 HbA1c (hemo globi n A1c), blood copy(ies) sent to: [facility] [address] [place] [address] CENTR AL CONN CARDI OLOGY 19 [facility] AND [address] [place] [address] Not Available [facility] [place] [facility] [address] [place], [place], [address], 07/12/2016 21:27:59 10/14/19 17 10/14/2016 lipid panel , serum cholesterol, total 145 mg/dL <200 normal Not Available [facility] [place] [facility] [address] [place], [place], [address], 10/14/2016 02:33:54 10/14/1910/14/2016 lipid panel , serum HDL cholesterol 45 mg/dL >40 normal Not Available [facility] [place] [facility] [address] [place], [place], [address], 10/14/2016 02:33:54 10/14/1910/14/2016 lipid panel , serum triglyceride s 174 mg/dL <150 high Not Available [facility] [place] [facility] [address] [place], [place], [address], 10/14/2016 02:33:54 10/14/1910/14/2016 lipid panel , serum LDL-choleste rol 73 mg/dL _(dennys c) normal Refer ence range : <100 Corey able range <100 mg/dL for patie nts with CHD or diabe angel and <70 mg/dL for diabe tic patie nts with known heart disea se. The [facility] popeye mondragon n is a valid [...] ional infor pipo will refer to http: //[facility] vane Rodriguez stDia gnost ics.c om/fa q/FAQ 164 (This link is being provi ded for infor toña garza/ devin romeoo ses only. ) Not Available [facility] [place] [facility] [address], [place], [address], 10/14/2016 02:33:54 10/14/19 17 10/14/2016 lipid panel , serum chol/HDLC ratio 3.2 (calc ) <5.0 normal Not Available [facility] [address], [place], [address], 10/14/2016 02:33:54 10/14/19 17 10/14/2016 lipid panel , serum non HDL cholesterol 100 mg/dL _(dennys c) <130 normal For patie nts with diabe angel plus 1 major ASCVD risk facto r, treat ing to a non-H DL-C goal of <100 mg/dL (LDL- C of <70 mg/dL ) is consi geneva prabhakar n. Not Available [facility] [address], [place], [address], 10/14/2016 02:33:54 10/14/19 17 10/14/2016 lipid panel , serum copy(ies) sent to: [facility] [address] [place] [address]ARD[address]LOG[address] STS 7 [facility] [address] Not Available [facility] [address], [place], [address], 10/14/2016 02:33:54 10/14/19 17 10/14/2016 micro album in/cr eatin ine, mass ratio , urine creatinine, random urine 184 mg/dL 20-370 normal Not Available [facility] [address] [place], [address], 10/14/2016 14:41:21 10/14/19 17 10/14/2016 micro album in/cr eatin ine, mass ratio , urine microalbumin 4.4 mg/dL see note: normal Refer ence Range : Refer ence Range Not estab lishe d Not Available [facility] [place] [facility] [address] [place], [place], [address], 10/14/2016 14:41:21 10/14/19 17 10/14/2016 micro album [...] a diagn ostic categ ory. Not Available [facility] [address] [place], [place], [address], 10/14/2016 14:41:21 10/14/19 17 10/14/2016 micro album in/cr eatin ine, mass ratio , urine copy(ies) sent to: [facility] [address] [place] [address] CARDI [facility]LOGI STS 7 [facility] [place] [address] Not Available [facility] [address] [place], [place], [address], 10/14/2016 14:41:21 10/14/19 17 10/14/2016 CMP, serum or plasm a glucose 67 mg/dL 65-99 normal Fasti ng refer ence inter bria Not Available [facility] [place] [facility] [address] [place], [address], 10/14/2016 02:33:55 10/14/1910/14/2016 CMP, serum or plasm a urea nitrogen (BUN) 18 mg/dL 7-25 normal Not Available [facility] [place] [facility] [address] [place], [address], 10/14/2016 02:33:55 10/14/1910/14/2016 CMP, serum or plasm a creatinine 1.04 mg/dL 0.70-1 .25 normal For patie nts >49 years of age, the refer ence limit for Creat inine is appro ximat marti 13% highe r for peopl e ident ified as Afric an-Am jessica n. Not Available [facility] [place] [facility] [address] [place], [place], [address], 10/14/2016 02:33:55 10/14/1910/14/2016 CMP, serum or plasm a eGFR non-afr. prydeinig 77 mL/mi n/1.7 3m2 > or = 60 normal Not Available [facility] [address] [place], [place], [address], 10/14/2016 02:33:55 10/14/1910/14/2016 CMP, serum or plasm a eGFR 89 mL/mi n/1.7 3m2 > or = 60 normal Not Available [facility] [place] [facility] [address] [place], [place], [address], 10/14/2016 02:33:55 10/14/1910/14/2016 CMP, serum or plasm a BUN/creatini ne ratio NOT APPLIC ABLE (calc ) 6-22 Not Available [facility] [address] [place], [address], 10/14/2016 02:33:55 10/14/1910/14/2016 CMP, serum or plasm a sodium 139 mmol/ L 135-14 6 normal Not Available [facility] [place] [facility] [address] [place], [place], [address], 10/14/2016 02:33:55 10/14/1910/14/2016 CMP, serum or plasm a potassium 4.2 mmol/ L 3.5-5. 3 normal Not Available [facility] [place] [facility] [address] [place], [place], [address], 10/14/2016 02:33:55 10/14/1910/14/2016 CMP, serum or plasm a chloride 105 mmol/ L 98-110 normal Not Available [facility] [place] [facility] [address] [place], [place], [address], 10/14/2016 02:33:55 10/14/1910/14/2016 CMP, serum or plasm a carbon dioxide 21 mmol/ L 20-31 normal Not Available [facility] [place] [facility] [address] [place], [place], [address], 10/14/2016 02:33:55 10/14/1910/14/2016 CMP, serum or plasm a calcium 10.2 mg/dL 8.6-10 .3 normal Not Available [facility] [address] [place], [place], [address], 10/14/2016 02:33:55 10/14/1910/14/2016 CMP, serum or plasm a protein, total 8.1 g/dL 6.1-8. 1 normal Not Available [facility] [address], [place], [address], 10/14/2016 02:33:55 10/14/1910/14/2016 CMP, serum or plasm a albumin 4.8 g/dL 3.6-5. 1 normal Not Available [facility] [address], [place], [address], 10/14/2016 02:33:55 10/14/1910/14/2016 CMP, serum or plasm a globulin 3.3 g/dL_ (calc ) 1.9-3. 7 normal Not Available [facility] [address], [place], [address], 10/14/2016 02:33:55 10/14/1910/14/2016 CMP, serum or plasm a albumin/glob ulin ratio 1.5 (calc ) 1.0-2. 5 normal Not Available [facility] [address], [place], [address], 10/14/2016 02:33:55 10/14/1910/14/2016 CMP, serum or plasm a bilirubin, total 1.0 mg/dL 0.2-1. 2 normal Not Available [facility] [address], [place], [address], 10/14/2016 02:33:55 10/14/1910/14/2016 CMP, serum or plasm a alkaline phosphatase 56 U/L 40-115 normal Not Available [facility] [address], [place], [address], 10/14/2016 02:33:55 10/14/1910/14/2016 CMP, serum or plasm a AST 24 U/L 10-35 normal Not Available [facility] [address], [address], 10/14/2016 02:33:55 10/14/1910/14/2016 CMP, serum or plasm a ALT 22 U/L 9-46 normal Not Available [facility] [employer] [facility] [address] [place], [place], [address], 10/14/2016 02:33:55 10/14/1910/14/2016 CMP, serum or plasm a copy(ies) sent to: [facility] [address] [place] [address]ARD[address]LOGI STS 7 [facility] [place] [address] Not Available [facility] [place] [facility] [address] [place], [place], [address], 10/14/2016 02:33:55 10/14/1910/13/2016 HbA1c (hemo globi n [...] for child kate. Not Available [facility] [place] [facility] [address] [place], [place], [address], 10/13/2016 22:34:56 10/14/1910/13/2016 HbA1c (hemo globi n A1c), blood mean plasma glucose 133 mg/dL _(dennys c) Not Available [facility] [place] [facility] [address] [place], [place], [address], 10/13/2016 22:34:56 10/14/19 17 10/13/2016 HbA1c (hemo globi n A1c), blood copy(ies) sent to: [facility] [address] [place] [address]ARD[address]LOG[address] STS 7 [facility] [place] [address] Not Available [facility] [place] [facility] [address], [place], [address], 10/13/2016 22:34:56 01/31/20 17 01/30/2017 lipid panel , serum cholesterol, total 133 mg/dL <200 normal Not Available [facility] [place] [facility] [address], [place], [address], 01/30/2017 22:58:17 01/31/20 17 01/30/2017 lipid panel , serum HDL cholesterol 36 mg/dL >40 low Not Available [facility] [place] [facility] [address], [place], [address], 01/30/2017 22:58:17 01/31/20 17 01/30/2017 lipid panel , serum triglyceride s 200 mg/dL <150 high Not Available [facility] [address], [place], [address], 01/30/2017 22:58:17 01/31/20 17 01/30/2017 lipid panel [...] 9): 2061- 2068 (http ://ed ucati on.Hyacinth snowdenDec[employer]. com/f aq/FA Q164) Not Available [facility] [place] [facility] [address], [place], [address], 01/30/2017 22:58:17 01/31/20 17 01/30/2017 lipid panel , serum chol/HDLC ratio 3.7 (calc ) <5.0 normal Not Available [facility] [place] [facility] [address] [place], [place], [address], 01/30/2017 22:58:17 01/31/20 17 01/30/2017 lipid panel , serum non HDL cholesterol 97 mg/dL _(dennys c) <130 normal For patie nts with diabe angel plus 1 major ASCVD risk facto r, treat ing to a non-H DL-C goal of <100 mg/dL (LDL- C of <70 mg/dL ) is consi geneva a clarissa setho n. Not Available [facility] [place] [facility] [address], [place], [address], 01/30/2017 22:58:17 01/31/20 17 01/30/2017 lipid panel , serum copy(ies) sent to: [facility] [address] [place] [address] CENTR [place] CONN CARDI OLOGY 19 [facility] 35 [facility] [address] Not Available [facility] [place] [facility] [address], [place], [address], 01/30/2017 22:58:17 01/31/20 17 01/30/2017 CMP, serum or plasm a glucose 126 mg/dL 65-99 high Fasti ng refer ence inter bria For someo ne witho ut known diabe angel, a gluco se value >125 mg/dL indic ates that they may have diabe angel and this shoul d be confi rmed with a follo w-up test. Not Available [facility] [place] [facility] [address] [place], [address], 01/30/2017 22:58:17 01/31/20 17 01/30/2017 CMP, serum or plasm a urea nitrogen (BUN) 20 mg/dL 7-25 normal Not Available [facility] [place] [facility] [address] [place], [place], [address], 01/30/2017 22:58:17 01/31/20 17 01/30/2017 CMP, serum or plasm a creatinine 1.50 mg/dL 0.70-1 .25 high For patie nts >49 years of age, the refer ence limit for Creat inine is appro ximat marti 13% highe r for peopl e ident ified as Afric an-Am jessica n. Not Available [facility] [place] [facility] [address] [place], [place], [address], 01/30/2017 22:58:17 01/31/20 17 01/30/2017 CMP, serum or plasm a eGFR non-afr. prydeinig 49 mL/mi n/1.7 3m2 > or = 60 low Not Available [facility] [place] [facility] [address] [place], [place], [address], 01/30/2017 22:58:17 01/31/20 17 01/30/2017 CMP, serum or plasm a eGFR 57 mL/mi n/1.7 3m2 > or = 60 low Not Available [facility] [place] [facility] [address] [place], [place], [address], 01/30/2017 22:58:17 01/31/20 17 01/30/2017 CMP, serum or plasm a BUN/creatini ne ratio 13 (calc ) 6-22 normal Not Available [facility] [place] [facility] [address] [place], [place], [address], 01/30/2017 22:58:17 01/31/20 17 01/30/2017 CMP, serum or plasm a sodium 138 mmol/ L 135-14 6 normal Not Available [facility] [place] [facility] [address], [place], [address], 01/30/2017 22:58:17 01/31/20 17 01/30/2017 CMP, serum or plasm a potassium 4.7 mmol/ L 3.5-5. 3 normal Not Available [facility] [place] [facility] [address], [place], [address], 01/30/2017 22:58:17 01/31/20 17 01/30/2017 CMP, serum or plasm a chloride 102 mmol/ L 98-110 normal Not Available [facility] [place] [facility] [address], [place], [address], 01/30/2017 22:58:17 01/31/20 17 01/30/2017 CMP, serum or plasm a carbon dioxide 25 mmol/ L 20-31 normal Not Available [facility] [place] [facility] [address], [place], [address], 01/30/2017 22:58:17 01/31/20 17 01/30/2017 CMP, serum or plasm a calcium 10.4 mg/dL 8.6-10 .3 high Not Available [facility] [place] [facility] [address], [address], 01/30/2017 22:58:17 01/31/20 17 01/30/2017 CMP, serum or plasm a protein, total 8.0 g/dL 6.1-8. 1 normal Not Available [facility] [place] [facility] [address], [address], 01/30/2017 22:58:17 01/31/20 17 01/30/2017 CMP, serum or plasm a albumin 4.6 g/dL 3.6-5. 1 normal Not Available [facility] [address], [place], [address], 01/30/2017 22:58:17 01/31/20 17 01/30/2017 CMP, serum or plasm a globulin 3.4 g/dL_ (calc ) 1.9-3. 7 normal Not Available [facility] [address], [place], [address], 01/30/2017 22:58:17 01/31/20 17 01/30/2017 CMP, serum or plasm a albumin/glob ulin ratio 1.4 (calc ) 1.0-2. 5 normal Not Available [facility] [address], [place], [address], 01/30/2017 22:58:17 01/31/20 17 01/30/2017 CMP, serum or plasm a bilirubin, total 0.9 mg/dL 0.2-1. 2 normal Not Available [facility] [address], [address], 01/30/2017 22:58:17 01/31/20 17 01/30/2017 CMP, serum or plasm a alkaline phosphatase 61 U/L 40-115 normal Not Available [facility] [address], [place], [address], 01/30/2017 22:58:17 01/31/20 17 01/30/2017 CMP, serum or plasm a AST 25 U/L 10-35 normal Not Available [facility] [address], [address], 01/30/2017 22:58:17 01/31/20 17 01/30/2017 CMP, serum or plasm a ALT 25 U/L 9-46 normal Not Available [facility] [facility] [address] [place] [address], [place], [address], 01/30/2017 22:58:17 01/31/20 17 01/30/2017 CMP, serum or plasm a copy(ies) sent to: [facility] [address] [place] [facility] [place] [address] CEN[address] CONN CARDI OLOGY 19 [facility] AND [facility] [address] [facility] [place] [address] Not Available [employer] [employer] [facility] [place] [facility] [address], [place], [address], 01/30/2017 22:58:17 01/31/20 17 01/30/2017 CBC white blood cell count 6.5 thous and/u L 3.8-10 .8 normal Not Available [facility] [address], [place], [address], 01/30/2017 21:29:12 01/31/20 17 01/30/2017 CBC red blood cell count 4.17 nhan on/uL 4.20-5 .80 low Not Available [facility] [place] [facility] [address], [place], [address], 01/30/2017 21:29:12 01/31/20 17 01/30/2017 CBC hemoglobin 13.9 g/dL 13.2-1 7.1 normal Not Available [facility] [place] [facility] [address], [place], [address], 01/30/2017 21:29:12 01/31/20 17 01/30/2017 CBC hematocrit 40.7 % 38.5-5 0.0 normal Not Available [facility] [address], [place], [address], 01/30/2017 21:29:12 01/31/20 17 01/30/2017 CBC MCV 97.5 fL 80.0-1 00.0 normal Not Available [facility] [address], [place], [address], 01/30/2017 21:29:12 01/31/20 17 01/30/2017 CBC MCH 33.2 pg 27.0-3 3.0 high Not Available [facility] [place] [facility] [address], [place], [address], 01/30/2017 21:29:12 01/31/20 17 01/30/2017 CBC MCHC 34.1 g/dL 32.0-3 6.0 normal Not Available [facility] [place] [facility] [address], [place], [address], 01/30/2017 21:29:12 01/31/20 17 01/30/2017 CBC RDW 13.8 % 11.0-1 5.0 normal Not Available [facility] [place] [facility] [address], [place], [address], 01/30/2017 21:29:12 01/31/20 17 01/30/2017 CBC platelet count 189 thous and/u L 140-40 0 normal Not Available [facility] [place] [facility] [address], [place], [address], 01/30/2017 21:29:12 01/31/20 17 01/30/2017 CBC MPV 8.4 fL 7.5-12 .5 normal Not Available [facility] [place] [facility] [address], [place], [address], 01/30/2017 21:29:12 01/31/20 17 01/30/2017 CBC copy(ies) sent to: [facility] [address] [place] [address] [facility] [address] [facility] [address] [place] [address] Not Available [facility] [place] [facility] [address], [address], 01/30/2017 21:29:12 01/31/20 17 01/30/2017 vitam in B12, serum vitamin B12 548 pg/mL 200-11 00 normal Not Available [facility] [address], [address], 01/30/2017 22:58:18 01/31/20 17 01/30/2017 vitam in B12, serum copy(ies) sent to: [facility] [address] [place] [address] [facility] 35 [facility] [place] [address] Not Available [facility] [address], [address], 01/30/2017 22:58:18 01/31/20 17 01/31/2017 vitam in [...] /MS is recom sofi d: order code [id number] (johnnie ents >2yrs ). For more infor toña angela on this test, go to: http: [email or web address] [email or web address] om/fa [email or web address] [email or web address] (This link is being provi ded for infor toña nal/e ducat ional purpo ses only. ) Not Available [facility] [address], [address], 01/31/2017 02:52:12 01/31/20 17 01/31/2017 vitam in D, 25-hy droxy , total , serum copy(ies) sent to: [facility] [address] [place] [place] [address] [facility] 19 [facility] [address] [place] [address] Not Available [facility] [place] [facility] [address] [place], [place], [address], 01/31/2017 02:52:12 01/31/20 17 01/31/2017 HbA1c (hemo [...] Care in Diabe angel(A DA). Not Available [facility] [place] [facility] [address], [place], [address], 01/31/2017 05:18:01 01/31/20 17 01/31/2017 HbA1c (hemo globi n A1c), blood mean plasma glucose 122 mg/dL _(dennys c) Not Available [facility] [place] [facility] [address], [place], [address], 01/31/2017 05:18:01 01/31/20 17 01/31/2017 HbA1c (hemo globi n A1c), blood copy(ies) sent to: [facility] [address] [place] [address] [facility] [address] [place] [address] Not Available [facility] [place] [facility] [address], [place], [address], 01/31/2017 05:18:01 Result Notes None recorded. Problems Name Problem SNOMED Code Status Onset Date Resolution Date Notes Provider Name and Address Organization Details Recorded Time Type 2 diabetes mellitus 35100282 Active 2016 Nithin armenta MD [address] [place] [address] [place], [address], [place] - Nithin Salguero MD 7 13:45:43 Mixed hyperlipidemia 639688418 Active 2016 Nithin armenta MD [address] [place] [address] [place], [address], [place] - Nithin Salguero MD 7 13:46:07 Essential hypertension 14119451 Active 2016 Nithin armenta MD [address] [place] [address] [place], [address], [place] - Nithin Salguero MD 7 13:46:26 Hypercalcemia 19421700 Active 2016 Nithin armenta MD [address] [place] [address] [place], [address], [place] - Nithin Salguero MD 7 13:47:13 Vitamin D deficiency 89156405 Active 2016 Nithin armenta MD [address] [place] [address] [place], [address], [place] RAJESH Salguero MD 13:47:27 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 Procedures Surgical History Date Name Laterality Status Provider Name and Address Organization Details Recorded Time Coronary Artery Stent completed Nithin Salguero MD [address] [place] [address], [address] [place] [address], RAJESH Salguero MD 05/06/2016 13:52:31 Back Surgery completed Nithin Salguero MD [address] [place] [address], [address] [place] [address], RAJESH Salguero MD 05/06/2016 13:53:14 Shoulder joint surgery completed Nithin Salguero MD [address] [place] [address], [address] [place] [address], RAJESH Salguero MD 05/06/2016 13:53:28 Imaging Results [...] Address Organization Details Last Updated DateTime 7 [address].4 g 185.42 cm 27.7 kg/m2 10 /min 72 /min 118/78 mm[Hg] Nithin armenta MD [address] [place], [address] , [place] - Nithin Salguero MD 7 13:48:26 Date Recorded Body weight Body height Body mass index (BMI) Heart rate Systolic And Diastolic Provider Name and Address Organization Details Last Updated DateTime 07/20/2016 01548.29 g 185.42 cm 26.1 kg/m2 64 /min 130/85 mm[Hg] Dominic Bell RAJESH Salguero MD 07/20/2016 11:40:34 Date Recorded Body weight Body mass index (BMI) Body height Respiratory rate Heart rate Systolic And Diastolic Provider Name and Address Organization Details Last Updated DateTime 7 [address].4 7 g 26.4 kg/m2 185.42 cm 12 /min 99 /min 110/78 mm[Hg] iNthin armenta MD [address] [place] [address], [address] , RAJESH Salguero MD 7 14:17:06 Date Recorded Body weight Body mass index (BMI) Body height Respiratory rate Heart rate Systolic And Diastolic Provider Name and Address Organization Details Last Updated DateTime 7 34486.4 4 g 27 kg/m2 185.42 cm 12 /min 83 /min 130/82 mm[Hg] Nithin armenta MD [address] [place] [address], [address] , RAJESH Salguero MD 7 12:13:12 Social History Question Answer Notes LastModified by Organizat ion Details LastModified Time Tobacco Smoking Status Former Smoker Nithin Salguero MD [address] [place] [address], [address], [place] RAJESH Salguero MD 05/06/2016 13:50:35 Do [...] or Bone Problems Y Skin Problems Other Hyperlipidemia Y Hypertension Y Hyperthyroidism Y Immunizations Vaccine Type Date Status Note Provider Nam e and Address Organization Details Recorded Time Influenza, split virus, quadrivalent, preservative 6 completed Nithin Salguero MD [address] [place] [address], [address], [place] - Nithin Salguero MD 02/07/2017 12:24:11 DTaP 0 completed Nithin Salguero MD [address] [place] [address], [address], [place] - Nithin Salguero MD 02/07/2017 12:24:37 Past Encounters Encounter ID Performer Location Encounter Start Date Encounter Closed Date Diagnosis/Indication Diagnosis SNOMED-CT Code Diagnosis ICD10 Code Diagnosis Note [id number] Nithin Rodriguez i, MD Main Office [address] [address] 05/06/2016 13:14:23 05/06/2016 13:20:07 Diabetes mellitus 90759251 E11.9 POORLY CONTROLLED WITHA 1C NOW AT 13.3 WITH POLY SYMPTOMS OF TYPE 1, NEEDS AT LEAST BASAL INSULIN START TRESIBA U100 INSULIN AT 20 UNITS AT BEDTIME INCREASE INSULIN EVERY 5 DAYS BY 2 UNITS UNTIL YOU SEE FASTING AM BLOOD SUGAR BETWEEN 80-130, START JANUMET 50 /1000MG TWICE A DAY Mixed hyperlipidemia 267 481062 E78.2 TOATLA CHOLESTERO L AT 211, CANNOT CALCULATE LDL BECAUSE TRIGLYCERI ANN GREATER THAN 1000, AT 1191, NEEDS TO RESUME VASCEPA 1GRAM 2 CAPS PO TWICE A DAY. Essential hypertension 40661082 I10 BLOOD PRESSURE NOT AN ISSUE AT THIS VISIT [id number] Nithin Rodriguez i, MD Main Office [address] [place] [address] 07/20/2016 11:30:32 07/20/2016 11:34:57 Coronary arteriosclerosis 15442711 I25.10 STABLE NO SYMTOMS OR CHEST PAIN, ON EFFIENT FOLLOWED BY CARDIOLOGY Vitamin D deficiency 347 21214 E55.9 LEVEL AT GOAL ON D3 CHECK NEXT VISIT Hypercalcemia 42153021 E 83.52 CALCIUM IS 10.2, WILL MONITOR WITH D LEVELS Essential hypertension 56421198 I10 BLOOD PRESSURE NOT AN ISSUE AT THIS VISIT, WILL MONITOR GFR > 60 Mixed hyperlipidemia 267 396331 E78.2 TOATLA CHOLESTERO L AT 211, CANNOT CALCULATE LDL BECAUSE TRIGLYCERI ANN GREATER THAN 1000, AT 1191, NEEDS TO RESUME VASCEPA 1GRAM 2 CAPS PO TWICE A DAY. Insulin tr eated type 2 diabetes mellitus 367994131 Z79.4 A1C IS MUCH IMPROVED AT 7.5, , LANTUS 24, JANUMET 50/1000MG PO PO BID , ADDED NATEGLINID E 60 MG PO TID [id number] Nithin Rodriguez i, MD Main Office [address] [place] [address] 10/20/2016 14:06:55 10/20/2016 14:49:38 Type 2 diabetes mellitus 20882479 E11.9 A1C IS NOW 5.9, LANTUS 36 UNITS AT HS , JANUMET 50 /1000 MG PO BID , NATEGLINID E 60 MG PO QAC Mixed hyperlipidemia 267 095070 E78.2 TOTAL CHOLESTERO L AT 211, CANNOT CALCULATE LDL BECAUSE TRIGLYCERI ANN GREATER THAN 1000, AT 1191, NEEDS TO RESUME VASCEPA 1GRAM 2 CAPS PO TWICE A DAY. TODAY 10/20/16 TOTAL CHOL 145 LDL 73 , TRIGS -174 THIS IS EXCELLENT ON CRESTOR 40MG WITH VASCEPA 1GRAM 2 IN AM AND 2 IN PM Essential hypertension 83405166 I10 BLOOD PRESSURE NOT AN ISSUE AT THIS VISIT, WILL MONITOR GFR > 60, BLOOD PRESSURE AT GOAL NOT ON JONATHON AT THIS TIME Vitamin D deficiency 347 78236 E55.9 LEVEL AT GOAL ON D3 CHECK NEXT VISIT/TRACY OF D25-OH IS EXTEMELY LOW AT 13 TOLD TAKE VITAMIN D3 2000 IU PO QD Coronary arteriosclerosis 49719274 I25.10 STABLE NO SYMTOMS OR CHEST PAIN, ON EFFIENT FOLLOWED BY CARDIOLOGY Numbness of foot 5101056 00 R20.0 RT FOOT MILD TINGLING SENSATION , COULD BE MILD NEUROPATHY TAKE B12 1000 MG PO QD [id number] Nithin Rodriguez i, MD Main Office [address] [place] [address] 02/07/2017 11:38:11 02/07/2017 12:58:25 Type 2 diabetes mellitus 97359700 E11.9 ALL NUMBERS AT GOAL WITH A1C IS 5.6 ON LANTUS AND NATEGLINID E , JANUMET 50 1000MG PO BID Mixed hyperlipidemia 267 640949 E78.2 TOTAL CHOLESTERO L AT 211, CANNOT CALCULATE LDL BECAUSE TRIGLYCERI ANN GREATER THAN 1000, AT 1191, NEEDS TO RESUME VASCEPA 1GRAM 2 CAPS PO TWICE A DAY. TODAY 10/20/16 TOTAL CHOL 145 LDL 73 , TRIGS -174 THIS IS EXCELLENT ON CRESTOR 40MG WITH VASCEPA 1GRAM 2 IN AM AND 2 IN PM Essential hypertension 41069729 I10 BLOOD PRESSURE NOT AN ISSUE AT THIS VISIT, WILL MONITOR GFR > 60, BLOOD PRESSURE AT GOAL NOT ON JONATHON AT THIS TIME Hypercalcemia 77346562 E 83.52 CALCIUM IS 10.2, WILL MONITOR WITH D LEVELS, TODAY IS 10.4 / MILD CLIMBING , WILL SET UP LABS AGAIN WITH 24 HOUR URINE FOR CALCIUM , NO HISTORY OF KIDNEY STONES Vitamin D deficiency 347 25621 E55.9 LEVEL AT GOAL ON D3 CHECK NEXT VISIT/TRACY OF D25-OH IS EXTEMELY LOW AT 13 TOLD TAKE VITAMIN D3 2000 IU PO QD, LEVEL IS NOW 42 CORRECTED Coronary arteriosclerosis 27104809 I25.10 STABLE AT THIS TIME , WE [...] Member ID Guarantor Name 02/04/2017 1 MIGUEL [id number] Jersey Quigley [id number] Notes Date Note Type Note Provider Name and Address Organization Details Recorded Time 05/06/2016 text/html Hypertension IM/FMReported by PatientHPIFor onset/timing, patient reportsbetter. For self care, patient reportsnot under emotional stress,non-smoker,on special diet,limiting alcohol intake, andexercises regularly. For associated symptoms, patient reportsno shortness of breath,no fatigue,no palpitations,no decline in exercise capacity,exertional dyspnea,no snoring,no sleep apnea,no muscle weakness,no numbness,no tingling,no tachycardia,no excessive sweating,no thinning skin,no flank pain,no headaches,no loss of vision, andno chest pain.NOT TAKING VASCEPA , ON CRESTOR DiabetesReported by PatientNOR CHECKING , NOT TAKING MEDS 60 YEAR OLD MALE WHO WAS ON [...] A1C OF 11.6 Nithin Salguero MD [address] [address], [place], [address], [place] - Nithin Salguero MD 05/06/2016 14:26:49 07/20/2016 text/html Hypertension IM/FMReported by PatientHPIFor onset/timing, patient reportsbetter. For self care, patient reportsnot under emotional stress,non-smoker,on special diet,limiting alcohol intake, andexercises regularly. For associated symptoms, patient reportsno shortness of breath,no fatigue,no palpitations,no decline in exercise capacity,exertional dyspnea,no snoring,no sleep apnea,no muscle weakness,no numbness,no tingling,no tachycardia,no excessive sweating,no thinning skin,no flank pain,no headaches,no loss of vision, andno chest pain. DiabetesReported by PatientHPIFor control, patient reportsusually well controlled,improved since last visit, andnormal range of home blood sugars (in the low 100s). For compliance, patient reportscompliant with medications,compliant with follow-up visits,compliant with diet, andcompliant with home glucose monitoring. For self care, patient reportsmonitoring glucose __,seeing eye doctor regularly, andchecking feet regularly. For associated symptoms, patient reportsno weight gain,no weight loss,no dizziness,no sweats,no headaches,no confusion,no increased thirst,no increased appetite,no increased urination,no blurred vision,no numbness of feet,no calluses on feet,no fatigue,no blurred vision, andno paresthesias. 60 YEAR OLD MALE WITH HIS OF PANCREATIC INSULT WITH INSUFFICIENCY PATIENT INSULIN REQUIRING LAST A1C WAS 11.1 , WITH TRIGLYCERIDES .> 1110, PATIENT STATED LAST VISIT ON BASAL /BOLUS, NOW HAD GOOD RESPONSE WITH A1C DECREASED TO 7.5 , TRIGS -171, Nithin Salguero MD [address] [address], [place], [address], [place] - Nithin Salguero MD 07/20/2016 16:32:38 10/20/2016 text/html Hypertension IM/FMReported by PatientHPIFor onset/timing, patient reportsbetter. For self care, patient reportsnot under emotional stress,non-smoker,on special diet,limiting alcohol intake, andexercises regularly. For associated symptoms, patient reportsno shortness of breath,no fatigue,no palpitations,no decline in exercise capacity,exertional dyspnea,no snoring,no sleep apnea,no muscle weakness,no numbness,no tingling,no tachycardia,no excessive sweating,no thinning skin,no flank pain,no headaches,no loss of vision, andno chest pain. DiabetesReported by PatientHPIFor control, patient reportsusually well controlled,improved since last visit, andnormal range of home blood sugars (in the low 100s). For compliance, patient reportscompliant with medications,compliant with follow-up visits,compliant with diet, andcompliant with home glucose monitoring. For self care, patient reportsmonitoring glucose __,seeing eye doctor regularly, andchecking feet regularly. For associated symptoms, patient reportsno weight gain,no weight loss,no dizziness,no sweats,no headaches,no confusion,no increased thirst,no increased appetite,no increased urination,no blurred vision,no numbness of feet,no calluses on feet,no fatigue,no blurred vision, andno paresthesias. 61 YEAR OLD WITH NIDDM , ON [...] IS 72 , Nithin Salguero MD [address] [address], [place], [address], [place] - Nithin Salguero MD 10/20/2016 14:55:28 02/07/2017 text/html Hypertension IM/FMReported by PatientHPIFor onset/timing, patient reportsbetter. For self care, patient reportsnot under emotional stress,non-smoker,on special diet,limiting alcohol intake, andexercises regularly. For associated symptoms, patient reportsno shortness of breath,no fatigue,no palpitations,no decline in exercise capacity,exertional dyspnea,no snoring,no sleep apnea,no muscle weakness,no numbness,no tingling,no tachycardia,no excessive sweating,no thinning skin,no flank pain,no headaches,no loss of vision, andno chest pain. 61 YEAR OLD MALE WITH NIDDM ON [...] IS 41 . Nithin Salguero MD [address], [address], [place] - Nithin Salguero MD 02/07/2017 12:50:10
--- OUTSIDE RECORDS SUMMARY | 2024-09-12 13:01 | XMS_ITS | Encounter Summary ---
Author Organization [facility] Address [address] [place] [address] Care Team Providers Care Forestry Biology Specialist Name Role Phone Matt Rodriguez MD Primary Care Provider Shelly Fonseca MD Primary Care Provider [phone] Nithin Salguero MD Unavailable [phone] Encounter Details Date Type Department Care Team (Late st Contact Info) Description 02/06/2015 Scanned Document [address] [address] Provider, Generic Social History Tobacco [...] on filedocumented in this encounter Care Teams Forestry Biology Specialist Relationship Specialty Start Date End Date Matt Rodriguez MD [address] [place] [address] PCP - General Internal Medicine 10/24/14 11/29/15 Shelly Fonseca MD [address] [place] [address] PCP - General Internal Medicine 11/30/15 02/10/20 Nithin Salguero MD [address] [place] [address] Endocrinology 10/29/18 documented as of this encounter
== END 2024-09-12 13:26 | disposition home or self-care (01) ==
LOC: HO.HOS 12:47
PROVIDERS: PCP Internal Medicine; Visit Provider Physician Assistant
DX: M17.11 Unilateral primary osteoarthritis, right knee (principal)
CPT/HCPCS: 99213; G2211

== ENCOUNTER → 2024-09-12 12:46 | Outpatient (BNVA) | payer MEDICARE, SELFPAY | PROVIDERS: PCP Internal Medicine; Visit Provider Physician Assistant | DX: M17.11 Unilateral primary osteoarthritis, right knee (principal) | CPT/HCPCS: 99212 ==

== ENCOUNTER 2024-10-03 09:24 | Outpatient (AMB) | payer MEDICARE, SELFPAY ==
--- NOTE | 2024-10-03 09:36 | MHC.OFFVIS ---
Vital Signs 10/03/24 09:38 Height 6 ft Weight 208 lb BMI 28.2 Intake Visit Reasons: 2 week follow up L leg angio 09/11/24 Intake Note: 2 week follow up Left Angio 09/11/24. Pt states he is feeling much better, was getting cramping w/ ambulation prior and now he states he can walk without limitation. Fence Post Driver Required: No Accompanied by: Self / Same As Patient Allergies No Known Allergies (No Known Allergies*) Allergy (Verified 10/03/24 09:39) HPI HPI 2 week follow up L leg angio 09/11/24: Details: The patient is a 69-year-old male presenting with postoperative follow-up after left lower extremity angioplasty and stent placement. The patient underwent a left common iliac angioplasty and stent placement on September 11, 2024, due to peripheral artery disease affecting the left lower extremity. Prior to the procedure, the patient experienced significant cramping in the left leg, which has since resolved postoperatively. The procedure was successful, and the patient reports significant improvement in symptoms, with no further cramping or discomfort in the left leg. The patient is currently on aspirin and clopidogrel therapy due to a history of cardiovascular disease, which is to be continued indefinitely. T [facility] Medical History (Updated 10/03/24 @ 16:11 by Bharat Brown MD) S/P angiogram of extremity (09/11/24) DVT (deep venous thrombosis) (~2013) Pulmonary embolism HTN (hypertension) Old inferior wall myocardial infarction (~07/2004) CAD (coronary artery disease) Vitamin D deficiency Lipid disorder Psoriasis long-term (current) 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 Diabetes 1.5, managed as type 1 HLD (hyperlipidemia) Surgical History Hx of brain surgery History of cardiac cath (~10/2016) History of cardiac cath (~12/2014) History of cardiac cath (~12/2014) Hx of cardiac cath (~10/2009) History of shoulder surgery Herniated disc History of hip replacement History of knee surgery History of surgery Family History Father Diabetes mellitus Mother No problems noted. Brother No problems noted. Son No problems noted. Daughter No problems noted. Social History Household Members: Spouse Household Members Other:: retired, lives in [place] for the winter Housing: House Are you a primary dog day care attendant to a significant other at home: No Do you presently have visiting nurse or other home services: No Patient Tobacco Use Status: Former Tobacco user Years Smoked: 20 years e-Cigarette/Vaping Use: Never Used service: No Current occupational status: retired Cognitive needs: No Hearing needs: No Vision needs: Yes Review of Systems Const All systems reviewed & are unremarkable except as noted in HPI and below Reports no additional complaints ENT Reports Normal hearing present Card Denies chest pain, Denies chest pain at rest, Denies chest pain with activity and Denies pedal edema Resp Denies cough GI Denies abdominal pain Musc Denies abnormal gait, Denies muscle cramps and Denies radiating pain into limb Skin/Breast Denies skin ulcer and Denies wounds Neuro Reports Normal hearing present and Denies abnormal gait Psych Reports no additional complaints Physical Exam Vital Signs: BMI result Body Mass Index 28.2 Const General: cooperative, healthy appearing and comfortable Orientation/consciousness: oriented to person, oriented to place and oriented to time HEENT Head: Yes normal to inspection Neck Neck: Yes normal visual inspection Carotids: no bruits Chest Chest palpation & inspection: normal inspection of the chest Resp Effort & Inspection: normal respiratory effort and able to speak in complete sentences Auscultation: clear to auscultation bilaterally, no crackles, no rales, no rhonchi and no wheezes Cardio Rate: regular rate Rhythm: regular rhythm Heart sounds: S1 normal heart sound present and S2 normal heart sound present Bruits: no carotid bruits Peripheral pulses: Peripheral pulses 2+ throughout GI Inspection: Yes normal to inspection Skin Wounds: no wounds Hair: normal Neuro General: oriented to person, oriented to place and oriented to time Cranial nerves: Yes CN's II-XII intact bilaterally and Yes Normal hearing present Cognition (Neuro): normal cognition Motor exam (neuro): 5/5 motor strength present throughout Extrem Other: venous exam: No significant superficial varicosities or spider telangiectasias, minimal edema General: No clubbing, No cyanosis and No edema Psych Appearance: grossly normal Mental Status: mental status grossly normal Speech and movement: Normal speech and movement present Assessment & Plan Assessment & Plan (1) PAD (peripheral artery disease): Comment: 09/11/2024 - left common iliac angioplasty and stent Code(s): I73.9 - Peripheral vascular disease, unspecified Category: Medical Plan: I discussed with the patient the success of the recent angioplasty and stent placement, noting the improvement in symptoms and the palpable pulse in the left lower extremity. We reviewed the importance of continuing aspirin and clopidogrel therapy and outlined the surveillance protocol with scheduled ultrasounds to monitor the stent. The patient was informed about the upcoming ultrasound in six weeks and the plan to reassess upon his return from [place]. Plan Patient was informed and verbally consented to the use of an ambient scribe for clinic note documentation during this visit. Orders: Orders US arterial duplex LE BI 6 Weeks I73.9 - Peripheral vascular disease, unspecified Patient Instructions: - Continue taking aspirin and clopidogrel as prescribed. - Attend the scheduled ultrasound in six weeks to check the stent. - Follow up with the doctor upon return from [place] for further assessment. Coding Level of Care Code Est Pt Level 4 (90875) Complex EM visit Add On G2211 Diagnoses PAD (peripheral artery disease) I73.9
[2024-10-03 09:38] VITALS: BMI 28.2
--- OUTSIDE RECORDS SUMMARY | 2024-10-03 09:59 | XMS_ITS | Encounter Summary ---
Author Organization [facility] Address [address] [place] [address] Care Team Providers Care Scrubber System Attendant Name Role Phone Matt Rodriguez MD Primary Care Provider [phone] Shelly Fonseca MD Primary Care Provider [phone] Nithin Salguero MD Unavailable [phone] Encounter Details Date Type Department Care Team (Late st Contact Info) Description 02/06/2015 Scanned Document [address] [phone] Provider, Generic Social History Tobacco [...] on filedocumented in this encounter Care Teams Scrubber System Attendant Relationship Specialty Start Date End Date Matt Rodriguez MD [address] [place] [address] PCP - General Internal Medicine 10/24/14 11/29/15 Shelly Fonseca MD [address] [place] [address] PCP - General Internal Medicine 11/30/15 02/10/20 Nithin Salguero MD [address] [place] [address] Endocrinology 10/29/18 documented as of this encounter
--- OUTSIDE RECORDS SUMMARY | 2024-10-03 09:59 | XMS_ITS | Clinical Summary ---
Author Organization [facility] Address [address] [place] [address] Care Team Providers Care Bus Attendant Name Role Phone Matt Rodriguez MD Primary Care Provider [phone] Surgical History Surgery Date Site/Laterality Comments HIP ARTHROPLASTY Right PROCEDURE:HIP ARTHROPLASTY KNEE ARTHROPLASTY Right PROCEDURE:KNEE ARTHROPLASTY;COMMENT:x2 CARDIAC CATHETERIZATION 10/28/2016 N/A PROCEDURE:CARDIAC CATHETERIZATION;COMMENT:Procedure: LEFT HEART CATHETERIZATION ? PTCA; Surgeon: Vasquez Romero DO; Location: [facility]IAC SENIOR ACCOUNTANT CPA; Service: Cardiology; Laterality: N/A; Medical History Medical History Date Comments Acute transmural inferior wa ll [place] ([facility] V24, [facility] V28) 08/20/04 DX:Acute transmural inferio r wall [place] (HCC) H/O cardiac catheterization 08/20/04 DX:H /O cardiac catheterization;COMMENT:3x20 3x16 taxus Unstable angina ([facility]/HCC V24 , CMS/HCC V28) 10/27/09 DX:Unstable angina ([facility]) H/O cardiac catheterization 10/27/09 DX:H /O cardiac catheterization;COMMENT:3 x15 xcience distal RCA, 50% LAD, nl cx Psoriasis DX:Psoriasis 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, managed as typ e 2 (CMS/HCC V24, CMS/HCC V28) DX:Diabetes 1.5, managed as type 2 ([facility]) Hypertension DX:Hypertension Pulmonary embolus (CMS/[facility] V 24, CMS/[facility] V28) DX:Pulmonary embolus (HCC) Hx of cardiac cath 01/02/15 DX:Hx of card iac cath;COMMENT:high grade RCA, 2.5 x 14 resolute stent placed Coronary stent thrombosis 01/09/15 DX:Cor onary stent thrombosis;COMMENT:inf [place], started on effient Social History Tobacco Use [...] age to complete this topic Care Teams Bus Attendant Relationship Specialty Start Date End Date Matt Rodriguez MD [address] [place] [phone] PCP - General Family Medicine 11/07/14
--- OUTSIDE RECORDS SUMMARY | 2024-10-03 09:59 | XMS_ITS | Clinical Summary ---
Author Organization [facility] Address [address] [place] [address] Care Team Providers Care Spray Technician Name Role Phone Matt Rodriguez MD Primary [...] infarction 02/06/2015 Overview: 1. Acute inf wall [place] 08/18/04 2. Cardiac cath--08/18/04--mild LAD, mild Cx, mod diag, 100% RCA 3. 08/18/04 3 x 25 TAXUS stent in mid RCA 4. Cath--10/24/09--sever stenosis distal to prefious stent 5. 3.5 x 15 xscience in RCA 6/ nuclear stress--04/09/12--54% EF, fixed inf defect 7. 01/03/15--adm in [place] for unstable angina 8. 01/03/15--nuclear stress--inferior ischemic [...] this topic Medical Devices Implanted Type Area Machinist Linotype Device Identifier Shelf Expiration Date Model / Serial / Lot Stent Resolute Yazan 22mm 3mm Rapdx Zotarolimus Eluting - [id number] - [id number] Implanted: 017 at [facility] and Med (Quantity not on file) [employer] - VASCULAR [id number] X / / Advance Directives For more information, please contact: [phone] Latest Code Status on File Code Status [...] way: discussion with patient . Care Teams Spray Technician Relationship Specialty Start Date End Date Matt Rodriguez MD PCP - General Family Medicine 11/07/14
== END 2024-10-03 10:25 | disposition home or self-care (01) ==
PROVIDERS: PCP Internal Medicine; Visit Provider Surgery Vascular Surgery
DX: I73.9 Peripheral vascular disease, unspecified (principal)
CPT/HCPCS: 99214; G2211

== ENCOUNTER → 2024-10-03 09:24 | Outpatient (BNVA) | payer MEDICARE, SELFPAY | PROVIDERS: PCP Internal Medicine; Visit Provider Surgery Vascular Surgery | DX: Z98.890 Other specified postprocedural states (principal); I73.9 Peripheral vascular disease, unspecified | CPT/HCPCS: 99212 ==

== ENCOUNTER 2024-10-18 07:44 | Outpatient (REF) | payer MEDICARE, SELFPAY ==
--- OUTSIDE RECORDS SUMMARY | 2024-10-18 07:47 | XMS_ITS | Encounter Summary ---
Author Organization [facility] Address [address] [place] [address] Care Team Providers Care Climatology Professor Name Role Phone Matt Rodriguez MD Primary Care Provider [phone] Shelly Fonseca MD Primary Care Provider [phone] Nithin Salguero MD Unavailable [phone] Encounter Details Date Type Department Care Team (Late st Contact Info) Description 02/06/2015 Scanned Document [address] [phone] Provider, Generic Social History Tobacco [...] on filedocumented in this encounter Care Teams Climatology Professor Relationship Specialty Start Date End Date Matt Rodriguez MD [address] [place] [address] PCP - General Internal Medicine 10/24/14 11/29/15 Shelly Fonseca MD [address] [place] [address] PCP - General Internal Medicine 11/30/15 02/10/20 Nithin Salguero MD [address] [place] [address] Endocrinology 10/29/18 documented as of this encounter
--- OUTSIDE RECORDS SUMMARY | 2024-10-18 07:47 | XMS_ITS | Clinical Summary ---
Author Organization [facility] Address [address] [place] [address] Care Team Providers Care Can Repairer Name Role Phone Matt Rodriguez MD Primary [...] infarction 02/06/2015 Overview: 1. Acute inf wall [place] 08/18/04 2. Cardiac cath--08/18/04--mild LAD, mild Cx, mod diag, 100% RCA 3. 08/18/04 3 x 25 TAXUS stent in mid RCA 4. Cath--10/24/09--sever stenosis distal to prefious stent 5. 3.5 x 15 xscience in RCA 6/ nuclear stress--04/09/12--54% EF, fixed inf defect 7. 01/03/15--adm in [place] for unstable angina 8. 01/03/15--nuclear stress--inferior ischemic [...] this topic Medical Devices Implanted Type Area Digital Watch Assembler Device Identifier Shelf Expiration Date Model / Serial / Lot Stent Resolute Yazan 22mm 3mm Rapdx Zotarolimus Eluting - [id number] - [id number] Implanted: 017 at [facility] Med (Quantity not on file) [employer] - VASCULAR [id number] X / / Advance Directives For more information, please contact: [phone] Latest Code Status on File Code Status [...] way: discussion with patient . Care Teams Can Repairer Relationship Specialty Start Date End Date Matt Rodriguez MD PCP - General Family Medicine 11/07/14
--- OUTSIDE RECORDS SUMMARY | 2024-10-18 07:47 | XMS_ITS | Encounter Summary ---
Author Organization [facility] Address [address] [place] [address] Care Team Providers Care Sterile Process Tech Name Role Phone Shelly Fonseca MD Primary Care Provider [phone] Nithin Sagluero MD Unavailable [phone] Encounter Details Date Type Department Care Team (Late st Contact Info) Description 08/15/2018 Scanned Document [address] [place] [phone] Provider, Generic Social History Tobacco Use Types [...] on filedocumented in this encounter Care Teams Sterile Process Tech Relationship Specialty Start Date End Date Shelly Fonseca MD PCP - General Internal Medicine 11/30/15 02/10/20 Nithin Salguero MD Endocrinology 10/29/18 documented as of this encounter
--- OUTSIDE RECORDS SUMMARY | 2024-10-18 07:47 | XMS_ITS | Clinical Summary ---
Author Organization [facility] Address [address] [place] [address] Care Team Providers Care Health Center Assistant Name Role Phone Nithin Salguero MD Unavailable [phone] Allergies No known active allergies Medications rosuvastatin [...] Overview (12/01/2015): Overview: 1. Acute inf wall [place] 08/18/04 2. Cardiac cath--08/18/04--mild LAD, mild Cx, mod diag, 100% RCA 3. 08/18/04 3 x 25 TAXUS stent in mid RCA 4. Cath--10/24/09--sever stenosis distal to prefious stent 5. 3.5 x 15 xscience in RCA 6/ nuclear stress--04/09/12--54% EF, fixed inf defect 7. 01/03/15--adm in [place] for unstable angina 8. 01/03/15--nuclear stress--inferior ischemic [...] 87 01/11/2017 9:25 AM EST Temperature 36.5 C (97.7 F) 01/11/2017 9:25 AM EST Respiratory Rate 18 01/11/2017 9:25 AM EST Oxygen Saturation 98% 01/11/2017 9:25 AM EST Inhaled Oxygen Concentration - - Weight 93.9 kg (207 lb) 01/11/2017 9:25 AM EST Height 185.4 cm (6' 1 ) 01/11/2017 9:25 AM EST Body Mass Index 27.31 01/11/2017 9:25 AM EST Plan of Treatment Health Maintenance Due Date Last Done Comments Advance Care Planning 1955 Hepatitis C Virus Screening 1955 COVID-19 Vaccine [...] - 99 mg/dL [facility] Comment: Fasting reference interval Blood Urea Nitrogen (BUN) 24 7 - 25 mg/dL [facility] Creatinine 1.18 0.70 - 1.25 mg/dL [facility] Comment: For patients >49 years of age, the reference limit for Creatinine is approximately 13% higher for people identified as -Tristanian. eGFR Non- 66 > OR = 60 [...] FASTING:YES Resulting Agency Comment Performing Organization Information: Site ID: [id number] Name: [facility] Address: [address] [place] [address], [place] [address] Director: Beth Chaudhari MD us Cher CAMACHO LAB BLOOD ORDERABLES Final R esult Performing Organization Address City/[facility]/ZIP Co de Phone Number [email or web address] [place] [address], [place] [address] * (ABNORMAL) Microalbumin, Creatinine, Urine, Random (10/22/2014 7:38 AM EDT) Microalbumin, Urine, Random 34(H) <30 mg/L CLP Creatinine, Urine, Random 89 mg/dL CLP Microalbumin/Cr eatinine Ratio 38.2(H) <30 mg Alb/g Creat CLP Comment:Test [facility]formed at[facility]#:[id number] 10/22/2014 7:38 AM EDT 10/23/2014 12:16 AM EDT Narrative CLP - 10/23/2014 6:07 AM EDT Report copy sent to: [facility] [id number] EDE BROWN MD [facility] [id number] MONI KENNY MD [facility] () [id number] CONCETTA BRYANT MD us Nithin Salguero MD URINE ORDERABLES Final Re sult CLP * (ABNORMAL) Hemoglobin A1c with Estimated Average Glucose (10/22/2014 7:38 AM EDT) Hemoglobin A1C 7.3(H) <5.7 % CLP Comment: A1c% Interpretation 5.7 - 6.0 Increase risk of diabetes 6.1 - 6.4 Higher risk of diabetes > or = 6.5 Consistent with diabetes Diabetes Care, 33(Supp 1):S1-S61, 2010 Estimated Average Glucose 163 mg/dL CLP Comment: Diabetes Care 2008: 31: 1473-8 Test Performed at: [facility], CLIA#:[id number] 10/22/2014 7:38 AM EDT 10/23/2014 12:16 AM EDT Narrative CLP - 10/23/2014 6:07 AM EDT Report copy sent to: [facility] [id number] EDE BROWN MD [facility] [id number] MONI KENNY MD [facility] () [id number] CONCETTA BRYANT MD Nithin Salguero MD LAB [...] - 5.0 Ratio CLP Comment: Relative Risk Ratio - Male Ratio - Female 0.5 3.4 3.3 1.0 5.0 4.4 2.0 9.6 7.1 3.0 23.4 11.0 Test Performed at: [facility], CLIA#:[id number] 10/22/2014 7:38 AM EDT 10/23/2014 12:16 AM EDT Narrative CLP - 10/23/2014 6:07 AM EDT Report copy sent to: [facility] [id number] EDE BROWN MD [facility] [id number] MONI KENNY MD [facility] () [id number] CONCETTA BRYANT MD us Nithin Salguero MD LAB BLOOD ORDERABLES Alexa l Result CLP * Quantiferon TB LUCIAN (04/17/2013 7:43 AM EST) Quantiferon Interpretation NEGATIVE NEGATIVE [facility] CONVERSION Comment:M. TUBERCULOSIS INFE CTION NOT LIKELY. Quantiferon TB-NIL Response 0.01 IU/ML [facility] CONVERSION Quantiferon NIL 0.1 IU/ML [facility] CONVERSION Quantiferon Mitogen-NIL Response 5.8 IU/ML [facility] CONVERSION Comment: INTERPRETATION CRITERIA FOR THE QUANTIFERON GOLD IN-TUBE TEST: A SAMPLE IS CONSIDERED POSITIVE IF THE NIL VALUE IS EQUAL TO OR <8.0 IU/ML, TB-NIL RESPONSE IS EQUAL TO OR >0.35 IU/ML AND IS EQUAL TO OR >25% OF NIL VALUE. A SAMPLE IS CONSIDERED NEGATIVE IF THE NIL VALUE IS EQUAL TO OR <8.0 IU/ML, TB-NIL RESPONSE IS <0.35 AND MITOGEN RESPONSE IS EQUAL TO OR >0.5 IU/ML. SAMPLES THAT HAVE A TB-NIL RESPONSE OF EQUAL TO OR >0.35 IU/ML BUT ARE <25% OF NIL AND MITOGEN RESPONSE IS EQUAL TO OR >0.5 IU/ML ARE ALSO CONSIDERED NEGATIVE. A SAMPLE IS CONSIDERED INDETERMINATE IF NIL VALUE IS >8.0 IU/ML OR MITOGEN RESPONSE IS <0.5 IU/ML. 04/17/2013 7:43 AM EST us Conversion Provider LAB BLOOD ORDERABLES Alexa l Result [facility] CONVERSION from Last 3 Months or Most Recently Relevant to Health [facility] Care Teams Health Center Assistant Relationship Specialty Start Date End Date Nithin Salguero MD Endocrinology 10/29/18
--- OUTSIDE RECORDS SUMMARY | 2024-10-18 07:47 | XMS_ITS | Encounter Summary ---
Author Organization [address] [address] Care Team Providers Care Erp Specialist Name Role Phone Matt Rodriguez MD Primary Care Provider Shelly Fonseca MD Primary Care Provider [phone] Nithin Salguero MD Unavailable [phone] Encounter Details Date Type Department Care Team (Late st Contact Info) Description 03/12/2015 Scanned Document [address] [phone] Provider, Generic Social History Tobacco [...] on filedocumented in this encounter Care Teams Erp Specialist Relationship Specialty Start Date End Date Matt Rodriguez MD [address] [place] [address] PCP - General Internal Medicine 10/24/14 11/29/15 Shelly Fonseca MD [address] [place] [address] PCP - General Internal Medicine 11/30/15 02/10/20 Nithin Salguero MD [address] [place] [address] Endocrinology 10/29/18 documented as of this encounter
--- OUTSIDE RECORDS SUMMARY | 2024-10-18 07:47 | XMS_ITS | Encounter Summary ---
Author Organization [facility] Address [address] [place] [address] Care Team Providers Care Transportation Engineer Name Role Phone Matt Rodriguez MD Primary Care Provider Shelly Fonseca MD Primary Care Provider [phone] Nithin Salguero MD Unavailable [phone] Armani Villafuerte MD Primary Care Provider + Encounter Details Date Type Department Care Team (Late st Contact Info) Description 10/03/2014 Scanned Document [address] [phone] Provider, Generic Social History Tobacco Use Types [...] on filedocumented in this encounter Care Teams Transportation Engineer Relationship Specialty Start Date End Date Matt Rodriguez MD [address] [place] [address] PCP - General Internal Medicine 10/24/14 11/29/15 Shelly Fonseca MD [address] [facility] [place] [address] PCP - General Internal Medicine 11/30/15 02/10/20 Armani Villafuerte MD [address] [place] [address] PCP - General 10/23/14 Nithin Salguero MD [address] [facility] [place] [address] Endocrinology 10/29/18 documented as of this encounter
--- OUTSIDE RECORDS SUMMARY | 2024-10-18 07:47 | XMS_ITS | Clinical Summary ---
Author Organization [facility] Address [address] [place] [address] Care Team Providers Care Stenographer Print Shop Name Role Phone Matt Rodriguez MD Primary Care Provider [phone] Surgical History Surgery Date Site/Laterality Comments HIP ARTHROPLASTY Right PROCEDURE:HIP ARTHROPLASTY KNEE ARTHROPLASTY Right PROCEDURE:KNEE ARTHROPLASTY;COMMENT:x2 CARDIAC CATHETERIZATION 10/28/2016 N/A PROCEDURE:CARDIAC CATHETERIZATION;COMMENT:Procedure: LEFT HEART CATHETERIZATION ? PTCA; Surgeon: Vasquez Romero DO; Location: [facility]ARE WORKER; Service: Cardiology; Laterality: N/A; Medical History Medical History Date Comments Acute transmural inferior wa ll [place] ([facility] V24, [facility] V28) 08/20/04 DX:Acute transmural inferio r wall [place] (HCC) H/O cardiac catheterization 08/20/04 DX:H /O cardiac catheterization;COMMENT:3x20 3x16 taxus Unstable angina ([facility]/HCC V24 , CMS/HCC V28) 10/27/09 DX:Unstable [...] stent thrombosis 01/09/15 DX:Cor onary stent thrombosis;COMMENT:inf [place], started on effient Social History Tobacco Use [...] age to complete this topic Care Teams Stenographer Print Shop Relationship Specialty Start Date End Date Matt Rodriguez MD [address] [place] [phone] PCP - General Family Medicine 11/07/14
--- OUTSIDE RECORDS SUMMARY | 2024-10-18 07:47 | XMS_ITS | Encounter Summary ---
Author Organization [facility] Address [address] [place] [address] Care Team Providers Care Marketing Community Liaison Name Role Phone Shelly Fonseca MD Primary Care Provider Nithin Salguero MD Unavailable [phone] Encounter Details Date Type Department Care Team (Late st Contact Info) Description 04/29/2016 Scanned Document [address] [place] [phone] Provider, Generic Social History Tobacco Use [...] on filedocumented in this encounter Care Teams Marketing Community Liaison Relationship Specialty Start Date End Date Shelly Fonseca MD PCP - General Internal Medicine 11/30/15 02/10/20 Nithin Salguero MD Endocrinology 10/29/18 documented as of this encounter
[2024-10-18 10:04] LABS: MANUAL DIFF FLAG NO
[2024-10-18 10:23] LABS: Hematocrit 43.1 % (42.0-52.0); Hemoglobin 14.9 g/dl (14.0-18.0); Imm Gran Abs Auto 0.03 X10*3/uL (0.00-0.03); Imm Gran Pct Auto 0.4 % (0.0-0.4); Lymphocytes Absolute Auto 2.0 X10*3/uL (1.2-4.9); Mean Corpuscular HGB Conc 34.6 g/dl (31.0-36.0); Mean Corpuscular Hemoglobin 31.8 pg (27.0-33.0); Mean Corpuscular Volume 92.1 fL (80.0-98.0); NRBC Abs Auto 0.000 X10*3/uL (0.0-0.012); NRBC Pct Auto 0.0 /100WBC (0.0-0.2); Platelet Count 194 X10*3/uL (160-400); Red Blood Count 4.68 X10*6/uL (4.60-5.80); White Blood Count 7.6 X10*3/uL (4.8-10.8)
[2024-10-18 11:32] LABS: Ferritin 435 ng/mL (20-250)
== END 2024-10-18 07:45 | disposition home or self-care (01) ==
LOC: HO.HMGCLDS 07:44
PROVIDERS: PCP Internal Medicine; Visit Provider Internal Medicine
DX: D50.9 Iron deficiency anemia, unspecified (principal)
CPT/HCPCS: 36415; 82728; 85025

== ENCOUNTER 2024-10-23 11:19 | Outpatient (REF) | payer MEDICARE, SELFPAY ==
[2024-10-23 12:58] LABS: MANUAL DIFF FLAG NO
[2024-10-23 13:07] LABS: Hematocrit 41.0 % (42.0-52.0); Hemoglobin 14.4 g/dl (14.0-18.0); Imm Gran Abs Auto 0.03 X10*3/uL (0.00-0.03); Imm Gran Pct Auto 0.4 % (0.0-0.4); Lymphocytes Absolute Auto 1.8 X10*3/uL (1.2-4.9); Mean Corpuscular HGB Conc 35.1 g/dl (31.0-36.0); Mean Corpuscular Hemoglobin 32.0 pg (27.0-33.0); Mean Corpuscular Volume 91.1 fL (80.0-98.0); NRBC Abs Auto 0.000 X10*3/uL (0.0-0.012); NRBC Pct Auto 0.0 /100WBC (0.0-0.2); Platelet Count 201 X10*3/uL (160-400); Red Blood Count 4.50 X10*6/uL (4.60-5.80); White Blood Count 7.3 X10*3/uL (4.8-10.8)
[2024-10-23 13:30] LABS: Alanine Aminotransferase 35 U/L (0-40); Albumin Level 4.7 g/dL (3.5-5.0); Alkaline Phosphatase 90 U/L (39-117); Anion Gap 12 (12-20); Aspartate Amino Transferase 32 U/L (5-37); Blood Urea Nitrogen 18 mg/dL (9-16); Calcium 9.7 mg/dL (8.4-10.2); Carbon Dioxide 25 mmol/L (22-29); Chloride 109 mmol/L (96-108); Estimated Glomerular Filt Rate > 60; Potassium 4.6 mmol/L (3.3-5.1); Sodium 141 mmol/L (135-145); Total Protein 7.6 g/dL (6.5-8.0)
[2024-10-23 13:43] LABS: Microalbum/Creatinine Ratio Ur 6.2 ug/mg cr (<30)
--- OUTSIDE RECORDS SUMMARY | 2024-10-23 14:29 | XMS_ITS | Clinical Summary ---
Author Organization [facility] Address [address] [place] [address] Care Team Providers Care Electrical Accessories I Assembler Name Role Phone Nithin Salguero MD Unavailable [phone] Allergies No known active allergies Medications rosuvastatin [...] Overview (12/01/2015): Overview: 1. Acute inf wall [place] 08/18/04 2. Cardiac cath--08/18/04--mild LAD, mild Cx, mod diag, 100% RCA 3. 08/18/04 3 x 25 TAXUS stent in mid RCA 4. Cath--10/24/09--sever stenosis distal to prefious stent 5. 3.5 x 15 xscience in RCA 6/ nuclear stress--04/09/12--54% EF, fixed inf defect 7. 01/03/15--adm in [place] for unstable angina 8. 01/03/15--nuclear stress--inferior ischemic [...] approximately 13% higher for people identified as -[place]. eGFR Non- 66 > OR = 60 [...] Performing Organization Information: Site ID: [id number] Name: [employer] Address: [address] [place] [address], [place] [address] Director: Beth Chaudhari MD us Cher [facility] BLOOD ORDERABLES Final R esult Performing Organization Address City/[facility]/ZIP Co de Phone Number [facility] [address] [place] [address], [place] [address] * (ABNORMAL) Microalbumin, Creatinine, Urine, Random (10/22/2014 7:38 AM EDT) Microalbumin, Urine, Random 34(H) <30 mg/L CLP Creatinine, Urine, Random 89 mg/dL CLP Microalbumin/Cr eatinine Ratio 38.2(H) <30 mg Alb/g Creat CLP Comment:[facility]#:[id number] 10/22/2014 7:38 AM EDT 10/23/2014 12:16 AM EDT Narrative CLP - 10/23/2014 6:07 AM EDT Report copy sent to: [facility] [id number] EDE BROWN MD [facility] [phone] MONI KENNY MD [facility] () [id number] CONCETTA BRYANT MD us Nithin Salguero MD [...] Care 2008: 31: 1473-8 Test Performed at: [facility], CLIA#:[id number] 10/22/2014 7:38 AM EDT 10/23/2014 12:16 AM EDT Narrative CLP - 10/23/2014 6:07 AM EDT Report copy sent to: [facility] [id number] DEE BROWN MD [facility] [phone] MONI KENNY MD [facility] () [id number] CONCETTA BRYANT MD Nithin Salguero MD LAB [...] 7.1 3.0 23.4 11.0 Test Performed at: [facility], CLIA#:[id number] 10/22/2014 7:38 AM EDT 10/23/2014 12:16 AM EDT Narrative CLP - 10/23/2014 6:07 AM EDT Report copy sent to: [facility] [id number] EDE BROWN MD [facility] [phone] MONI KENNY MD [facility] () [id number] CONCETTA BRYANT MD us Nithin Salguero MD [...] Most Recently Relevant to Health Maintenance [facility] Care Teams Electrical Accessories I Assembler Relationship Specialty Start Date End Date Nithin Salguero MD Endocrinology 10/29/18
--- OUTSIDE RECORDS SUMMARY | 2024-10-23 14:29 | XMS_ITS | Clinical Summary ---
Author Organization [facility] Address [address] [place] [address] Care Team Providers Care Yard Laborer Name Role Phone Matt Rodriguez MD Primary Care Provider [phone] Surgical History Surgery Date Site/Laterality Comments HIP ARTHROPLASTY Right PROCEDURE:HIP ARTHROPLASTY KNEE ARTHROPLASTY Right PROCEDURE:KNEE ARTHROPLASTY;COMMENT:x2 CARDIAC CATHETERIZATION 10/28/2016 N/A PROCEDURE:CARDIAC CATHETERIZATION;COMMENT:Procedure: LEFT HEART CATHETERIZATION ? PTCA; Surgeon: Vasquez Romero DO; Location: [facility]; Service: Cardiology; Laterality: N/A; Medical History Medical History Date Comments Acute transmural inferior wa ll [place] ([facility] V24, [facility] V28) 08/20/04 DX:Acute transmural inferio r wall [place] (HCC) H/O cardiac catheterization 08/20/04 DX:H /O cardiac catheterization;COMMENT:3x20 3x16 taxus Unstable angina ([facility]/HCC V24 , CMS/HCC V28) 10/27/09 DX:Unstable angina ([facility]) H/O cardiac catheterization 10/27/09 DX:H /O cardiac catheterization;COMMENT:3 x15 xcience distal RCA, 50% LAD, nl cx Psoriasis DX:Psoriasis 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, managed as typ e 2 (CMS/HCC V24, CMS/HCC V28) DX:Diabetes 1.5, managed as type 2 ([facility]) Hypertension DX:Hypertension Pulmonary embolus (CMS/[facility] V 24, CMS/[facility] V28) DX:Pulmonary embolus (HCC) Hx of cardiac cath 01/02/15 DX:Hx of card iac cath;COMMENT:high grade RCA, 2.5 x 14 resolute stent placed Coronary stent thrombosis 01/09/15 DX:Cor onary stent thrombosis;COMMENT:inf [place], started on effient Social History Tobacco Use [...] 2004 Zoster Vaccines (1 of 2) 2004 Depression Screening 02/21/2024 COVID-19 Vaccine (1 - 2023-2 5 season) 2024 Influenza Vaccine (#1) 2024 RSV Immunization Adult [...] age to complete this topic Care Teams Yard Laborer Relationship Specialty Start Date End Date Matt Rodriguez MD [address] [place] [phone] PCP - General Family Medicine 11/07/14
--- OUTSIDE RECORDS SUMMARY | 2024-10-23 14:29 | XMS_ITS | Encounter Summary ---
Author Organization [facility] Address [address] [place] [address] Care Team Providers Care Skin Peeling Machine Operator Name Role Phone Matt Rodriguez MD Primary Care Provider Shelly Fonseca MD Primary Care Provider [phone] Nithin Salguero MD Unavailable [phone] Armani Villafuerte MD Primary Care Provider + Encounter Details Date Type Department Care Team (Late st Contact Info) Description 10/03/2014 Scanned Document [address] [phone] Provider, Generic Social History Tobacco Use Types [...] on filedocumented in this encounter Care Teams Skin Peeling Machine Operator Relationship Specialty Start Date End Date Matt Rodriguez MD [address] [place] [phone] PCP - General Internal Medicine 10/24/14 11/29/15 Shelly Fonseca MD [address] [facility] [place] [address] PCP - General Internal Medicine 11/30/15 02/10/20 Armani Villafuerte MD [address] [place] [address] PCP - General 10/23/14 Nithin Salguero MD [address] [facility] [place] [address] Endocrinology 10/29/18 documented as of this encounter
--- OUTSIDE RECORDS SUMMARY | 2024-10-23 14:29 | XMS_ITS | Encounter Summary ---
Author Organization [facility] Address [address] [place] [address] Care Team Providers Care Remote Pilot Operator Name Role Phone Shelly Fonseca MD Primary Care Provider [phone] Nithin Salguero MD Unavailable [phone] Encounter Details Date Type Department Care Team (Late st Contact Info) Description 08/15/2018 Scanned Document [address] [place] [phone] Provider, Generic Social History Tobacco Use Types [...] on filedocumented in this encounter Care Teams Remote Pilot Operator Relationship Specialty Start Date End Date Shelly Fonseca MD PCP - General Internal Medicine 11/30/15 02/10/20 Nithin Salguero MD Endocrinology 10/29/18 documented as of this encounter
--- OUTSIDE RECORDS SUMMARY | 2024-10-23 14:29 | XMS_ITS | Clinical Summary ---
Author Organization [facility] Address [address] [place] [address] Care Team Providers Care Investigator Internal Revenue Name Role Phone Matt Rodriguez MD Primary [...] infarction 02/06/2015 Overview: 1. Acute inf wall [place] 08/18/04 2. Cardiac cath--08/18/04--mild LAD, mild Cx, [...] this topic Medical Devices Implanted Type Area Auto Mechanics Instructor Device Identifier Shelf Expiration Date Model / Serial / Lot Stent Resolute Yazan 22mm 3mm Rapdx Zotarolimus Eluting - [id number] - [id number] Implanted: 017 at [facility] and Med (Quantity not on file) [employer] - VASCULAR [id number] / / Advance Directives For more information, please contact: [phone] Latest Code Status on File Code Status [...] way: discussion with patient . Care Teams Investigator Internal Revenue Relationship Specialty Start Date End Date Matt Rodriguez MD PCP - General Family Medicine 11/07/14
--- OUTSIDE RECORDS SUMMARY | 2024-10-23 14:29 | XMS_ITS | Encounter Summary ---
Author Organization [address] [address] Care Team Providers Care Defect Repairer Glassware Name Role Phone Matt Rodriguez MD Primary Care Provider Shelly Fonseca MD Primary Care Provider [phone] Nithin Salguero MD Unavailable [phone] Encounter Details Date Type Department Care Team (Late st Contact Info) Description 03/12/2015 Scanned Document [address] [phone] Provider, Generic Social History Tobacco [...] on filedocumented in this encounter Care Teams Defect Repairer Glassware Relationship Specialty Start Date End Date Matt Rodriguez MD [address] [place] [address] PCP - General Internal Medicine 10/24/14 11/29/15 Shelly Fonseca MD [address] [place] [address] PCP - General Internal Medicine 11/30/15 02/10/20 Nithin Salguero MD [address] [place] [address] Endocrinology 10/29/18 documented as of this encounter
--- OUTSIDE RECORDS SUMMARY | 2024-10-23 14:29 | XMS_ITS | Encounter Summary ---
Author Organization [facility] Address [address] [place] [id number] Care Team Providers Care Chemical Librarian Name Role Phone Shelly Fonseca MD Primary Care Provider + [phone] Nithin Salguero MD Unavailable [phone] Encounter Details Date Type Department Care Team (Late st Contact Info) Description 04/29/2016 Scanned Document [address] [place] [phone] Provider, Generic Social History Tobacco Use [...] on filedocumented in this encounter Care Teams Chemical Librarian Relationship Specialty Start Date End Date Shelly Fonseca MD PCP - General Internal Medicine 11/30/15 02/10/20 Nithin Salguero MD Endocrinology 10/29/18 documented as of this encounter
--- OUTSIDE RECORDS SUMMARY | 2024-10-23 14:29 | XMS_ITS | Encounter Summary ---
Author Organization [facility] Address [address] [place] [id number] Care Team Providers Care Client Relationship Consultant Name Role Phone Matt Rodriguez MD Primary Care Provider Shelly Fonseca MD Primary Care Provider [phone] Nithin Salguero MD Unavailable [phone] Encounter Details Date Type Department Care Team (Late st Contact Info) Description 02/06/2015 Scanned Document [address] [phone] Provider, Generic Social History Tobacco [...] on filedocumented in this encounter Care Teams Client Relationship Consultant Relationship Specialty Start Date End Date Matt Rodriguez MD [address] [place] [id number] PCP - General Internal Medicine 10/24/14 11/29/15 Shelly Fonseca MD [address] [place] [address] PCP - General Internal Medicine 11/30/15 02/10/20 Nithin Salguero MD [address] [place] [address] Endocrinology 10/29/18 documented as of this encounter
== END 2024-10-23 11:20 | disposition home or self-care (01) ==
LOC: HO.HMGCLDS 11:19
PROVIDERS: PCP Internal Medicine; Visit Provider Internal Medicine
DX: Z00.01 Encounter for general adult medical examination with abnormal findings (principal); R79.89 Other specified abnormal findings of blood chemistry; I10 Essential (primary) hypertension; I25.10 Atherosclerotic heart disease of native coronary artery without angina pectoris; I73.9 Peripheral vascular disease, unspecified; E78.9 Disorder of lipoprotein metabolism, unspecified; E13.9 Other specified diabetes mellitus without complications; G63 Polyneuropathy in diseases classified elsewhere; G20.B2 Parkinson's disease with dyskinesia, with fluctuations; L40.9 Psoriasis, unspecified; Z79.82 Long term (current) use of aspirin; Z79.4 Long term (current) 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; Z79.899 Other long term (current) drug therapy
CPT/HCPCS: 36415; 80053; 81256; 82043; 82570; 83036; 83721; 85025; 99397

== ENCOUNTER 2024-10-23 11:19 | Outpatient (AMB) | payer MEDICARE, SELFPAY ==
[2024-10-23 11:24] VITALS: BP 128/74; PULSE 83; O2SAT 98; BMI 28.2
--- NOTE | 2024-10-23 11:24 | MHC.PC.OV ---
Vital Signs 10/23/24 11:24 Height 6 ft Weight 208 lb BMI 28.2 BP 128/74 Blood Pressure Location Lt brachial Position Sitting Pulse 83 Pulse Source Pulse Oximeter Pulse Oximetry (%) 98 Intake Visit Reasons: annual visit Allergies No Known Allergies (No Known Allergies*) Allergy (Verified 10/23/24 11:24) Medication List - Last Reconciled 10/23/24 by Padma Tanner MD aspirin (Adult Low Dose Aspirin) 81 mg PO DAILY blood sugar diagnostic check sugar three times a day cholecalciferol (vitamin D3) 25 mcg PO DAILY clopidogrel 75 mg PO DAILY cyanocobalamin (vitamin B-12) (Vitamin B-12) 1,000 mcg PO DAILY Dexcom G7 Type Bar And Segment Assembler (blood-glucose,payroll officer,cont) check blood sugar three times daily NS Dexcom G7 Sensor (blood-glucose sensor) check blood sugar three times daily NS ezetimibe 10 mg PO DAILY insulin glargine U-300 conc (Toujeo Max U-300 SoloStar) 90 units (0.3 mL) subcut DAILY 90 days lisinopril 2.5 mg PO DAILY 90 days nitroglycerin 0.4 mg sublingual Q5M PRN omeprazole 20 mg PO DAILY 90 days pen needle, diabetic (Pen Needle) use one daily risankizumab-rzaa (Skyrizi) 150 mg subcut Q12W rosuvastatin 40 mg PO DAILY 90 days Tobacco use date assessed: 05/30/24 Fall risk assessment: No Falls in past year Last assessed Fall Risk: 10/23/24 Dental Screening Dental Screen Date: 05/30/24 HPI annual visit HPI Details Physical exam appointment The patient is a 69-year-old male presenting with elevated iron levels and ongoing management of chronic conditions. Elevated iron levels: - Iron level noted to be 435 during previous testing. - Patient was taking an iron supplement but has since discontinued it. - Concerns about potential hereditary hemochromatosis due to unexplained high iron levels. Diabetes mellitus: - Managed with 90 units of insulin, current sugar level noted to be 6.7. Hyperlipidemia: - Patient taking Zetia and rosuvastatin for cholesterol management. Psoriasis - Recently started Scarizia injection from dermatology Varicose veins with left leg blockage: - Patient is established with vascular specialist - Currently being monitored with suggestions for further ultrasound to assess blockage. History of hyperplastic polyp: - Patient is scheduled for colonoscopy surveillance in 2029. - Last colonoscopy conducted at age 59. Medical History: - Diabetes mellitus insulin-dependent - Hyperlipidemia - varicose veins lower extremity - Elevated iron levels - coronary artery disease - GERD Social History: - Plays golf regularly. - Trips to [place] noted, returns home for a grandson?s birthday. Family History: - Inquiry about genetic condition (hemochromatosis) but no specific family history Health Maintenance - Recommended to check and update vaccinations from pharmacy, including tetanus and pneumonia. - Flu vaccination noted to be due get it from pharmacy - Patient advised to verify vaccination records at the pharmacy. [place] of Care: Vascular specialist, call center specialist, computer hardware developer Medications - Insulin 90 units for diabetes - Aspirin - Clopidogrel - Vitamin D - Vitamin B12 - Zetia for hyperlipidemia - Rosuvastatin for hyperlipidemia - Lisinopril 2.5 mg for hypertension - Omeprazole - Scarizia injection for thoracic condition Patient Instructions - Complete genetic testing to rule out hemochromatosis. - Ensure to check vaccination status, including tetanus and pneumonia vaccines. - Collect all immunization records from the pharmacy and bring them in the next visit. - Obtain flu shot for the current year. And get updated tetanus vaccine and Prevnar 20 - Continue current medications as prescribed. Follow-up in February Review of Systems - General: No fever no chills - Neurological: No headaches no dizziness - Ear nose throat: No sore throat no hearing difficulty no ear pain - Cardiovascular: No syncope, no chest pain, no palpitations - Gastrointestinal: No nausea vomiting or diarrhea - Endocrine: No polyuria polydipsia no heat intolerance - Genitourinary: No dysuria - Skin: No new complaints Physical Exam General: Cooperative, healthy appearing, comfortable, no acute distress Orientation: Patient oriented x3 Head: Normal to inspection Ears: Within normal limit visually Nose: Normal external nose present Face and sinus: Normal facial exam Eyes: Appearance normal, extraocular movement intact pupils reactive Neck: Normal visual inspection and supple Respiratory: Normal respiratory effort and able to speak in complete sentences. Clear to auscultation, no stridor Cardiovascular: S1 and S2 RRR GI: Normal to inspection. 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 Brother No problems noted. Son No problems noted. Daughter No problems noted. Social History Household Members: Spouse Household Members Other:: retired, lives in [place] for the winter Housing: House Are you a primary medical care manager to a significant other at home: No Do you presently have visiting nurse or other home services: No Patient Tobacco Use Status: Former Tobacco user Years Smoked: 20 years e-Cigarette/Vaping Use: Never Used service: No Current occupational status: retired Cognitive needs: No Hearing needs: No Vision needs: Yes Questionnaire Thrive Questionnaire Date Thrive assessed: 09/03/24 I am a: Patient What is your living situation today?: I have a steady place to live Within the past 12 months, did the food you bought not last and you didn't have the money to get more?: Never true Within the past 12 months, did you worry whether your food would run out before you got money to buy more?: Never true Do you have trouble paying for medicines?: No Do you have trouble getting transportation to medical appointments?: No Do you have trouble paying your heating and electricity bill?: No Do you have trouble taking care of your child, family member or friend?: No Do you have trouble with day-to-day activities such as bathing, preparing meals, shopping, managing finances, etc.?: No Are you currently unemployed and looking for a job?: No Are you interested in more education?: No Please select the resources that you would like help with: None Currently or been in a relationship where the following occur: No concerns reported THRIVE Score: 0 BRITTANY-7 AMB Questionnaire BRITTANY-7 Date BRITTANY - 7 assessed: 09/10/24 Source: Developed by Drs. Anthony Yang, Mirna Griggs, Damian Nava and colleagues, with an educational angelo from [employer]. Physical exam (Primary Care) Vital Signs: Last Vital Signs Pulse 83 10/23/24 11:24 BP 128/74 10/23/24 11:24 Pulse Ox 98 10/23/24 11:24 BMI result Body Mass Index 28.2 Tobacco/Smoking Status: Tobacco use Status Tobacco use date assessed 05/30/24 10/23/24 11:25 Patient Tobacco Use Status Former Tobacco user 10/23/24 11:25 e-Cigarette/Vaping Use Never Used 10/23/24 11:25 Thrive Assessment: Date of Thrive Assessment Date Thrive assessed 09/03/24 10/23/24 11:25 Currently or been in a relationship where the following occur: No concerns reported Results AMB Hemoglobin A1c AMB Hemoglobin A1c 6.7 % Last Edit by Oswald Forrester CMA on 10/23/24 11:41 Results Reviewed Results Reviewed: Laboratory Last Values Hgb A1c (Clinic) 6.7 % (4.0-6.0) H 10/23/24 11:40 Coding Level of Care Code Est Pt Level 4 (21843) Est Pt Prev Care >65y(72375) Diagnoses Primary hypertension I10 Hypertension type: primary hypertension Diabetes 1.5, managed as type 1 E13.9 Polyneuropathy associated with underlying disease G63 Peripheral neuropathy type: polyneuropathy associated with underlying disease [facility] (current) 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 Z79.4 Coronary artery disease involving [place] coronary artery of [place] heart without angina pectoris I25.10 Associated angina: without angina Coronary Disease-Associated Artery/Lesion type: [place] artery [place] vs. transplanted heart: [place] heart PAD (peripheral artery disease) I73.9 Parkinson's disease with dyskinesia and fluctuating manifestations G20.B2 Dyskinesia presence: with dyskinesia Fluctuating manifestations: with fluctuating manifestations Lipid disorder E78.9 Encounter for general adult medical examination with abnormal findings Z00. Psoriasis L40.9 Elevated ferritin R79.89 Assessment & Plan Assessment & Plan (1) HTN (hypertension): Code(s): I10 - Essential (primary) hypertension Category: Medical Qualifiers: Hypertension type: primary hypertension Qualified Code(s): I10 - Essential (primary) hypertension (2) Diabetes 1.5, managed as type 1: Code(s): E13.9 - Other specified diabetes mellitus without complications Category: Medical (3) Peripheral neuropathy: Code(s): G62.9 - Polyneuropathy, unspecified Category: Medical Qualifiers: Peripheral neuropathy type: polyneuropathy associated with underlying disease Qualified Code(s): G63 - Polyneuropathy in diseases classified elsewhere (4) [facility] (current) 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: Code(s): Z79.4 - [facility] (current) 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 Category: Medical (5) CAD (coronary artery disease): Code(s): I25.10 - Atherosclerotic heart disease of [place] coronary artery without angina pectoris Category: Medical Qualifiers: Associated angina: without angina Coronary Disease-Associated Artery/Lesion type: [place] artery [place] vs. transplanted heart: [place] heart Qualified Code(s): I25.10 - Atherosclerotic heart disease of [place] coronary artery without angina pectoris (6) PAD (peripheral artery disease): Comment: 09/11/2024 - left common iliac angioplasty and stent Code(s): I73.9 - Peripheral vascular disease, unspecified Category: Medical (7) Parkinsons disease: Code(s): G20 - Parkinson's disease Category: Medical Qualifiers: Dyskinesia presence: with dyskinesia Fluctuating manifestations: with fluctuating manifestations Qualified Code(s): G20.B2 - Parkinson's disease with dyskinesia, with fluctuations (8) Lipid disorder: Code(s): E78.9 - Disorder of lipoprotein metabolism, unspecified Category: Medical (9) Encounter for general adult medical examination with abnormal findings: Code(s): Z00.01 - Encounter for general adult medical examination with abnormal findings Category: Medical (10) Psoriasis: Code(s): L40.9 - Psoriasis, unspecified Category: Medical (11) Elevated ferritin: Code(s): R79.89 - Other specified abnormal findings of blood chemistry Category: Medical Plan Physical exam appointment The patient is a 69-year-old male presenting with elevated iron levels and ongoing management of chronic conditions. Elevated iron levels: - Iron level noted to be 435 during previous testing. - Patient was taking an iron supplement but has since discontinued it. - Concerns about potential hereditary hemochromatosis due to unexplained high iron levels. Diabetes mellitus: - Managed with 90 units of insulin, current sugar level noted to be 6.7. Hyperlipidemia: - Patient taking Zetia and rosuvastatin for cholesterol management. Psoriasis - Recently started Scarizia injection from dermatology Varicose veins with left leg blockage: - Patient is established with vascular specialist - Currently being monitored with suggestions for further ultrasound to assess blockage. History of hyperplastic polyp: - Patient is scheduled for colonoscopy surveillance in 2030. - Last colonoscopy conducted at age 59. Medical History: - Diabetes mellitus insulin-dependent - Hyperlipidemia - varicose veins lower extremity - Elevated iron levels - coronary artery disease - GERD - Parkinson's disease, peripheral neuropathy treated by Neurology Social History: - Plays golf regularly. - Trips to [place] noted, returns home for a grandson?s birthday. Family History: - Inquiry about genetic condition (hemochromatosis) but no specific family history Health Maintenance - Recommended to check and update vaccinations from pharmacy, including tetanus and pneumonia. - Flu vaccination noted to be due get it from pharmacy - Patient advised to verify vaccination records at the pharmacy. [place] of Care: Vascular specialist, call center specialist, computer hardware developer, Neurology Medications - Insulin 90 units for diabetes - Aspirin - Clopidogrel - Vitamin D - Vitamin B12 - Zetia for hyperlipidemia - Rosuvastatin for hyperlipidemia - Lisinopril 2.5 mg for hypertension - Omeprazole - Scarizia injection for thoracic condition Patient Instructions - Complete genetic testing to rule out hemochromatosis. - Ensure to check vaccination status, including tetanus and pneumonia vaccines. - Collect all immunization records from the pharmacy and bring them in the next visit. - Obtain flu shot for the current year. And get updated tetanus vaccine and Prevnar 20 - Continue current medications as prescribed. Follow-up in February Orders: Orders Complete Blood Count Auto Diff Today E13.9 - Other specified diabetes mellitus without complications, E78.9 - Disorder of lipoprotein metabolism, unspecified, I10 - Essential (primary) hypertension, I25.10 - Atherosclerotic heart disease of [place] coronary artery without angina pectoris, I73.9 - Peripheral vascular disease, unspecified Comprehensive Met. Panel Today E13.9 - Other specified diabetes mellitus without complications, E78.9 - Disorder of lipoprotein metabolism, unspecified, I10 - Essential (primary) hypertension, I25.10 - Atherosclerotic heart disease of [place] coronary artery without angina pectoris, I73.9 - Peripheral vascular disease, unspecified AMB Hemoglobin A1c Today Z13.9 - Encounter for screening, unspecified Microalbumin, Random (w Creat) Today E13.9 - Other specified diabetes mellitus without complications, E78.9 - Disorder of lipoprotein metabolism, unspecified, I10 - Essential (primary) hypertension, I25.10 - Atherosclerotic heart disease of [place] coronary artery without angina pectoris, I73.9 - Peripheral vascular disease, unspecified LDL Cholesterol Direct Today E13.9 - Other specified diabetes mellitus without complications, E78.9 - Disorder of lipoprotein metabolism, unspecified, I10 - Essential (primary) hypertension, I25.10 - Atherosclerotic heart disease of [place] coronary artery without angina pectoris, I73.9 - Peripheral vascular disease, unspecified Medications: Refilled omeprazole 20 mg PO DAILY 90 caps 0RF 90 days
== END 2024-10-23 12:40 | disposition home or self-care (01) ==
LOC: HO.HMCC 11:20
PROVIDERS: PCP Internal Medicine; Visit Provider Internal Medicine
DX: Z00.01 Encounter for general adult medical examination with abnormal findings (principal); E13.9 Other specified diabetes mellitus without complications; Z79.4 Long term (current) 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; G20.B2 Parkinson's disease with dyskinesia, with fluctuations; I10 Essential (primary) hypertension; G63 Polyneuropathy in diseases classified elsewhere; I25.10 Atherosclerotic heart disease of native coronary artery without angina pectoris; I73.9 Peripheral vascular disease, unspecified; E78.9 Disorder of lipoprotein metabolism, unspecified; L40.9 Psoriasis, unspecified; R79.89 Other specified abnormal findings of blood chemistry